=== PATIENT | male | born 1930 | race Caucasian/White ===

== ENCOUNTER → 2016-12-05 | Outpatient (CLI) | payer MEDICARE ==
[~2016-12-05] MED LIST: APIX2.5T PO; ASPI81CH CHEW; ASPI81TA82 PO; BISO5TAB5 PO; COZA25TA PO; DIAZ5 PO; FINA5TAB77 PO; FURO1TAB60 PO; PROS5TAB PO; SIMV20TA PO; TERA1 PO; TERA2CAP3 PO; VITA100T2 PO; ZOCO20TA PO
[2016-12-05 13:11] LABS: ALKALINE PHOSPHATASE 87 U/L (45-117); ALT (GPT) 26 U/L (12-78); ANION GAP 11 MEQ/L (5-15); AST (GOT) 22 U/L (15-37); BICARBONATE 27.3 MEQ/L (21.0-32.0); BLOOD UREA NITROGEN 23 MG/DL (7-18); CHLORIDE 107 MEQ/L (98-107); GLOMERULAR FILTRATION RATE 57 ML/MIN (>89); GLUCOSE,FASTING 127 MG/DL (74-99); HDL CHOLESTEROL 46.2 MG/DL (40.0-60.0); LDL CHOLESTEROL 49 MG/DL (0-99); LDL CHOLESTEROL DIRECT 63 MG/DL (0-99); SODIUM (NA) 145 MEQ/L (136-145); TOTAL BILIRUBIN ADULT 1.1 MG/DL (0.2-1.0)
[2016-12-05 13:32] LABS: HEMATOCRIT 40.1 % (39.0-51.0); MEAN CELL VOLUME 96.2 FL (80.0-100.0); MEAN CORPUSCULAR HGB CONC 32.2 % (32.0-36.0); PLATELET COUNT 182 TH/MM3 (150-450); RED BLOOD COUNT 4.17 MIL/MM3 (4.50-5.90); RED CELL DISTRIBUTION WIDTH 14.9 % (11.6-17.2); REVIEW FLAG FINAL; WHITE BLOOD COUNT 5.4 TH/MM3 (4.0-11.0)
== END ==
LOC: PLAB 09:58
PROVIDERS: ATTEND Family Medicine
DX: I25.10 Atherosclerotic heart disease of native coronary artery without angina pectoris (principal); E78.2 Mixed hyperlipidemia; I10 Essential (primary) hypertension; I48.91 Unspecified atrial fibrillation
CPT/HCPCS: 36415; 80053; 80061; 83721; 85027

== ENCOUNTER 2017-02-06 13:06 | Observation (INO) | payer MEDICARE ==
[~2017-02-06] VITALS: Ht 172.7 cm; Wt 72.0 kg
[~2017-02-06 13:06] MED LIST changes: -APIX2.5T PO; -ASPI81CH CHEW; -COZA25TA PO; -FURO1TAB60 PO; -PROS5TAB PO; -TERA2CAP3 PO; -VITA100T2 PO; -ZOCO20TA PO
[2017-02-06 13:13] VITALS: BP 131/96; PULSE 106; RESP 22; TEMP 98.4; O2SAT 96
[2017-02-06] MEDS ORDERED: PROS5TAB PO (13:19)
[2017-02-06] MEDS ORDERED: ASPI81CH CHEW (13:19)
[2017-02-06] MEDS ORDERED: BISO5TAB5 PO (13:19)
[2017-02-06] MEDS ORDERED: ZOCO20TA PO (13:19)
[2017-02-06] MEDS ORDERED: APIX2.5T PO (13:19)
[2017-02-06] MEDS ORDERED: TERA2CAP3 PO (13:19)
[2017-02-06 13:25] VITALS: BP 133/86; PULSE 94; RESP 18; TEMP 97.8; O2SAT 94
[2017-02-06] MEDS ORDERED: FUROSEMIDE 40 MG/4 ML VIAL IVP ONE (13:45)
[2017-02-06] MEDS ORDERED: SODIUM CHLORIDE 0.9% FLUSH 10 ML FLUSH IVF PRN (13:45)
--- NOTE | 2017-02-06 13:47 | PD ---
HPI Chief Complaint: Edema Time Seen by Provider: 13:25 Travel History International Travel<30 days: No Contact w/Intl Traveler<30days: No Traveled to known affect area: No History of Present Illness HPI An 86 old man who presents to the emergency department when of lower extremity edema weakness and inability to ambulate. He is otherwise pretty healthy. He has a history of A. fib on Xarelto, hyperlipidemia, BPH. He lives by himself. He states over the past several months she's had progressive worsening lower extremity edema. Along with this she's had progressive difficulty ambulating. Starting in September he started using a cane. Over the past several days he edema is Significantly Worse. Laser and Heavier. Today He Couldn't Walk. He Called the Ambulance to Come Get Him. He Has No History of Heart Failure. He Is Not Really Had Trouble with Edema in the past. He Has Some Occasional Shortness of Breath and Dyspnea on Exertion. No Chest Pain. No Abdominal Pain. He Is No Real Urinary Changes but He Often Has Difficulty with His Urination. No Dark Urine or Decreased Urine Production. History Past Medical History Narrative Medical A. fib, on Xarelto Hyperlipidemia BPH Social History Alcohol Use: Yes (X 2 SCOTCH AT NIGHT..BEER FOR LUNCH) Tobacco Use: No Allergies-Medications (Allergen,Severity, Reaction): Coded Allergies: Erythromycin (Verified Allergy, Severe, does not know told as child, ) Penicillin (Verified Allergy, Severe, does not know, 02/06/17) Vasotec (Verified Allergy, Severe, does not know, 02/06/17) Reported Meds & Prescriptions Reported Meds & Active Scripts Active Reported Zocor (Simvastatin) 20 Mg Tab 20 Mg PO DAILY Proscar (Finasteride) 5 Mg Tab 5 Mg PO DAILY Do not crush. Terazosin (Terazosin HCl) 2 Mg Cap 4 Mg PO HS Bisoprolol (Bisoprolol Fumarate) 5 Mg Tab 5 Mg PO DAILY Eliquis (Apixaban) 2.5 Mg Tab 2.5 Mg PO BID Aspirin 81 Mg Chew 81 Mg CHEW DAILY Review of Systems Except as stated in HPI: all other systems reviewed are Neg Physical Exam Narrative GENERAL: Well-appearing 86-year-old man, no acute distress. SKIN: Focused skin assessment warm/dry. NECK: Trachea midline. No JVD. CARDIOVASCULAR: Heart rates a little bit irregular. No murmur appreciated. RESPIRATORY: No accessory muscle use. Clear to auscultation. Breath sounds equal bilaterally. GASTROINTESTINAL: Abdomen soft, non-tender, nondistended. Hepatic and splenic margins not palpable. MUSCULOSKELETAL: No obvious deformities. Significant pitting edema bilateral lower extremities. The left x-rays little bit of warmth and minimal redness. Not really in the right. Pulses are difficult to palpate due to the edema but the feet seem warm and well perfused. NEUROLOGICAL: Awake and alert. No obvious cranial nerve deficits. Motor grossly within normal limits. Normal speech. PSYCHIATRIC: Appropriate mood and affect; insight and judgment normal. Data Data Last Documented VS Vital Signs Date Time Temp Pulse Resp B/P Pulse Ox O2 Delivery O2 Flow Rate FiO2 02/06/17 15:21 92 16 132/85 97 Room Air 02/06/17 13:25 97.8 Orders Complete Blood Count With Diff (02/06/17 13:33) Comprehensive Metabolic Panel (02/06/17 13:33) B-Type Natriuretic Peptide (02/06/17 13:33) Magnesium (Mg) (02/06/17 13:33) Urinalysis - C+S If Indicated (02/06/17 13:33) Iv Access Insert/Monitor (02/06/17 13:33) Ecg Monitoring (02/06/17 13:33) Oximetry (02/06/17 13:33) Oxygen Administration (02/06/17 13:33) Chest, Single Ap (02/06/17 13:33) Sodium Chloride 0.9% Flush (Ns Flush) (02/06/17 13:45) Furosemide Inj (Lasix Inj) (02/06/17 13:45) Electrocardiogram (02/06/17 13:10) Us Kidney/Renal/Bladder (02/06/17 ) Labs Laboratory Tests Test 02/06/17 02/06/17 13:50 14:50 White Blood Count 4.1 TH/MM3 Red Blood Count 3.74 MIL/MM3 Hemoglobin 11.3 GM/DL Hematocrit 34.8 % Mean Corpuscular Volume 93.0 FL Mean Corpuscular Hemoglobin 30.2 PG Mean Corpuscular Hemoglobin 32.5 % Concent Red Cell Distribution Width 16.6 % Platelet Count 197 TH/MM3 Mean Platelet Volume 7.6 FL Neutrophils (%) (Auto) 63.1 % Lymphocytes (%) (Auto) 25.4 % Monocytes (%) (Auto) 9.9 % Eosinophils (%) (Auto) 1.1 % Basophils (%) (Auto) 0.5 % Neutrophils # (Auto) 2.7 TH/MM3 Lymphocytes # (Auto) 1.0 TH/MM3 Monocytes # (Auto) 0.4 TH/MM3 Eosinophils # (Auto) 0.0 TH/MM3 Basophils # (Auto) 0.0 TH/MM3 CBC Comment DIFF FINAL Differential Comment Sodium Level 144 MEQ/L Potassium Level 4.6 MEQ/L Chloride Level 108 MEQ/L Carbon Dioxide Level 27.6 MEQ/L Anion Gap 8 MEQ/L Blood Urea Nitrogen 23 MG/DL Creatinine 1.10 MG/DL Estimat Glomerular Filtration 64 ML/MIN Rate Random Glucose 106 MG/DL Calcium Level 8.8 MG/DL Magnesium Level 2.4 MG/DL Total Bilirubin 1.4 MG/DL Aspartate Amino Transf 18 U/L (AST/SGOT) Alanine Aminotransferase 16 U/L (ALT/SGPT) Alkaline Phosphatase 85 U/L B-Type Natriuretic Peptide 1577 PG/ML Total Protein 6.4 GM/DL Albumin 3.1 GM/DL Urine Collection Type CLEAN CATCH Urine Color YELLOW Urine Turbidity CLEAR Urine pH 5.5 Urine Specific [place] 1.016 Urine Protein NEG mg/dL Urine Glucose (UA) NEG mg/dL Urine Ketones NEG mg/dL Urine Occult Blood NEG Urine Nitrite NEG Urine Bilirubin SMALL Urine Leukocyte Esterase TRACE Urine RBC 0-3 /hpf Urine WBC 0-2 /hpf Urine Squamous Epithelial 0-5 /hpf Cells Microscopic Urinalysis Comment CULT NOT INDICATED Urine Collection Time 14:50 MDM Medical Decision Making Medical Screen Exam Complete: Yes Emergency Medical Condition: Yes Interpretation(s) My review of EKG: A. fib, rate of 101, left axis deviation with right bundle branch block, inferior [place] versus left axis deviation. Lateral T wave inversions and ST depressions hypertrophy or ischemia. LABS: CBC remarkable for mild anemia. CMP elevated BUN and creatinine creatinine, total bili 1.4 BNP 1577 UA unremarkable. Chest x-ray: Elevated right diaphragm versus pleural effusion on the right. Left lung is clear. Differential Diagnosis Edema, lymphedema, renal failure, liver failure, hypoproteinemia, other Narrative Course Medical decision making INITIAL: 86 old man with weakness, or showed edema. Concern for volume overload , renal insufficiency, liver disease. We'll check labs, urine, x-ray, EKG, reassess. Diagnosis Primary Impression: Edema Additional Impression: Weakness Admitting Information Admitting Physician Requests: Observation Joaquin Pérez MD February 06, 2017 13:47
[2017-02-06 13:50] VITALS: RESP 18; O2SAT 95
[2017-02-06 14:18] LABS: AUTOMATED NEUTROPHIL # 2.7 TH/MM3 (1.8-7.7); BASOPHIL % 0.5 % (0.0-2.0); EOSINOPHIL % 1.1 % (0.0-4.0); HEMATOCRIT 34.8 % (39.0-51.0); HEMO FLAGS DIFF FINAL; LYMPH % 25.4 % (9.0-44.0); MEAN CORPUSCULAR HEMOGLOBIN 30.2 PG (27.0-34.0); MEAN CORPUSCULAR HGB CONC 32.5 % (32.0-36.0); MONO % 9.9 % (0.0-8.0); NEUT % 63.1 % (16.0-70.0); PLATELET COUNT 197 TH/MM3 (150-450); RED BLOOD COUNT 3.74 MIL/MM3 (4.50-5.90); RED CELL DISTRIBUTION WIDTH 16.6 % (11.6-17.2); WHITE BLOOD COUNT 4.1 TH/MM3 (4.0-11.0)
[2017-02-06 14:20] LABS: CHLORIDE 108 MEQ/L (98-107); POTASSIUM 4.6 MEQ/L (3.5-5.1); SODIUM (NA) 144 MEQ/L (136-145)
[2017-02-06 14:23] LABS: ANION GAP 8 MEQ/L (5-15); BICARBONATE 27.6 MEQ/L (21.0-32.0); MAGNESIUM 2.4 MG/DL (1.5-2.5)
[2017-02-06 14:24] LABS: BLOOD UREA NITROGEN 23 MG/DL (7-18)
[2017-02-06 14:27] LABS: ALT (GPT) 16 U/L (12-78); AST (GOT) 18 U/L (15-37); GLOMERULAR FILTRATION RATE 64 ML/MIN (>89)
[2017-02-06 14:28] LABS: TOTAL BILIRUBIN ADULT 1.4 MG/DL (0.2-1.0)
[2017-02-06 14:29] LABS: ALKALINE PHOSPHATASE 85 U/L (45-117)
--- NOTE | 2017-02-06 14:35 | RADHPO ---
EXAM DATE/TIME: 02/06/2017 13:45 [facility] COMPARISON: No previous studies available for comparison. INDICATIONS : Shortness of breath. MEDICAL HISTORY : Hypertension. Myocardial infarction. A-fib. SURGICAL HISTORY : None. ENCOUNTER: Initial ACUITY: 1 month PAIN SCORE: 0/10 LOCATION: Bilateral chest FINDINGS: There is elevated right hemidiaphragm with what appears to be a moderate right-sided pleural effusion . The right upper lung is clear. The left lung is clear. The heart si slightly enlarged. CONCLUSION: Elevated right hemidiaphragm versus a pleural effusion on the right. Left lung is clear. Joaquin Alcantar MD on February 06, 2017 at 14:07 Board Certified Radiologist. This report was verified electronically.
[2017-02-06 14:54] LABS: BLOOD, URINE NEG (NEG); GLUCOSE,URINE NEG (NEG); KETONE, URINE NEG (NEG); NITRITE,URINE NEG (NEG); PH, URINE 5.5 (5.0-8.5)
[2017-02-06 15:01] LABS: COMMENT (UR) CULT NOT INDICATED; CULTURE IF INDICATED CULT NOT INDICATED; METHOD OF COLLECTION CLEAN CATCH; RBC, URINE 0-3 /hpf (0-3); SQUAMOUS EPITHELIAL CELL URINE 0-5 /hpf (0-5); URINE COLOR YELLOW (YELLW/STRAW); WBC, URINE 0-2 /hpf (0-5)
[2017-02-06 15:21] VITALS: BP 132/85; PULSE 92; RESP 16; O2SAT 97
[2017-02-06] MEDS ORDERED: NALOXONE HCL 0.4 MG/ML AMP IV PRN (15:45)
[2017-02-06] MEDS ORDERED: ONDANSETRON HCL 4 MG/2 ML VIAL IVP PRN (15:45)
[2017-02-06] MEDS ORDERED: SODIUM CHLORIDE 0.9% FLUSH 10 ML FLUSH IV FLUSH PRN (15:45)
--- NOTE | 2017-02-06 18:38 | HHI.HP ---
HPI Service [facility] Primary Care Physician Asif Gutierres MD Admission Diagnosis CHF Diagnoses: Travel History International Travel<30 Days: No Contact w/Intl Traveler <30 Da: No Traveled to Known Affected Are: No History of Present Illness 86 old man with PMH of Afib on xarelto, HLD, BPH, alcohol use with liver cirrhosis and mild ascites, who presents to the emergency department when of lower extremity edema weakness and inability to ambulate. He is otherwise pretty healthy. He has a history of A. fib on Xarelto, hyperlipidemia, BPH. He lives by himself. He states over the past several months she's had progressive worsening lower extremity edema. Along with this she's had progressive difficulty ambulating. Starting in September he started using a cane. Over the past several days he edema is significantly worse. Today he couldn't walk. He called the ambulance to come to get him. He has no history of Heart Failure that he knows of. Says he is not taking any diuretics. Says his left leg is swelling at times for the past 1 year. Says now both legs are swelling and he also has associated sob especially when he is walking . He is also using more pillows at night when he is sleeping. He is not really had trouble with edema in the past. He has some occasional shortness of breath and dyspnea on exertion. No chest pain. No abdominal pain. He doesn't have any urinary changes, but he had often difficulty with his urination for some time. No dark urine or decreased urine production. Review of Systems Except as stated in HPI: all other systems reviewed are Neg Past Family Social History Past Medical History A. fib, on Xarelto Hyperlipidemia BPH Past Surgical History He has a history of myocardial infarction and had a stent placement in 1980s Pantalone's hernia repair Reported Medications Reported Meds & Active Scripts Active Reported Zocor (Simvastatin) 20 Mg Tab 20 Mg PO DAILY Proscar (Finasteride) 5 Mg Tab 5 Mg PO DAILY Do not crush. Terazosin (Terazosin HCl) 2 Mg Cap 4 Mg PO HS Bisoprolol (Bisoprolol Fumarate) 5 Mg Tab 5 Mg PO DAILY Eliquis (Apixaban) 2.5 Mg Tab 2.5 Mg PO BID Aspirin 81 Mg Chew 81 Mg CHEW DAILY Allergies: Coded Allergies: Erythromycin (Verified Allergy, Severe, does not know told as child, ) Penicillin (Verified Allergy, Severe, does not know, 02/06/17) Vasotec (Verified Allergy, Severe, does not know, 02/06/17) Family History Father had ID at the age of 80 Father had ID at old age Social History Alcohol use: Scotch at night x2, beer with lunch. Denies tobacco use or illicit drug use. Physical Exam Vital Signs Vital Signs Date Time Temp Pulse Resp B/P Pulse Ox O2 Delivery O2 Flow Rate FiO2 02/06/17 15:21 92 16 132/85 97 Room Air 02/06/17 13:50 18 95 Room Air 02/06/17 13:25 97.8 94 18 133/86 94 Room Air 02/06/17 13:22 22 93 Room Air 02/06/17 13:13 98.4 106 22 131/96 96 Physical Exam GENERAL: This is a well-nourished, well-developed patient, in no apparent distress. SKIN: No rashes, ecchymoses or lesions. Cool and dry. HEAD: Atraumatic. Normocephalic. No temporal or scalp tenderness. EYES: Pupils equal round and reactive. Extraocular motions intact. No scleral icterus. No injection or drainage. ENT: Nose without bleeding, purulent drainage or septal hematoma. Throat without erythema, tonsillar hypertrophy or exudate. Uvula midline. Airway patent. NECK: Trachea midline. No JVD or lymphadenopathy. Supple, nontender, no meningeal signs. CARDIOVASCULAR: Regular rate and rhythm without murmurs, gallops, or rubs. RESPIRATORY: Clear to auscultation. Breath sounds equal bilaterally. No wheezes , rales, or rhonchi. GASTROINTESTINAL: Abdomen soft, non-tender, nondistended. No hepato-splenomegaly , or palpable masses. No guarding. MUSCULOSKELETAL: Extremities without clubbing, cyanosis. 3+ bilateral LE edema. No joint tenderness, effusion, or edema noted. No calf tenderness. Negative Homans sign bilaterally. NEUROLOGICAL: Awake and alert. Cranial nerves II through XII intact. Motor and sensory grossly within normal limits. Five out of 5 muscle strength in all muscle groups. Normal speech. Laboratory Laboratory Tests Test 02/06/17 02/06/17 13:50 14:50 White Blood Count 4.1 Red Blood Count 3.74 Hemoglobin 11.3 Hematocrit 34.8 Mean Corpuscular Volume 93.0 Mean Corpuscular Hemoglobin 30.2 Mean Corpuscular Hemoglobin 32.5 Concent Red Cell Distribution Width 16.6 Platelet Count 197 Mean Platelet Volume 7.6 Neutrophils (%) (Auto) 63.1 Lymphocytes (%) (Auto) 25.4 Monocytes (%) (Auto) 9.9 Eosinophils (%) (Auto) 1.1 Basophils (%) (Auto) 0.5 Neutrophils # (Auto) 2.7 Lymphocytes # (Auto) 1.0 Monocytes # (Auto) 0.4 Eosinophils # (Auto) 0.0 Basophils # (Auto) 0.0 CBC Comment DIFF FINAL Differential Comment Sodium Level 144 Potassium Level 4.6 Chloride Level 108 Carbon Dioxide Level 27.6 Anion Gap 8 Blood Urea Nitrogen 23 Creatinine 1.10 Estimat Glomerular Filtration 64 Rate Random Glucose 106 Calcium Level 8.8 Magnesium Level 2.4 Total Bilirubin 1.4 Aspartate Amino Transf 18 (AST/SGOT) Alanine Aminotransferase 16 (ALT/SGPT) Alkaline Phosphatase 85 B-Type Natriuretic Peptide 1577 Total Protein 6.4 Albumin 3.1 Urine Collection Type CLEAN CATCH Urine Color YELLOW Urine Turbidity CLEAR Urine pH 5.5 Urine Specific [place] 1.016 Urine Protein NEG Urine Glucose (UA) NEG Urine Ketones NEG Urine Occult Blood NEG Urine Nitrite NEG Urine Bilirubin SMALL Urine Leukocyte Esterase TRACE Urine RBC 0-3 Urine WBC 0-2 Urine Squamous Epithelial 0-5 Cells Microscopic Urinalysis Comment CULT NOT INDICATED Urine Collection Time 14:50 Result Diagram: 02/06/17 1350 02/06/17 1350 Imaging Last Impressions Chest X-Ray 02/06/17 1333 Signed Impressions: Service Date/Time: January 13:45 - CONCLUSION: Elevated right hemidiaphragm versus a pleural effusion on the right. Left lung is clear. Joaquin Alcantar MD Assessment and Plan Assessment and Plan Edema. Generalized Weakness. Likely 2/2 CHF Hypotension ERIK on CKD HLD BPH: continue proscar, terazosin. EtOH use. EKG: A. fib, rate of 101, left axis deviation with right bundle branch block, inferior [place] versus left axis deviation. Lateral T wave inversions and ST depressions hypertrophy or ischemia. CMP elevated BUN and creatinine creatinine, total bili 1.4 BNP 1577 on admission UA unremarkable. Chest x-ray: Elevated right diaphragm versus pleural effusion on the right. Left lung is clear. Received lasix in the ED. Patient has good UOP. Monitor I&Os. Continue lasix 40 mg IV BID. Monitor kidney function while on lasix Continue ASA, eliquis, bisoprolol Will check 2D ECHO Alcohol use, counselled. Start CIWA protocol. DVT ppx SCD/TEDs Discussed Condition With Patient, nurse Latonia Polanco MD February 06, 2017 18:37
[2017-02-06 20:00] VITALS: BP 124/99; PULSE 93; RESP 20; TEMP 96.5; O2SAT 94
[2017-02-06] MEDS: SODIUM CHLORIDE 0.9% FLUSH 10 ML FLUSH IV FLUSH SCH (21:51)
[2017-02-07] VITALS (8 sets, daily range): BP systolic 107–142; BP diastolic 78–88; PULSE 77–119; RESP 17–20; TEMP 96–96.4; O2SAT 90–93
[2017-02-07 07:24] LABS: AUTOMATED NEUTROPHIL # 2.8 TH/MM3 (1.8-7.7); BASOPHIL % 1.1 % (0.0-2.0); EOSINOPHIL # 0.1 TH/MM3 (0-0.4); EOSINOPHIL % 1.8 % (0.0-4.0); HEMATOCRIT 34.2 % (39.0-51.0); HEMO FLAGS DIFF FINAL; LYMPH % 21.1 % (9.0-44.0); LYMPHOCYTE # 0.9 TH/MM3 (1.0-4.8); MEAN CELL VOLUME 93.2 FL (80.0-100.0); MEAN CORPUSCULAR HGB CONC 32.1 % (32.0-36.0); MONO % 11.8 % (0.0-8.0); NEUT % 64.2 % (16.0-70.0); PLATELET COUNT 199 TH/MM3 (150-450); RED BLOOD COUNT 3.67 MIL/MM3 (4.50-5.90); RED CELL DISTRIBUTION WIDTH 16.4 % (11.6-17.2); WHITE BLOOD COUNT 4.3 TH/MM3 (4.0-11.0)
[2017-02-07 07:56] LABS: BICARBONATE 28.9 MEQ/L (21.0-32.0); POTASSIUM 3.7 MEQ/L (3.5-5.1)
--- NOTE | 2017-02-07 08:27 | RADHPO ---
EXAM DATE/TIME: 02/07/2017 07:55 [facility] COMPARISON: No previous studies available for comparison. INDICATIONS : Bilateral leg edema. MEDICAL HISTORY : Hypercholesterolemia. Hypertension. Myocardial infarction. A-fib. Inguinal hernia. BPH. SURGICAL HISTORY : Inguinal hernia repair. TURP. ENCOUNTER: Initial ACUITY: 1 day PAIN SCORE: 2/10 LOCATION: Bilateral leg. TECHNIQUE: Venous ultrasound of the left and right leg was performed from the inguinal ligament to the proximal calf. Real-time, color Doppler and spectral tracing, compression and augmentation techniques were us ed. FINDINGS: RIGHT LEG: There is normal compressibility of the deep venous system from the inguinal region to the proximal ca lf. No echogenic clot is seen in the lumen of the common femoral, femoral, popliteal, and posterior tibial veins. There is a normal response of the venous system to proximal and distal augmentation an d respiration. LEFT LEG: There is normal compressibility of the deep venous system from the inguinal region to the proximal ca lf. No echogenic clot is seen in the lumen of the common femoral, femoral, popliteal, and posterior tibial veins. There is a normal response of the venous system to proximal and distal augmentation an d respiration. CONCLUSION: Negative for deep venous thrombosis. Sameer Bernardo MD FACR on February 07, 2017 at 8:25 Board Certified Radiologist. This report was verified electronically.
[2017-02-07] MEDS: ASPIRIN 81 MG CHEW TAB CHEW SCH (09:41)
[2017-02-07] MEDS: FINASTERIDE 5 MG TAB PO SCH (09:41)
[2017-02-07] MEDS: APIXABAN 2.5 MG TABLET PO SCH ×2 (09:41→20:55)
[2017-02-07] MEDS: SODIUM CHLORIDE 0.9% FLUSH 10 ML FLUSH IV FLUSH SCH ×2 (09:41→20:56)
[2017-02-07] MEDS: FUROSEMIDE 40 MG/4 ML VIAL IV PUSH SCH ×2 (09:41→17:46)
[2017-02-07] MEDS: PRAVASTATIN SOD 40 MG TAB PO SCH (09:41)
--- NOTE | 2017-02-07 09:44 | HHI.PR ---
Subjective Remarks Says swelling of his legs is improving. No n/v/d/c. Patient says he was able to ambulate today to the bath. He is less sob. Able to eat. Denies cough. No fever or chills. Objective Vitals Vital Signs Date Time Temp Pulse Resp B/P Pulse Ox O2 Delivery O2 Flow Rate FiO2 02/07/17 00:00 96.3 82 18 142/88 93 02/06/17 20:00 96.5 93 20 124/99 94 02/06/17 15:21 92 16 132/85 97 Room Air 02/06/17 13:50 18 95 Room Air 02/06/17 13:25 97.8 94 18 133/86 94 Room Air 02/06/17 13:22 22 93 Room Air 02/06/17 13:13 98.4 106 22 131/96 96 I/O 02/06/17 02/06/17 02/06/17 02/07/17 02/07/17 02/07/17 07:00 15:00 23:00 07:00 15:00 23:00 Intake Total 240 ml 240 ml Balance 240 ml 240 ml Intake Oral 240 ml 240 ml # Voids 1 3 # Bowel Movements 1 1 Result Diagram: 02/07/17 0639 02/07/17 0639 Imaging Last Impressions Lower Extremity Ultrasound 02/07/17 0000 Signed Impressions: Service Date/Time: Tuesday, February 07, 2017 07:55 - CONCLUSION: Negative for deep venous thrombosis. Sameer Bernardo MD FACR Chest X-Ray 02/06/17 1333 Signed Impressions: Service Date/Time: January 13:45 - CONCLUSION: Elevated right hemidiaphragm versus a pleural effusion on the right. Left lung is clear. Joaquin Alcantar MD Objective Remarks GENERAL: This is a well-nourished, well-developed patient, in no apparent distress. SKIN: No rashes, ecchymoses or lesions. Cool and dry. HEAD: Atraumatic. Normocephalic. No temporal or scalp tenderness. EYES: Pupils equal round and reactive. Extraocular motions intact. No scleral icterus. No injection or drainage. ENT: Nose without bleeding, purulent drainage or septal hematoma. Throat without erythema, tonsillar hypertrophy or exudate. Uvula midline. Airway patent. NECK: Trachea midline. No JVD or lymphadenopathy. Supple, nontender, no meningeal signs. CARDIOVASCULAR: Regular rate and rhythm without murmurs, gallops, or rubs. RESPIRATORY: Clear to auscultation. Breath sounds equal bilaterally. No wheezes , rales, or rhonchi. GASTROINTESTINAL: Abdomen soft, non-tender, nondistended. No hepato-splenomegaly , or palpable masses. No guarding. MUSCULOSKELETAL: Extremities without clubbing, cyanosis. 3+ bilateral LE edema. No joint tenderness, effusion, or edema noted. No calf tenderness. Negative Homans sign bilaterally. NEUROLOGICAL: Awake and alert. Cranial nerves II through XII intact. Motor and sensory grossly within normal limits. Five out of 5 muscle strength in all muscle groups. Normal speech. A/P Assessment and Plan Edema. Generalized Weakness. Likely 2/2 CHF Hypotension ERIK on CKD HLD BPH: continue proscar, terazosin. EtOH use. Monitor for withdrawal symptoms. EKG: A. fib, rate of 101, left axis deviation with right bundle branch block, inferior [place] versus left axis deviation. Lateral T wave inversions and ST depressions hypertrophy or ischemia. CMP elevated BUN and creatinine creatinine, total bili 1.4 BNP 1577 on admission. UA unremarkable. Chest x-ray: Elevated right diaphragm versus pleural effusion on the right. Left lung is clear. Received lasix in the ED. Patient has good UOP. Monitor I&Os. Continue lasix 40 mg IV BID. Monitor kidney function while on lasix. Fluid restriction Continue ASA, eliquis, bisoprolol 2D ECHO pending Alcohol use, counselled. Monitor for withdrawal symptoms. Start CIWA protocol. DVT ppx SCD/TEDs Discussed Condition With Patient, nurse DC plan: Pending improvement. Awaiting ECHO Latonia Polanco MD February 07, 2017 09:44
[2017-02-07] MEDS ORDERED: LORazepam 1 MG TAB PO PRN (09:45)
[2017-02-07] MEDS ORDERED: LORazepam 2 MG TAB PO PRN (09:45)
[2017-02-07] MEDS ORDERED: LORazepam 2 MG/ML VIAL IV PUSH PRN ×4 (09:45)
[2017-02-07] MEDS ORDERED: SODIUM CHLORIDE 0.9% FLUSH 10 ML FLUSH IV FLUSH PRN (09:45)
[2017-02-07] MEDS ORDERED: FLUMAZENIL 0.5 MG/5 ML VIAL IV PUSH PRN (09:45)
[2017-02-07] MEDS: BISOPROLOL FUMARATE 5 MG TAB PO SCH (11:08)
--- NOTE | 2017-02-07 15:09 | ECHLIM ---
Study Study Date:02/07/2017 STUDY CONCLUSIONS SUMMARY - Left ventricle: The cavity size was dilated. Wall thickness was normal. Systolic function was severely reduced. The estimated ejection fraction was in the range of 20% to 25%. Diffuse hypokinesis. - Aortic valve: Valve area: 2.11cm^2(VTI). Valve area: 2.33cm^2 (Vmax). - Mitral valve: Moderate regurgitation. - Left atrium: The atrium was dilated. - Tricuspid valve: Severe regurgitation. - Pulmonary arteries: PA peak pressure: 62mm Hg (S). - Pericardium, extracardiac: There was a left pleural effusion. If LV function is below 40, please consider prescribing an ACEI or ARB or document rationale for non-use. PROCEDURE DATA STUDY STATUS: Elective. Procedure: Transthoracic echocardiography. Image quality was good. Scanning was performed from the parasternal, apical, and subcostal acoustic windows. Study completion: The patient tolerated the procedure well. Transthoracic echocardiography. M-mode, complete 2D, complete spectral Doppler, and color Doppler. Height: Height: 71in. Weight: Weight: 179.6lb. Body mass index: BMI: 25.1kg/m^2. Body surface area: BSA: 2.02m^2. Patient status: Inpatient. CARDIAC ANATOMY LEFT VENTRICLE: The cavity size was dilated. Wall thickness was normal. Systolic function was severely reduced. The estimated ejection fraction was in the range of 20% to 25%. Diffuse hypokinesis. AORTIC VALVE: Trileaflet; normal thickness leaflets. Doppler: Transvalvular velocity was within the normal range. There was no stenosis. No regurgitation. Valve area: 2.11cm^2(VTI). Indexed valve area: 1.04cm^2/m^2 (VTI). Valve area: 2.33cm^2 (Vmax). Indexed valve area: 1.15cm^2/m^2 (Vmax). Mean gradient: 4mm Hg (S). AORTA: Aortic root: The aortic root was normal in size. MITRAL VALVE: Structurally normal valve. Doppler: Transvalvular velocity was within the normal range. There was no evidence for stenosis. Moderate regurgitation. Peak gradient: 3mm Hg (D). LEFT ATRIUM: The atrium was dilated. RIGHT VENTRICLE: The cavity size was normal. Wall thickness was normal. PULMONIC VALVE: Doppler: Transvalvular velocity was within the normal range. There was no evidence for stenosis. No regurgitation. TRICUSPID VALVE: Structurally normal valve. Doppler: Transvalvular velocity was within the normal range. Severe regurgitation. PULMONARY ARTERY: The main pulmonary artery was normal-sized. Systolic pressure was within the normal range. RIGHT ATRIUM: The atrium was normal in size. PERICARDIUM: There was no pericardial effusion. SYSTEMIC VEINS: Inferior vena cava: The vessel was normal in size. Pleura: There was a left pleural effusion. Patient weight: 179.6lb _Ejection fraction:_ 65-75% _Fractional shortening:_ 32% up to 5Kg 5-11.5Kg 11.6-22.9Kg 23-45Kg 45-57Kg Aortic Root 7-13 <17 13-22 17-27 17-27 LA diam 6-13 <23 24-38 33-47 37-40 RVID 10-17 7-15 7-15 7-18 8-17 LVIDd 12-22 <32 24-38 33-47 37-40 LVPW 2-4 3-6 5-7 6-8 7-8 IVS 2-4 3-6 5-7 6-8 7-8 BASIC MEASUREMENTS ADULT NORMAL Aortic valve Leaflet separation 19 mm 15-26 Aorta Root diameter, ED 38 mm Left atrium Anterior-posterior dimension 57 mm Anterior-posterior dimension index *2.82 cm/m^2 <2.2 BASIC MEASUREMENTS ADULT NORMAL Left ventricle LV internal dimension, ED *60.9 mm 37-56 LV internal dimension, ES 52.8 mm Fractional shortening *13 % 29-45 LV posterior wall, ED 9.9 mm 6-11 Septal/posterior wall ratio, ED 0.96 Relative wall thickness, ED 0.33 <0.45 Volume, ED, Teichholz 186 ml Volume, ES, Teichholz 134 ml Ejection fraction, Teichholz *28 % 64-83 Stroke volume, Teichholz 52 ml Volume index, ED, Teichholz 92 ml/m^2 Volume index, ES, Teichholz 66 ml/m^2 Stroke index, Teichholz 25.7 ml/m^2 Wall mass 244 g Wall mass index 120.8 g/m^2 Mass/height 1.35 g/cm Ventricular septum Septal thickness, ED 9.53 mm Aortic valve Leaflet separation 19 mm 15-26 DOPPLER MEASUREMENTS ADULT NORMAL Main pulmonary artery Pressure, S *62 mm Hg =30 Aortic valve Peak velocity, S 128 cm/s Mean velocity, S 89.7 cm/s VTI, S 22 cm Mean gradient, S 4 mm Hg Valve area, VTI 2.11 cm^2 Valve area index, VTI 1.04 cm^2/m^2 Valve area, Vmax 2.33 cm^2 Valve area index, Vmax 1.15 cm^2/m^2 Regurgitant velocity, ED 392 cm/s Regurgitant deceleration 1970 cm/s^2 Regurgitant pressure half-time 627 ms Regurgitant gradient, ED 61 mm Hg Mitral valve Peak E-wave velocity 79.2 cm/s Deceleration time *67 ms 150-230 Peak gradient, D 3 mm Hg Tricuspid valve Regurgitant peak velocity 368 cm/s Peak RV-RA gradient, S 54 mm Hg Maximal regurgitant velocity 368 cm/s Systemic veins Estimated CVP 10 mm Hg Right ventricle RV pressure, S *64 mm Hg <30 Pulmonic valve Peak velocity, S 63.6 cm/s LEGEND: Mean values are shown as u=mean value. Asterisk (*) franco values outside specified normal range. Prepared and signed by Enrique Florez [id number]
--- NOTE | 2017-02-07 15:52 | RADHPO ---
EXAM DATE/TIME: 02/07/2017 07:45 [place] COMPARISON: No previous studies available for comparison. INDICATIONS : Abnormal labs. MEDICAL HISTORY : Myocardial infarction. Hypercholesterolemia. Hypertension. A-fib. Inguinal hernia. BPH. SURGICAL HISTORY : Inguinal hernia repair. TURP. ENCOUNTER: Initial ACUITY: 1 day PAIN SCORE: 2/10 LOCATION: Bilateral flank MEASUREMENTS: RIGHT KIDNEY: 9.2 x 4.1 x 5.6 cm LEFT KIDNEY: 9.9 x 4.8 x 4.5 cm FINDINGS: There is no mass or hydronephrosis. The bladder is unremarkable. CONCLUSION: Unremarkable renal ultrasound. Sameer Bernardo MD FACR on February 07, 2017 at 15:44 Board Certified Radiologist. This report was verified electronically.
--- NOTE | 2017-02-07 20:42 | PD.CONS ---
HPI Service Cardiology Consult Requested By Hosp Reason for Consult HF Primary Care Physician Asif Gutierres MD History of Present Illness 86 y/o M with PMHx significant for Afib on chronic OAC, HLD, BPH, alcohol use with liver cirrhosis, who presented to the emergency department with worsening of lower extremity edema, dyspnea and weakness for the last weeks. He is also using more pillows at night when he is sleeping. Denies chest pain, palpitations , noncompliance with medications, fever, chills, abdominal pain nausea, vomiting diarrhea. ECHO done today reveals severe LV systolic dysfunction of ? new onset thus cardiology has been consulted for further management and evaluation. He follows with Dr. Hou/Cardiology as outpatient. Review of Systems Consitutional: COMPLAINS OF: Fatigue, Weight gain, DENIES: Fever, Chills, Weight loss Eyes: DENIES: Amaurosis Fugax, Change in vision HEENT: DENIES: Lightheadedness, Change in hearing Respiratory: COMPLAINS OF: Shortness of breath, DENIES: See HPI, Cough, Snoring, Wheezing, Sputum production Cardiovascular: DENIES: See HPI, Chest pain, Palpitations, Syncope, Tachycardia Gastrointestinal: DENIES: Nausea, Vomiting, Change in bowel habits, Reflux, Bloody stools, Melena Genitourinary: DENIES: Urinary incontinence, Difficulty voiding Integumentary: DENIES: Rash Neurologic: DENIES: Tingling or numbness, Memory problems, Poor Balance, Stroke symptoms Musculoskeletal: DENIES: Joint pain, Muscle pain, Limited range of motion, Back pain Psychiatric: DENIES: Anxiety, Depression, Sleep disturbances Hematologic: DENIES: Bruising tendencies, Bleeding tendencies Endocrine: COMPLAINS OF: Weight gain Past Family Social History Allergies: Coded Allergies: Erythromycin (Verified Allergy, Severe, does not know told as child, ) Penicillin (Verified Allergy, Severe, does not know, 02/06/17) Vasotec (Verified Allergy, Severe, does not know, 02/06/17) Past Medical History A. fib Hyperlipidemia BPH CAD s/p NV in the 80's Past Surgical History hernia repair Reported Medications Reported Meds & Active Scripts Active Reported Zocor (Simvastatin) 20 Mg Tab 20 Mg PO DAILY Proscar (Finasteride) 5 Mg Tab 5 Mg PO DAILY Do not crush. Terazosin (Terazosin HCl) 2 Mg Cap 4 Mg PO HS Bisoprolol (Bisoprolol Fumarate) 5 Mg Tab 5 Mg PO DAILY Eliquis (Apixaban) 2.5 Mg Tab 2.5 Mg PO BID Aspirin 81 Mg Chew 81 Mg CHEW DAILY Active Ordered Medications Current Medications Medications (Trade) Dose Ordered Sig/Elizabeth Route Start Time Stop Time Status Last Admin (Zofran Inj) 4 mg Q6H PRN IVP 02/06/17 15:45 (Narcan Inj) 0.4 mg UNSCH PRN IV 02/06/17 15:45 (Lasix Inj) 40 mg BID@18 IV PUSH 02/07/17 09:00 02/07/17 17:46 (Eliquis) 2.5 mg BID PO 02/07/17 09:00 02/07/17 09:41 (Aspirin Chew) 81 mg DAILY CHEW 02/07/17 09:00 02/07/17 09:41 (Proscar) 5 mg DAILY PO 02/07/17 09:00 02/07/17 09:41 (Hytrin) 4 mg HS PO 02/07/17 21:00 (Zebeta) 5 mg DAILY PO 02/07/17 09:00 02/07/17 11:08 (Pravachol) 40 mg DAILY PO 02/07/17 09:00 02/07/17 09:41 (NS Flush) 2 ml UNSCH PRN IV FLUSH 02/07/17 09:45 (NS Flush) 2 ml BID IV FLUSH 02/07/17 21:00 (Folate) 1 mg DAILY PO 02/08/17 10:00 02/13/17 08:59 (Vitamin B1) 100 mg DAILY PO 02/08/17 09:00 (Theragran M Tab) 1 tab DAILY PO 02/08/17 09:00 02/13/17 08:59 (Romazicon Inj) 0.2 mg Q1M PRN IV PUSH 02/07/17 09:45 (Ativan) 1 mg Q4H PRN PO 02/07/17 09:45 (Ativan Inj) 1 mg Q4H PRN IV PUSH 02/07/17 09:45 (Ativan) 2 mg Q2H PRN PO 02/07/17 09:45 (Ativan Inj) 2 mg Q2H PRN IV PUSH 02/07/17 09:45 (Ativan Inj) 2 mg Q1H PRN IV PUSH 02/07/17 09:45 (Ativan Inj) 2 mg Q15M PRN IV PUSH 02/07/17 09:45 Family History Noncontributory Social History No alcohol No smoking No illicit drug use Physical Exam Vital Signs Vital Signs Date Time Temp Pulse Resp B/P Pulse Ox O2 Delivery O2 Flow Rate FiO2 02/07/17 17:00 119 02/07/17 16:26 96.3 85 17 127/80 90 02/07/17 13:31 96.4 85 18 128/81 91 02/07/17 09:54 96.2 82 17 126/81 90 02/07/17 00:00 96.3 82 18 142/88 93 Physical Exam GENERAL: Well-nourished, well-developed patient. SKIN: Warm and dry. HEAD: Normocephalic. EYES: No scleral icterus. No injection or drainage. NECK: Supple, trachea midline. No JVD or lymphadenopathy. CARDIOVASCULAR: Regular rate and rhythm without murmurs, gallops, or rubs. RESPIRATORY: Breath sounds equal bilaterally. No accessory muscle use. GASTROINTESTINAL: Abdomen soft, non-tender, nondistended. EXTREMITIES: No cyanosis, or edema. NEUROLOGICAL: Awake, alert, and oriented x 3. Non-focal. Laboratory Laboratory Tests Test 02/07/17 06:39 White Blood Count 4.3 Red Blood Count 3.67 Hemoglobin 11.0 Hematocrit 34.2 Mean Corpuscular Volume 93.2 Mean Corpuscular Hemoglobin 30.0 Mean Corpuscular Hemoglobin 32.1 Concent Red Cell Distribution Width 16.4 Platelet Count 199 Mean Platelet Volume 7.6 Neutrophils (%) (Auto) 64.2 Lymphocytes (%) (Auto) 21.1 Monocytes (%) (Auto) 11.8 Eosinophils (%) (Auto) 1.8 Basophils (%) (Auto) 1.1 Neutrophils # (Auto) 2.8 Lymphocytes # (Auto) 0.9 Monocytes # (Auto) 0.5 Eosinophils # (Auto) 0.1 Basophils # (Auto) 0.0 CBC Comment DIFF FINAL Differential Comment Sodium Level 145 Potassium Level 3.7 Chloride Level 108 Carbon Dioxide Level 28.9 Anion Gap 8 Blood Urea Nitrogen 21 Creatinine 1.10 Estimat Glomerular Filtration 64 Rate Random Glucose 93 Calcium Level 8.5 B-Type Natriuretic Peptide 1670 Result Diagram: 02/07/17 0639 02/07/17 0639 Imaging Last Impressions Renal Ultrasound 02/07/17 0000 Signed Impressions: Service Date/Time: Tuesday, February 07, 2017 07:45 - CONCLUSION: Unremarkable renal ultrasound. Sameer Bernardo MD FACR Lower Extremity Ultrasound 02/07/17 0000 Signed Impressions: Service Date/Time: Tuesday, February 07, 2017 07:55 - CONCLUSION: Negative for deep venous thrombosis. Sameer Bernardo MD FACR Chest X-Ray 02/06/17 1333 Signed Impressions: Service Date/Time: January 13:45 - CONCLUSION: Elevated right hemidiaphragm versus a pleural effusion on the right. Left lung is clear. Joaquin Alcantar MD Assessment and Plan Problem List: (1) Heart failure Assessment and Plan: 86 y/o M with hx of CAD s/p NV ~30 years ago admitted with acute combined heart failure exacerbation. Echo reveals severe LV systolic dysfunction ? new. EKG Afib. Afebrile and hemodynamically stable. Appears to be new onset combided HF thus ischemic workup warranted. If cardiac markers unremarkable get MPI when more stable from the HF standpoint. Recommendations: 1. Strict I&O 2. Low salt diet 3. IV diuresis 4. Daily weight 5. Aspirin 81mg PO daily 6. Coreg 3.125mg PO BID 7. Cont ACEi 8. Cycle cardiac markers Q6H x3 9. Cont rate control for Afib and OAC 10. Get cardiology records from Dr. Hou (ECHO, stress test, ect) Follow up with cardiology as outpatient Thank you for the opportunity to participate in the care of this patient (2) Edema Problem Qualifiers (1) Heart failure: Enrique Florez MD February 07, 2017 20:42 Enrique Florez MD February 07, 2017 20:42 Problem Qualifiers (1) Heart failure: Enrique Florez MD February 07, 2017 20:42
[2017-02-07] MEDS ORDERED: TERAZOSIN HCL 1 MG CAP PO SCH (21:00)
--- NOTE | 2017-02-07 21:56 | EKG ---
Date Performed: 02/06/2017 Time Performed: 13:10:40 PTAGE: 86 years EKG: Atrial fibrillation with rapid ventricular response Left axis deviation RBBB with left ante rior fascicular block QRS changes V3/V4 may be due to LVH but cannot rule out anterior infarct Left v entricular hypertrophy Lateral ST-T changes may be due to hypertrophy and/or ischemia Abnormal ECG PREVIOUS TRACING : 02/27/2005 16.47 Compared to the previous tracing AFIB with RVR is new DOCTOR: Garcia Ron Interpretating Date/Time 02/07/2017 21:55:39
[2017-02-08 00:24] VITALS: BP 110/70; PULSE 98; RESP 18; TEMP 96.8; O2SAT 94
[2017-02-08 04:00] VITALS: BP 130/84; PULSE 105; RESP 16; TEMP 97; O2SAT 94
[2017-02-08 07:58] VITALS: PULSE 92
[2017-02-08 08:00] VITALS: BP 131/89; PULSE 93; RESP 18; TEMP 95.3; O2SAT 96
--- NOTE | 2017-02-08 08:24 | HHI.PR ---
Subjective Remarks Ambulating in the room. Says sob is better and also LE edema has improved. No n/ v/d/c. Denies chest pain or sob. Objective Vitals Vital Signs Date Time Temp Pulse Resp B/P Pulse Ox O2 Delivery O2 Flow Rate FiO2 02/08/17 07:58 92 02/08/17 04:00 97.0 105 16 130/84 94 02/08/17 00:24 96.8 98 18 110/70 94 02/07/17 23:00 85 02/07/17 21:15 96.0 106 20 107/78 93 02/07/17 20:00 77 02/07/17 17:00 119 02/07/17 16:26 96.3 85 17 127/80 90 02/07/17 13:31 96.4 85 18 128/81 91 02/07/17 09:54 96.2 82 17 126/81 90 I/O 02/07/17 02/07/17 02/07/17 02/08/17 02/08/17 02/08/17 07:00 15:00 23:00 07:00 15:00 23:00 Intake Total 240 ml 820 ml Output Total 700 ml Balance 240 ml 820 ml -700 ml Intake Oral 240 ml 820 ml Output Urine Total 700 ml # Voids 3 4 # Bowel Movements 1 1 4 Result Diagram: 02/07/17 0639 02/07/17 0639 Imaging Last Impressions Renal Ultrasound 02/07/17 0000 Signed Impressions: Service Date/Time: Tuesday, February 07, 2017 07:45 - CONCLUSION: Unremarkable renal ultrasound. Sameer Bernardo MD FACR Lower Extremity Ultrasound 02/07/17 0000 Signed Impressions: Service Date/Time: Tuesday, February 07, 2017 07:55 - CONCLUSION: Negative for deep venous thrombosis. Sameer Bernardo MD FACR Chest X-Ray 02/06/17 1333 Signed Impressions: Service Date/Time: January 13:45 - CONCLUSION: Elevated right hemidiaphragm versus a pleural effusion on the right. Left lung is clear. Joaquin Alcantar MD Objective Remarks GENERAL: This is a well-nourished, well-developed patient, in no apparent distress. SKIN: No rashes, ecchymoses or lesions. Cool and dry. HEAD: Atraumatic. Normocephalic. No temporal or scalp tenderness. EYES: Pupils equal round and reactive. Extraocular motions intact. No scleral icterus. No injection or drainage. ENT: Nose without bleeding, purulent drainage or septal hematoma. Throat without erythema, tonsillar hypertrophy or exudate. Uvula midline. Airway patent. NECK: Trachea midline. No JVD or lymphadenopathy. Supple, nontender, no meningeal signs. CARDIOVASCULAR: Regular rate and rhythm without murmurs, gallops, or rubs. RESPIRATORY: Clear to auscultation. Breath sounds equal bilaterally. No wheezes , rales, or rhonchi. GASTROINTESTINAL: Abdomen soft, non-tender, nondistended. No hepato-splenomegaly , or palpable masses. No guarding. MUSCULOSKELETAL: Extremities without clubbing, cyanosis. 3+ bilateral LE edema. No joint tenderness, effusion, or edema noted. No calf tenderness. Negative Homans sign bilaterally. NEUROLOGICAL: Awake and alert. Cranial nerves II through XII intact. Motor and sensory grossly within normal limits. Five out of 5 muscle strength in all muscle groups. Normal speech. A/P Assessment and Plan Edema. Generalized Weakness. Likely 2/2 systolic CHF with severely reduced EF 20 -25% Hypotension ERIK on CKD HLD BPH: continue proscar, terazosin. EtOH use. Monitor for withdrawal symptoms. EKG: A. fib, rate of 101, left axis deviation with right bundle branch block, inferior CO versus left axis deviation. Lateral T wave inversions and ST depressions hypertrophy or ischemia. CMP elevated BUN and creatinine creatinine, total bili 1.4 BNP 1577 on admission. Trending down. UA unremarkable. Chest x-ray: Elevated right diaphragm versus pleural effusion on the right. Left lung is clear. Received lasix in the ED. Patient has good UOP. Monitor I&Os. Continue lasix 40 mg IV BID. Monitor kidney function while on lasix. Fluid restriction Continue ASA, eliquis, bisoprolol 2D ECHO with low EF 20-25%. Cardiology consulted, seen by Dr Buckley. Patient follows as oP with Dr Hou. Obtain records ECHO and stress test from Dr Hou his cardiology. If negative cardiac markers schedule MPI before discharge per Dr Buckley cardiology Trops neg x2 Alcohol use, counselled. Monitor for withdrawal symptoms. Start CIWA protocol. DVT ppx SCD/TEDs Discussed Condition With Patient, nurse DC plan: Pending improvement. ECHO with low EF 20-25%. Patient allergic to ACEI, will start losartan. Trops are negative. Discussed with Dr Zavala cardiology. Patient is stable . He can be Discharge home to follow up as OP with cardiology Latonia Polanco MD February 08, 2017 08:24
[2017-02-08] MEDS ORDERED: FURO1TAB60 PO (08:29)
[2017-02-08] MEDS ORDERED: COZA25TA PO (08:29)
[2017-02-08] MEDS ORDERED: VITA100T2 PO (08:29)
--- NOTE | 2017-02-08 08:30 | HHI.DS ---
Discharge Summary Admission Date February 06, 2017 at 15:40 Discharge Date: February 08, 2017 Admitting Diagnosis CHF (1) BPH (benign prostatic hyperplasia) ICD Code: N40.0 Diagnosis: Principal (2) CHF exacerbation ICD Code: I50.9 Diagnosis: Principal (3) Weakness ICD Code: R53.1 (4) Edema ICD Code: R60.9 Diagnosis: Principal (5) Heart failure ICD Code: I50.9 Diagnosis: Principal Procedures none Brief History - From Admission 86 old man with PMH of Afib on xarelto, HLD, BPH, alcohol use with liver cirrhosis and mild ascites, who presents to the emergency department when of lower extremity edema weakness and inability to ambulate. He is otherwise pretty healthy. He has a history of A. fib on Xarelto, hyperlipidemia, BPH. He lives by himself. He states over the past several months she's had progressive worsening lower extremity edema. Along with this she's had progressive difficulty ambulating. Starting in September he started using a cane. Over the past several days he edema is significantly worse. Today he couldn't walk. He called the ambulance to come to get him. He has no history of Heart Failure that he knows of. Says he is not taking any diuretics. Says his left leg is swelling at times for the past 1 year. Says now both legs are swelling and he also has associated sob especially when he is walking . He is also using more pillows at night when he is sleeping. He is not really had trouble with edema in the past. He has some occasional shortness of breath and dyspnea on exertion. No chest pain. No abdominal pain. He doesn't have any urinary changes, but he had often difficulty with his urination for some time. No dark urine or decreased urine production. CBC/BMP: 02/07/17 0639 02/07/17 0639 Significant Findings Laboratory Tests Test 02/06/17 02/06/17 02/07/17 13:50 14:50 06:39 Red Blood Count 3.74 MIL/MM3 3.67 MIL/MM3 (4.50-5.90) (4.50-5.90) Hemoglobin 11.3 GM/DL 11.0 GM/DL (13.0-17.0) (13.0-17.0) Hematocrit 34.8 % 34.2 % (39.0-51.0) (39.0-51.0) Monocytes (%) (Auto) 9.9 % (0.0-8.0) 11.8 % (0.0-8.0) Chloride Level 108 MEQ/L 108 MEQ/L (98-107) (98-107) Blood Urea Nitrogen 23 MG/DL (7-18) 21 MG/DL (7-18) Estimat Glomerular Filtration 64 ML/MIN (>89) 64 ML/MIN (>89) Rate Total Bilirubin 1.4 MG/DL (0.2-1.0) B-Type Natriuretic Peptide 1577 PG/ML 1670 PG/ML (0-100) (0-100) Albumin 3.1 GM/DL (3.4-5.0) Urine Bilirubin SMALL (NEG) Urine Leukocyte Esterase TRACE (NEG) Lymphocytes # (Auto) 0.9 TH/MM3 (1.0-4.8) Imaging Last Impressions Renal Ultrasound 02/07/17 0000 Signed Impressions: Service Date/Time: Tuesday, February 07, 2017 07:45 - CONCLUSION: Unremarkable renal ultrasound. Sameer Bernardo MD FACR Lower Extremity Ultrasound 02/07/17 0000 Signed Impressions: Service Date/Time: Tuesday, February 07, 2017 07:55 - CONCLUSION: Negative for deep venous thrombosis. Sameer Bernardo MD FACR Chest X-Ray 02/06/17 1333 Signed Impressions: Service Date/Time: January 13:45 - CONCLUSION: Elevated right hemidiaphragm versus a pleural effusion on the right. Left lung is clear. Joaquin Alcantar MD PE at Discharge GENERAL: This is a well-nourished, well-developed patient, in no apparent distress. SKIN: No rashes, ecchymoses or lesions. Cool and dry. HEAD: Atraumatic. Normocephalic. No temporal or scalp tenderness. EYES: Pupils equal round and reactive. Extraocular motions intact. No scleral icterus. No injection or drainage. ENT: Nose without bleeding, purulent drainage or septal hematoma. Throat without erythema, tonsillar hypertrophy or exudate. Uvula midline. Airway patent. NECK: Trachea midline. No JVD or lymphadenopathy. Supple, nontender, no meningeal signs. CARDIOVASCULAR: Regular rate and rhythm without murmurs, gallops, or rubs. RESPIRATORY: Clear to auscultation. Breath sounds equal bilaterally. No wheezes , rales, or rhonchi. GASTROINTESTINAL: Abdomen soft, non-tender, nondistended. No hepato-splenomegaly , or palpable masses. No guarding. MUSCULOSKELETAL: Extremities without clubbing, cyanosis. 2+ bilateral LE edema, improving No joint tenderness, effusion, or edema noted. No calf tenderness. Negative Homans sign bilaterally. NEUROLOGICAL: Awake and alert. Cranial nerves II through XII intact. Motor and sensory grossly within normal limits. Five out of 5 muscle strength in all muscle groups. Normal speech. Hospital Course Edema. Generalized Weakness. Likely 2/2 systolic CHF with severely reduced EF 20 -25% Hypotension ERIK on CKD HLD BPH: continue proscar, terazosin. EtOH use. Monitor for withdrawal symptoms. EKG: A. fib, rate of 101, left axis deviation with right bundle branch block, inferior RI versus left axis deviation. Lateral T wave inversions and ST depressions hypertrophy or ischemia. CMP elevated BUN and creatinine creatinine, total bili 1.4 BNP 1577 on admission. Trending down. UA unremarkable. Chest x-ray: Elevated right diaphragm versus pleural effusion on the right. Left lung is clear. Received lasix in the ED. Patient has good UOP. Monitor I&Os. Continue lasix 40 mg IV BID. Monitor kidney function while on lasix. Fluid restriction Continue ASA, eliquis, bisoprolol 2D ECHO with low EF 20-25%. Cardiology consulted, seen by Dr Buckley. Patient follows as oP with Dr Hou. Obtain records ECHO and stress test from Dr Hou his cardiology. If negative cardiac markers schedule MPI before discharge per Dr Buckley cardiology Trops neg x2 Alcohol use, counselled. Monitor for withdrawal symptoms. Start CIWA protocol. DVT ppx SCD/TEDs Discussed Condition With Patient, nurse DC plan: Improved, cleared by cardiology for DC. ECHO with low EF 20-25%. Patient allergic to ACEI, will start losartan. Trops are negative. Discussed with Dr Zavala cardiology, cleared for DC to follow up with his cardiology Dr Butler as OP. Patient is stable . He can be Discharge home to follow up as OP with cardiology and PCP Pt Condition on Discharge: Stable Discharge Disposition: Disch w/ Home Health Serv Discharge Time: > 30 minutes Discharge Instructions DIET: Follow Instructions for: Heart Healthy Diet Activities you can perform: Regular-No Restrictions Follow up Referrals: Cardiology - 1 Week PCP Follow-up - 3-5 Days New Medications: Furosemide (Lasix) 40 Mg Tab 40 MG PO DAILY edema #30 Ref 0 TAB Losartan (Cozaar) 25 Mg Tab 25 MG PO DAILY chf #30 TAB Thiamine (Vitamin B-1) 100 Mg Tab 100 MG PO DAILY mvt #30 TAB Continued Medications: Apixaban (Eliquis) 2.5 Mg Tab 2.5 MG PO BID Blood Clot Prevention Ref 0 TAB Aspirin (Aspirin) 81 Mg Chew 81 MG CHEW DAILY Ref 0 TAB Bisoprolol (Bisoprolol) 5 Mg Tab 5 MG PO DAILY Blood Pressure Management #30 Ref 0 TAB Finasteride (Proscar) 5 Mg Tab 5 MG PO DAILY Do not crush. Manage Prostate Problems #30 Ref 0 TAB Simvastatin (Zocor) 20 Mg Tab 20 MG PO DAILY Cholesterol Management #30 Ref 0 TAB Terazosin (Terazosin) 2 Mg Cap 4 MG PO HS #30 Ref 0 CAP Latonia Polanco MD February 08, 2017 08:30
--- NOTE | 2017-02-08 08:32 | HHI.FF ---
Face to Face Verification Diagnosis: (1) Heart failure (2) Edema (3) Weakness (4) BPH (benign prostatic hyperplasia) (5) CHF exacerbation Physical Therapy Order: Evaluate and Treat Home Health Nursing Order: Medical education Signs/symptoms of disease process CHF education Medication education-adverse effect Nursing assessment with vital signs I have seen patient Dick Valderrama on 02/08/17. My clinical findings support the need for the requested home health care services because: Ltd mobility - disease progression Patient has SOB I certify that my clinical findings support that this patient is homebound because: Post-op weakness Unsteady gait/balance Latonia Polanco MD February 08, 2017 08:32
[2017-02-08] MEDS ORDERED: MULTIVITAMINS/MINERALS THERAPEUTIC TAB PO SCH (09:00)
[2017-02-08] MEDS ORDERED: LOSARTAN 25 MG TAB PO SCH (09:00)
[2017-02-08] MEDS ORDERED: THIAMINE HCL 100 MG TAB PO SCH (09:00)
[2017-02-08] MEDS ORDERED: RAMIPRIL 2.5 MG CAP PO SCH (09:00)
[2017-02-08] MEDS ORDERED: FOLIC ACID 1 MG TAB PO SCH (10:00)
[2017-02-08 10:08] LABS: BICARBONATE 30.5 MEQ/L (21.0-32.0)
[2017-02-08 10:15] LABS: POTASSIUM 3.2 MEQ/L (3.5-5.1)
[2017-02-08] MEDS: ASPIRIN 81 MG CHEW TAB CHEW SCH (10:19)
[2017-02-08] MEDS: SODIUM CHLORIDE 0.9% FLUSH 10 ML FLUSH IV FLUSH SCH (10:19)
[2017-02-08] MEDS: PRAVASTATIN SOD 40 MG TAB PO SCH (10:20)
[2017-02-08] MEDS: FUROSEMIDE 40 MG/4 ML VIAL IV PUSH SCH (10:20)
[2017-02-08] MEDS: APIXABAN 2.5 MG TABLET PO SCH (10:20)
[2017-02-08] MEDS: FINASTERIDE 5 MG TAB PO SCH (10:20)
[2017-02-08] MEDS: BISOPROLOL FUMARATE 5 MG TAB PO SCH (10:21)
== END 2017-02-08 17:01 | disposition home or self-care (01) ==
LOC: PHED 13:06 → PHEDA 15:40 → PH3A 16:43
PROVIDERS: ADMIT Hospitalist; ATTEND Hospitalist
DX: I50.20 Unspecified systolic (congestive) heart failure (principal); I95.9 Hypotension, unspecified; N17.9 Acute kidney failure, unspecified; N18.9 Chronic kidney disease, unspecified; E78.5 Hyperlipidemia, unspecified; K70.31 Alcoholic cirrhosis of liver with ascites; I25.10 Atherosclerotic heart disease of native coronary artery without angina pectoris; I25.2 Old myocardial infarction; N40.0 Benign prostatic hyperplasia without lower urinary tract symptoms; I48.91 Unspecified atrial fibrillation; Z79.01 Long term (current) use of anticoagulants; Z88.8 Allergy status to other drugs, medicaments and biological substances
CPT/HCPCS: 71010; 76775; 80048; 80053; 81001; 83735; 83880; 84484; 85025; 93005; 93308; 93970; 96374; 99285; G0378; J1940

== ENCOUNTER → 2017-02-12 | Outpatient (CLI) | payer MEDICARE ==
[~2017-02-12] MED LIST changes: +APIX2.5T PO; +ASPI81CH CHEW; -ASPI81TA82 PO; +COZA25TA PO; -DIAZ5 PO; -FINA5TAB77 PO; +FURO1TAB60 PO; +PROS5TAB PO; -SIMV20TA PO; -TERA1 PO; +TERA2CAP3 PO; +VITA100T2 PO; +ZOCO20TA PO
[2017-02-12 14:13] LABS: POTASSIUM 3.5 MEQ/L (3.5-5.1)
[2017-02-12 14:16] LABS: BICARBONATE 32.4 MEQ/L (21.0-32.0)
== END ==
LOC: PLAB 12:49
PROVIDERS: ATTEND Internal Medicine Cardiovascular Disease
DX: R06.02 Shortness of breath (principal); I25.10 Atherosclerotic heart disease of native coronary artery without angina pectoris
CPT/HCPCS: 36415; 80048; 83880

== ENCOUNTER → 2017-02-25 | Outpatient (CLI) | payer MEDICARE ==
[2017-02-25 13:06] LABS: HEMATOCRIT 37.2 % (39.0-51.0); MEAN CELL VOLUME 94.2 FL (80.0-100.0); MEAN CORPUSCULAR HEMOGLOBIN 30.8 PG (27.0-34.0); MEAN CORPUSCULAR HGB CONC 32.7 % (32.0-36.0); PLATELET COUNT 168 TH/MM3 (150-450); RED BLOOD COUNT 3.95 MIL/MM3 (4.50-5.90); RED CELL DISTRIBUTION WIDTH 17.4 % (11.6-17.2); REVIEW FLAG FINAL; WHITE BLOOD COUNT 4.4 TH/MM3 (4.0-11.0)
[2017-02-25 13:43] LABS: ANION GAP 4 MEQ/L (5-15); AST (GOT) 21 U/L (15-37); BICARBONATE 32.6 MEQ/L (21.0-32.0); BLOOD UREA NITROGEN 22 MG/DL (7-18); CHLORIDE 105 MEQ/L (98-107); GLOMERULAR FILTRATION RATE 62 ML/MIN (>89); GLUCOSE,FASTING 116 MG/DL (74-99); SODIUM (NA) 142 MEQ/L (136-145)
[2017-02-25 13:49] LABS: ALKALINE PHOSPHATASE 86 U/L (45-117); ALT (GPT) 22 U/L (12-78); LDL CHOLESTEROL 59 MG/DL (0-99); LDL CHOLESTEROL DIRECT 58 MG/DL (0-99); TOTAL BILIRUBIN ADULT 0.9 MG/DL (0.2-1.0)
[2017-02-25 17:07] LABS: HEMOGLOBIN A1a 1.1 %; HEMOGLOBIN A1b 1.7 %; HEMOGLOBIN Ao 84.5 %; HEMOGLOBIN LA1C 2.1 %; HEMOGLOBIN P3 5.6 %
== END ==
LOC: PLAB 08:55
PROVIDERS: ATTEND Family Medicine
DX: I25.10 Atherosclerotic heart disease of native coronary artery without angina pectoris (principal); I12.9 Hypertensive chronic kidney disease with stage 1 through stage 4 chronic kidney disease, or unspecified chronic kidney disease; N18.3 Chronic kidney disease, stage 3 (moderate); E78.2 Mixed hyperlipidemia; R73.01 Impaired fasting glucose
CPT/HCPCS: 36415; 80053; 80061; 83036; 83721; 85027

== ENCOUNTER 2017-04-03 14:19 | Observation (INO) | payer MEDICARE ==
[~2017-04-03] VITALS: Ht 175.3 cm; Wt 65.2 kg
[2017-04-03] VITALS (8 sets, daily range): BP systolic 134–170; BP diastolic 74–91; PULSE 90–114; RESP 16–18; TEMP 97.4–98.6; O2SAT 93–98
[~2017-04-03 14:19] MED LIST changes: -ASPI81CH CHEW; +ASPI81CH PO
--- NOTE | 2017-04-03 14:39 | PD ---
Physical Exam Time Seen by Provider: 14:38 Narrative 87 y/o male presents after being sent for evaluation of a large pleural effusion. Vital signs reviewed. Seen at triage desk. Awaiting bed placement. Data Data Last Documented VS Vital Signs Date Time Temp Pulse Resp B/P Pulse Ox O2 Delivery O2 Flow Rate FiO2 04/03/17 14:21 98.6 101 16 170/85 95 Room Air MDM Medical Record Reviewed: Yes Supervised Visit with LUCILA: Logan Cartagena Apr 03, 2017 14:39
--- NOTE | 2017-04-03 15:13 | PD ---
HPI Chief Complaint: Abnormal Results Time Seen by Provider: 14:52 Travel History International Travel<30 days: No Contact w/Intl Traveler<30days: No Traveled to known affect area: No History of Present Illness HPI This patient was sent here by his primary physician. He's had some mild dyspnea gradually worsening over the last week. He had an outpatient CT of the chest at [facility] today which revealed a large right sided pleural effusion. He also had a small left-sided effusion. No productive cough or fever or chest pain. He has some chronic leg edema and wears compression stockings but does not take diuretics. He has history of PA per his report. Severity is moderate. No alleviating factors. PFSH Past Medical History Hx Anticoagulant Therapy: Yes (ELIQUIS) Atrial Fibrillation: Yes Heart Rhythm Problems: Yes (Afib) Cancer: No Cardiovascular Problems: Yes (PA, CARDIOVASCULAR STENTS ) High Cholesterol: Yes (On zocor) Chest Pain: Yes (Afib) Diminished Hearing: No Endocrine: No Gastrointestinal Disorders: Yes (Hernia repair) Genitourinary: No Hypertension: Yes Immune Disorder: No Inguinal Hernia: Yes (DOUBLE HERNIA SX) Musculoskeletal: No Neurologic: No Psychiatric: No Reproductive: No Myocardial Infarction: Yes Tetanus Vaccination: < 5 Years Influenza Vaccination: Yes Past Surgical History Abdominal Surgery: No Cardiac Surgery: No Ear Surgery: No Endocrine Surgery: No Eye Surgery: No Genitourinary Surgery: No Gynecologic Surgery: No Oral Surgery: No Thoracic Surgery: No Other Surgery: Yes (Herenia repair) Social History Alcohol Use: Yes (X 2 SCOTCH AT NIGHT..BEER FOR LUNCH) Tobacco Use: No Substance Use: No Allergies-Medications (Allergen,Severity, Reaction): Coded Allergies: Erythromycin (Verified Allergy, Severe, does not know told as child, ) Penicillin (Verified Allergy, Severe, does not know, 04/03/17) Vasotec (Verified Allergy, Severe, does not know, 04/03/17) Reported Meds & Prescriptions Reported Meds & Active Scripts Active Lasix (Furosemide) 40 Mg Tab 40 Mg PO DAILY Cozaar (Losartan Potassium) 25 Mg Tab 25 Mg PO DAILY Reported Zocor (Simvastatin) 20 Mg Tab 20 Mg PO HS Proscar (Finasteride) 5 Mg Tab 5 Mg PO HS Do not crush. Terazosin (Terazosin HCl) 2 Mg Cap 4 Mg PO HS Bisoprolol (Bisoprolol Fumarate) 5 Mg Tab 5 Mg PO DAILY Eliquis (Apixaban) 2.5 Mg Tab 2.5 Mg PO BID Aspirin 81 Mg Chew 81 Mg PO EVERY OTHER DAY Review of Systems General / Constitutional: No: Fever Eyes: No: Visual changes HENT: No: Headaches Cardiovascular: Positive: Edema, No: Chest Pain or Discomfort Respiratory: Positive: Shortness of Breath Gastrointestinal: No: Abdominal Pain Genitourinary: No: Dysuria Musculoskeletal: Positive: Edema, No: Pain Skin: No Rash Neurologic: No: Weakness Psychiatric: No: Depression Endocrine: No: Polydipsia Hematologic/Lymphatic: No: Easy Bruising Physical Exam Narrative GENERAL: Thin elderly well-developed patient in no apparent distress. SKIN: Focused skin assessment reveals no rash and nodules. Skin is Warm and dry. HEAD: Atraumatic. Normocephalic. EYES: Pupils equal and round. No scleral icterus. No injection or drainage. ENT: No nasal bleeding or discharge. Mucous membranes pink and moist. NECK: Trachea midline. No JVD. CARDIOVASCULAR: Regular rate and rhythm. No murmur appreciated. RESPIRATORY: No accessory muscle use. Clear to auscultation on the left side but very diminished on the right. No wheezing GASTROINTESTINAL: Abdomen soft, non-tender, nondistended. Hepatic and splenic margins not palpable. MUSCULOSKELETAL: No obvious deformities. No clubbing. No cyanosis. Mild symmetric edema of the lower extremities NEUROLOGICAL: Awake and alert. No obvious cranial nerve deficits. Motor grossly within normal limits. Normal speech. PSYCHIATRIC: Appropriate mood and affect; insight and judgment normal. Data Data Last Documented VS Vital Signs Date Time Temp Pulse Resp B/P Pulse Ox O2 Delivery O2 Flow Rate FiO2 04/03/17 15:06 99 Nasal Cannula 2 04/03/17 14:56 90 18 142/81 04/03/17 14:21 98.6 Orders Iv Access Insert/Monitor (04/03/17 15:02) Complete Blood Count With Diff (04/03/17 15:02) Basic Metabolic Panel (Bmp) (04/03/17 15:02) Prothrombin Time / Inr (Pt) (04/03/17 15:02) Act Partial Throm Time (Ptt) (04/03/17 15:02) Oxygen Administration (04/03/17 15:02) Admit Order (Ed Use Only) (04/03/17 17:00) Labs Laboratory Tests Test 04/03/17 15:15 White Blood Count 4.1 TH/MM3 Red Blood Count 3.77 MIL/MM3 Hemoglobin 11.9 GM/DL Hematocrit 35.7 % Mean Corpuscular Volume 94.6 FL Mean Corpuscular Hemoglobin 31.6 PG Mean Corpuscular Hemoglobin 33.4 % Concent Red Cell Distribution Width 16.8 % Platelet Count 147 TH/MM3 Mean Platelet Volume 8.2 FL Neutrophils (%) (Auto) 63.7 % Lymphocytes (%) (Auto) 25.0 % Monocytes (%) (Auto) 10.1 % Eosinophils (%) (Auto) 0.5 % Basophils (%) (Auto) 0.7 % Neutrophils # (Auto) 2.6 TH/MM3 Lymphocytes # (Auto) 1.0 TH/MM3 Monocytes # (Auto) 0.4 TH/MM3 Eosinophils # (Auto) 0.0 TH/MM3 Basophils # (Auto) 0.0 TH/MM3 CBC Comment DIFF FINAL Differential Comment Prothrombin Time 11.7 SEC Prothromb Time International 1.1 RATIO Ratio Activated Partial 34.0 SEC Thromboplast Time Sodium Level 144 MEQ/L Potassium Level 4.1 MEQ/L Chloride Level 109 MEQ/L Carbon Dioxide Level 25.9 MEQ/L Anion Gap 9 MEQ/L Blood Urea Nitrogen 19 MG/DL Creatinine 1.06 MG/DL Estimat Glomerular Filtration 66 ML/MIN Rate Random Glucose 96 MG/DL Calcium Level 8.8 MG/DL [facility] Medical Decision Making Medical Screen Exam Complete: Yes Emergency Medical Condition: Yes Medical Record Reviewed: Yes Differential Diagnosis Pleural effusion, lung cancer, CHF Narrative Course I have reviewed the patient's electronic medical record. I reviewed his outpatient CT from today revealing a large right pleural effusion and small left pleural effusion with some compressive atelectasis IV placed CBC is normal Metabolic profile is normal Coagulation studies are normal Placed on 2 L nasal cannula. Saturations 95% He is not in any distress Patient will need diagnostic and therapeutic thoracentesis of large right pleural effusion. I discussed with medical residents who will admit Diagnosis Primary Impression: Pleural effusion on right Admitting Information Admitting Physician Requests: Admit Huan Hill MD Apr 03, 2017 15:13
[2017-04-03 15:31] LABS: AUTOMATED NEUTROPHIL # 2.6 TH/MM3 (1.8-7.7); BASOPHIL % 0.7 % (0.0-2.0); EOSINOPHIL % 0.5 % (0.0-4.0); HEMATOCRIT 35.7 % (39.0-51.0); HEMO FLAGS DIFF FINAL; MEAN CELL VOLUME 94.6 FL (80.0-100.0); MEAN CORPUSCULAR HEMOGLOBIN 31.6 PG (27.0-34.0); MEAN CORPUSCULAR HGB CONC 33.4 % (32.0-36.0); MONO % 10.1 % (0.0-8.0); NEUT % 63.7 % (16.0-70.0); PLATELET COUNT 147 TH/MM3 (150-450); RED BLOOD COUNT 3.77 MIL/MM3 (4.50-5.90); RED CELL DISTRIBUTION WIDTH 16.8 % (11.6-17.2); WHITE BLOOD COUNT 4.1 TH/MM3 (4.0-11.0)
[2017-04-03 15:36] LABS: INTERNATIONAL NORMALIZED RATIO 1.1 RATIO; PROTHROMBIN TIME - PATIENT 11.7 SEC (9.8-11.6)
[2017-04-03 15:46] LABS: BICARBONATE 25.9 MEQ/L (21.0-32.0); POTASSIUM 4.1 MEQ/L (3.5-5.1)
--- NOTE | 2017-04-03 17:51 | HHI.HP ---
[facility] Service Family Medicine Primary Care Physician Asif Gutierres MD Admission Diagnosis large R pleural effusion Diagnoses: International Travel<30 Days: No Contact w/Intl Traveler<30days: No Known Affected Area: No History of Present Illness This is a 87 y/o M w/a PMH of Afib on Eliquis, HLD, BPH, and alcohol use with liver cirrhosis who presents with large, right sided pleural effusion. W/in last month, patient went to ER for increased leg pain. Leg had been swollen for the last 30 years, but wasn't told cause at the hospital. Went for regular doctor appointment, who on physical exam heard poor air flow in left lung. Advised to go to ER in [place]. Was told he had "water in lung." Contacted his PCP, who told him to go to hospital. Normally, patient walks with a cane. Has found it more difficult to walk. No shortness of breath, chest pain , palpitations, cough, fever, or syncope. Has noticed weight loss of 15lbs over the last month. Also notices that his right leg is now more swollen. States he can lie flat, but sometimes uses two pillows to sleep. Reports that he wake up at night with urge to urinate, has been urinating more frequently. Patient had in [place] 25 years ago. Has stent placed from left arm to heart. Last echo with Dr. Hou ([employer] retail service merchandiser) every [address] Gutierres is PCP. Lives alone. Review of Systems Constitutional: COMPLAINS OF: Weight loss (15 lbs in the past month, urinating alot, legs less swollen), Change in appetite (decreased appetite) Endocrine: DENIES: Heat/cold intolerance, Polydipsia, Polyuria Eyes: DENIES: Blurred vision, Eye pain, Vision loss Ears, nose, mouth, throat: DENIES: Hearing loss, Throat pain, Hoarseness Respiratory: DENIES: Cough, Wheezing, Shortness of breath Cardiovascular: COMPLAINS OF: Lower Extremity Edema, DENIES: Chest pain, Palpitations, PND Gastrointestinal: DENIES: Abdominal pain, Diarrhea Genitourinary: DENIES: Urinary frequency, Urgency, Hematuria Musculoskeletal: COMPLAINS OF: Joint pain, DENIES: Muscle aches, Stiffness Hematologic/lymphatic: DENIES: Bruising Neurologic: DENIES: Headache, Seizures, Poor Balance Psychiatric: DENIES: Mood changes, Hallucinations Past Family Social History Past Medical History [place] - 20 years ago HTN Right arm stents Past Surgical History Cholecystectomy: 30 years ago Reported Medications Lasix (Furosemide) 40 Mg Tab 40 Mg PO DAILY Cozaar (Losartan Potassium) 25 Mg Tab 25 Mg PO DAILY Zocor (Simvastatin) 20 Mg Tab 20 Mg PO HS Proscar (Finasteride) 5 Mg Tab 5 Mg PO HS Do not crush. Terazosin (Terazosin HCl) 2 Mg Cap 4 Mg PO HS Bisoprolol (Bisoprolol Fumarate) 5 Mg Tab 5 Mg PO DAILY Eliquis (Apixaban) 2.5 Mg Tab 2.5 Mg PO BID Aspirin 81 Mg Chew 81 Mg PO EVERY OTHER DAY Allergies: Coded Allergies: Erythromycin (Verified Allergy, Severe, does not know told as child, ) Penicillin (Verified Allergy, Severe, does not know, 04/03/17) Vasotec (Verified Allergy, Severe, does not know, 04/03/17) Family History Dad: 70s, heart disease Mom: non contributory, age 70s Social History Used to work at a [employer]. Lives in [place] in a house. Lives alone. Drinks one Scotch every night. Non-smoker. Physical Exam Vital Signs Vital Signs Date Time Temp Pulse Resp B/P Pulse Ox O2 Delivery O2 Flow Rate FiO2 04/03/17 15:06 99 Nasal Cannula 2 04/03/17 14:56 90 18 142/81 97 Room Air 04/03/17 14:56 95 Room Air 04/03/17 14:21 98.6 101 16 170/85 95 Room Air Physical Exam GENERAL: This is a thin, elderly patient, in no apparent distress. SKIN: No rashes, ecchymoses or lesions. Cool and dry. HEAD: Atraumatic. Normocephalic. EYES: Pupils equal round and reactive. Extraocular motions intact. No scleral icterus. No injection or drainage. ENT: Throat without erythema, tonsillar hypertrophy or exudate. Uvula midline. Airway patent. NECK: Trachea midline. No JVD. Supple, nontender, no meningeal signs. CARDIOVASCULAR: Irregular rhythm, regular rate, without murmurs, gallops, or rubs. RESPIRATORY: Clear to auscultation. Poor airflow in the right lung, none heard in the base. Crackles heard in the lower base of the left lung. GASTROINTESTINAL: Abdomen firm, non-tender, slightly. Hepatomegaly palpated in the RUQ. No guarding. MUSCULOSKELETAL: Extremities without clubbing, cyanosis, or edema. Pitting edema 2+ noted in the lower extremities. NEUROLOGICAL: Awake and alert. No focal deficits. Normal speech. Laboratory Laboratory Tests Test 04/03/17 15:15 White Blood Count 4.1 Red Blood Count 3.77 Hemoglobin 11.9 Hematocrit 35.7 Mean Corpuscular Volume 94.6 Mean Corpuscular Hemoglobin 31.6 Mean Corpuscular Hemoglobin 33.4 Concent Red Cell Distribution Width 16.8 Platelet Count 147 Mean Platelet Volume 8.2 Neutrophils (%) (Auto) 63.7 Lymphocytes (%) (Auto) 25.0 Monocytes (%) (Auto) 10.1 Eosinophils (%) (Auto) 0.5 Basophils (%) (Auto) 0.7 Neutrophils # (Auto) 2.6 Lymphocytes # (Auto) 1.0 Monocytes # (Auto) 0.4 Eosinophils # (Auto) 0.0 Basophils # (Auto) 0.0 CBC Comment DIFF FINAL Differential Comment Prothrombin Time 11.7 Prothromb Time International 1.1 Ratio Activated Partial 34.0 Thromboplast Time Sodium Level 144 Potassium Level 4.1 Chloride Level 109 Carbon Dioxide Level 25.9 Anion Gap 9 Blood Urea Nitrogen 19 Creatinine 1.06 Estimat Glomerular Filtration 66 Rate Random Glucose 96 Calcium Level 8.8 Result Diagram: 04/03/17 1515 04/03/17 1515 Course IV placed CBC and CMP ordered, wnl PT, INR wnl Placed on 2 L nasal cannula. Saturations 95% Assessment and Plan Assessment and Plan This is a 87 y/o M w/a PMH of Afib on Eliquis, HLD, BPH, and alcohol use with liver cirrhosis who presents with large, right sided pleural effusion. Will perform thoracocentesis and analyze fluid. Code Status FULL Discussed Condition With Dr. Chávez and Dr. Parikh Problem List: (1) Pleural effusion on right Status: Acute Plan: Appears to be asymptomatic based on patient history Diff: poorly-controlled CHF, cirrhosis, pneumonia, cancer, infection - satting well on room air - thoracocentesis tomorrow with cytology and fluid cultures - no IVF - will obtain patient's records tomorrow (2) CHF (congestive heart failure) Status: Chronic Plan: poorly controlled - last echo in 01/2017 shows EF of 20-25% - following up with [employer] retail service merchandiser regularly - on losartan, bisoprolol, lasix - will add spironolactone - BNP ordered - EKG in the ED consistent with previous done in January at [facility] - will monitor I/Os - daily weights - provide O2 as needed (3) Cirrhosis of liver Status: Chronic Plan: Patient drinks one scotch/night, is a poor historian - medical records show hx of cirrhosis. Hepatomegaly palpated on physical exam. Will obtain further information in the AM - CMP ordered (4) Atrial fibrillation, chronic Status: Chronic Plan: - controlled with Eliquis and Bisoprolol - follows with cardiology - will hold Eliquis for procedure tomorrow (5) Hypercholesteremia Status: Chronic Plan: Controlled with Pravastatin - hx of [place] and stent placement (6) FEN Status: Chronic Plan: FEN: avoid fluids for now, due to concern for fluid retention. Replace electrolytes as necessary. Heart healthy diet. DVT prophy: hold Eliquis for procedure tomorrow Code: FULL Dispo: Pending thoracocentesis procedure and work-up Gissel Shirley MD R1 Apr 03, 2017 17:50 Dispo: Pending thoracocentesis procedure and work-up Gissel Shirley MD R1 Apr 03, 2017 17:50
[2017-04-03] MEDS ORDERED: MAGNESIUM HYDROXIDE SUSP 30 ML CUP PO PRN (18:15)
[2017-04-03] MEDS ORDERED: LACTULOSE SYRUP 20 GM/30 ML CUP PO PRN (18:15)
[2017-04-03] MEDS ORDERED: ACETAMINOPHEN 325 MG TAB PO PRN (18:15)
[2017-04-03] MEDS ORDERED: ONDANSETRON HCL 4 MG/2 ML VIAL IVP PRN (18:15)
[2017-04-03] MEDS ORDERED: SENNOSIDES 8.6 MG TAB PO PRN (18:15)
[2017-04-03] MEDS ORDERED: ZOLPIDEM TARTRATE 5 MG TAB PO PRN (18:15)
[2017-04-03] MEDS ORDERED: METOCLOPRAMIDE HCL 10 MG/2 ML VIAL IV PUSH PRN (18:15)
[2017-04-03] MEDS ORDERED: BISACODYL 10 MG SUPP RECTAL PRN (18:15)
[2017-04-03] MEDS ORDERED: NALOXONE HCL 0.4 MG/ML AMP IV PRN (18:15)
[2017-04-03] MEDS ORDERED: SODIUM CHLORIDE 0.9% FLUSH 10 ML FLUSH IV FLUSH PRN (18:15)
[2017-04-03] MEDS: PRAVASTATIN SOD 40 MG TAB PO SCH (20:07)
[2017-04-03] MEDS: FINASTERIDE 5 MG TAB PO SCH (20:08)
[2017-04-03] MEDS: DOCUSATE SODIUM 50 MG/SENNA 8.6 MG TAB PO SCH (20:08)
[2017-04-03] MEDS: TERAZOSIN HCL 1 MG CAP PO SCH (20:08)
[2017-04-03] MEDS: SODIUM CHLORIDE 0.9% FLUSH 10 ML FLUSH IV FLUSH SCH (20:09)
[2017-04-03] MEDS ORDERED: APIXABAN 2.5 MG TABLET PO SCH (21:00)
[2017-04-04] VITALS (9 sets, daily range): BP systolic 115–150; BP diastolic 65–90; PULSE 74–87; RESP 16–20; TEMP 97.3–97.8; O2SAT 92–95
--- NOTE | 2017-04-04 07:12 | HHI.FPPN ---
Subjective Remarks Dick Valderrama is an 87yo gentleman with h/o A fib on Eliquis, hyperlipidemia , and alcoholic cirrhosis admitted for right sided pleural effusion after being sent to ER following a CT chest that demonstrated large right pleural effusion. He has had increasing left leg pain and swelling, worse than a chronic leg swelling over 30 years. He denies SOB, chest pain, cough. + weight loss 15 pounds in one month. For further details, please see resident H&P. This morning, he reports that he is feeling fine. He has not gotten out of bed. He is anxious to have thoracentesis done. He denies cough, SOB, chest pain. ROS: + edema. No chest pain, no SOB, no palpitations. All other systems reviewed are negative. PMH/PSxH/SocHx/FamHx: Per resident H&P. Significant for: A fib on eliquis, hyperlipidemia, alcoholic cirrhosis, BPH, CAD, HTN, CHF with last EF 20-25% (2016). H/o cholecystectomy. Father with heart disease. Drinks 1 scotch every evening; does not smoke. Lives alone but has a daughter arriving from [place] today. Objective Vitals Vital Signs Date Time Temp Pulse Resp B/P Pulse Ox O2 Delivery O2 Flow Rate FiO2 04/04/17 04:00 97.6 74 18 146/86 93 04/04/17 00:31 97.5 82 20 140/87 94 04/03/17 20:14 114 04/03/17 20:00 97.4 114 18 147/84 93 04/03/17 20:00 97.4 114 18 147/84 93 04/03/17 19:30 94 04/03/17 19:21 95 18 134/91 95 04/03/17 18:17 95 21 04/03/17 18:00 94 16 147/74 98 Room Air 04/03/17 15:06 99 Nasal Cannula 2 04/03/17 14:56 90 18 142/81 97 Room Air 04/03/17 14:56 95 Room Air 04/03/17 14:21 98.6 101 16 170/85 95 Room Air I/O 04/03/17 04/03/17 04/03/17 04/04/17 04/04/17 04/04/17 07:00 15:00 23:00 07:00 15:00 23:00 Intake Total 360 ml Output Total 600 ml Balance -600 ml 360 ml Intake Oral 360 ml Output Urine Total 600 ml # Voids 1 Result Diagram: 04/03/17 1515 04/03/17 1515 Objective Remarks GENERAL: in NAD, no resp distress, nontoxic. Lying comfortably in bed. HEENT: NCAT, EOMI, no scleral icterus, no conjunctival injection. MMM. NECK: Supple, no meningeal signs. CV: Irregularly irregular. CHEST/PULM: Decreased air movement on right. + egophony on right. ABD/GI: +BS, soft, nontender, nondistended. Liver palpable 2cm beyond costal border. EXT: 1+ DP pulses bilaterally. 1+ pitting edema on left. Support hose in place bilaterally. No calf tenderness. Hammer toes. NEURO: Awake, alert. Normal muscle tone. SKIN: No rashes, no jaundice. PSYCH: Mood and affect are appropriate. Speech fluent. Does not appear to respond to internal stimuli. A/P Assessment and Plan This is a 87 y/o M w/a PMH of Afib on Eliquis, HLD, BPH, and alcohol use with liver cirrhosis who presents with large, right sided pleural effusion in need of thoracentesis. Discharge Planning Anticipate discharge tomorrow after thoracentesis. Attending Attestation Patient seen, examined, and discussed with resident team. Problem List: (1) Pleural effusion on right Status: Acute Plan: CHF vs cirrhosis vs parapneumonic vs malignant vs other as etiology of effusion. Plan for ultrasound guided thoracentesis in IR tomorrow (delayed until tomorrow due to Eliquis administration). Fluid studies have been ordered. Patient is asymptomatic from this perspective currently. He is maintaining O2 sats on room air. (2) CHF (congestive heart failure) Status: Chronic Plan: Chronic systolic CHF, with EF 20-25% on 01/2017 echo. Continue home medications - ARB, beta stevenson, diuretic. BNP markedly elevated. CXR does not demonstrate fluid overload, but pleural effusion as above. Monitor Is/Os. (3) Cirrhosis of liver Status: Chronic Plan: Patient drinks one scotch/night, is a poor historian Patient with hepatomegaly on exam. Check US RUQ to evaluate. Check AFP, as this may relate to effusion. CIWA protocol. (4) Atrial fibrillation, chronic Status: Chronic Plan: - Rate-controlled with Bisoprolol. Anticoagulation with Eliquis. - follows with cardiology as an outpatient. - Eliquis has been held for procedure tomorrow (5) Hypercholesteremia Status: Chronic Plan: Controlled with Pravastatin; continue home medication. - hx of [place] and stent placement (6) Normocytic anemia Status: Chronic Plan: No obvious active bleeding. Likely secondary to malnutrition and alcohol. This can be further evaluated as an outpatient. 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 No active bleeding. This can be monitored as an outpatient. Damaris Parikh MD Apr 04, 2017 07:12
[2017-04-04 08:04] LABS: AUTOMATED NEUTROPHIL # 1.9 TH/MM3 (1.8-7.7); BASOPHIL % 0.7 % (0.0-2.0); EOSINOPHIL # 0.1 TH/MM3 (0-0.4); EOSINOPHIL % 2.3 % (0.0-4.0); HEMATOCRIT 36.2 % (39.0-51.0); HEMO FLAGS DIFF FINAL; LYMPH % 31.9 % (9.0-44.0); LYMPHOCYTE # 1.1 TH/MM3 (1.0-4.8); MEAN CORPUSCULAR HEMOGLOBIN 31.3 PG (27.0-34.0); MONO % 10.4 % (0.0-8.0); NEUT % 54.7 % (16.0-70.0); PLATELET COUNT 135 TH/MM3 (150-450); RED BLOOD COUNT 3.81 MIL/MM3 (4.50-5.90); RED CELL DISTRIBUTION WIDTH 16.6 % (11.6-17.2); WHITE BLOOD COUNT 3.5 TH/MM3 (4.0-11.0)
[2017-04-04 08:26] LABS: ALT (GPT) 18 U/L (12-78); ANION GAP 10 MEQ/L (5-15); AST (GOT) 15 U/L (15-37); BICARBONATE 26.5 MEQ/L (21.0-32.0); BLOOD UREA NITROGEN 14 MG/DL (7-18); CHLORIDE 107 MEQ/L (98-107); GLOMERULAR FILTRATION RATE 88 ML/MIN (>89); POTASSIUM 3.6 MEQ/L (3.5-5.1); SODIUM (NA) 143 MEQ/L (136-145)
[2017-04-04 08:28] LABS: ALKALINE PHOSPHATASE 87 U/L (45-117); TOTAL BILIRUBIN ADULT 1.2 MG/DL (0.2-1.0)
[2017-04-04] MEDS ORDERED: LORazepam 1 MG TAB PO PRN (08:45)
[2017-04-04] MEDS ORDERED: FLUMAZENIL 0.5 MG/5 ML VIAL IV PUSH PRN (08:45)
[2017-04-04] MEDS ORDERED: LORazepam 2 MG/ML VIAL IV PUSH PRN ×4 (08:45)
[2017-04-04] MEDS ORDERED: LORazepam 2 MG TAB PO PRN (08:45)
[2017-04-04] MEDS: SODIUM CHLORIDE 0.9% FLUSH 10 ML FLUSH IV FLUSH SCH ×2 (09:00→21:00)
[2017-04-04] MEDS ORDERED: FUROSEMIDE 20 MG/2 ML VIAL IV PUSH SCH (09:00)
[2017-04-04] MEDS: SPIRONOLACTONE 25 MG TAB PO SCH (09:01)
[2017-04-04] MEDS: BISOPROLOL FUMARATE 5 MG TAB PO SCH (09:01)
[2017-04-04] MEDS: LOSARTAN 25 MG TAB PO SCH (09:01)
[2017-04-04] MEDS: DOCUSATE SODIUM 50 MG/SENNA 8.6 MG TAB PO SCH ×2 (09:01→22:08)
[2017-04-04] MEDS: FUROSEMIDE 40 MG TAB PO SCH (09:03)
--- NOTE | 2017-04-04 13:22 | HHI.FPPN ---
Addendum to progress note ADDENDUM Reason for addendum: Additonal documentation Additional information I called down to IR to see if patient can get thora tomorrow; response was affirmative, just had to replace the order. Gissel Shirley MD R1 Apr 04, 2017 13:22
--- NOTE | 2017-04-04 13:32 | RADRPT ---
EXAM DATE/TIME: 04/04/2017 10:22 [facility] COMPARISON: No previous studies available for comparison. INDICATIONS : Cirrhosis. MEDICAL HISTORY : Benign prostatic hyperplasia, (BPH) Hypercholesterolemia. A-fib. Pleural effusion. Dentures. Heart attack. Right macular degeneration. SURGICAL HISTORY : Cardiac cath with stent. Hernia repair. ENCOUNTER: Initial ACUITY: 1 day PAIN SCORE: 0/10 LOCATION: Bilateral upper quadrant MEASUREMENTS: LIVER: 18.2 cm length COMMON DUCT: 4 mm RIGHT KIDNEY: 9.9 x x 4.7 cm SPLEEN: 9.3 cm length FINDINGS: LIVER: The liver is mildly heterogeneous without mass. No ductal dilatation. Hepatopedal flow within the por miriam vein. COMMON DUCT: No intraluminal mass or stone visualized. GALLBLADDER: Contains no stones, demonstrates no wall thickening or pericholecystic fluid. PANCREAS: The visualized portions are within normal limits. RIGHT KIDNEY: No hydronephrosis, stone or mass. An extrarenal pelvis is observed. SPLEEN: No focal lesion. Large right and small left pleural effusion are noted. CONCLUSION: 1. Large right and small left pleural effusions. 2. Mildly heterogeneous echotexture to the liver without a mass or ductal dilatation. This is a nonsp ecific finding and can be seen in hepatocellular disease. Oliver Cortez Jr., MD on April 04, 2017 at 13:28 Board Certified Radiologist. This report was verified electronically.
[2017-04-04] MEDS: TERAZOSIN HCL 1 MG CAP PO SCH (22:07)
[2017-04-04] MEDS: FINASTERIDE 5 MG TAB PO SCH (22:07)
[2017-04-04] MEDS: PRAVASTATIN SOD 40 MG TAB PO SCH (22:08)
[2017-04-05] VITALS (9 sets, daily range): BP systolic 121–173; BP diastolic 64–90; PULSE 78–94; RESP 16–23; TEMP 97.2–98.7; O2SAT 90–99
[2017-04-05 06:11] LABS: HEMATOCRIT 37.5 % (39.0-51.0); MEAN CELL VOLUME 95.4 FL (80.0-100.0); MEAN CORPUSCULAR HEMOGLOBIN 31.7 PG (27.0-34.0); MEAN CORPUSCULAR HGB CONC 33.2 % (32.0-36.0); PLATELET COUNT 146 TH/MM3 (150-450); RED BLOOD COUNT 3.93 MIL/MM3 (4.50-5.90); RED CELL DISTRIBUTION WIDTH 16.5 % (11.6-17.2); REVIEW FLAG FINAL; WHITE BLOOD COUNT 4.2 TH/MM3 (4.0-11.0)
[2017-04-05 06:35] LABS: ANION GAP 9 MEQ/L (5-15); AST (GOT) 19 U/L (15-37); BICARBONATE 26.7 MEQ/L (21.0-32.0); BLOOD UREA NITROGEN 15 MG/DL (7-18); CHLORIDE 106 MEQ/L (98-107); GLOMERULAR FILTRATION RATE 85 ML/MIN (>89); POTASSIUM 3.3 MEQ/L (3.5-5.1); SODIUM (NA) 142 MEQ/L (136-145)
[2017-04-05 06:36] LABS: ALT (GPT) 15 U/L (12-78); LDH SERUM 143 U/L (87-241)
[2017-04-05 06:38] LABS: ALKALINE PHOSPHATASE 80 U/L (45-117)
[2017-04-05] MEDS ORDERED: ASPIRIN 81 MG CHEW TAB PO SCH (09:00)
[2017-04-05] MEDS: DOCUSATE SODIUM 50 MG/SENNA 8.6 MG TAB PO SCH ×2 (09:00→20:55)
[2017-04-05] MEDS: SODIUM CHLORIDE 0.9% FLUSH 10 ML FLUSH IV FLUSH SCH ×2 (09:08→20:55)
[2017-04-05] MEDS: SPIRONOLACTONE 25 MG TAB PO SCH (09:08)
[2017-04-05] MEDS: FUROSEMIDE 40 MG TAB PO SCH (09:08)
[2017-04-05] MEDS: LOSARTAN 25 MG TAB PO SCH (09:08)
[2017-04-05] MEDS: BISOPROLOL FUMARATE 5 MG TAB PO SCH (09:08)
--- NOTE | 2017-04-05 10:40 | HHI.FPPN ---
Subjective Remarks No acute events overnight. Patient remains afebrile vital signs stable, pulse ox ranging from 92-99% on room air. Patient continues to feel well, denying any shortness of breath or chest pain or worsening of his swelling. Patient is eager to have his thoracentesis performed, which should take place this afternoon. (Moisés Chávez MD R1) Objective Vitals Vital Signs Date Time Temp Pulse Resp B/P Pulse Ox O2 Delivery O2 Flow Rate FiO2 04/05/17 07:29 Room Air 04/05/17 04:00 97.4 78 16 143/64 94 04/05/17 00:00 97.3 93 18 121/74 99 04/05/17 00:00 Room Air 04/04/17 20:07 81 04/04/17 20:00 97.8 83 16 115/65 93 04/04/17 17:34 92 21 04/04/17 16:00 97.5 83 18 150/90 92 04/04/17 12:00 97.3 87 20 123/74 95 I/O 04/04/17 04/04/17 04/04/17 04/05/17 04/05/17 04/05/17 07:00 15:00 23:00 07:00 15:00 23:00 Intake Total 360 ml 0 ml 360 ml 6 ml Output Total 300 ml Balance 360 ml -300 ml 360 ml 6 ml Intake Oral 360 ml 0 ml 360 ml 0 ml IV Total 6 ml Output Urine Total 300 ml # Voids 1 3 1 # Bowel Movements 1 0 0 (Moisés Chávez MD R1) Result Diagram: 04/05/17 0508 04/05/17 0508 Imaging Last Impressions Liver Ultrasound 04/04/17 0000 Signed Impressions: Service Date/Time: Tuesday, April 04, 2017 10:22 - CONCLUSION: 1. Large right and small left pleural effusions. 2. Mildly heterogeneous echotexture to the liver without a mass or ductal dilatation. This is a nonspecific finding and can be seen in hepatocellular disease. Oliver Cortez Jr., MD Objective Remarks GENERAL: in NAD, no resp distress, nontoxic. Lying comfortably in bed. HEENT: NCAT, EOMI, no scleral icterus, no conjunctival injection. MMM. NECK: Supple, no meningeal signs. CV: Irregularly irregular. CHEST/PULM: Absent air movement on right. Some crackles at the left lower lung base. ABD/GI: +BS, soft, nontender, nondistended. Liver palpable 2cm beyond costal border. EXT: 1+ DP pulses bilaterally. 1+ pitting edema on left. Support hose in place bilaterally. No calf tenderness. Hammer toes. NEURO: Awake, alert. Normal muscle tone. SKIN: No rashes, no jaundice. PSYCH: Mood and affect are appropriate. Speech fluent. Does not appear to respond to internal stimuli. (Moisés Chávez MD R1) A/P Assessment and Plan This is a 87 y/o M w/a PMH of Afib on Eliquis, HLD, BPH, and alcohol use with liver cirrhosis who presents with large, right sided pleural effusion in need of thoracentesis. Discharge Planning Anticipate discharge today after thoracentesis. (Moisés Chávez MD R1) Attending Attestation Patient seen, examined, and discussed with Dr. Chávez. I agree with assessment and management as documented and discussed with me. Pt to have thoracentesis today. He is without complaints. Anticipate discharge after completion of study. (Damaris Parikh MD) Problem List: (1) Pleural effusion on right Status: Acute Plan: CHF vs cirrhosis vs parapneumonic vs malignant vs other as etiology of effusion. Plan for ultrasound guided thoracentesis in IR today (delayed until today due to Eliquis administration). Fluid studies have been ordered. Patient is asymptomatic from this perspective currently. He is maintaining O2 sats on room air. (2) CHF (congestive heart failure) Status: Chronic Plan: Chronic systolic CHF, with EF 20-25% on 01/2017 echo. Continue home medications - ARB, beta stevenson, diuretic. BNP markedly elevated. CXR does not demonstrate fluid overload, but pleural effusion as above. Monitor Is/Os. (3) Cirrhosis of liver Status: Chronic Plan: Patient drinks one scotch/night, is a poor historian Patient with hepatomegaly on exam. US RUQ showed mildly heterogeneous echotexture to the liver without a mass or ductal dilatation. This is a nonspecific finding and can be seen in hepatocellular disease. Will recommend outpatient follow-up. AFP within normal limits CIWA protocol. (4) Atrial fibrillation, chronic Status: Chronic Plan: - Rate-controlled with Bisoprolol. Anticoagulation with Eliquis. - follows with cardiology as an outpatient. - [place] has been held for procedure tomorrow (5) Hypercholesteremia Status: Chronic Plan: Controlled with Pravastatin; continue home medication. - hx of CT and stent placement (6) Normocytic anemia Status: Chronic Plan: No obvious active bleeding. Likely secondary to malnutrition and alcohol. This can be further evaluated as an outpatient. 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 No active bleeding. This can be monitored as an outpatient. (Moisés Chávez MD R1) Moisés Chávez MD R1 Apr 05, 2017 10:40 Damaris Parikh MD Apr 05, 2017 20:20
--- NOTE | 2017-04-05 10:52 | HHI.DCPOC ---
Discharge Care Plan Diagnosis: (1) Pleural effusion on right Goals to Promote Your Health * To prevent worsening of your condition and complications, please follow-up with your doctor. We will call you with any abnormal test results. * To maintain your health at the optimal level, please take medications as prescribed. Directions to Meet Your Goals Take your medications as prescribed Follow your dietary instruction Follow activity as directed Keep your appointments as scheduled Take your immunizations and boosters as scheduled If your symptoms worsen call your PCP, if no PCP go to Urgent Care Center or Emergency Room Smoking is Dangerous to Your Health. Avoid second hand smoke Call the 24-hour hour crisis hotline for domestic abuse at Moisés Chávez MD R1 Apr 05, 2017 10:52
--- NOTE | 2017-04-05 11:03 | EKG ---
Date Performed: 04/03/2017 Time Performed: 18:24:27 PTAGE: 87 years EKG: ATRIAL FIBRILLATION WITH RAPID VENTRICULAR RESPONSE MARKED LEFT AXIS DEVIATION POSSIBLE ANT ERIOR MYOCARDIAL INFARCTION MODERATE T-WAVE ABNORMALITY, CONSIDER LATERAL ISCHEMIA ABNORMAL ECG PREVIOUS TRACING : 02/06/2017 13.10 DOCTOR: Joaquin Harris Interpretating Date/Time 04/05/2017 10:56:45
--- NOTE | 2017-04-05 18:06 | RADRPT ---
EXAM DATE/TIME: 04/05/2017 17:58 [facility] COMPARISON: CHEST SINGLE AP, February 06, 2017, 13:45. INDICATIONS : Post right thoracentesis. MEDICAL HISTORY : Myocardial infarction. SURGICAL HISTORY : Stent placement. ENCOUNTER: Subsequent ACUITY: PAIN SCORE: 0/10 LOCATION: Bilateral chest FINDINGS: The right pleural effusion appears smaller since the prior study residual effusion remaining. There i s no pneumothorax. Slight right lung base consolidation is seen. The rest of the examination has not significantly changed. CONCLUSION: Reduction in size of the right pleural effusion and no pneumothorax. Olive Ambriz MD on April 05, 2017 at 18:03 Board Certified Radiologist. This report was verified electronically.
--- NOTE | 2017-04-05 18:14 | RADRPT ---
EXAM DATE/TIME: 04/05/2017 16:14 [facility] COMPARISON: EXTERNAL COMPARISON: CHEST EXPIRATION ONLY, April 05, 2017, 17:58. [facility], CT CHEST W/ CONTRAST, Apr 03 2017 INDICATIONS : Right pleural effusion. MEDICAL HISTORY : Myocardial infarction. Benign prostatic hyperplasia, (BPH) Hypercholesterolemia. Anticoagulant therap y, Eliquis. Afib. Hypertension. Anxiety. Blood transfusion. SURGICAL HISTORY : Coronary artery stent. Inguinal hernia repair. ENCOUNTER: Initial ACUITY: 2 days PAIN SCORE: 3/10 LOCATION: Right chest FLUID: Total volume of 1500 cc of clear, yellow fluid was removed. Fluid was sent to lab for ordered studies. TECHNIQUE: 1. Ultrasound guidance for thoracentesis. 2. Thoracentesis. The risks, benefits, and alternatives to ultrasound guided thoracentesis were explained to the patien t in lay simple terms, including the risk of bleeding and infection. Written and verbal informed con sent was obtained. Appropriate area for thoracentesis was marked under ultrasound guidance with the patient in the uprig ht position. Overlying skin was prepped and draped in the usual sterile fashion and with local anest hetic, a dermatotomy was made with an 11 blade scalpel. A 6 [place] thoracentesis catheter was placed in the pleural space and fluid was removed. Catheter was then removed and a sterile dressing applie d. There were no immediate complications. The patient tolerated the procedure well and the left the ultrasound suite in stable condition. Chest radiograph is to be obtained. CONCLUSION: Uncomplicated ultrasound guided right thoracentesis. Oliver Cortez Jr., MD on April 05, 2017 at 18:12 Board Certified Radiologist. This report was verified electronically.
[2017-04-05 20:14] LABS: TOTAL PROTEIN,PLEURAL FLUID 2.4 GM/DL
[2017-04-05] MEDS ORDERED: SPIR25 PO (20:28)
[2017-04-05] MEDS: TERAZOSIN HCL 1 MG CAP PO SCH (20:55)
[2017-04-05] MEDS: FINASTERIDE 5 MG TAB PO SCH (20:55)
[2017-04-05] MEDS: PRAVASTATIN SOD 40 MG TAB PO SCH (20:55)
[2017-04-05] MEDS ORDERED: POTASSIUM CHLORIDE 25 MEQ EFFERVESCENT TAB PO ONE (21:00)
[2017-04-05 21:17] LABS: PLEURAL FLUID LYMPHS 76 %
[2017-04-06] VITALS: BP 124/74; PULSE 64; RESP 18; TEMP 97.8; O2SAT 95
[2017-04-06 05:00] VITALS: BP 127/81; PULSE 83; RESP 20; TEMP 97.1; O2SAT 96
[2017-04-06 08:01] VITALS: BP 125/78; PULSE 82; RESP 20; TEMP 97; O2SAT 96
[2017-04-06] MEDS: SODIUM CHLORIDE 0.9% FLUSH 10 ML FLUSH IV FLUSH SCH (09:00)
[2017-04-06] MEDS: DOCUSATE SODIUM 50 MG/SENNA 8.6 MG TAB PO SCH (09:00)
[2017-04-06] MEDS: FUROSEMIDE 40 MG TAB PO SCH (09:14)
[2017-04-06] MEDS: SPIRONOLACTONE 25 MG TAB PO SCH (09:15)
[2017-04-06] MEDS: LOSARTAN 25 MG TAB PO SCH (09:16)
[2017-04-06] MEDS: BISOPROLOL FUMARATE 5 MG TAB PO SCH (09:16)
--- NOTE | 2017-04-06 09:37 | HHI.FPPN ---
Subjective Remarks Patient tolerated thoracentesis well yesterday. Patient has remained afebrile with vital signs stable overnight. Patient reports that the thoracentesis produced a large volume of light colored fluid. Patient reports breathing a little easier. He denies any chest pain or shortness of breath. He reports that his lower extremity edema is at baseline. Discussed that his pleural effusion was likely transudate of based on preliminary lab studies and color. Also discussed wound care and restarting his Eliquis at home. (Moisés Chávez MD R1 ) Objective Vitals Vital Signs Date Time Temp Pulse Resp B/P Pulse Ox O2 Delivery O2 Flow Rate FiO2 04/06/17 08:01 97.0 82 20 125/78 96 04/06/17 05:00 Room Air 04/06/17 05:00 97.1 83 20 127/81 96 04/06/17 00:00 97.8 04/06/17 00:00 64 18 124/74 95 04/06/17 00:00 Room Air 04/05/17 21:07 21 04/05/17 20:00 97.5 84 20 132/83 95 04/05/17 20:00 91 04/05/17 20:00 Room Air 04/05/17 17:55 97.9 89 18 133/88 92 04/05/17 17:40 97.9 91 18 139/90 96 04/05/17 17:00 98.7 84 23 125/84 97 04/05/17 16:00 97.5 94 20 141/84 95 04/05/17 12:00 97.2 93 20 143/80 96 I/O 04/05/17 04/05/17 04/05/17 04/06/17 04/06/17 04/06/17 07:00 15:00 23:00 07:00 15:00 23:00 Intake Total 6 ml 240 ml 240 ml Balance 6 ml 240 ml 240 ml Intake Oral 0 ml 240 ml 240 ml IV Total 6 ml 0 ml # Voids 1 2 2 # Bowel Movements 0 0 0 (Moisés Chávez MD R1) Result Diagram: 04/05/17 0508 04/05/17 0508 Imaging Last Impressions Thoracentesis Ultrasound 04/05/17 0000 Signed Impressions: Service Date/Time: Wednesday, April 05, 2017 16:14 - CONCLUSION: Uncomplicated ultrasound guided right thoracentesis. Oliver Cortez Jr., MD Chest X-Ray 04/05/17 0000 Signed Impressions: Service Date/Time: Wednesday, April 05, 2017 17:58 - CONCLUSION: Reduction in size of the right pleural effusion and no pneumothorax. Olive Ambriz MD Liver Ultrasound 04/04/17 0000 Signed Impressions: Service Date/Time: Tuesday, April 04, 2017 10:22 - CONCLUSION: 1. Large right and small left pleural effusions. 2. Mildly heterogeneous echotexture to the liver without a mass or ductal dilatation. This is a nonspecific finding and can be seen in hepatocellular disease. Oliver Cortez Jr., MD Objective Remarks GENERAL: in NAD, no resp distress, nontoxic. Sitting comfortably in bed. HEENT: NCAT, EOMI, no scleral icterus, no conjunctival injection. MMM. NECK: Supple, no meningeal signs. CV: Irregularly irregular rhythm but normal rate CHEST/PULM: Clear to auscultation bilaterally; markedly improved breath sounds on right ABD/GI: +BS, soft, nontender, nondistended. Liver palpable 2cm beyond costal border. EXT: pitting edema covered by compression stockings bilaterally. No calf tenderness. Hammer toes. BACK: Site of thoracentesis not bleeding. Dressing clean, dry, intact. NEURO: Awake, alert. Normal muscle tone. SKIN: No rashes, no jaundice. PSYCH: Mood and affect are appropriate. Speech fluent. (Moisés Chávez MD R1) A/P Assessment and Plan This is a 87 y/o M w/a PMH of CHF with EF 20-25%, Afib on Eliquis, HLD, BPH, and alcohol use with liver cirrhosis who presents with large, right sided pleural effusion in need of diagnostic and therapeutic thoracentesis, which showed transudate, consistent with CHF. Discharge Planning Anticipate discharge today after thoracentesis yesterday. (Moisés Chávez MD R1) Attending Attestation Patient seen and examined, discussed with resident team. I agree with assessment and management as documented and discussed with me. Pt denies SOB, chest pain. He feels he is breathing well s/p thoracentesis. Initial results indicate transudative effusion - suspect CHF. Await all results and will contact patient. Discharge home today. (Damaris Parikh MD) Problem List: (1) Pleural effusion on right Status: Acute Plan: Transudate, most likely from CHF Ultrasound guided thoracentesis in IR yesterday. Fluid studies remarkable for elevated WBC, RBC. Patient is asymptomatic from this perspective currently. He is maintaining O2 sats on room air. (2) CHF (congestive heart failure) Status: Chronic Plan: Chronic systolic CHF, with EF 20-25% on 01/2017 echo. Continue home medications - ARB, beta stevenson, diuretic. Continue to monitor potassium as an outpatient. Started spironolactone this admission. Dose to be adjusted as an outpatient. BNP markedly elevated. CXR does not demonstrate fluid overload, but pleural effusion as above. Monitor Is/Os. (3) Cirrhosis of liver Status: Chronic Plan: Patient drinks one scotch/night. Patient with hepatomegaly on exam. US RUQ showed mildly heterogeneous echotexture to the liver without a mass or ductal dilatation. This is a nonspecific finding and can be seen in hepatocellular disease. Will recommend outpatient follow-up. AFP within normal limits CIWA protocol. (4) Atrial fibrillation, chronic Status: Chronic Plan: - Rate-controlled with Bisoprolol. Anticoagulation with Eliquis. - follows with cardiology as an outpatient. - Eliquis has been held for procedure yesterday, to be restarted at home (5) Hypercholesteremia Status: Chronic Plan: Controlled with Pravastatin; continue home medication. - hx of ND and stent placement (6) Normocytic anemia Status: Chronic Plan: No obvious active bleeding. Likely secondary to malnutrition and alcohol. This can be further evaluated as an outpatient. 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 No active bleeding. This can be monitored as an outpatient. (Moisés Chávez MD R1) Moisés Chávez MD R1 Apr 06, 2017 09:37 Damaris Parikh MD Apr 06, 2017 14:03
--- NOTE | 2017-04-09 14:00 | HHI.PR ---
Addendum to Inpatient Note Addendum Reason: Additional Documentation Additional Information Called Mr. Valderrama to discuss the results of his pleural fluid analysis. Informed him that everything was normal, except for elevated red blood cells and white blood cells, likely due to traumatic tap. Everything else was normal likely indicating a transudate of pleural effusion from his heart failure. Instructed patient to discus the results with his doctors. Patient verbalized understanding. Moisés Chávez MD R1 Apr 09, 2017 14:00
== END 2017-04-06 09:37 | disposition home or self-care (01) ==
LOC: NEPC 14:19 → NEDA 17:01 → INTOOBSV 17:01 → N04A 19:41
PROVIDERS: ADMIT Family Medicine; ATTEND Family Medicine
DX: J90 Pleural effusion, not elsewhere classified (principal); I11.0 Hypertensive heart disease with heart failure; I50.22 Chronic systolic (congestive) heart failure; K70.30 Alcoholic cirrhosis of liver without ascites; R35.0 Frequency of micturition; R60.0 Localized edema; R94.31 Abnormal electrocardiogram [ECG] [EKG]; M79.605 Pain in left leg; D64.9 Anemia, unspecified; D69.6 Thrombocytopenia, unspecified; D72.829 Elevated white blood cell count, unspecified; I48.2 Chronic atrial fibrillation; E78.00 Pure hypercholesterolemia, unspecified; I25.2 Old myocardial infarction; E78.5 Hyperlipidemia, unspecified; N40.0 Benign prostatic hyperplasia without lower urinary tract symptoms; R63.4 Abnormal weight loss; J98.11 Atelectasis; F41.9 Anxiety disorder, unspecified; M20.40 Other hammer toe(s) (acquired), unspecified foot; H35.30 Unspecified macular degeneration; Z95.5 Presence of coronary angioplasty implant and graft; Z79.899 Other long term (current) drug therapy; Z79.01 Long term (current) use of anticoagulants; Z79.82 Long term (current) use of aspirin
CPT/HCPCS: 32555; 71010; 76705; 80048; 80053; 82105; 82150; 82248; 82945; 83615; 83880; 83986; 84157; 85025; 85027; 85610; 85730; 87015; 87070; 87102; 87116; 87205; 87206; 88112; 88305; 89051; 93005; 97162; 99285; C1729; G0378; G8987; G8988

== ENCOUNTER → 2017-04-16 | Outpatient (CLI) | payer MEDICARE ==
[~2017-04-16] MED LIST changes: +SPIR25 PO; -VITA100T2 PO
[2017-04-16 09:10] LABS: POTASSIUM 4.4 MEQ/L (3.5-5.1)
[2017-04-16 09:13] LABS: BICARBONATE 27.2 MEQ/L (21.0-32.0)
== END ==
LOC: PLAB 08:07
PROVIDERS: ATTEND Family Medicine
DX: I10 Essential (primary) hypertension (principal)
CPT/HCPCS: 36415; 80048

== ENCOUNTER 2017-05-29 10:29 | Day surgery (SDC) | payer MEDICARE ==
[2017-05-29 11:00] LABS: HEMATOCRIT 35.5 % (39.0-51.0); MEAN CELL VOLUME 96.8 FL (80.0-100.0); MEAN CORPUSCULAR HGB CONC 33.1 % (32.0-36.0); PLATELET COUNT 167 TH/MM3 (150-450); RED BLOOD COUNT 3.67 MIL/MM3 (4.50-5.90); RED CELL DISTRIBUTION WIDTH 15.7 % (11.6-17.2); REVIEW FLAG FINAL
[2017-05-29 11:07] LABS: INTERNATIONAL NORMALIZED RATIO 1.1 RATIO; PROTHROMBIN TIME - PATIENT 12.4 SEC (9.8-11.6)
[2017-05-29 14:20] VITALS: BP 138/90; PULSE 91; RESP 18; TEMP 97.6; O2SAT 96
[2017-05-29 14:35] VITALS: BP 138/88; PULSE 79; RESP 18; O2SAT 95
--- NOTE | 2017-05-29 15:15 | RADRPT ---
EXAM DATE/TIME: 05/29/2017 14:15 [facility] COMPARISON: CHEST EXPIRATION ONLY, April 05, 2017, 17:58. INDICATIONS : Post thoracentesis. MEDICAL HISTORY : Myocardial infarction. Benign prostatic hyperplasia, (BPH) Hypercholesterolemia. Anticoagulant therap y, Eliquis. A fib. Hypertension. Anxiety. Blood transfusion. SURGICAL HISTORY : Coronary artery stent. Inguinal hernia repair. ENCOUNTER: Subsequent ACUITY: 1 day PAIN SCORE: 2/10 LOCATION: Bilateral chest FINDINGS: There is a small residual right pleural effusion and a tiny left pleural effusion. There is no pneumo thorax status post right thoracentesis. The heart is enlarged. Degenerative changes and scoliosis of the thoracic spine are noted. Bibasilar atelectasis is noted. CONCLUSION: 1. Small residual right pleural effusion status post thoracentesis without evidence of pneumothorax. 2. Tiny left pleural effusion. 3. Bibasilar atelectasis. 4. Cardiomegaly. 5. Degenerative changes and scoliosis of the thoracic spine. Chris Swift MD on May 29, 2017 at 15:03 Board Certified Radiologist. This report was verified electronically.
--- NOTE | 2017-05-29 15:29 | RADRPT ---
EXAM DATE/TIME: 05/29/2017 13:29 [facility] COMPARISON: US GUIDED THORACENTESIS RIGHT, April 05, 2017, 16:14. INDICATIONS : Right sided pleural effusion. MEDICAL HISTORY : Myocardial infarction. Benign prostatic hyperplasia, (BPH) Hypercholesterolemia. Anticoagulant therap y, Eliquis. Afib. Hypertension. Anxiety. Blood transfusion. SURGICAL HISTORY : Coronary artery stent. Inguinal hernia repair. ENCOUNTER: Subsequent ACUITY: 1 month PAIN SCORE: 3/10 LOCATION: Right chest FLUID: Total volume of 1,800 cc of clear, yellow fluid was removed. Fluid was sent to lab for ordered studies. TECHNIQUE: 1. Ultrasound guidance for thoracentesis. 2. Thoracentesis. The risks, benefits, and alternatives to ultrasound guided thoracentesis were explained to the patien t in lay simple terms, including the risk of bleeding and infection. Written and verbal informed con sent was obtained. Appropriate area for thoracentesis was marked under ultrasound guidance with the patient in the uprig ht position. Overlying skin was prepped and draped in the usual sterile fashion and with local anest hetic, a dermatotomy was made with an 11 blade scalpel. A 6 [place] thoracentesis catheter was placed in the pleural space and fluid was removed. Catheter was then removed and a sterile dressing applie d. There were no immediate complications. The patient tolerated the procedure well and the left the ultrasound suite in stable condition. Chest radiograph is to be obtained. CONCLUSION: Uncomplicated ultrasound guided thoracentesis. Chris Swift MD on May 29, 2017 at 15:27 Board Certified Radiologist. This report was verified electronically.
== END 2017-05-29 15:00 | disposition home or self-care (01) ==
LOC: HRAD 10:29 → HRIP 11:03 → HRAD 15:00
PROVIDERS: ATTEND Family Medicine
DX: J90 Pleural effusion, not elsewhere classified (principal); I25.10 Atherosclerotic heart disease of native coronary artery without angina pectoris; R06.2 Wheezing; R42 Dizziness and giddiness; I25.2 Old myocardial infarction; N40.0 Benign prostatic hyperplasia without lower urinary tract symptoms; E78.00 Pure hypercholesterolemia, unspecified; Z79.01 Long term (current) use of anticoagulants; I48.91 Unspecified atrial fibrillation; I10 Essential (primary) hypertension; F41.9 Anxiety disorder, unspecified; Z95.5 Presence of coronary angioplasty implant and graft
CPT/HCPCS: 32555; 36415; 71010; 85027; 85610; C1729; 88112; 88305

== ENCOUNTER → 2017-06-26 | Outpatient (CLI) | payer MEDICARE ==
[2017-06-26 13:29] LABS: HEMATOCRIT 37.3 % (39.0-51.0); MEAN CELL VOLUME 96.4 FL (80.0-100.0); MEAN CORPUSCULAR HEMOGLOBIN 32.2 PG (27.0-34.0); MEAN CORPUSCULAR HGB CONC 33.4 % (32.0-36.0); PLATELET COUNT 155 TH/MM3 (150-450); RED BLOOD COUNT 3.87 MIL/MM3 (4.50-5.90); RED CELL DISTRIBUTION WIDTH 16.2 % (11.6-17.2); REVIEW FLAG FINAL; WHITE BLOOD COUNT 4.4 TH/MM3 (4.0-11.0)
[2017-06-26 13:56] LABS: ANION GAP 7 MEQ/L (5-15); AST (GOT) 24 U/L (15-37); BICARBONATE 29.9 MEQ/L (21.0-32.0); BLOOD UREA NITROGEN 23 MG/DL (7-18); CHLORIDE 105 MEQ/L (98-107); GLOMERULAR FILTRATION RATE 70 ML/MIN (>89); GLUCOSE,FASTING 97 MG/DL (74-99); POTASSIUM 3.6 MEQ/L (3.5-5.1); SODIUM (NA) 142 MEQ/L (136-145)
[2017-06-26 14:08] LABS: ALKALINE PHOSPHATASE 94 U/L (45-117); ALT (GPT) 20 U/L (12-78); HDL CHOLESTEROL 50.9 MG/DL (40.0-60.0); LDL CHOLESTEROL 41 MG/DL (0-99); LDL CHOLESTEROL DIRECT 54 MG/DL (0-99); TOTAL BILIRUBIN ADULT 0.7 MG/DL (0.2-1.0)
[2017-06-26 16:54] LABS: HEMOGLOBIN A1a 1.1 %; HEMOGLOBIN A1b 1.7 %; HEMOGLOBIN Ao 84.3 %; HEMOGLOBIN LA1C 2.1 %; HEMOGLOBIN P3 5.8 %
== END ==
LOC: PLAB 08:39
PROVIDERS: ATTEND Family Medicine
DX: I25.10 Atherosclerotic heart disease of native coronary artery without angina pectoris (principal); I10 Essential (primary) hypertension; E78.5 Hyperlipidemia, unspecified; R53.83 Other fatigue
CPT/HCPCS: 36415; 80053; 80061; 83036; 83721; 84443; 85027

== ENCOUNTER → 2017-09-24 | Outpatient (CLI) | payer MEDICARE ==
[~2017-09-24] MED LIST changes: +ASPI-516 PO; -ASPI81CH PO
[2017-09-24 13:46] LABS: HEMATOCRIT 36.1 % (39.0-51.0); HEMOGLOBIN 12.1 GM/DL (13.0-17.0); MEAN CELL VOLUME 97.6 FL (80.0-100.0); MEAN CORPUSCULAR HEMOGLOBIN 32.6 PG (27.0-34.0); MEAN CORPUSCULAR HGB CONC 33.4 % (32.0-36.0); MEAN PLATELET VOLUME 7.8 FL (7.0-11.0); PLATELET COUNT 154 TH/MM3 (150-450); RED CELL DISTRIBUTION WIDTH 15.9 % (11.6-17.2); WHITE BLOOD COUNT 4.6 TH/MM3 (4.0-11.0)
[2017-09-24 13:52] LABS: ALBUMIN 3.6 GM/DL (3.4-5.0); AST (GOT) 49 U/L (15-37); BICARBONATE 29.7 MEQ/L (21.0-32.0); BLOOD UREA NITROGEN 26 MG/DL (7-18); CALCIUM 8.8 MG/DL (8.5-10.1); CHLORIDE 106 MEQ/L (98-107); SODIUM (NA) 142 MEQ/L (136-145)
[2017-09-24 14:02] LABS: ALKALINE PHOSPHATASE 109 U/L (45-117); ALT (GPT) 53 U/L (12-78); CHOLESTEROL 116 MG/DL (120-200); CREATININE 1.09 MG/DL (0.60-1.30); GLOMERULAR FILTRATION RATE 64 ML/MIN (>89); GLUCOSE,FASTING 94 MG/DL (74-99); LDL CHOLESTEROL 52 MG/DL (0-99); LDL CHOLESTEROL DIRECT 55 MG/DL (0-99); TOTAL BILIRUBIN ADULT 0.8 MG/DL (0.2-1.0); TOTAL PROTEIN 7.3 GM/DL (6.4-8.2); TRIGLYCERIDES 45 MG/DL (42-150)
== END ==
LOC: PLAB 09:13
PROVIDERS: ATTEND Family Medicine
DX: I25.10 Atherosclerotic heart disease of native coronary artery without angina pectoris (principal); E78.2 Mixed hyperlipidemia; I10 Essential (primary) hypertension
CPT/HCPCS: 36415; 80053; 80061; 83721; 85027

== ENCOUNTER → 2017-12-31 | Outpatient (CLI) | payer MEDICARE ==
[2017-12-31 14:38] LABS: ALBUMIN 3.6 GM/DL (3.4-5.0); ALT (GPT) 27 U/L (12-78); AST (GOT) 25 U/L (15-37); BICARBONATE 29.4 MEQ/L (21.0-32.0); BLOOD UREA NITROGEN 24 MG/DL (7-18); CHLORIDE 107 MEQ/L (98-107); CHOLESTEROL 126 MG/DL (120-200); CREATININE 1.16 MG/DL (0.60-1.30); GLOMERULAR FILTRATION RATE 60 ML/MIN (>89); GLUCOSE,FASTING 112 MG/DL (74-99); SODIUM (NA) 142 MEQ/L (136-145); TRIGLYCERIDES 55 MG/DL (42-150)
[2017-12-31 14:40] LABS: ALKALINE PHOSPHATASE 97 U/L (45-117); CHOLESTEROL/ HDL RATIO 1.93 RATIO; HDL CHOLESTEROL 65.2 MG/DL (40.0-60.0); LDL CHOLESTEROL 50 MG/DL (0-99); LDL CHOLESTEROL DIRECT 56 MG/DL (0-99); TOTAL BILIRUBIN ADULT 0.7 MG/DL (0.2-1.0); TOTAL PROTEIN 7.4 GM/DL (6.4-8.2)
[2017-12-31 14:46] LABS: HEMATOCRIT 37.2 % (39.0-51.0); HEMOGLOBIN 12.6 GM/DL (13.0-17.0); MEAN CELL VOLUME 95.9 FL (80.0-100.0); MEAN CORPUSCULAR HEMOGLOBIN 32.5 PG (27.0-34.0); MEAN CORPUSCULAR HGB CONC 33.9 % (32.0-36.0); MEAN PLATELET VOLUME 7.1 FL (7.0-11.0); PLATELET COUNT 198 TH/MM3 (150-450); RED BLOOD COUNT 3.88 MIL/MM3 (4.50-5.90); RED CELL DISTRIBUTION WIDTH 15.3 % (11.6-17.2); WHITE BLOOD COUNT 4.7 TH/MM3 (4.0-11.0)
== END ==
LOC: PLAB 09:21
PROVIDERS: ATTEND Family Medicine
DX: I25.10 Atherosclerotic heart disease of native coronary artery without angina pectoris (principal); E78.2 Mixed hyperlipidemia; I10 Essential (primary) hypertension
CPT/HCPCS: 36415; 80053; 80061; 83721; 85027

== ENCOUNTER 2018-11-05 22:14 | Inpatient (IN) ==
--- NOTE | 2018-11-05 23:52 | ED ---
HPI General Chief complaint: Weakness Stated complaint: General Weakness Time Seen by Provider: 11/05/18 23:07 Source: patient Mode of arrival: EMS Limitations: no limitations History of Present Illness HPI Narrative: The patient is a 88-year-old male who presents to the emergency department via EMS for generalized weakness. The patient has progressing weakness over the last several years, states he lives at home alone at home and walks with a cane and occasionally a walker. The patient does not currently drive and has his meals delivered by [employer]. The patient states he was trying to ambulate earlier today to get a glass of water when his legs gave out and he subsequently fell to the floor. He denied any head trauma or loss of consciousness, but was unable to ambulate after falling to the floor. The patient was able to crawl on the ground to reach a phone and called EMS. The patient does have a history of atrial fibrillation and takes Eliquis, however, once again denies head trauma. He does complain of shortness of breath which has been progressing, has a history of pleural effusions on the right which required thoracentesis. He also notes multiple abdominal hernias which have been present for a long time. He also notes lower extremity edema, usually left greater than the right. Symptoms are moderate and progressive. The patient denies any current fever. The patient's primary physician is Dr. Asif Gutierres. Complaint: Reports generalized weakness Onset (ago): hour(s) Duration: constant Location: Reports LLE and RLE Migration: Reports none Severity: moderate Severity scale (1-10): 5 Relieving factors: none Exacerbating factors: exertion Context: Reports history of similar Associated symptoms: Reports shortness of breath Related Data Home Medications Medication Instructions Recorded Confirmed apixaban [Eliquis] 2.5 mg PO DAILY 11/05/18 11/05/18 aspirin 81 mg PO DAILY 11/05/18 11/05/18 carvedilol [Coreg] 6.25 mg PO BID 11/05/18 11/05/18 finasteride 5 mg PO DAILY 11/05/18 11/05/18 furosemide 20 mg PO DAILY 11/05/18 11/05/18 simvastatin 20 mg PO QPM 11/05/18 11/05/18 spironolactone 25 mg PO DAILY 11/05/18 11/05/18 terazosin 2 mg PO DAILY 11/05/18 11/05/18 Allergies Allergy/AdvReac Type Severity Reaction Status Date / Time enalaprilat Allergy Severe does not Verified 11/05/18 23:17 know erythromycin base Allergy Severe does not Verified 11/05/18 23:17 know told as child penicillin G Allergy Severe does not Verified 11/05/18 23:17 know Review of Systems ROS: all other systems reviewed are negative [facility] Medical History Medical History A-fib (Acute) BPH (benign prostatic hyperplasia) (Acute) CHF (congestive heart failure) (Acute) Hypercholesteremia (Acute) Social History Social History Substance History: No History of Abuse Second Hand Smoke Exposure: No Smoking Status: Never smoker How Often Do You Have a Drink Containing Alcohol: 4 or more times a week Recent Travel in [facility] within the Last 8 Weeks: No Recent Out of Country Travel within the Last 8 Weeks: No Immunization History Tetanus Immunization: Unsure Exam Narrative Exam Narrative: GENERAL: Awake, alert, pleasant 88-year-old male who appears his stated age and appears in mild respiratory distress. SKIN: Focused skin assessment warm/dry. HEAD: Atraumatic. Normocephalic. EYES: No injection or drainage. ENT: No nasal bleeding or discharge. Mucous membranes pink and moist. NECK: Trachea midline. No JVD. CARDIOVASCULAR: Irregularly irregular, tachycardic with a heart rate of 115. RESPIRATORY: No accessory muscle use. Diminished breath sounds in the right base with rales noted. GASTROINTESTINAL: Abdomen soft, left inguinal hernia, nidia-umbilical hernia, right lower abdominal hernia which are all reducible. MUSCULOSKELETAL: No obvious deformities. Bilateral lower extremity pitting edema. NEUROLOGICAL: Awake and alert. No obvious cranial nerve deficits. Motor grossly within normal limits. Normal speech. Nonfocal. PSYCHIATRIC: Appropriate mood and affect; insight and judgment normal. Course Initial Documented Vital Signs Temperature 97.6 F 11/05/18 23:10 Pulse Rate 110 H 11/05/18 23:10 Respiratory Rate 20 11/05/18 23:10 Blood Pressure 107/73 11/05/18 23:10 Pulse Oximetry 96 11/05/18 23:10 Last Documented Vital Signs Temperature 97.6 F 11/05/18 23:10 Pulse Rate 110 H 11/05/18 23:10 Respiratory Rate 20 11/05/18 23:10 Blood Pressure 107/73 11/05/18 23:10 Pulse Oximetry 96 11/05/18 23:10 Medical Decision Making MDM Narrative Medical decision making narrative: IV was established, labs are drawn and sent, the patient was placed on cardiac telemetry monitoring and continuous pulse oximetry monitoring. EKG was ordered and interpreted. Chest x-ray was obtained. CT of the brain was ordered to rule out subdural hemorrhage. UA was sent to lab. CT of the brain was negative for acute intracranial hemorrhage. Chest x-ray reveals pulmonary edema and bilateral pleural effusions, right greater than left. BNP is greater than 2000. Troponin is mildly elevated, most likely secondary to congestive heart failure. The patient was administered Lasix and aspirin orally. IV fluids were not given for lactic acidosis as patient is an acute congestive heart failure. The patient will be admitted to the on-call medical service, may benefit from diuresis and possible interventional radiology consultation for thoracentesis of the right pleural effusion. I discussed the patient with Dr. Whittington who agrees with admission. The patient is comfortable with this plan of care and disposition. Medical Screen Exam Complete: Yes Emergency Medical Condition: Yes Lab Data Result diagrams: 11/06/18 00:00 11/06/18 00:00 Lab Results 11/06/18 11/06/18 11/06/18 Range/Units 00:00 00:00 00:00 WBC 4.6 (4.0-11.0) th/mm3 RBC 3.96 L (4.50-5.90) mil/mm3 Hgb 12.5 L (13.0-17.0) gm/dL Hct 37.6 L (39.0-51.0) % MCV 95.0 (80.0-100.0) fL MCH 31.7 (27.0-34.0) pg MCHC 33.3 (32.0-36.0) % RDW 16.6 (11.6-17.2) % Plt Count 166 (150-450) th/mm3 MPV 9.6 (7.0-11.0) fL Neut % (Auto) 81.4 H (16.0-70.0) % Lymph % (Auto) 9.8 (9.0-44.0) % Callaway % (Auto) 7.9 (0.0-8.0) % Eos % (Auto) 0.5 (0.0-4.0) % Baso % (Auto) 0.4 (0.0-2.0) % Neut # (Auto) 3.8 (1.8-7.7) th/mm3 Lymph # (Auto) 0.5 L (1.0-4.8) th/mm3 Callaway # (Auto) 0.4 (0.0-0.9) th/mm3 Eos # (Auto) 0.0 (0.0-0.4) th/mm3 Baso # (Auto) 0.0 (0.0-0.2) th/mm3 WBC Differential . Differential Comment Auto diff final Sodium 140 (136-145) meq/L Potassium 4.2 (3.5-5.1) meq/L Chloride 107 (98-107) meq/L Carbon Dioxide 22.7 (21.0-32.0) meq/L Anion Gap 10 (5-15) meq/L BUN 50 H (7-18) mg/dL Creatinine 2.07 H (0.60-1.30) mg/dL Estimated GFR 31 L (>89) mL/min Random Glucose 136 H (74-106) mg/dL Lactic Acid (0.4-2.0) mmol/L Calcium 8.5 (8.5-10.1) mg/dL Magnesium 2.7 H (1.5-2.5) mg/dL Total Bilirubin 0.8 (0.2-1.0) mg/dL AST 32 (15-37) U/L ALT 29 (12-78) U/L Alkaline Phosphatase 91 (45-117) U/L Total Creatine Kinase 303 (39-308) U/L Troponin I 0.07 H (0.02-0.05) ng/mL B-Natriuretic Peptide 2365 H (0-100) pg/mL Total Protein 6.6 (6.4-8.2) g/dL Albumin 3.2 L (3.4-5.0) g/dL TSH 6.110 H (0.358-3.740) uIU/mL 11/06/18 Range/Units 00:00 WBC (4.0-11.0) th/mm3 RBC (4.50-5.90) mil/mm3 Hgb (13.0-17.0) gm/dL Hct (39.0-51.0) % MCV (80.0-100.0) fL MCH (27.0-34.0) pg MCHC (32.0-36.0) % RDW (11.6-17.2) % Plt Count (150-450) th/mm3 MPV (7.0-11.0) fL Neut % (Auto) (16.0-70.0) % Lymph % (Auto) (9.0-44.0) % Callaway % (Auto) (0.0-8.0) % Eos % (Auto) (0.0-4.0) % Baso % (Auto) (0.0-2.0) % Neut # (Auto) (1.8-7.7) th/mm3 Lymph # (Auto) (1.0-4.8) th/mm3 Callaway # (Auto) (0.0-0.9) th/mm3 Eos # (Auto) (0.0-0.4) th/mm3 Baso # (Auto) (0.0-0.2) th/mm3 WBC Differential Differential Comment Sodium (136-145) meq/L Potassium (3.5-5.1) meq/L Chloride (98-107) meq/L Carbon Dioxide (21.0-32.0) meq/L Anion Gap (5-15) meq/L BUN (7-18) mg/dL Creatinine (0.60-1.30) mg/dL Estimated GFR (>89) mL/min Random Glucose (74-106) mg/dL Lactic Acid 4.3 H* (0.4-2.0) mmol/L Calcium (8.5-10.1) mg/dL Magnesium (1.5-2.5) mg/dL Total Bilirubin (0.2-1.0) mg/dL AST (15-37) U/L ALT (12-78) U/L Alkaline Phosphatase (45-117) U/L Total Creatine Kinase (39-308) U/L Troponin I (0.02-0.05) ng/mL B-Natriuretic Peptide (0-100) pg/mL Total Protein (6.4-8.2) g/dL Albumin (3.4-5.0) g/dL TSH (0.358-3.740) uIU/mL Imaging Data Radiologist's impression: Chest X-Ray 11/05/18 23:46 CONCLUSION: CHF Head CT 11/05/18 23:46 CONCLUSION: No acute intracranial findings . ECG Data EKG Prior to Arrival: No Attestation: I personally reviewed and interpreted this ECG as follows: Interpretation: EKG reveals atrial fibrillation with RVR, rate 114. RSR prime in V1, right bundle branch block/intraventricular conduction delay, QRS 151 ms. Discharge Plan Discharge Order Discharge Orders: ED Use Only Admit Order (Routine); Ordered 11/06/18 Ordered By: Adan Torres Physicians Team ED Provider: Adan Torres Primary Care Provider: Asif Gutierres Rxs /Orders / Referrals /Forms Prescriptions: No Action carvedilol [Coreg] 6.25 mg Tablet 6.25 mg PO BID RF: 0 spironolactone 25 mg Tablet 25 mg PO DAILY RF: 0 terazosin 2 mg Capsule 2 mg PO DAILY RF: 0 simvastatin 20 mg Tablet 20 mg PO QPM RF: 0 aspirin 81 mg Tablet,Chewable 81 mg PO DAILY RF: 0 furosemide 20 mg Tablet 20 mg PO DAILY RF: 0 finasteride 5 mg Tablet 5 mg PO DAILY RF: 0 apixaban [Eliquis] 2.5 mg Tablet 2.5 mg PO DAILY RF: 0 Status ED Status: Admitted Patient
--- NOTE | 2018-11-06 00:10 | XR ---
EXAM DATE: 11/06/2018 12:03 AM EST AGE/SEX: 88 years / Male INDICATIONS: Bilateral leg swelling with difficulty breathing. CLINICAL DATA: This is the patient's initial encounter. Patient reports that signs and symptoms have been present for 1 day and indicates a pain score of 0/10. MEDICAL/SURGICAL HISTORY: . Myocardial infarction. Benign prostatic hyperplasia, Hypercholester olemia. Anticoagulant therapy, Eliquis. Afib. Hypertension. Anxiety. Blood transfusion. . Coronary a rtery stent. Inguinal hernia repair. COMPARISON: POI, XR CHEST PA AND LAT, 06/26/2017. . FINDINGS: Cardiac enlargement with diffuse interstitial edema and bilateral basilar effusions and alveolar neo a, slightly worse on the right than the left CONCLUSION: CHF Electronically signed by: Ezekiel Chanel MD Board Certified Radiologist 11/06/2018 12:09 AM EST
--- NOTE | 2018-11-06 00:15 | CT ---
EXAM DATE: 11/06/2018 12:07 AM EST AGE/SEX: 88 years / Male INDICATIONS: General weakness. CLINICAL DATA: This is the patient's initial encounter. Patient reports that signs and symptoms have been present for 1 day and indicates a pain score of 0/10. MEDICAL/SURGICAL HISTORY: Congestive heart failure. A-Fib. BPH. None. RADIATION DOSE: 56.35 CTDI (mGy) COMPARISON: No prior exams available for comparison. TECHNIQUE: CT of the head without contrast. Using automated exposure control and adjustment of the mA and/or kV according to patient size, radiation dose was kept as low as reasonably achievable to ob tain optimal diagnostic quality images. DICOM format image data is available electronically for revi ew and comparison. FINDINGS: Left frontal encephalomalacia. Patchy deep white matter hypodensity which appears chronic and benign. Ventricles are symmetric and unremarkable. No evidence of intracranial mass or hemorrhage. Nothing t o suggest acute infarction. Moderate polypoid mucosal disease in the maxillary antra CONCLUSION: No acute intracranial findings . Electronically signed by: Ezekiel Chanel MD Board Certified Radiologist 11/06/2018 12:13 AM EST
[2018-11-06 00:17] LABS: Baso % (Auto) 0.4 % (0.0-2.0); Eos % (Auto) 0.5 % (0.0-4.0); Hematocrit 37.6 % (39.0-51.0); Hemoglobin 12.5 gm/dL (13.0-17.0); Lymph # (Auto) 0.5 th/mm3 (1.0-4.8); Lymph % (Auto) 9.8 % (9.0-44.0); Mean Corpuscular HGB Conc 33.3 % (32.0-36.0); Mean Corpuscular Hemoglobin 31.7 pg (27.0-34.0); Mean Platelet Volume 9.6 fL (7.0-11.0); Mono # (Auto) 0.4 th/mm3 (0.0-0.9); Mono % (Auto) 7.9 % (0.0-8.0); Neut # (Auto) 3.8 th/mm3 (1.8-7.7); Neut % (Auto) 81.4 % (16.0-70.0); Platelet Count 166 th/mm3 (150-450); Red Blood Count 3.96 mil/mm3 (4.50-5.90); Red Cell Distribution Width 16.6 % (11.6-17.2); White Blood Count 4.6 th/mm3 (4.0-11.0)
[2018-11-06 01:01] LABS: Alkaline Phosphatase 91 U/L (45-117); Creatine Kinase 303 U/L (39-308); Total Protein 6.6 g/dL (6.4-8.2); Troponin I 0.07 ng/mL (0.02-0.05)
[2018-11-06 01:13] LABS: Alanine Aminotransferase 29 U/L (12-78); Albumin 3.2 g/dL (3.4-5.0); Anion Gap 10 meq/L (5-15); Aspartate Aminotransferase 32 U/L (15-37); Blood Urea Nitrogen 50 mg/dL (7-18); Calcium 8.5 mg/dL (8.5-10.1); Carbon Dioxide 22.7 meq/L (21.0-32.0); Chloride 107 meq/L (98-107); Glomerular Filtration Rate 31 mL/min (>89); Glucose,Random 136 mg/dL (74-106); Magnesium 2.7 mg/dL (1.5-2.5); Potassium 4.2 meq/L (3.5-5.1); Sodium 140 meq/L (136-145)
[2018-11-06] MEDS ORDERED: Bisacodyl 10 MG Supp RECTAL PRN (03:11)
[2018-11-06] MEDS ORDERED: Acetaminophen 325 MG Tablet PO PRN (03:11)
--- NOTE | 2018-11-06 03:30 | P.HPIM ---
History of Present Illness Primary Care Physician: Asif uGtierres MD 88-year-old male with a past medical history significant for atrial fibrillation anticoagulated on Eliquis, coronary artery disease, hyperlipidemia and possible CHF as to the emergency department for the evaluation of bilateral lower extremity edema. The patient reports that he began having lower extremity weakness earlier yesterday and was unable to get out of his chair. He states that he fell out of his chair onto the floor secondary to his reported hoarseness. He called 911 and was helped off the ground by [facility] approximately 20 minutes later. He denies any shortness of breath or palpations. On arrival to the emergency department he was found to be in A. fib with RVR. The patient reports he has had 2 other episodes of bilateral lower extremity edema with pleural effusions requiring thoracentesis in the past. He endorses compliance with his medications. He denies any chest pain. No abdominal pain. No nausea/vomiting/diarrhea. No focal neurologic deficits. No fever/chills. Inpatient Certification Inpatient Certification: I certify that the inpatient services were ordered in accordance with Medicare regulations governing the order. This includes certification that hospital inpatient services are reasonable and necessary and in the case of services not specified as inpatient-only under 42 CFR 419.22(n), that they are appropriately provided as inpatient services in accordance to with the 2-midnight benchmark under 43 CFR 412.3(e) Estimated Total Length of Stay (Days): 3 Plans for Post Hospital Care: Not yet determined Review of Systems Review of Systems: all other systems reviewed are negative [facility] Medical History Medical History A-fib (Acute) BPH (benign prostatic hyperplasia) (Acute) CHF (congestive heart failure) (Acute) Coronary artery disease (Acute) Hypercholesteremia (Acute) Surgical History Surgical History No history of previous surgery (Acute) Family History Family History Other Coronary artery disease Social History Social History Substance History: No History of Abuse Second Hand Smoke Exposure: No Smoking Status: Never smoker How Often Do You Have a Drink Containing Alcohol: 4 or more times a week Recent Travel in [facility] within the Last 8 Weeks: No Recent Out of Country Travel within the Last 8 Weeks: No Immunization History Tetanus Immunization: Unsure Medications and Allergies Allergies Allergy/AdvReac Type Severity Reaction Status Date / Time enalaprilat Allergy Severe does not Verified 11/05/18 23:17 know erythromycin base Allergy Severe does not Verified 11/05/18 23:17 know told as child penicillin G Allergy Severe does not Verified 11/05/18 23:17 know Home Medications Medication Instructions Recorded Confirmed Type apixaban [Eliquis] 2.5 mg PO DAILY 11/05/18 11/05/18 History aspirin 81 mg PO DAILY 11/05/18 11/05/18 History carvedilol [Coreg] 6.25 mg PO BID 11/05/18 11/05/18 History finasteride 5 mg PO DAILY 11/05/18 11/05/18 History furosemide 20 mg PO DAILY 11/05/18 11/05/18 History simvastatin 20 mg PO QPM 11/05/18 11/05/18 History spironolactone 25 mg PO DAILY 11/05/18 11/05/18 History terazosin 2 mg PO DAILY 11/05/18 11/05/18 History Active Medications: Active Medications Acetaminophen (Tylenol) 650 mg PO Q4H PRN PRN Reason: Temp > 100.4 Al Hydroxide/Mg Hydroxide (Milk Of Magnesia Liq) 30 ml PO Q12H PRN PRN Reason: Mild Constipation Bisacodyl (Dulcolax Supp) 10 mg RECTAL DAILY PRN PRN Reason: SEVERE CONSITIPATION Bumetanide (Bumex Inj) 1 mg IV.PUSH BID@0900,1800 HOSSEIN Lactulose (Lactulose Liq) 30 ml PO DAILY PRN PRN Reason: SEVERE CONSITIPATION Sodium Chloride (Ns Flush) 2 ml IV.FLUSH PRN PRN PRN Reason: FLUSH AFTER USING IV ACCESS Physical Exam Vital signs: Vital Signs 11/05/18 23:10 11/06/18 02:00 11/06/18 03:00 Temperature 97.6 F Pulse Rate 110 H 96 H 96 H Respiratory Rate 20 20 20 Blood Pressure 107/73 95/62 L 108/69 Pulse Oximetry 96 96 96 Intake & Output 11/05/18 11/05/18 11/06/18 06:59 18:59 06:59 Weight 79.379 kg Narrative: Gen.: No acute distress Head: Normocephalic. Atraumatic. EENT: Pupils equal round and reactive to light. Nose without drainage. Airway intact. Throat without injection. Cardiovascular: Tachycardic with irregularly irregular rhythm. No murmurs, rubs or gallops. Respiratory: Absent lung sounds on the lower half of the right lung [place], crackles throughout left lung. Abdomen: Soft, nontender, nondistended. No peritoneal signs. Musculoskeletal: No gross deformities. 3+ bilateral lower extremity edema. Skin: No obvious rashes or erythema. Neuro: Sensory and motor grossly intact. Cranial nerves II through XII grossly intact. Results Labs CBC & Chem 7: 11/06/18 00:00 11/06/18 00:00 Imaging Impressions Chest X-Ray 11/05/18 23:46 CONCLUSION: CHF Head CT 11/05/18 23:46 CONCLUSION: No acute intracranial findings . Caprini VTE Risk Assessment Caprini VTE Risk Assessment: Moderate/High Risk (score >= 2) Caprini Risk Assessment Model: Point Value = 1 Point Value = 2 Point Value = 3 Point Value = 5 Age 41-60 Minor surgery BMI > 25 kg/m2 Swollen legs Varicose veins or History of unexplained or recurrent spontaneous Oral contraceptives or hormone replacement Sepsis (< 1 month) Serious lung disease, including pneumonia (< 1 month) Abnormal pulmonary function Acute myocardial infarction Congestive heart failure (< 1 month) History of inflammatory bowel disease Medical patient at bed rest Age 61-74 Arthroscopic surgery Major open surgery (> 45 min) Laparoscopic surgery (> 45 min) Malignancy Confined to bed (> 72 hours) Immobilizing plaster cast Central venous access Age >= 75 History of VTE Family history of VTE Factor V Leiden Prothrombin [id number] Lupus anticoagulant Anticardiolipin antibodies Elevated serum homocysteine Heparin-induced thrombocytopenia Other congenital or acquired thrombophilia Stroke (< 1 month) Elective arthroplasty Hip, pelvis, or leg fracture Acute spinal cord injury (< 1 month) Prophylaxis Regimen: Total Risk Factor Score Risk Level Prophylaxis Regimen 0-1 Low Early ambulation 2 Moderate Order ONE of the following: *Sequential Compression Device (SCD) *Heparin 5000 units SQ BID 3-4 Higher Order ONE of the following medications: *Heparin 5000 units SQ TID *Enoxaparin/Lovenox 40 mg SQ daily (WT < 150 kg, CrCl > 30 mL/min) *Enoxaparin/Lovenox 30 mg SQ daily (WT < 150 kg, CrCl > 10-29 mL/min) *Enoxaparin/Lovenox 30 mg SQ BID (WT < 150 kg, CrCl > 30 mL/min) AND/OR *Sequential Compression Device (SCD) 5 or more Highest Order ONE of the following medications: *Heparin 5000 units SQ TID (Preferred with Epidurals) *Enoxaparin/Lovenox 40 mg SQ daily (WT < 150 kg, CrCl > 30 mL/min) *Enoxaparin/Lovenox 30 mg SQ daily (WT < 150 kg, CrCl > 10-29 mL/min) *Enoxaparin/Lovenox 30 mg SQ BID (WT < 150 kg, CrCl > 30 mL/min) AND *Sequential Compression Device (SCD) Assessment and Plan Plan Assessment/plan: 1. Bilateral pleural effusions Likely secondary to CHF Patient denies history of CHF however is on Lasix and carvedilol No recent echo States he does not have a crnp Moderate sized pleural effusion on the right, thoracentesis pending Echo pending IV Bumex 2. Atrial fibrillation with rapid ventricular response EKG significant for A. fib with RVR, personally reviewed Holding Eliquis until thoracentesis complete Continue home beta-stevenson 3. Acute renal failure BUN/creatinine 50/2.07 Baseline creatinine approximately 1 Nephrology consulted to assist with diuresis in the setting of renal failure 4. Elevated troponin Initial troponin 0.07 EKG as above Suspect elevated troponin secondary to demand and renal failure ACS rule out pending; serial troponins/EKGs 5. Hypertension/coronary artery disease Continue home medications Holding aspirin for thoracentesis FEN N.p.o. Electrolytes: Monitor and replete as needed Holding pharmacologic anticoagulation for pending thoracentesis
[2018-11-06] MEDS: Finasteride 5 MG Tablet PO SCH (09:21)
[2018-11-06] MEDS: Spironolactone 25 MG Tablet PO SCH (09:21)
[2018-11-06] MEDS: Senna/Docusate Sodium 8.6/50 MG Tablet PO SCH ×2 (09:25→22:44)
[2018-11-06] MEDS: Carvedilol 6.25 MG Tablet PO SCH ×2 (09:25→22:42)
[2018-11-06 10:11] LABS: Baso % (Auto) 0.3 % (0.0-2.0); Eos % (Auto) 0.7 % (0.0-4.0); Hematocrit 35.1 % (39.0-51.0); Hemoglobin 11.4 gm/dL (13.0-17.0); Lymph # (Auto) 0.6 th/mm3 (1.0-4.8); Lymph % (Auto) 13.9 % (9.0-44.0); Mean Corpuscular HGB Conc 32.6 % (32.0-36.0); Mean Corpuscular Hemoglobin 30.6 pg (27.0-34.0); Mean Corpuscular Volume 93.8 fL (80.0-100.0); Mean Platelet Volume 9.1 fL (7.0-11.0); Mono # (Auto) 0.5 th/mm3 (0.0-0.9); Mono % (Auto) 11.7 % (0.0-8.0); Neut % (Auto) 73.4 % (16.0-70.0); Platelet Count 146 th/mm3 (150-450); Red Blood Count 3.74 mil/mm3 (4.50-5.90); Red Cell Distribution Width 16.2 % (11.6-17.2); White Blood Count 4.1 th/mm3 (4.0-11.0)
[2018-11-06 10:20] LABS: Activated Partial Thrombo Time 36.1 sec (23.4-31.7); INR 1.3 Ratio
[2018-11-06 10:42] LABS: Calcium 8.4 mg/dL (8.5-10.1); Carbon Dioxide 25.4 meq/L (21.0-32.0)
[2018-11-06 10:45] LABS: Troponin I 0.08 ng/mL (0.02-0.05)
--- NOTE | 2018-11-06 10:56 | P.CONNP ---
<Jess Rivera - Last Filed: 11/06/18 10:39> History of Present Illness Service: Nephrology Consult date: 11/06/18 Requesting Physician: Mckenna Whittington Reason for Consult: Acute on chronic kidney injury with fluid overload. Primary Care Provider: Asif Gutierres MD History of Present Illness: Patient is a 88-year-old male with a past medical history significant for atrial fibrillation anticoagulated on Eliquis, coronary artery disease, hyperlipidemia and possible CHF. Presents to emergency department for the evaluation of bilateral lower extremity edema. The patient reports that he began having lower extremity weakness earlier yesterday and was unable to get out of his chair. He states that he fell out of his chair onto the floor secondary to his reported hoarseness. He called 911 and was helped off the ground by EVAC approximately 20 minutes later. On arrival to the emergency department he was found to be in A. fib with RVR. Nephrology is consulted for acute on chronic kidney injury with fluid overload. Creatinine at 2.07 and potassium level of 4.6. Has history of mild chronic kidney disease not followed by Nephrology outpatient. Has been on Lasix and Aldactone at home. Patient denies any shortness of breath, chest pain, nausea, or vomiting. Reports frequent loose stools. Has compression stocking on left leg only and edema is considerable worse in right leg. Review of Systems All other systems reviewed negative except as stated in HPI PMFSH - History History Provided By: Patient - Medical History Medical History: Medical History (Last Reviewed 11/06/18 @ 08:32 by Cory Simon) A-fib BPH (benign prostatic hyperplasia) CHF (congestive heart failure) Coronary artery disease Hypercholesteremia - Surgical History Surgical History: Surgical History (Last Reviewed 11/06/18 @ 08:32 by Cory Simon) No history of previous surgery - Family History Family History: Family History (Last Reviewed 11/05/18 @ 23:51 by Adan Torres MD) Other Coronary artery disease - Tobacco History Second Hand Smoke Exposure: No Smoking Status: Never smoker - Alcohol History How Often Do You Have a Drink Containing Alcohol: 2 to 3 times a week - Substance Use History Substance History: No History of Abuse - Travel History Recent Travel in the [place] Within the Last 8 Weeks: No Recent Travel Out of the Country Within the Last 8 Weeks: No - Immunization History Tetanus Immunization: Unsure Hx Influenza Vaccine This Season: Yes Medications and Allergies Allergies Allergy/AdvReac Type Severity Reaction Status Date / Time enalaprilat Allergy Severe does not Verified 11/05/18 23:17 know erythromycin base Allergy Severe does not Verified 11/05/18 23:17 know told as child penicillin G Allergy Severe does not Verified 11/05/18 23:17 know Home Medications Medication Instructions Recorded Confirmed Type apixaban [Eliquis] 2.5 mg PO DAILY 11/05/18 11/05/18 History aspirin 81 mg PO DAILY 11/05/18 11/05/18 History carvedilol [Coreg] 6.25 mg PO BID 11/05/18 11/05/18 History finasteride 5 mg PO DAILY 11/05/18 11/05/18 History furosemide 20 mg PO DAILY 11/05/18 11/05/18 History simvastatin 20 mg PO QPM 11/05/18 11/05/18 History spironolactone 25 mg PO DAILY 11/05/18 11/05/18 History terazosin 2 mg PO DAILY 11/05/18 11/05/18 History Active Medications: Active Medications Acetaminophen (Tylenol) 650 mg PO Q4H PRN PRN Reason: Temp > 100.4 Al Hydroxide/Mg Hydroxide (Milk Of Magnesia Liq) 30 ml PO Q12H PRN PRN Reason: Mild Constipation Bisacodyl (Dulcolax Supp) 10 mg RECTAL DAILY PRN PRN Reason: SEVERE CONSITIPATION Bumetanide (Bumex Inj) 1 mg IV.PUSH BID@0900,1800 [facility] Last Admin: 11/06/18 09:21 Dose: 1 mg Carvedilol (Coreg) 6.25 mg PO BID [facility] Last Admin: 11/06/18 09:25 Dose: 6.25 mg Finasteride (Proscar) 5 mg PO DAILY [facility] Last Admin: 11/06/18 09:21 Dose: 5 mg Lactulose (Lactulose Liq) 30 ml PO DAILY PRN PRN Reason: SEVERE CONSITIPATION Ondansetron HCl (Zofran Inj) 4 mg IV.PUSH Q6H PRN PRN Reason: NAUSEA OR VOMITING Pravastatin Sodium (Pravachol) 40 mg PO DAILY@1800 [facility] Senna/Docusate Sodium (Erin-Colace) 1 tab PO BID [facility] Last Admin: 11/06/18 09:25 Dose: 1 tab Sennosides (Senokot) 17.2 mg PO Q12H PRN PRN Reason: Moderate Constipation Sodium Chloride (Ns Flush) 2 ml IV.FLUSH PRN PRN PRN Reason: FLUSH AFTER USING IV ACCESS Sodium Chloride (Ns Flush) 2 ml IV.FLUSH BID [facility] Sodium Chloride (Ns Flush) 2 ml IV.FLUSH PRN PRN PRN Reason: FLUSH AFTER USING IV ACCESS Spironolactone (Aldactone) 25 mg PO DAILY [facility] Last Admin: 11/06/18 09:21 Dose: 25 mg Terazosin HCl (Hytrin) 2 mg PO DAILY [facility] Last Admin: 11/06/18 09:21 Dose: 2 mg Exam Vital signs: Vital Signs 11/05/18 23:10 11/06/18 02:00 11/06/18 03:00 Temperature 97.6 F Pulse Rate 110 H 96 H 96 H Respiratory Rate 20 20 20 Blood Pressure 107/73 95/62 L 108/69 Pulse Oximetry 96 96 96 11/06/18 08:00 11/06/18 08:34 Temperature 96.5 F L Pulse Rate 95 H Respiratory Rate 16 Blood Pressure 102/63 Pulse Oximetry 95 93 L Intake & Output 11/05/18 11/06/18 11/06/18 18:59 06:59 18:59 Output Total 300 / 300 Balance -300 / -300 Weight 79.379 kg Output: Urine 300 / 300 Other: # Voids 1 Date of Last Bowel Movement 11/05/18 Weight On Admission 79.379 kg Narrative: GENERAL: Alert and oriented. NAD. SKIN: Warm and dry. NECK: Supple, trachea midline. No JVD CARDIOVASCULAR: Tachycardic irregular rate and rhythm without murmurs, gallops, or rubs. RESPIRATORY: Absent lung sounds on the lower half of the right lung veneg[place], crackles throughout left lung. GASTROINTESTINAL: Abdomen soft, non-tender, nondistended. MUSCULOSKELETAL: No cyanosis, 3 + edema in right lower extremity left leg with compression hose on with less dino,a. BACK: Nontender without obvious deformity. No CVA tenderness. Results - Lab Results 11/06/18 08:10 11/06/18 00:00 Most recent lab results Calcium 8.5 mg/dL (8.5-10.1) 11/06/18 00:00 Magnesium 2.7 mg/dL (1.5-2.5) H 11/06/18 00:00 - Image Kidney/bladder ultrasound: pending Assessment and Plan - Assessment (1) Acute on chronic kidney failure Code(s): N17.9 - Acute kidney failure, unspecified; N18.9 - Chronic kidney disease, unspecified Status: Acute Plan: Acute on chronic kidney injury with fluid overload. Creatinine at 2.07 and potassium level of 4.6. Has history of mild chronic kidney disease with baseline creatinine at 1.1. Acute kidney injury possibly prerenal azotemia from third spacing. Renal ultrasound ordered has history of retention Urine sodium and osmolarity ordered. SPEP ordered UA pending. Continue bumex and Aldactone, has significant edema. Will adjust diuretics as needed Fluid restriction recommended Maintain accurate I+O will follow urinary output and BMP renal panel in AM (2) Congestive heart failure Code(s): I50.9 - Heart failure, unspecified Status: Acute Plan: Bedside ECHO, not followed by cardiology outpatient Plan for thoracentesis today. Sats good on room air <Domenic Ramires Q - Last Filed: 11/06/18 23:07> History of Present Illness Primary Care Provider: Asif Gutierres MD [facility] - Medical History Medical History: Medical History (Last Reviewed 11/06/18 @ 08:32 by Cory Simon) A-fib BPH (benign prostatic hyperplasia) CHF (congestive heart failure) Coronary artery disease Hypercholesteremia - Surgical History Surgical History: Surgical History (Last Reviewed 11/06/18 @ 08:32 by Cory Simon) No history of previous surgery - Family History Family History: Family History (Last Reviewed 11/05/18 @ 23:51 by Adan Torres MD) Other Coronary artery disease Medications and Allergies Active Medications: Active Medications Acetaminophen (Tylenol) 650 mg PO Q4H PRN PRN Reason: Temp > 100.4 Al Hydroxide/Mg Hydroxide (Milk Of Magnesia Liq) 30 ml PO Q12H PRN PRN Reason: Mild Constipation Albuterol (Duoneb Neb (Elizabeth)) 1 ampul NEB Q6HR NEB ELIZABETH Last Admin: 11/06/18 21:06 Dose: 1 ampul Albuterol (Duoneb Neb (Prn)) 1 ampul NEB Q2HR NEB PRN PRN Reason: SHORTNESS OF BREATH Bisacodyl (Dulcolax Supp) 10 mg RECTAL DAILY PRN PRN Reason: SEVERE CONSITIPATION Bumetanide (Bumex Inj) 1 mg IV.PUSH Q8H [facility] Last Admin: 11/06/18 22:44 Dose: Not Given Carvedilol (Coreg) 6.25 mg PO BID [facility] Last Admin: 11/06/18 22:42 Dose: Not Given Chlorhexidine Gluconate (Chlorhexidine 2% Cloth) 3 pack TOPICAL DAILY@0400 [facility] Stop: 11/12/18 03:59 Chlorhexidine Gluconate (Chlorhexidine 2% Cloth) 3 pack TOPICAL DAILY@0400 PRN PRN Reason: Extra cloth needed Stop: 11/12/18 03:59 Famotidine (Pepcid Pf Inj) 20 mg IV.PUSH Q12HR [facility] Last Admin: 11/06/18 21:55 Dose: 20 mg Finasteride (Proscar) 5 mg PO DAILY [facility] Last Admin: 11/06/18 09:21 Dose: 5 mg Lactulose (Lactulose Liq) 30 ml PO DAILY PRN PRN Reason: SEVERE CONSITIPATION Morphine Sulfate (Morphine Inj) 2 mg IV.PUSH Q3H PRN PRN Reason: PAIN 6-10;IF UNABLE TO TAKE PO Last Admin: 11/06/18 20:58 Dose: 2 mg Ondansetron HCl (Zofran Inj) 4 mg IV.PUSH Q6H PRN PRN Reason: NAUSEA OR VOMITING Pravastatin Sodium (Pravachol) 40 mg PO DAILY@1800 [facility] Last Admin: 11/06/18 18:06 Dose: 40 mg Senna/Docusate Sodium (Erin-Colace) 1 tab PO BID [facility] Last Admin: 11/06/18 22:44 Dose: Not Given Sennosides (Senokot) 17.2 mg PO Q12H PRN PRN Reason: Moderate Constipation Sodium Chloride (Ns Flush) 2 ml IV.FLUSH PRN PRN PRN Reason: FLUSH AFTER USING IV ACCESS Sodium Chloride (Ns Flush) 2 ml IV.FLUSH BID [facility] Last Admin: 11/06/18 22:43 Dose: 2 ml Sodium Chloride (Ns Flush) 2 ml IV.FLUSH PRN PRN PRN Reason: FLUSH AFTER USING IV ACCESS Spironolactone (Aldactone) 25 mg PO DAILY [facility] Last Admin: 11/06/18 09:21 Dose: 25 mg Terazosin HCl (Hytrin) 2 mg PO DAILY [facility] Last Admin: 11/06/18 09:21 Dose: 2 mg Exam Vital signs: Vital Signs 11/05/18 23:10 11/06/18 02:00 11/06/18 03:00 Temperature 97.6 F Pulse Rate 110 H 96 H 96 H Respiratory Rate 20 20 20 Blood Pressure 107/73 95/62 L 108/69 Pulse Oximetry 96 96 96 11/06/18 08:00 11/06/18 08:34 11/06/18 12:00 Temperature 96.5 F L 96.8 F L Pulse Rate 95 H 69 Respiratory Rate 16 16 Blood Pressure 102/63 87/63 L Pulse Oximetry 95 93 L 97 11/06/18 13:47 11/06/18 14:50 11/06/18 15:05 Temperature 98.6 F 97.2 F L Pulse Rate 86 62 67 Respiratory Rate 20 18 18 Blood Pressure 96/66 L 86/67 L 88/69 L Pulse Oximetry 99 95 97 11/06/18 15:20 11/06/18 15:50 11/06/18 21:06 Temperature Pulse Rate 88 60 82 Respiratory Rate 16 18 20 Blood Pressure 97/74 L Pulse Oximetry 100 96 95 Intake & Output 11/06/18 11/06/18 11/07/18 06:59 18:59 06:59 Output Total 300 / 300 Balance -300 / -300 Weight 79.379 kg Output: Urine 300 / 300 Other: # Voids 1 Date of Last Bowel Movement 11/05/18 11/05/18 11/05/18 Weight On Admission 79.379 kg Results - Lab Results 11/06/18 08:10 11/06/18 08:10 Most recent lab results Calcium 8.4 mg/dL (8.5-10.1) L 11/06/18 08:10 Magnesium 2.7 mg/dL (1.5-2.5) H 11/06/18 00:00 Assessment and Plan - Assessment (1) Acute on chronic kidney failure Code(s): N17.9 - Acute kidney failure, unspecified; N18.9 - Chronic kidney disease, unspecified Status: Acute Plan: Patient seen and examined, agree with above. Patient with ERIK. Has been in fluid overload status. Continue Bumex and Aldactone. Work up as above. Follow the urine out put and BMP. (2) Congestive heart failure Code(s): I50.9 - Heart failure, unspecified Status: Acute
[2018-11-06 13:22] LABS: Troponin I 0.09 ng/mL (0.02-0.05)
--- NOTE | 2018-11-06 14:48 | XR ---
EXAM DATE: 11/06/2018 2:37 PM EST AGE/SEX: 88 years / Male INDICATIONS: Post right thoracentesis. CLINICAL DATA: This is the patient's subsequent encounter. Patient reports that signs and symptoms h ave been present for 1 day and indicates a pain score of 0/10. MEDICAL/SURGICAL HISTORY: . Myocardial infarction. Benign prostatic hyperplasia, Hypercholester olemia. Anticoagulant therapy, Eliquis. Afib. Hypertension. Anxiety. Blood transfusion. . Coronary artery stent. Inguinal hernia repair. COMPARISON: [facility] [place], CHEST 1V SINGLE AP, 11/06/2018. . FINDINGS: A single frontal expiratory view of the chest was performed. Patient is status post a right thoracent esis. There is a right-sided pneumothorax with approximately 1 cm separation at the apex and approxim ately 2.8 cm of separation in the right lower hemithorax. There is a small amount of residual fluid r emaining. There continues to be a small left-sided pleural effusion. The heart size is enlarged but s table. CONCLUSION: There is a right-sided pneumothorax status post thoracentesis as noted above. Electronically signed by: Ayan Sellers MD Board Certified Radiologist 11/06/2018 2:47 PM EST
--- NOTE | 2018-11-06 15:14 | US ---
EXAM DATE: 11/06/2018 3:10 PM EST AGE/SEX: 88 years / Male INDICATIONS: Elevated lab values. CLINICAL DATA: This is the patient's initial encounter. Patient reports that signs and symptoms have been present for 1 day and indicates a pain score of 0/10. MEDICAL/SURGICAL HISTORY: Congestive heart failure. A-Fib. BPH. Coronary artery disease. Hyperc holesteremia.. None. COMPARISON: [facility] – [place], US ABDOMEN - LIVER, 04/04/2017. . MEASUREMENTS: Right Kidney:__9.6 x 4.4 x 3.8 cm Left Kidney:__9.5 x 5.4 x 5.3 cm FINDINGS: Right Kidney: Normal renal cortical thickness and echogenicity.. No mass or hydronephrosis. Left Kidney: Normal renal cortical thickness and echogenicity. No evidence of hydronephrosis. There a re several echogenic and shadowing foci, midpole measuring 5 mm in the upper pole measuring 7 mm sugg estive of calcified renal stones. Bladder: Trabeculated appearance to the bladder wall with mild distention. Other: None. CONCLUSION: 1. Probable left renal stones without evidence of hydronephrosis. 2. Trabeculated bladder. Electronically signed by: Oliver Hodges MD Board Certified Radiologist 11/06/2018 3:13 PM EST
--- NOTE | 2018-11-06 15:38 | ECG ---
Date Performed: 11/05/2018 Time Performed: 23:10:52 PTAGE: 88 years EKG: ATRIAL FIBRILLATION WITH RAPID VENTRICULAR RESPONSE WITH ABERRANT CONDUCTION OR VENTRICULAR PREMATURE COMPLEXES MARKED LEFT AXIS DEVIATION BIFASCICULAR BLOCK WITH RIGHT BUNDLE BRANCH BLOCK AND LEFT ANTERIOR FASCICULAR BLOCK ABNORMAL ECG Compared to PREVIOUS TRACING , RBBB is new, making the two tracings difficult to compare directly. Cl inical correlation is advised. Present tracing does show criteria for probable left ventricular hyper trophy, and those criteria were not previously evident. Significant serial changes have occurred. PRE VIOUS TRACIN04/03/2017 18.24.27 DOCTOR: Siobhan Ventura Interpretating Date/Time 11/06/2018 15:38:17
[2018-11-06 16:21] LABS: Total Protein,Pleural Fluid 1.4 gm/dL
--- NOTE | 2018-11-06 17:09 | US ---
EXAM DATE: 11/06/2018 2:37 PM EST AGE/SEX: 88 years / Male INDICATIONS: Right pleural effusion. CLINICAL DATA: This is the patient's initial encounter. Patient reports that signs and symptoms have been present for 1 day and indicates a pain score of 2/10. MEDICAL/SURGICAL HISTORY: Congestive heart failure. A-Fib. BPH. Coronary artery disease. Hyperc holesteremia. None. COMPARISON: No prior exams available for comparison. FLUID: Total volume of 2140 cc of clear, yellow fluid was removed. Fluid was sent to lab for ordered studies. . . TECHNIQUE: Ultrasound guidance for thoracentesis. Thoracentesis. The risks, benefits, and alternatives to ultrasound guided thoracentesis were explained to the patien t in lay simple terms, including the risk of bleeding and infection. Written and verbal informed con sent was obtained. Appropriate area for right thoracentesis was marked under ultrasound guidance with the patient in the upright position. Overlying skin was prepped and draped in the usual sterile fashion and with local anesthetic, a dermatotomy was made with an 11 blade scalpel. A 6 Macedonian thoracentesis catheter was placed in the pleural space and fluid was removed. Catheter was then removed and a sterile dressing applied. There were no immediate complications. The patient tolerated the procedure well and the lef t the ultrasound suite in stable condition. Chest radiograph is to be obtained. FINDINGS: Adequate fluid for thoracentesis. CONCLUSION: 1. Right-sided thoracentesis as detailed above. 2. A large amount of fluid was removed from the right chest. Postprocedural radiograph did show a pn eumothorax. However, the patient is completely asymptomatic without pain and saturating at 97-98% on 2 L nasal cannula. Chest radiograph shows a fibrotic appearance of the right lung and, as such, I do not feel patient would benefit from percutaneous chest tube placement this time. Patient will be jonel tored on the floor and a follow-up chest radiograph will be performed later this afternoon to ensure stability. Electronically signed by: Brock Aguiar MD Board Certified Radiologist 11/06/2018 5:08 PM EST
--- NOTE | 2018-11-06 17:14 | ECHRPT ---
Indication: heart failure CONCLUSIONS Normal left ventricular size. Wall thickness is normal. The left ventricular systolic function is severely reduced with an estimated ejection fraction less than 20%. The left atrial size is mildly dilated. Moderate to severe mitral valve regurgitation. There is mild to moderate tricuspid valve regurgitation. The estimated pulmonary arterial pressure is 51 mmHg. BP: / HR: Rhythm: MEASUREMENTS (Male / Female) Normal Values Technical Quality: 2D ECHO LV Diastolic Diameter PLAX 5.5 cm 4.2 - 5.9 / 3.9 - 5.3 cm LV Systolic Diameter PLAX 5.3 cm IVS Diastolic Thickness 1.1 cm 0.6 - 1.0 / 0.6 - 0.9 cm LVPW Diastolic Thickness 1.3 cm 0.6 - 1.0 / 0.6 - 0.9 cm LV Relative Wall Thickness 0.5 RV Internal Dim ED PLAX 4.4 cm LVOT Diameter 1.6 cm Aortic Root Diameter 2.5 cm LA Systolic Diameter LX 5.6 cm 3.0 - 4.0 / 2.7 - 3.8 cm M-MODE Aortic Root Diameter MM 2.5 cm LA Systolic Diameter MM 3.8 cm LA Ao Ratio MM 1.5 AV Cusp Separation MM 1.5 cm DOPPLER AV Peak Velocity 113.0 cm/s AV Peak Gradient 5.1 mmHg AV Mean Gradient 3.0 mmHg AV Velocity Time Integral 14.9 cm AI Peak Velocity 235.0 cm/s AI Peak Gradient 22.1 mmHg AI Pressure Half Time 226.0 ms LVOT Peak Velocity 77.7 cm/s LVOT Peak Gradient 2.4 mmHg LVOT Velocity Time Integral 18.0 cm AV Area Cont Eq vti 2.4 cm AV Area Cont Eq pk 1.4 cm Mitral E Point Velocity 67.1 cm/s LV E' Lateral Velocity 4.9 cm/s Mitral E to LV E' Lateral Ratio 13.8 LV E' Septal Velocity 3.0 cm/s Mitral E to LV E' Septal Ratio 22.3 TR Peak Velocity 320.0 cm/s TR Peak Gradient 41.0 mmHg Right Atrial Pressure 10.0 mmHg Pulmonary Artery Systolic Pressu 51.0 mmHg Right Ventricular Systolic Press 51.0 mmHg PV Peak Velocity 80.1 cm/s PV Peak Gradient 2.6 mmHg FINDINGS LEFT VENTRICLE Normal left ventricular size. Wall thickness is normal. The left ventricular systolic function is severely reduced with an estimated ejection fraction less than 20%. RIGHT VENTRICLE Normal right ventricular size and systolic function. LEFT ATRIUM The left atrial size is mildly dilated. RIGHT ATRIUM The right atrial size is normal. ATRIAL SEPTUM Normal atrial septal thickness without atrial level shunting by limited color doppler interrogation. AORTA The aortic root and proximal ascending aorta are normal in size on limited imaging. MITRAL VALVE Moderate mitral valve regurgitation. AORTIC VALVE Trileaflet aortic valve. No aortic valve stenosis or regurgitation. TRICUSPID VALVE There is mild to moderate tricuspid valve regurgitation. The estimated pulmonary arterial pressure is 51 mmHg. PULMONARY VALVE No pulmonary valve regurgitation or stenosis. VESSELS The inferior vena cava is normal in size. PERICARDIUM No pericardial effusion. Reji Nieto MD, FACC, FSCAI (Electronically Signed) Final Date:06 November 2018 17:12
[2018-11-06 17:33] LABS: Lymphocytes,Pleural Fluid 83 %; Monocytes,Pleural Fluid 9 %; Neutrophils,Pleural Fluid 7 %
[2018-11-06 17:34] LABS: RBC,Pleural Fluid 27 /mm3 (0-0)
--- NOTE | 2018-11-06 18:49 | XR ---
EXAM DATE: 11/06/2018 6:28 PM EST AGE/SEX: 88 years / Male INDICATIONS: S/P thoracentesis, evaluation for pneumothorax. CLINICAL DATA: This is the patient's initial encounter. Patient reports that signs and symptoms have been present for 1 day and indicates a pain score of 0/10. MEDICAL/SURGICAL HISTORY: . Myocardial infarction. Benign prostatic hyperplasia, Hypercholester olemia. Anticoagulant therapy, Eliquis. Afib. Hypertension. Anxiety. Blood transfusion. . Coronary ar vineet stent. Inguinal hernia repair. . [place] [facility] [place]. . FINDINGS: There is a persistent right pneumothorax. This appears larger when compared to the prior exam now sandra suring up to 2.4 cm over the right apex. It previously measured approximately 1 cm in thickness in th is region. A pneumothorax is also seen in the inferior lateral right base. Mediastinal shift is not c learly identified. This increased density at the bases bilaterally likely related to consolidation or atelectasis. There is silhouetting of the left hemidiaphragm. The heart size is enlarged. CONCLUSION: Persistent right pneumothorax which appears larger on the current exam. There is a mild to moderate p neumothorax on the right. This information will be related to the floor. Cardiomegaly. Consolidation or atelectasis possible effusion at the left base with silhouetting the left hemidiaphr agm. Electronically signed by: Ezekiel Ziegler MD Board Certified Radiologist 11/06/2018 6:47 PM EST
--- NOTE | 2018-11-06 20:02 | P.CONCC ---
History of Present Illness Service: Critical care Consult date: 11/06/18 Requesting Physician: Jefe Mclean Reason for Consult: Expanding pneumothorax, respiratory insufficiency Primary Care Provider: Asif Gutierres MD Chief Complaint: Shortness of breath History of Present Illness: 88-year-old male with a past medical history significant for atrial fibrillation on Eliquis, coronary artery disease, hyperlipidemia and possible CHF who presented to the emergency department with bilateral lower extremity edema. In the ER patient was found to be in A. fib with RVR. Patient reported having pleural effusions requiring thoracentesis in the past. Patient symptoms were attributed to CHF, chest x-ray showed bilateral effusion, BNP was more than 2300, and troponin was mildly elevated at 0.08. And echocardiogram showed the left ventricular systolic function severely reduced with an estimated ejection fraction less than 20%. Moderate to severe mitral valve regurgitation. It was also noted that patient had a lactic acid of 4.3. This is most likely secondary to poor perfusion and developing cardiogenic shock. There is no evidence of sepsis. Patient underwent right-sided thoracentesis by IR today. Postprocedural radiograph did show a pneumothorax. However patient was completely asymptomatic at that time and no chest tube was placed. Per Dr. Aguiar's note stated chest x-ray showed fibrotic appearance of the right lung. Patient had some increase in shortness of breath late evening today. A repeat chest x-ray showed a persistent right pneumothorax which appeared larger when compared to the prior exam now measuring up to 2.4 cm over the right apex. Previously was 1 cm. A pneumothorax is also seen in the inferior lateral right base. No mediastinal shift. I evaluated the patient in the ICU. He is showing good oxygen saturation on 2 L nasal cannula, mildly tachypneic. I have ordered a stat CT of the chest to evaluate for a loculated pneumothorax. Patient may need a chest tube depending on the size of the pneumothorax Review of Systems All other systems reviewed negative except as stated in HPI PMFSH - History History Provided By: Patient - Medical History Medical History: Medical History (Last Reviewed 11/06/18 @ 20:07 by Hernando Falcon MD) A-fib BPH (benign prostatic hyperplasia) CHF (congestive heart failure) Coronary artery disease Hypercholesteremia - Surgical History Surgical History: Surgical History (Last Reviewed 11/06/18 @ 20:07 by Hernando Falcon MD) No history of previous surgery - Family History Family History: Family History (Last Reviewed 11/05/18 @ 23:51 by Adan Torres MD) Other Coronary artery disease - Tobacco History Second Hand Smoke Exposure: No Smoking Status: Never smoker - Alcohol History How Often Do You Have a Drink Containing Alcohol: 2 to 3 times a week - Substance Use History Substance History: No History of Abuse - Travel History Recent Travel in the [place] Within the Last 8 Weeks: No Recent Travel Out of the Country Within the Last 8 Weeks: No - Immunization History Tetanus Immunization: Unsure Hx Influenza Vaccine This Season: Yes Medications and Allergies Active Medications: Active Medications Acetaminophen (Tylenol) 650 mg PO Q4H PRN PRN Reason: Temp > 100.4 Al Hydroxide/Mg Hydroxide (Milk Of Magnesia Liq) 30 ml PO Q12H PRN PRN Reason: Mild Constipation Bisacodyl (Dulcolax Supp) 10 mg RECTAL DAILY PRN PRN Reason: SEVERE CONSITIPATION Bumetanide (Bumex Inj) 1 mg IV.PUSH BID@0900,1800 [facility] Last Admin: 11/06/18 18:06 Dose: 1 mg Carvedilol (Coreg) 6.25 mg PO BID [facility] Last Admin: 11/06/18 09:25 Dose: 6.25 mg Chlorhexidine Gluconate (Chlorhexidine 2% Cloth) 3 pack TOPICAL DAILY@0400 [facility] Stop: 11/12/18 03:59 Chlorhexidine Gluconate (Chlorhexidine 2% Cloth) 3 pack TOPICAL DAILY@0400 PRN PRN Reason: Extra cloth needed Stop: 11/12/18 03:59 Finasteride (Proscar) 5 mg PO DAILY [facility] Last Admin: 11/06/18 09:21 Dose: 5 mg Lactulose (Lactulose Liq) 30 ml PO DAILY PRN PRN Reason: SEVERE CONSITIPATION Ondansetron HCl (Zofran Inj) 4 mg IV.PUSH Q6H PRN PRN Reason: NAUSEA OR VOMITING Pravastatin Sodium (Pravachol) 40 mg PO DAILY@1800 [facility] Last Admin: 11/06/18 18:06 Dose: 40 mg Senna/Docusate Sodium (Erin-Colace) 1 tab PO BID [facility] Last Admin: 11/06/18 09:25 Dose: 1 tab Sennosides (Senokot) 17.2 mg PO Q12H PRN PRN Reason: Moderate Constipation Sodium Chloride (Ns Flush) 2 ml IV.FLUSH PRN PRN PRN Reason: FLUSH AFTER USING IV ACCESS Sodium Chloride (Ns Flush) 2 ml IV.FLUSH BID [facility] Last Admin: 11/06/18 18:06 Dose: 2 ml Sodium Chloride (Ns Flush) 2 ml IV.FLUSH PRN PRN PRN Reason: FLUSH AFTER USING IV ACCESS Spironolactone (Aldactone) 25 mg PO DAILY [facility] Last Admin: 11/06/18 09:21 Dose: 25 mg Terazosin HCl (Hytrin) 2 mg PO DAILY [facility] Last Admin: 11/06/18 09:21 Dose: 2 mg Allergies Allergy/AdvReac Type Severity Reaction Status Date / Time enalaprilat Allergy Severe does not Verified 11/05/18 23:17 know erythromycin base Allergy Severe does not Verified 11/05/18 23:17 know told as child penicillin G Allergy Severe does not Verified 11/05/18 23:17 know Home Medications Medication Instructions Recorded Confirmed Type apixaban [Eliquis] 2.5 mg PO DAILY 11/05/18 11/05/18 History aspirin 81 mg PO DAILY 11/05/18 11/05/18 History carvedilol [Coreg] 6.25 mg PO BID 11/05/18 11/05/18 History finasteride 5 mg PO DAILY 11/05/18 11/05/18 History furosemide 20 mg PO DAILY 11/05/18 11/05/18 History simvastatin 20 mg PO QPM 11/05/18 11/05/18 History spironolactone 25 mg PO DAILY 11/05/18 11/05/18 History terazosin 2 mg PO DAILY 11/05/18 11/05/18 History Physical Exam Vital signs: Vital Signs 11/05/18 23:10 11/06/18 02:00 11/06/18 03:00 Temperature 97.6 F Pulse Rate 110 H 96 H 96 H Respiratory Rate 20 20 20 Blood Pressure 107/73 95/62 L 108/69 Pulse Oximetry 96 96 96 11/06/18 08:00 11/06/18 08:34 11/06/18 12:00 Temperature 96.5 F L 96.8 F L Pulse Rate 95 H 69 Respiratory Rate 16 16 Blood Pressure 102/63 87/63 L Pulse Oximetry 95 93 L 97 11/06/18 13:47 11/06/18 14:50 11/06/18 15:05 Temperature 98.6 F 97.2 F L Pulse Rate 86 62 67 Respiratory Rate 20 18 18 Blood Pressure 96/66 L 86/67 L 88/69 L Pulse Oximetry 99 95 97 11/06/18 15:20 11/06/18 15:50 Temperature Pulse Rate 88 60 Respiratory Rate 16 18 Blood Pressure 97/74 L Pulse Oximetry 100 96 Intake & Output 11/06/18 11/06/18 11/07/18 06:59 18:59 06:59 Output Total 300 / 300 Balance -300 / -300 Weight 79.379 kg Output: Urine 300 / 300 Other: # Voids 1 Date of Last Bowel Movement 11/05/18 11/05/18 11/05/18 Weight On Admission 79.379 kg Narrative: GENERAL: Alert and oriented. Mild respiratory distress. Maintaining oxygen saturation SKIN: Warm and dry. NECK: Supple, trachea midline. No JVD CARDIOVASCULAR: irregular rate and rhythm without murmurs, gallops, or rubs. On telemetry appears A. fib with just rate control RESPIRATORY: Diminished lung sounds on the upper and lower right lung [place], crackles throughout remaining bilateral lung [place]. GASTROINTESTINAL: Abdomen soft, non-tender, nondistended. MUSCULOSKELETAL: No cyanosis, 3 + edema bilateral lower extremity BACK: Nontender without obvious deformity. NEURO: Patient is alert awake oriented. No focal deficits. Moving all extremities equally Septic Shock Reassessment Septic shock perfusion: reassessment completed Assessment and Plan - Assessment and Plan Plan: ASSESSMENT: Moderate sized expanding right pneumothorax CHF exacerbation Bilateral pleural effusion Respiratory insufficiency Acute kidney failure Lactic acidosis Cardiomyopathy EF 20% Moderate to severe MR Atrial fibrillation now rate controlled Chronic anticoagulation with Eliquis Mild troponin elevation History of hypertension History of coronary artery disease PLAN: NEURO: -Minimize all sedation -Use as needed morphine for procedural sedation RESP: -Patient appears to have developed iatrogenic pneumothorax following IR thoracentesis today 11/06/2018 -Repeat chest x-ray for shortness of breath shows expansion of apical pneumothorax, and also there is right lower pneumothorax -CT of the chest to rule out a loculated pneumo -may need chest tube placement after CT chest -DuoNeb every 6 hours scheduled and as needed CV: -2D echo shows moderate to severe MR, severe cardiomyopathy with EF 20% -Currently on Bumex 1 mg every 12 hours, increase to 1 mg every 8 hours -A. fib is rate controlled now -Hold Eliquis in anticipation of possible chest tube placement, hold aspirin -Continue Coreg, statin and spironolactone -Lactic acidosis seems to be secondary to poor perfusion and developing cardio genic shock -Trend lactic acid until clear -Consider inotropes, if lactic acidosis not improving GI: -N.p.o. in anticipation of chest tube placement, IV famotidine : -Monitor renal function closely. Place Murillo catheter for strict I/O (renal failure, CHF on Bumex). -Nephrology following -Bumex 1 mg IV every 12 had been increased to every 8 hours ID: -No antibiotics indicated at this time HEME: -Monitor CBC, coags -Hold Eliquis in anticipation of procedures ENDO: -Electrolyte replacement per protocol -Sliding scale insulin if needed PROPH: -Bilateral lower extremity SCDs. IV famotidine -No chemical DVT prophylaxis at this time LINES: -Utilize peripheral IVs, central line if needed CC time 38 min excluding procedures Code Status: Full
[2018-11-06] MEDS ORDERED: Morphine Sulfate Inj 2 MG/ML Vial IV.PUSH PRN (20:19)
--- NOTE | 2018-11-06 20:49 | CT ---
EXAM DATE: 11/06/2018 8:42 PM EST AGE/SEX: 88 years / Male INDICATIONS: Follow up pneumothorax. CLINICAL DATA: This is the patient's initial encounter. Patient reports that signs and symptoms have been present for 2 days and indicates a pain score of 5/10. MEDICAL/SURGICAL HISTORY: . ESRD, AV fistula None. RADIATION DOSE: 10.60 CTDI (mGy) COMPARISON: [facility], CT CHEST W/ CONTRAST, 04/03/2017. . TECHNIQUE: Multiple contiguous axial images were obtained through the chest without contrast. Image s were obtained in suspended respiration using multiple row detector helical technique. Using automa joaquín exposure control and adjustment of the mA and/or kV according to patient size, radiation dose was kept as low as reasonably achievable to obtain optimal diagnostic quality images. DICOM format imag e data is available electronically for review and comparison. FINDINGS: Lungs: There is a moderate right hydropneumothorax mainly seen over the subpleural region at the inf erior aspect of the right chest. There is increased density seen at the posterior lower lobes bilater ally likely related to atelectasis secondary to the effusions. There are some subpleural atelectasis seen at the right middle and right upper lobes at the periphery. This also some subpleural atelectasi s seen at the posterior aspect of the left upper lobe adjacent to the fissure. Mediastinum: There is good visualization of the great vessels of the middle mediastinum. No evidenc e of mediastinal or hilar adenopathy/mass. The heart size is enlarged. Coronary artery calcification are present. Pleurae: Again noted is the moderate hydropneumothorax on the right. There is a mild to moderate lef t pleural effusion. Axillae: Unremarkable. Bony Structures: Unremarkable. Miscellaneous: The examination was extended to include the upper abdomen, and both adrenal glands ar e normal in size and configuration. CONCLUSION: 1. Moderate hydropneumothorax on the right. This was seen on the prior plain film examination. 2. Mild to moderate left pleural effusion. 3. Comparisons of atelectasis seen in the lungs bilaterally. 4. Cardiomegaly with coronary artery calcifications. Electronically signed by: Ezekiel Ziegler MD Board Certified Radiologist 11/06/2018 8:48 PM EST
--- NOTE | 2018-11-06 21:45 | P.PCN ---
Date of procedure: 11/06/18 Pre-op diagnosis: Moderate right hydropneumothorax Post-op diagnosis: same Procedure: Right pigtail chest tube placement, ultrasound-guided Details of procedure: Right chest tube procedure for hydropneumothorax following IR thoracentesis. Consent obtained from patient. The patient was laid in supine position. The right lateral chest wall was cleaned with ChloraPrep twice. Regional sterile drapes were applied. 1% lidocaine was used for local anesthesia and injected into the subcutaneous and deep muscle tissues at the site marked by ultrasound. A 0.25 cm skin incision was made with a scalpel blade. Insertion needle was placed angled superiorly and posteriorly and the needle was entered into the pleural space superior to the rib and slightly cloudy yellow pleural fluid was obtained. Guidewire was placed and track was dilated. A size 10 Yi chest tube was inserted into the pleural cavity using Seldinger technique with initial output of approximately 650 mL of slightly cloudy yellow pleural fluid, and 2+ fairly. 3.0 silk was used to to secure the chest tube along with StayFix fixation device. The chest tube was connected to a Pleuro-vac drainage system via vinyl connecting tube. Postprocedure chest x-ray is pending at this. No pleural fluid for studies will be sent as these were sent from previous thoracentesis Anesthesia: local Surgeon: Hernando Falcon Estimated blood loss (mL): 1 Pathology: none sent Condition: critical Disposition: ICU
[2018-11-06] MEDS: Famotidine PF Inj 20 MG/2 ML Vial IV.PUSH SCH (21:55)
--- NOTE | 2018-11-06 22:28 | XR ---
EXAM DATE: 11/06/2018 10:05 PM EST AGE/SEX: 88 years / Male INDICATIONS: Post right pigtail chest tube placement. CLINICAL DATA: This is the patient's subsequent encounter. Patient reports that signs and symptoms h ave been present for 1 day and indicates a pain score of 0/10. MEDICAL/SURGICAL HISTORY: . Myocardial infarction. Benign prostatic hyperplasia, Hypercholester olemia. Anticoagulant therapy, Eliquis. Afib. Hypertension. Anxiety. Blood transfusion. . Coronary a rtery stent. Inguinal hernia repair. COMPARISON: [facility] [place], CHEST EXPIRATION ONLY, 11/06/2018. . FINDINGS: There is a chest tube seen in the right lower chest. There continues to be increased density at the right base around the tube which may related to pleural fluid. No lung markings are seen at the right lateral base, some component of residual pneumothorax at the right base cannot be excluded. There is a questionable pleural line seen over the apex on the right. The heart size is enlarged. There is in creased density at the left perihilar region and left base and at the right base related to some cons olidation or atelectasis. Midline shift is not seen. CONCLUSION: New right chest tube with a mild suspected hydropneumothorax. The hydropneumothorax clearly has impro joleen since the last chest x-ray and CT. Electronically signed by: Ezekiel Ziegler MD Board Certified Radiologist 11/06/2018 10:27 PM EST
[2018-11-07] MEDS ORDERED: Chlorhexidine Gluconate 2% 1 Pack (2 Cloths) TOPICAL PRN (04:00)
[2018-11-07] MEDS: Chlorhexidine Gluconate 2% 1 Pack (2 Cloths) TOPICAL SCH (04:23)
--- NOTE | 2018-11-07 07:16 | XR ---
EXAM DATE: 11/07/2018 7:01 AM EST AGE/SEX: 88 years / Male INDICATIONS: Shortness of breath, possible pulmonary disease. CLINICAL DATA: This is the patient's subsequent encounter. Patient reports that signs and symptoms h ave been present for 2 days and indicates a pain score of 0/10. MEDICAL/SURGICAL HISTORY: Myocardial infarction. Hypercholesterolemia. Hypertension. BPH. A- fib. Coronary artery stent. Inguinal hernia repair. Chest tube, right. [place] [facility] [place]. [facility] [place], [place]. [facility] [place]06/2018. . FINDINGS: A single AP view of the chest demonstrates persistent prominent right-sided pneumothorax. Small calib er chest tube seen along the right lower hemithorax. Cardiomegaly with increase in pulmonary vascular ity. Bibasilar densities persist.. The cardiomediastinal contours are unremarkable. Osseous structu res are intact. CONCLUSION: Prominent right-sided pneumothorax seen predominantly in the right base. Electronically signed by: Luis Madrigal MD Board Certified Radiologist 11/07/2018 7:15 AM EST
[2018-11-07] MEDS: Spironolactone 25 MG Tablet PO SCH (09:31)
[2018-11-07] MEDS: Finasteride 5 MG Tablet PO SCH (09:31)
[2018-11-07] MEDS: Senna/Docusate Sodium 8.6/50 MG Tablet PO SCH (09:31)
[2018-11-07] MEDS: Carvedilol 6.25 MG Tablet PO SCH (09:32)
[2018-11-07] MEDS: Famotidine PF Inj 20 MG/2 ML Vial IV.PUSH SCH (09:32)
--- NOTE | 2018-11-07 10:27 | P.PNCC ---
Subjective Subjective Remarks/Hospital Course: 88-year-old male with a past medical history significant for atrial fibrillation on Eliquis, coronary artery disease, hyperlipidemia and possible CHF who presented to the emergency department with bilateral lower extremity edema. In the ER patient was found to be in A. fib with RVR. Patient reported having pleural effusions requiring thoracentesis in the past. Patient symptoms were attributed to CHF, chest x-ray showed bilateral effusion, BNP was more than 2300, and troponin was mildly elevated at 0.08. And echocardiogram showed the left ventricular systolic function severely reduced with an estimated ejection fraction less than 20%. Moderate to severe mitral valve regurgitation. It was also noted that patient had a lactic acid of 4.3. This is most likely secondary to poor perfusion and developing cardiogenic shock. There is no evidence of sepsis. Patient underwent right-sided thoracentesis by IR today. Postprocedural radiograph did show a pneumothorax. However patient was completely asymptomatic at that time and no chest tube was placed. Per Dr. Aguiar's note stated chest x-ray showed fibrotic appearance of the right lung. Patient had some increase in shortness of breath late evening today. A repeat chest x-ray showed a persistent right pneumothorax which appeared larger when compared to the prior exam now measuring up to 2.4 cm over the right apex. Previously was 1 cm. A pneumothorax is also seen in the inferior lateral right base. No mediastinal shift. I evaluated the patient in the ICU. He is showing good oxygen saturation on 2 L nasal cannula, mildly tachypneic. I have ordered a stat CT of the chest to evaluate for a loculated pneumothorax. Patient may need a chest tube depending on the size of the pneumothorax SUBJECTIVE: 11/07: Afebrile. Remains on nasal cannula. Chest x-ray reveals revealed possible worsening pneumothorax. Stat CT thorax ordered. 1100 cc from right- sided chest tube placed overnight. Appears comfortable and normotensive. Denies shortness of breath Objective Vital Signs / I&O: Vital Signs 11/06/18 12:00 11/06/18 13:47 11/06/18 14:50 Temperature 96.8 F L 98.6 F 97.2 F L Pulse Rate 69 86 62 Respiratory Rate 16 20 18 Blood Pressure 87/63 L 96/66 L 86/67 L Pulse Oximetry 97 99 95 11/06/18 15:05 11/06/18 15:20 11/06/18 15:50 Temperature Pulse Rate 67 88 60 Respiratory Rate 18 16 18 Blood Pressure 88/69 L 97/74 L Pulse Oximetry 97 100 96 11/06/18 19:31 11/06/18 20:00 11/06/18 20:47 Temperature 98.4 F Pulse Rate 106 H 86 85 Respiratory Rate 31 H 20 21 Blood Pressure 83/64 L Pulse Oximetry 11/06/18 21:00 11/06/18 21:06 11/06/18 21:13 Temperature Pulse Rate 80 82 86 Respiratory Rate 25 H 20 27 H Blood Pressure 87/52 L Pulse Oximetry 95 78 L 11/06/18 22:00 11/06/18 23:00 11/06/18 23:31 Temperature Pulse Rate 86 95 H 91 H Respiratory Rate 24 25 H 15 Blood Pressure 84/58 L 101/57 L Pulse Oximetry 97 97 100 11/07/18 00:00 11/07/18 01:00 11/07/18 02:00 Temperature 98.2 F Pulse Rate 84 85 80 Respiratory Rate 33 H 17 14 Blood Pressure 89/65 L 95/70 L 95/67 L Pulse Oximetry 100 100 100 11/07/18 03:00 11/07/18 03:04 11/07/18 03:25 Temperature Pulse Rate 88 82 85 Respiratory Rate 30 H 6 L 20 Blood Pressure 92/65 L Pulse Oximetry 100 100 11/07/18 04:00 11/07/18 05:00 11/07/18 06:00 Temperature 98.6 F Pulse Rate 84 80 82 Respiratory Rate 14 11 L 8 L Blood Pressure 98/70 L 82/55 L 87/57 L Pulse Oximetry 97 98 100 11/07/18 07:00 11/07/18 08:26 Temperature Pulse Rate 89 Respiratory Rate 8 L Blood Pressure 91/64 L Pulse Oximetry 94 L 95 Intake & Output 11/06/18 11/07/18 11/07/18 18:59 06:59 18:59 Intake Total 0 / 0 Output Total 1700 / 1700 Balance -1700 / -1700 Weight 79 kg Intake: Oral 0 / 0 Output: Urine 600 / 600 Chest Tube Drainage 1100 / 1100 Right 1100 / 1100 Other: Date of Last Bowel Movement 11/05/18 11/05/18 # Bowel Movements 0 Result Diagrams: 11/06/18 08:10 11/06/18 08:10 Other Results: Microbiology 11/06/18 14:10 Fluid - Pleural fluid Gram Stain - Final Imaging: Chest X-Ray 11/05/18 23:46 CONCLUSION: CHF Head CT 11/05/18 23:46 CONCLUSION: No acute intracranial findings . Abdomen/Bladder Ultrasound 11/06/18 00:00 CONCLUSION: 1. Probable left renal stones without evidence of hydronephrosis. 2. Trabeculated bladder. Chest X-Ray 11/06/18 00:00 CONCLUSION: There is a right-sided pneumothorax status post thoracentesis as noted above. Thoracentesis Ultrasound 11/06/18 00:00 CONCLUSION: 1. Right-sided thoracentesis as detailed above. 2. A large amount of fluid was removed from the right chest. Postprocedural radiograph did show a pneumothorax. However, the patient is completely asymptomatic without pain and saturating at 97-98% on 2 L nasal cannula. Chest radiograph shows a fibrotic appearance of the right lung and, as such, I do not feel patient would benefit from percutaneous chest tube placement this time. Patient will be monitored on the floor and a follow-up chest radiograph will be performed later this afternoon to ensure stability. Chest X-Ray 11/06/18 18:00 CONCLUSION: Persistent right pneumothorax which appears larger on the current exam. There is a mild to moderate pneumothorax on the right. This information will be related to the floor. Cardiomegaly. Consolidation or atelectasis possible effusion at the left base with silhouetting the left hemidiaphragm. Chest CT 11/06/18 19:58 CONCLUSION: 1. Moderate hydropneumothorax on the right. This was seen on the prior plain film examination. 2. Mild to moderate left pleural effusion. 3. Comparisons of atelectasis seen in the lungs bilaterally. 4. Cardiomegaly with coronary artery calcifications. Chest X-Ray 11/06/18 21:45 CONCLUSION: New right chest tube with a mild suspected hydropneumothorax. The hydropneumothorax clearly has improved since the last chest x-ray and CT. Chest X-Ray 11/07/18 00:00 CONCLUSION: Prominent right-sided pneumothorax seen predominantly in the right base. Objective Remarks: GENERAL: 88-year-old male currently resting in bed on nasal cannula no acute distress SKIN: Warm and dry. HEAD: Atraumatic. Normocephalic. EYES: Pupils equal and round. No scleral icterus. No injection or drainage. ENT: No nasal bleeding or discharge. Mucous membranes pink and moist. NECK: Trachea midline. No JVD. CARDIOVASCULAR: IR. Tachycardia.. S1, S2. No S4. 2/6 systolic murmur RESPIRATORY: Coarse crackles appreciated the bases bilateral. Right and left. Admission breath sounds right lower lobe. GASTROINTESTINAL: Abdomen soft, non-tender, nondistended. Hepatic and splenic margins not palpable. MUSCULOSKELETAL: Extremities with lower extremity edema. No obvious deformities. NEUROLOGICAL: Awake and alert. No obvious cranial nerve deficits. Motor grossly within normal limits. Five out of 5 muscle strength in the arms and legs. Normal speech. PSYCHIATRIC: Appropriate mood and affect; insight and judgment normal. Assessment and Plan - Assessment and Plan Plan: NEURO/PSYCH: -Minimize all sedation -Acetaminophen 650 q. every 6 hours as needed fever -Use as needed morphine and midazolam for procedural sedation RESP: Iatrogenic right pneumothorax Bilateral pleural effusions Acute respiratory insufficiency -Patient appears to have developed iatrogenic pneumothorax following IR thoracentesis 11/06/2018 -Repeat chest x-ray for shortness of breath shows expansion of apical pneumothorax, and also there is right lower pneumothorax -CT of the chest revealed significant right hydropneumothorax. Chest tube placed by Dr. Falcon #10 Lithuanian 11/06. -1100 cc post placement. -Repeat CT chest this a.m. Appears to be worsening right-sided pneumothorax exam. -Albuterol/ipratropium aerosols every 6 hours scheduled and as needed albuterol aerosols every 2 hours. Dyspnea -Nasal cannula to maintain saturations greater than equal 92% CV: Acute on chronic systolic heart failure ejection fraction 20% Cardiomyopathy ejection fraction 20% Severe MR Moderate TR Essential hypertension Hyperlipidemia Coronary artery disease Atrial fibrillation rate controlled Lactic acidosis Elevated troponin -2D echo shows moderate to severe MR, severe cardiomyopathy with EF 20% -Currently on bumetanide 1 mg every 8 hours and holding furosemide 20 mg daily/ home medication -A. fib is rate controlled now -Hold apixaban in anticipation of possible chest tube placement, hold aspirin 81 mg daily/home medication. -Holding carvedilol 6.25 mg twice daily in light of underlying blockers. Resume spironolactone 20 mg daily -Lactic acidosis seems to be secondary to poor perfusion and developing cardio genic shock -Trend lactic acid until clear -On simvastatin 40 mg daily/hospital substitution for 20 mg daily simvastatin for hyperlipidemia GI: -N.p.o. in anticipation of chest tube placement, pantoprazole -Docusate sodium/senna 1 tablet twice daily for bowel regimen Renal/: Acute kidney injury BPH -Monitor renal function closely. Place Murillo catheter for strict I/O (renal failure, CHF on bumetanide). -Nephrology following -Bumetanide 1 mg IV every 8 hours -On terazosin 2 mg daily and finasteride 5 mg daily for BPH ID: -No antibiotics indicated at this time HEME: Normocytic anemia Thrombocytopenia Chronic apixaban use -Monitor CBC, coags -Hold apixaban 2.5 mg in anticipation of procedures ENDO: -Electrolyte replacement per protocol if indicated -Sliding scale insulin if needed PROPH: -Bilateral lower extremity SCDs. Pantoprazole -No chemical DVT prophylaxis at this time LINES: -Utilize peripheral IVs, central line if needed Level 2 follow-up
[2018-11-07] MEDS ORDERED: Acetaminophen 325 MG Tablet PO PRN (10:29)
[2018-11-07 11:17] LABS: Baso % (Auto) 0.5 % (0.0-2.0); Eos % (Auto) 0.3 % (0.0-4.0); Hematocrit 38.2 % (39.0-51.0); Hemoglobin 12.6 gm/dL (13.0-17.0); Lymph # (Auto) 0.5 th/mm3 (1.0-4.8); Lymph % (Auto) 9.4 % (9.0-44.0); Mean Corpuscular Hemoglobin 31.7 pg (27.0-34.0); Mean Platelet Volume 9.1 fL (7.0-11.0); Mono # (Auto) 0.4 th/mm3 (0.0-0.9); Mono % (Auto) 7.5 % (0.0-8.0); Neut # (Auto) 4.2 th/mm3 (1.8-7.7); Neut % (Auto) 82.3 % (16.0-70.0); Platelet Count 162 th/mm3 (150-450); Red Blood Count 3.98 mil/mm3 (4.50-5.90); Red Cell Distribution Width 16.4 % (11.6-17.2); White Blood Count 5.1 th/mm3 (4.0-11.0)
[2018-11-07] MEDS ORDERED: Magnesium Sulfate Inj 2 GM in Sodium Chlor 0.9% Inj 96 ML IV.SIG PRN (11:33)
[2018-11-07] MEDS ORDERED: Magnesium Oxide 400 MG Tablet PO PRN (11:33)
[2018-11-07] MEDS ORDERED: Sodium Phosphate Inj 30 MMOL in Sodium Chlor 0.9% Inj 250 ML IV.SIG PRN (11:33)
[2018-11-07] MEDS ORDERED: Potassium Phosphate 500 MG Soluble Tablet PO PRN ×2 (11:33)
[2018-11-07] MEDS ORDERED: Potassium Chloride Liq 20 MEQ/15 ML UDC PO PRN ×2 (11:33)
[2018-11-07] MEDS ORDERED: Potassium Phosphate Inj 30 MMOL in Sodium Chlor 0.9% Inj 250 ML IV.SIG PRN (11:33)
[2018-11-07] MEDS ORDERED: Potassium Chlor 20 mEq Premix 20 MEQ/100 ML PIGGYBACK IV.SIG PRN ×2 (11:33)
[2018-11-07] MEDS ORDERED: Potassium Chlor 40 mEq Premix 40 MEQ/100 ML PIGGYBACK IV.SIG PRN ×2 (11:33)
[2018-11-07] MEDS ORDERED: Magnesium Sulfate Inj 4 GM in Sodium Chlor 0.9% Inj 92 ML IV.SIG PRN (11:33)
[2018-11-07 11:43] LABS: Calcium 8.1 mg/dL (8.5-10.1); Carbon Dioxide 24.7 meq/L (21.0-32.0); Magnesium 2.5 mg/dL (1.5-2.5); Phosphorus 4.8 mg/dL (2.5-4.9); Potassium 4.2 meq/L (3.5-5.1)
--- NOTE | 2018-11-07 11:57 | CT ---
EXAM DATE: 11/07/2018 11:46 AM EST AGE/SEX: 88 years / Male INDICATIONS: Pneumothorax. Right pleural effusion. CLINICAL DATA: This is the patient's initial encounter. Patient reports that signs and symptoms have been present for 2 days and indicates a pain score of 4/10. MEDICAL/SURGICAL HISTORY: . Afib. Prostatic hyperplasia. CHF. CAD. . Chest tube. RADIATION DOSE: 8.75 CTDI (mGy) COMPARISON: [facility] [place]/O [place], 11/06/2018. . TECHNIQUE: Multiple contiguous axial images were obtained through the chest without contrast. Image s were obtained in suspended respiration using multiple row detector helical technique. Using automa joaquín exposure control and adjustment of the mA and/or kV according to patient size, radiation dose was kept as low as reasonably achievable to obtain optimal diagnostic quality images. DICOM format imag e data is available electronically for review and comparison. FINDINGS: Lungs: Prominent right-sided hydropneumothorax. Bibasilar consolidation. Patchy densities are also s een within the right middle lobe. Small caliber chest tube in the right lower hemithorax Mediastinum: There is good visualization of the great vessels of the middle mediastinum. No evidenc e of mediastinal or hilar adenopathy/mass. Extensive coronary artery calcifications. Pleurae: Moderate left pleural effusion and small right pleural effusion. Axillae: Unremarkable. Bony Structures: Degenerative changes and scoliosis. Miscellaneous: The examination was extended to include the upper abdomen, and both adrenal glands ar e normal in size and configuration. Extensive atherosclerotic changes of the thoracic and visualized abdominal aorta and branches. CONCLUSION: 1. Moderate right-sided hydropneumothorax. 2. Small caliber right-sided chest tube in the lower right hemithorax. 3. Moderate left pleural effusion. 4. Bibasilar consolidation and patchy densities in the right middle lobe. 5. Cardiomegaly and coronary artery calcifications. Electronically signed by: Luis Madrigal MD Board Certified Radiologist 11/07/2018 11:55 AM EST
[2018-11-07] MEDS ORDERED: Midazolam Inj 5 MG/ML 1 ML Vial ONE (12:08)
[2018-11-07] MEDS ORDERED: fentaNYL Citrate Inj 100 MCG/2 ML Ampul ONE (12:08)
[2018-11-07] MEDS ORDERED: Lidocaine 1%/Epinephrine 1:100,000 Inj 20 ML Vial ONE (12:09)
[2018-11-07] MEDS ORDERED: fentaNYL Citrate Inj 100 MCG/2 ML Ampul IV.PUSH ONE (12:15)
--- NOTE | 2018-11-07 12:20 | P.PNNP ---
Subjective Interval history: Patient is [place] [facility] [place] now with the chest tube, breathing is better. Physical Exam Vital signs: Vital Signs 11/06/18 13:47 11/06/18 14:50 11/06/18 15:05 Temperature 98.6 F 97.2 F L Pulse Rate 86 62 67 Respiratory Rate 20 18 18 Blood Pressure 96/66 L 86/67 L 88/69 L Pulse Oximetry 99 95 97 11/06/18 15:20 11/06/18 15:50 11/06/18 19:31 Temperature Pulse Rate 88 60 106 H Respiratory Rate 16 18 31 H Blood Pressure 97/74 L Pulse Oximetry 100 96 11/06/18 20:00 11/06/18 20:47 11/06/18 21:00 Temperature 98.4 F Pulse Rate 86 85 80 Respiratory Rate 20 21 25 H Blood Pressure 83/64 L Pulse Oximetry 11/06/18 21:06 11/06/18 21:13 11/06/18 22:00 Temperature Pulse Rate 82 86 86 Respiratory Rate 20 27 H 24 Blood Pressure 87/52 L 84/58 L Pulse Oximetry 95 78 L 97 11/06/18 23:00 11/06/18 23:31 11/07/18 00:00 Temperature 98.2 F Pulse Rate 95 H 91 H 84 Respiratory Rate 25 H 15 33 H Blood Pressure 101/57 L 89/65 L Pulse Oximetry 97 100 100 11/07/18 01:00 11/07/18 02:00 11/07/18 03:00 Temperature Pulse Rate 85 80 88 Respiratory Rate 17 14 30 H Blood Pressure 95/70 L 95/67 L Pulse Oximetry 100 100 100 11/07/18 03:04 11/07/18 03:25 11/07/18 04:00 Temperature 98.6 F Pulse Rate 82 85 84 Respiratory Rate 6 L 20 14 Blood Pressure 92/65 L 98/70 L Pulse Oximetry 100 97 11/07/18 05:00 11/07/18 06:00 11/07/18 07:00 Temperature Pulse Rate 80 82 89 Respiratory Rate 11 L 8 L 8 L Blood Pressure 82/55 L 87/57 L 91/64 L Pulse Oximetry 98 100 94 L 11/07/18 08:26 11/07/18 11:09 Temperature Pulse Rate 81 Respiratory Rate 18 Blood Pressure Pulse Oximetry 95 Intake & Output 11/06/18 11/07/18 11/07/18 18:59 06:59 18:59 Intake Total 0 / 0 Output Total 1700 / 1700 Balance -1700 / -1700 Weight 79 kg Intake: Oral 0 / 0 Output: Urine 600 / 600 Chest Tube Drainage 1100 / 1100 Right 1100 / 1100 Other: Date of Last Bowel Movement 11/05/18 11/05/18 # Bowel Movements 0 Narrative: GENERAL: Alert and oriented. Mild respiratory distress. Maintaining oxygen saturation SKIN: Warm and dry. NECK: Supple, trachea midline. No JVD CARDIOVASCULAR: irregular rate and rhythm without murmurs, gallops, or rubs. On telemetry appears A. fib with just rate control RESPIRATORY: Diminished lung sounds on the upper and lower right lung [place], crackles throughout remaining bilateral lung [place]. GASTROINTESTINAL: Abdomen soft, non-tender, nondistended. MUSCULOSKELETAL: No cyanosis, 3 + edema bilateral lower extremity BACK: Nontender without obvious deformity. NEURO: Patient is alert awake oriented. No focal deficits. Moving all extremities equally - Urinary Catheter Management Indwelling Urethral Catheter Cath placed during this visit: yes Reason for continuing: Hourly intake/output Insertion date: 11/06/18 Insertion time: 22:00 Assessment and Plan - Assessment (1) Acute on chronic kidney failure Code(s): N17.9 - Acute kidney failure, unspecified; N18.9 - Chronic kidney disease, unspecified Status: Acute Plan: Patient with chronic kidney disease and develop ERIK. Patient with ERIK, possibly related to CARDIO RENAL. Has been in fluid overload status. Continue Bumex and Aldactone. Now with chest tube. Creatinine increase slightly today at 2.2, Follow the urine out put and BMP. (2) Congestive heart failure Code(s): I50.9 - Heart failure, unspecified Status: Acute Plan: Bedside ECHO, not followed by cardiology outpatient Plan for thoracentesis today. Sats good on room air
--- NOTE | 2018-11-07 13:20 | P.PCN ---
Date of procedure: 11/07/18 Pre-op diagnosis: Hypotension/cardiogenic shock Post-op diagnosis: same Procedure: DATE: 11/07/2018 CENTRAL LINE PLACEMENT: Right internal jugular vein. Ultrasound-guided INDICATION: Central venous access CONSENT Informed consent for procedure was obtained from patient. DESCRIPTION OF THE PROCEDURE The patient was placed in supine position. The skin was cleansed with Chloraprep. Additional barrier precautions included large sterile drape, sterile gloves, sterile gown, face mask, and hat. 1 % lidocaine was used for local anesthesia. Under direct ultrasound guidance and on initial attempt, the vein was accessed with an introducer needle. The guide wire was advanced and the tract was dilated. Using Seldinger technique a 7 Wallisian 20 cm antimicrobial coated triple-lumen catheter was advanced to a depth of 16 centimeters. The guide wire was removed. All ports had good return of dark venous blood and flushed easily with saline. The central line was secured with 2.0 silk. StatLock was applied A sterile dressing with antibiotic disc was applied. ESTIMATED BLOOD LOSS: Minimal COMPLICATIONS: No apparent complications. STAT chest x-ray pending at time of dictation
--- NOTE | 2018-11-07 13:23 | P.PCN ---
Date of procedure: 11/07/18 Pre-op diagnosis: Pneumothorax/right hydro Post-op diagnosis: same Procedure: Date of procedure: 11/07/2018 Procedure: Right chest tube placement Indication: Persistent right hydropneumothorax, hypoxia with hypotension Details of procedure: Informed consent was obtained from the patient. The patient was laid supine. The lateral chest wall was cleaned with ChloraPrep twice. Regional sterile drapes were applied. 1% lidocaine was used for local anesthesia and injected into the subcutaneous and deep muscle tissues. A 1 cm skin incision was made with a scalpel blade. A hemostat was used for blunt dissection. The hemostat was entered into the pleural space superior to the rib with release of air and serosanguineous fluid. I explored the wound with my finger. A size 20 Lithuanian chest tube was placed. Two-point 0 suture was used to close the wound and to secure the chest tube. A sterile Vaseline gauze dressing was applied. The chest tube was connected to a Pleur-evac drainage system. There was no air leak. There was 200 cc serosanguineous output from the chest tube. Estimated blood loss: Minimal Complications: None. Stat chest x-ray pending at time of dictation.
--- NOTE | 2018-11-07 13:40 | XR ---
EXAM DATE: 11/07/2018 1:36 PM EST AGE/SEX: 88 years / Male INDICATIONS: Central line placement and chest tube placement, right. CLINICAL DATA: This is the patient's initial encounter. Patient reports that signs and symptoms have been present for 1 day and indicates a pain score of 0/10. MEDICAL/SURGICAL HISTORY: . Myocardial infarction. Hypercholesterolemia. Hypertension. BPH. A-f ib. Coronary artery stent. Inguinal hernia repair. Chest tube, right. . COMPARISON: [facility] – [place], CHEST 1V SINGLE AP, 11/07/2018. . FINDINGS: A single AP view of the chest demonstrates cardiomegaly with bilateral pulmonary vascular congestion and bibasilar airspace disease. Right basilar pneumothorax has decreased in prominence but still pres ent. Small caliber right chest tube along the right lower hemithorax. New chest tube on the right lela toby. Right jugular central line with tip in the cavoatrial junction. The cardiomediastinal contours a re unremarkable. Osseous structures are intact. CONCLUSION: Improving right basilar pneumothorax. Electronically signed by: Luis Madrigal MD Board Certified Radiologist 11/07/2018 1:38 PM EST
[2018-11-07] MEDS: Norepinephrine Inj 16 MG in Sodium Chlor 0.9% Inj 234 ML IV.CONT PRN (13:45)
--- NOTE | 2018-11-07 14:43 | P.PCN ---
Date of procedure: 11/07/18 Pre-op diagnosis: Hypotension Post-op diagnosis: same Procedure: DATE:11/07/2018 PROCEDURE: Right femoral arterial catheter placement INDICATION: Shock DETAILS OF PROCEDURE The patient was placed in supine position. The skin was cleansed with Chloraprep. Additional barrier precautions included large sterile drape, sterile gloves, sterile gown, face mask, and hat. 1% lidocaine was used for local anesthesia. Under direct ultrasound guidance and on the initial attempt, the artery was accessed with an introducer needle. The guide wire was advanced. Using Seldinger technique 20 gauge arterial catheter was placed. The guide wire was removed. The catheter was connected to a transducer line and flushed with saline. The video monitor displayed normal arterial wave forms. The catheter was secured with 2-0 silk. A sterile dressing with antibiotic disc was applied. ESTIMATED BLOOD LOSS: minimal COMPLICATIONS: None
[2018-11-07] MEDS: DOBUTamine Inj 1,000 MG in Sodium Chlor 0.9% Inj 170 ML IV.CONT SCH (14:46)
--- NOTE | 2018-11-07 17:04 | MB ---
cc: Manish Ventura MD DATE: 11/07/2018 REASON FOR CONSULTATION: Congestive heart failure, cardiogenic shock. HISTORY OF PRESENT ILLNESS: The patient is an 88-year-old white male, previously followed by Dr. Ezekiel Hou, with a history of chronic atrial fibrillation, coronary artery disease, congestive heart failure, severely reduced ejection fraction of less than 20%, liver cirrhosis, who initially presented to the hospital with pedal edema, generalized weakness, shortness of breath. His hospital course has been notable for right thoracentesis complicated by the development of right hydropneumothorax necessitating chest tube placement. His course has also been notable for acute on chronic renal insufficiency. The patient states his dyspnea has improved since coming into the hospital. He denies any recent chest pain, dizziness, syncope, near syncope, palpitations, paroxysmal nocturnal dyspnea. Over the last couple of weeks, he has noted increased pedal edema bilaterally, sometimes left greater than right. He reports compliance with his medications, although he does add salt to his food on occasion. PAST MEDICAL HISTORY: 1. Chronic atrial fibrillation. 2. Coronary artery disease, status post myocardial infarction in the 1980s. 3. Hyperlipidemia. 4. Congestive heart failure exacerbation, 01/2017, at which time echocardiogram showed ejection fraction of 20%-25%. 5. Benign prostatic hypertrophy. 6. Liver cirrhosis. PAST SURGICAL HISTORY: Hernia repair. CARDIAC MEDICATIONS AT HOME: 1. Terazosin 2 mg daily. 2. Simvastatin 20 mg at bedtime. 3. Aspirin 81 mg daily. 4. Apixaban 2.5 mg b.i.d. 5. Furosemide 20 mg daily. 6. Carvedilol 6.25 mg b.i.d. 7. Spironolactone 25 mg daily. HOSPITAL CARDIAC MEDICATIONS: 1. Carvedilol, which is being held. 2. Dobutamine drip 3. Norepinephrine drip 4. Pravastatin 40 mg p.o. daily. 5. Spironolactone 25 mg p.o. daily. ALLERGIES: ENALAPRIL, ERYTHROMYCIN, PENICILLIN. FAMILY HISTORY: Noncontributory. SOCIAL HISTORY: The patient denies any history of alcohol or tobacco abuse. REVIEW OF SYSTEMS: As in the history of present illness, otherwise negative or noncontributory. He also denies headache, abdominal pain, melena, dyspepsia, bright red blood per rectum, change in weight. PHYSICAL EXAMINATION: VITAL SIGNS: His blood pressure 91/64 with a pulse of 90, respirations 20. GENERAL: He is a well-developed, very thin white male, in no acute distress. NECK: Jugular venous pressure is normal. Carotid pulses are 2+ bilaterally and without bruits. CHEST: Diminished breath sounds at the bases, right greater than left, with minimal bibasilar crackles. CARDIAC: He has an irregularly irregular rhythm with a grade 1/6 systolic ejection murmur heard at the left lower sternal border. No definite gallop is audible. ABDOMEN: He has a soft, nontender abdomen. Bowel sounds are present. There is no definite hepatosplenomegaly. EXTREMITIES: No clubbing or cyanosis. There is 1+ pretibial edema bilaterally, right greater than left. LABORATORY DATA: EKG shows atrial fibrillation with a rapid ventricular response, right bundle branch block, left anterior fascicular block, nonspecific ST and T-wave abnormalities. Chest x-ray from 11/07/2018 at 1:36 p.m. shows bilateral pulmonary vascular congestion, right basilar pneumothorax. LABORATORY DATA: WBC 5.1, hemoglobin 12.6, platelets 162. Potassium 4.2, BUN 54, creatinine 2.23. Troponin 0.09. IMPRESSION: Congestive heart failure, severe dilated cardiomyopathy, possible cardiogenic shock necessitating pressor and inotropic support in this 88-year-old white male with a history of chronic atrial fibrillation, remote history of myocardial infarction, liver cirrhosis. Unfortunately, his overall prognosis is poor. His echocardiogram this admission has been reviewed. His ejection fraction is likely no greater than 10%-15%. There is at most moderate mitral regurgitation. His atrial fibrillation is apparently chronic. There have been no definite heart rate control issues here in the hospital. Indeed, his thromboembolic risk is high. Overall, there is no definite evidence for acute coronary syndrome. RECOMMENDATIONS: 1. Agree with the present medical management of his severe congestive heart failure/cardiomyopathy. 2. Continue inotropic and pressor support. 3. Resume apixaban when possible. 4. Would resume his daily aspirin. 5. Continue attempts to diurese with intravenous bumetanide. MD SHEREE Bloom/marcella Hayes: 11/07/2018, 04:04 PM , 04:14 PM SIVAN
[2018-11-08 04:49] LABS: Baso % (Auto) 0.2 % (0.0-2.0); Eos % (Auto) 0.2 % (0.0-4.0); Hematocrit 37.3 % (39.0-51.0); Hemoglobin 12.4 gm/dL (13.0-17.0); Lymph # (Auto) 1.2 th/mm3 (1.0-4.8); Lymph % (Auto) 18.4 % (9.0-44.0); Mean Corpuscular HGB Conc 33.3 % (32.0-36.0); Mean Corpuscular Hemoglobin 31.3 pg (27.0-34.0); Mean Corpuscular Volume 93.8 fL (80.0-100.0); Mean Platelet Volume 8.9 fL (7.0-11.0); Mono # (Auto) 0.7 th/mm3 (0.0-0.9); Mono % (Auto) 10.7 % (0.0-8.0); Neut # (Auto) 4.5 th/mm3 (1.8-7.7); Neut % (Auto) 70.5 % (16.0-70.0); Platelet Count 166 th/mm3 (150-450); Red Blood Count 3.97 mil/mm3 (4.50-5.90); White Blood Count 6.3 th/mm3 (4.0-11.0)
[2018-11-08 05:30] LABS: Alanine Aminotransferase 208 U/L (12-78); Albumin 2.6 g/dL (3.4-5.0); Alkaline Phosphatase 83 U/L (45-117); Anion Gap 11 meq/L (5-15); Aspartate Aminotransferase 301 U/L (15-37); Blood Urea Nitrogen 58 mg/dL (7-18); Calcium 7.7 mg/dL (8.5-10.1); Carbon Dioxide 18.8 meq/L (21.0-32.0); Chloride 109 meq/L (98-107); Glomerular Filtration Rate 25 mL/min (>89); Glucose,Random 132 mg/dL (74-106); Magnesium 2.4 mg/dL (1.5-2.5); Phosphorus 5.2 mg/dL (2.5-4.9); Potassium 4.5 meq/L (3.5-5.1); Sodium 139 meq/L (136-145); Total Protein 5.4 g/dL (6.4-8.2)
[2018-11-08 05:56] LABS: ABG Base Excess -7.7 mmol/L (-2-2); ABG PCO2 22 mmHg (38-42); ABG PO2 156 mmHG (61-120)
--- NOTE | 2018-11-08 06:01 | XR ---
EXAM DATE: 11/08/2018 5:50 AM EST AGE/SEX: 88 years / Male INDICATIONS: Shortness of breath, possible pulmonary disease. CLINICAL DATA: This is the patient's subsequent encounter. Patient reports that signs and symptoms h ave been present for 3 days and indicates a pain score of Nonresponsive. MEDICAL/SURGICAL HISTORY: Myocardial infarction. Hypercholesterolemia. Hypertension. BPH. A -fib. Coronary artery stent. Inguinal hernia repair. Chest tube, right. COMPARISON: [facility] [place] CHEST 1V SINGLE AP, 11/07/2018. . FINDINGS: Large bore and pigtail right thoracostomy tubes remain in place. There has been significant interval increase in right pneumothorax with a small apical component and a large loculated component at the l ateral right base. There is persistent consolidation and effusion on the left. Diffuse interstitial p rominence elsewhere the lungs. Moderate stable cardiac enlargement CONCLUSION: Recurrent right pneumothorax Electronically signed by: Ezekiel Chanel MD Board Certified Radiologist 11/08/2018 6:00 AM EST
--- NOTE | 2018-11-08 07:26 | P.PNCC ---
Subjective Subjective Remarks/Hospital Course: 88-year-old male with a past medical history significant for atrial fibrillation on Eliquis, coronary artery disease, hyperlipidemia and possible CHF who presented to the emergency department with bilateral lower extremity edema. In the ER patient was found to be in A. fib with RVR. Patient reported having pleural effusions requiring thoracentesis in the past. Patient symptoms were attributed to CHF, chest x-ray showed bilateral effusion, BNP was more than 2300, and troponin was mildly elevated at 0.08. And echocardiogram showed the left ventricular systolic function severely reduced with an estimated ejection fraction less than 20%. Moderate to severe mitral valve regurgitation. It was also noted that patient had a lactic acid of 4.3. This is most likely secondary to poor perfusion and developing cardiogenic shock. There is no evidence of sepsis. Patient underwent right-sided thoracentesis by IR today. Postprocedural radiograph did show a pneumothorax. However patient was completely asymptomatic at that time and no chest tube was placed. Per Dr. Aguiar's note stated chest x-ray showed fibrotic appearance of the right lung. Patient had some increase in shortness of breath late evening today. A repeat chest x-ray showed a persistent right pneumothorax which appeared larger when compared to the prior exam now measuring up to 2.4 cm over the right apex. Previously was 1 cm. A pneumothorax is also seen in the inferior lateral right base. No mediastinal shift. I evaluated the patient in the ICU. He is showing good oxygen saturation on 2 L nasal cannula, mildly tachypneic. I have ordered a stat CT of the chest to evaluate for a loculated pneumothorax. Patient may need a chest tube depending on the size of the pneumothorax 11/07: Afebrile. Remains on nasal cannula. Chest x-ray reveals revealed possible worsening pneumothorax. Stat CT thorax ordered. 1100 cc from right- sided chest tube placed overnight. Appears comfortable and normotensive. Denies shortness of breath SUBJECTIVE: 11/08: Currently 6 L nasal cannula. Adequate saturations. Worsening pneumothorax increased suction -40 cmH2O. We will check chest x-ray at noon today. Will notify IR possible need for guided chest tube placement at the present time. He was comfortable. On norepinephrine drip at 14 mcg/min and dobutamine drip at 2.5 mcg/kg/min Objective Vital Signs / I&O: Vital Signs 11/07/18 07:55 11/07/18 08:00 11/07/18 08:26 Temperature 98.4 F Pulse Rate 89 90 Respiratory Rate 32 H 13 Blood Pressure 92/62 L Pulse Oximetry 89 L 94 L 95 11/07/18 09:00 11/07/18 10:00 11/07/18 11:09 Temperature Pulse Rate 81 110 H 81 Respiratory Rate 19 18 Blood Pressure 99/76 L Pulse Oximetry 92 L 11/07/18 11:55 11/07/18 11:56 11/07/18 12:00 Temperature 97.9 F Pulse Rate 90 82 84 Respiratory Rate 22 19 25 H Blood Pressure 83/58 L 79/61 L Pulse Oximetry 92 L 92 L 92 L 11/07/18 12:19 11/07/18 12:23 11/07/18 12:25 Temperature Pulse Rate 89 85 82 Respiratory Rate 24 13 26 H Blood Pressure 80/61 L 85/62 L 87/69 L Pulse Oximetry 92 L 90 L 91 L 11/07/18 12:28 11/07/18 12:30 11/07/18 14:00 Temperature Pulse Rate 93 H 83 93 H Respiratory Rate 24 19 Blood Pressure 92/77 L 92/66 L Pulse Oximetry 91 L 91 L 11/07/18 14:42 11/07/18 15:30 11/07/18 16:00 Temperature 98.1 F Pulse Rate 92 H 100 H 103 H Respiratory Rate 24 19 21 Blood Pressure Pulse Oximetry 96 95 11/07/18 17:00 11/07/18 18:00 11/07/18 18:01 Temperature Pulse Rate 105 H 101 H 99 H Respiratory Rate 16 19 20 Blood Pressure 109/67 89/58 L Pulse Oximetry 95 96 96 11/07/18 19:00 11/07/18 19:40 11/07/18 20:00 Temperature Pulse Rate 105 H 90 101 H Respiratory Rate 19 17 14 Blood Pressure 86/54 L 94/72 L Pulse Oximetry 94 L 96 94 L 11/07/18 21:00 11/07/18 22:00 11/07/18 23:00 Temperature Pulse Rate 106 H 114 H 100 H Respiratory Rate 19 19 21 Blood Pressure 93/67 L 104/76 Pulse Oximetry 94 L 91 L 93 L 11/07/18 23:01 11/08/18 00:00 11/08/18 01:00 Temperature Pulse Rate 111 H 109 H 101 H Respiratory Rate 10 L 21 10 L Blood Pressure 84/57 L 94/69 L 95/64 L Pulse Oximetry 95 95 96 11/08/18 02:00 11/08/18 02:04 11/08/18 03:00 Temperature Pulse Rate 95 H 107 H 107 H Respiratory Rate 21 16 13 Blood Pressure 94/70 L 100/74 Pulse Oximetry 93 L 89 L 94 L 11/08/18 03:51 11/08/18 04:00 11/08/18 05:00 Temperature Pulse Rate 92 H 99 H 111 H Respiratory Rate 17 15 26 H Blood Pressure 101/70 117/73 Pulse Oximetry 93 L 94 L 92 L 11/08/18 06:00 Temperature Pulse Rate 105 H Respiratory Rate 25 H Blood Pressure 97/77 L Pulse Oximetry Intake & Output 11/07/18 11/08/18 11/08/18 18:59 06:59 18:59 Intake Total 600 / 600 Output Total 810 / 810 Balance -210 / -210 Intake: Oral 600 / 600 Output: Urine Amount (Catheter) 125 / 125 Indwelling Urethral Catheter 125 / 125 Chest Tube Drainage 685 / 685 Right 260 / 260 Right Upper 425 / 425 Other: Date of Last Bowel Movement 11/05/18 11/05/18 Result Diagrams: 11/08/18 04:27 11/08/18 04:27 Other Results: Microbiology 11/06/18 14:10 Fluid - Pleural fluid Gram Stain - Final 11/06/18 14:10 Fluid - Pleural fluid Body Fluid Culture - Preliminary No growth in 24 hours Imaging: Chest X-Ray 11/05/18 23:46 CONCLUSION: CHF Head CT 11/05/18 23:46 CONCLUSION: No acute intracranial findings . Abdomen/Bladder Ultrasound 11/06/18 00:00 CONCLUSION: 1. Probable left renal stones without evidence of hydronephrosis. 2. Trabeculated bladder. Chest X-Ray 11/06/18 00:00 CONCLUSION: There is a right-sided pneumothorax status post thoracentesis as noted above. Thoracentesis Ultrasound 11/06/18 00:00 CONCLUSION: 1. Right-sided thoracentesis as detailed above. 2. A large amount of fluid was removed from the right chest. Postprocedural radiograph did show a pneumothorax. However, the patient is completely asymptomatic without pain and saturating at 97-98% on 2 L nasal cannula. Chest radiograph shows a fibrotic appearance of the right lung and, as such, I do not feel patient would benefit from percutaneous chest tube placement this time. Patient will be monitored on the floor and a follow-up chest radiograph will be performed later this afternoon to ensure stability. Chest X-Ray 11/06/18 18:00 CONCLUSION: Persistent right pneumothorax which appears larger on the current exam. There is a mild to moderate pneumothorax on the right. This information will be related to the floor. Cardiomegaly. Consolidation or atelectasis possible effusion at the left base with silhouetting the left hemidiaphragm. Chest CT 11/06/18 19:58 CONCLUSION: 1. Moderate hydropneumothorax on the right. This was seen on the prior plain film examination. 2. Mild to moderate left pleural effusion. 3. Comparisons of atelectasis seen in the lungs bilaterally. 4. Cardiomegaly with coronary artery calcifications. Chest X-Ray 11/06/18 21:45 CONCLUSION: New right chest tube with a mild suspected hydropneumothorax. The hydropneumothorax clearly has improved since the last chest x-ray and CT. Chest X-Ray 11/07/18 00:00 CONCLUSION: Prominent right-sided pneumothorax seen predominantly in the right base. Chest CT 11/07/18 09:50 CONCLUSION: 1. Moderate right-sided hydropneumothorax. 2. Small caliber right-sided chest tube in the lower right hemithorax. 3. Moderate left pleural effusion. 4. Bibasilar consolidation and patchy densities in the right middle lobe. 5. Cardiomegaly and coronary artery calcifications. Chest X-Ray 11/07/18 13:18 CONCLUSION: Improving right basilar pneumothorax. Chest X-Ray 11/08/18 06:00 CONCLUSION: Recurrent right pneumothorax Objective Remarks: GENERAL: 88-year-old male currently resting in bed on nasal cannula no acute distress SKIN: Warm and dry. HEAD: Atraumatic. Normocephalic. EYES: Pupils equal and round. No scleral icterus. No injection or drainage. ENT: No nasal bleeding or discharge. Mucous membranes pink and moist. NECK: Trachea midline. No JVD. Right IJ CVL is clean dry and intact CARDIOVASCULAR: IRR S1, S2. No S4. 2/6 systolic murmur RESPIRATORY: Coarse crackles appreciated the bases bilateral. Right and left. Diminished breath sounds right lower lobe greater than left lower lobe. Right # 10 [place] pigtail catheter and right #20 [place] chest tube in place -40 cmH2O GASTROINTESTINAL: Abdomen soft, non-tender, nondistended. Hepatic and splenic margins not palpable. MUSCULOSKELETAL: Extremities with lower extremity edema. No obvious deformities. Right femoral arterial line clean dry and intact NEUROLOGICAL: Awake and alert. No obvious cranial nerve deficits. Motor grossly within normal limits. Five out of 5 muscle strength in the arms and legs. Normal speech. PSYCHIATRIC: Appropriate mood and affect; insight and judgment normal. Assessment and Plan - Assessment and Plan Plan: NEURO/PSYCH: -Minimize all sedation -Acetaminophen 650 q. every 6 hours as needed fever -Use as needed morphine and midazolam for procedural sedation RESP: Iatrogenic right pneumothorax Bilateral pleural effusions Acute respiratory insufficiency -Patient appears to have developed iatrogenic pneumothorax following IR thoracentesis 11/06/2018 -Repeat chest x-ray for shortness of breath shows expansion of apical pneumothorax, and also there is right lower pneumothorax -CT of the chest revealed significant right hydropneumothorax. Chest tube placed by Dr. Falcon #10 Taj[place] 11/06. - 260. Right #20 [place] -425 cc both at - 40 cmH2O -Repeat CT chest this a.m. revealed to be worsening right-sided pneumothorax.. -Albuterol/ipratropium aerosols every 6 hours scheduled and as needed albuterol aerosols every 2 hours. Dyspnea -Nasal cannula to maintain saturations greater than equal 92% -We will consult CT surgery for persistent right pneumothorax and ask IR for possible chest tube placement CV: Acute on chronic systolic heart failure ejection fraction 20% Cardiomyopathy ejection fraction 20% Severe MR Moderate TR Essential hypertension Hyperlipidemia Coronary artery disease Atrial fibrillation rate controlled Lactic acidosis -resolved Elevated troponin -2D echo shows moderate to severe MR, severe cardiomyopathy with EF 20% -Currently on bumetanide 1 mg every 8 hours and holding furosemide 20 mg daily/ home medication diuretics currently on hold. -A. fib is rate controlled now -Hold apixaban in anticipation of possible chest tube placement, resume aspirin 81 mg daily/home medication. -Holding carvedilol 6.25 mg twice daily in light of underlying blockers. Resume spironolactone 25 mg daily -Lactic acidosis seems to be secondary to poor perfusion and developing cardio genic shock -Trend lactic acid until clear. Currently 1.6. Will recheck in a.m. -On simvastatin 40 mg daily/hospital substitution for 20 mg daily simvastatin for hyperlipidemia currently on hold for elevated transaminases. Resume if clinically indicated -Cardiology/Dr. Ventuar is following -Resumed aspirin 81 mg daily. -Currently norepinephrine drip at 40 mcg/min and dobutamine drip at 2.5 mg/kg/ min for cardiogenic shock. -CVP is 10 GI: Elevated transaminases -N.p.o. in anticipation of chest tube placement advance diet post procedure, pantoprazole -Docusate sodium/senna 1 tablet twice daily for bowel regimen Renal/: Acute kidney injury BPH -Monitor renal function closely. Place Murillo catheter for strict I/O (renal failure, CHF on bumetanide). -Nephrology following -Bumetanide 1 mg IV every 8 hours currently on hold. CVP is around 10 -On terazosin 2 mg daily and finasteride 5 mg daily for BPH. Holding trazodone with low blood pressure ID: -No antibiotics indicated at this time HEME: Normocytic anemia Chronic apixaban use -Monitor CBC, coags -Hold apixaban 2.5 mg in anticipation of procedures ENDO/FEN: Elevated TSH 6.11 Elevated phosphorus -Electrolyte replacement if indicated -Sliding scale insulin if needed -Check total T3/free T4 -Currently on sterile water with 3 ampoules of sodium bicarbonate was 1 L today -Recheck BMP, mag [place] in a.m. PROPH: -Bilateral lower extremity SCDs. Pantoprazole -No chemical DVT prophylaxis at this time LINES: -Utilize peripheral IVs, central line if needed Critical care time 35 minutes follow-up
[2018-11-08] MEDS: Chlorhexidine Gluconate 2% 1 Pack (2 Cloths) TOPICAL SCH (07:54)
[2018-11-08] MEDS: Senna/Docusate Sodium 8.6/50 MG Tablet PO SCH ×3 (07:54→20:28)
[2018-11-08 07:59] LABS: Acanthocytes 1+; Burr Cells 2+; Lymphocytes 11 % (9-44); Monocytes 2 % (0-8); Ovalocytes 1+; Platelet Estimate Normal (Normal); Platelet Morphology Normal (Normal); Tallied Nucleated RBC 1 (0-0)
[2018-11-08] MEDS: Pantoprazole Sodium 20 MG DR Tablet PO SCH (08:08)
[2018-11-08] MEDS: Finasteride 5 MG Tablet PO SCH (08:08)
[2018-11-08] MEDS: Spironolactone 25 MG Tablet PO SCH (08:09)
--- NOTE | 2018-11-08 08:09 | P.PNCA ---
Subjective Interval history: Complains of dyspnea. Slept poorly. No CP, abdominal pain, palpitations, dizziness, PND. Medications and Allergies Active Medications: Active Cardiac Medications Aspirin (Ecotrin) 81 mg PO DAILY [facility] Bumetanide (Bumex Inj) 1 mg IV.PUSH Q8H [facility] Last Admin: 11/08/18 07:54 Dose: 1 mg Carvedilol (Coreg) 6.25 mg PO BID [facility] Last Admin: 11/07/18 09:32 Dose: 6.25 mg Norepinephrine Bitartrate 16 (mg/ Sodium Chloride) 250 mls @ 1.87 mls/hr IV.CONT TITRATE PRN; Protocol PRN Reason: See Protocol Last Admin: 11/07/18 13:45 Dose: 2 mcg/min, 1.87 mls/hr Dobutamine HCl 1,000 mg/ (Sodium Chloride) 250 mls @ 2.96 mls/hr IV.CONT .Q24H [facility] Last Admin: 11/07/18 14:46 Dose: 2.5 mcg/kg/min, 2.96 mls/hr Spironolactone (Aldactone) 25 mg PO DAILY [facility] Last Admin: 11/07/18 09:31 Dose: 25 mg Terazosin HCl (Hytrin) 2 mg PO DAILY [facility] Last Admin: 11/07/18 13:55 Dose: Not Given Allergies Allergy/AdvReac Type Severity Reaction Status Date / Time enalaprilat Allergy Severe does not Verified 11/05/18 23:17 know erythromycin base Allergy Severe does not Verified 11/05/18 23:17 know told as child penicillin G Allergy Severe does not Verified 11/05/18 23:17 know Home Medications Medication Instructions Recorded Confirmed Type apixaban [Eliquis] 2.5 mg PO DAILY 11/05/18 11/05/18 History aspirin 81 mg PO DAILY 11/05/18 11/05/18 History carvedilol [Coreg] 6.25 mg PO BID 11/05/18 11/05/18 History finasteride 5 mg PO DAILY 11/05/18 11/05/18 History furosemide 20 mg PO DAILY 11/05/18 11/05/18 History simvastatin 20 mg PO QPM 11/05/18 11/05/18 History spironolactone 25 mg PO DAILY 11/05/18 11/05/18 History terazosin 2 mg PO DAILY 11/05/18 11/05/18 History Physical Exam Vital signs: Vital Signs 11/07/18 08:26 11/07/18 09:00 11/07/18 10:00 Temperature Pulse Rate 81 110 H Respiratory Rate 19 Blood Pressure 99/76 L Pulse Oximetry 95 92 L 11/07/18 11:09 11/07/18 11:55 11/07/18 11:56 Temperature Pulse Rate 81 90 82 Respiratory Rate 18 22 19 Blood Pressure 83/58 L Pulse Oximetry 92 L 92 L 11/07/18 12:00 11/07/18 12:19 11/07/18 12:23 Temperature 97.9 F Pulse Rate 84 89 85 Respiratory Rate 25 H 24 13 Blood Pressure 79/61 L 80/61 L 85/62 L Pulse Oximetry 92 L 92 L 90 L 11/07/18 12:25 11/07/18 12:28 11/07/18 12:30 Temperature Pulse Rate 82 93 H 83 Respiratory Rate 26 H 24 19 Blood Pressure 87/69 L 92/77 L 92/66 L Pulse Oximetry 91 L 91 L 91 L 11/07/18 14:00 11/07/18 14:42 11/07/18 15:30 Temperature Pulse Rate 93 H 92 H 100 H Respiratory Rate 24 19 Blood Pressure Pulse Oximetry 96 11/07/18 16:00 11/07/18 17:00 11/07/18 18:00 Temperature 98.1 F Pulse Rate 103 H 105 H 101 H Respiratory Rate 21 16 19 Blood Pressure 109/67 Pulse Oximetry 95 95 96 11/07/18 18:01 11/07/18 19:00 11/07/18 19:40 Temperature Pulse Rate 99 H 105 H 90 Respiratory Rate 20 19 17 Blood Pressure 89/58 L 86/54 L Pulse Oximetry 96 94 L 96 11/07/18 20:00 11/07/18 21:00 11/07/18 22:00 Temperature Pulse Rate 101 H 106 H 114 H Respiratory Rate 14 19 19 Blood Pressure 94/72 L 93/67 L 104/76 Pulse Oximetry 94 L 94 L 91 L 11/07/18 23:00 11/07/18 23:01 11/08/18 00:00 Temperature Pulse Rate 100 H 111 H 109 H Respiratory Rate 21 10 L 21 Blood Pressure 84/57 L 94/69 L Pulse Oximetry 93 L 95 95 02/17/19 01:00 11/08/18 02:00 11/08/18 02:04 Temperature Pulse Rate 101 H 95 H 107 H Respiratory Rate 10 L 21 16 Blood Pressure 95/64 L 94/70 L Pulse Oximetry 96 93 L 89 L 11/08/18 03:00 11/08/18 03:51 11/08/18 04:00 Temperature Pulse Rate 107 H 92 H 99 H Respiratory Rate 13 17 15 Blood Pressure 100/74 101/70 Pulse Oximetry 94 L 93 L 94 L 11/08/18 05:00 11/08/18 06:00 11/08/18 07:00 Temperature Pulse Rate 111 H 105 H Respiratory Rate 26 H 25 H Blood Pressure 117/73 97/77 L Pulse Oximetry 92 L 94 L Intake & Output 11/07/18 11/08/18 11/08/18 18:59 06:59 18:59 Intake Total 600 / 600 599 / 599 Output Total 810 / 810 125 / 125 Balance -210 / -210 474 / 474 Weight 75.4 kg Intake: Oral 600 / 600 350 / 350 Other 249 / 249 Output: Urine 125 / 125 Urine Amount (Catheter) 125 / 125 Indwelling Urethral Catheter 125 / 125 Chest Tube Drainage 685 / 685 Right 260 / 260 Right Upper 425 / 425 Other: Date of Last Bowel Movement 11/05/18 11/05/18 - Constitutional no acute distress, thin - Routine Neck Exam Absent: JVD - Routine Respiratory Exam Comments: Clear lungs anteriorly. - Routine Cardiovascular Exam Present: S1, S2, irregular rhythm. Absent: murmur, gallop - Routine Abdominal Exam Present: soft, normoactive bowel sounds. Absent: tenderness - Routine Extremities Exam Absent: cyanosis, clubbing Comments: Trace right pretibial edema. - Urinary Catheter Management Indwelling Urethral Catheter Cath placed during this visit: yes Reason for continuing: Hourly intake/output Insertion date: 11/06/18 Insertion time: 22:00 Results 11/08/18 04:27 11/08/18 04:27 Cardiac Enzymes 11/06/18 11/06/18 11/08/18 Range/Units 08:10 12:10 04:27 AST 301 H (15-37) U/L Troponin I 0.08 H 0.09 H (0.02-0.05) ng/mL Coagulation 11/06/18 Range/Units 08:10 PT 13.0 H (9.8-11.6) sec APTT 36.1 H (23.4-31.7) sec CBC 11/06/18 11/07/18 11/08/18 Range/Units 08:10 11:10 04:27 WBC 4.1 5.1 6.3 (4.0-11.0) th/mm3 RBC 3.74 L 3.98 L 3.97 L (4.50-5.90) mil/mm3 Hgb 11.4 L 12.6 L 12.4 L (13.0-17.0) gm/dL Hct 35.1 L 38.2 L 37.3 L (39.0-51.0) % Plt Count 146 L 162 166 (150-450) th/mm3 Neut # (Auto) 3.0 4.2 4.5 (1.8-7.7) th/mm3 Lymph # (Auto) 0.6 L 0.5 L 1.2 (1.0-4.8) th/mm3 [place] # (Auto) 0.5 0.4 0.7 (0.0-0.9) th/mm3 Eos # (Auto) 0.0 0.0 0.0 (0.0-0.4) th/mm3 Baso # (Auto) 0.0 0.0 0.0 (0.0-0.2) th/mm3 Comprehensive Metabolic Panel 11/06/18 11/07/18 11/08/18 Range/Units 08:10 11:10 04:27 Sodium 142 140 139 (136-145) meq/L Potassium 4.0 4.2 4.5 (3.5-5.1) meq/L Chloride 109 H 106 109 H (98-107) meq/L Carbon Dioxide 25.4 24.7 18.8 L (21.0-32.0) meq/L BUN 48 H 54 H 58 H (7-18) mg/dL Creatinine 1.86 H 2.23 H 2.44 H (0.60-1.30) mg/dL Calcium 8.4 L 8.1 L 7.7 L (8.5-10.1) mg/dL AST 301 H (15-37) U/L ALT 208 H (12-78) U/L Alkaline Phosphatase 83 (45-117) U/L Total Protein 5.4 L D (6.4-8.2) g/dL Albumin 2.6 L (3.4-5.0) g/dL Intake and Output 11/07/18 11/08/18 11/08/18 22:59 06:59 14:59 Intake Total 600 / 600 599 / 599 Output Total 810 / 810 125 / 125 Balance -210 / -210 474 / 474 Intake: Oral 600 / 600 350 / 350 Other 249 / 249 Output: Urine 125 / 125 Urine Amount (Catheter) 125 / 125 Indwelling Urethral Catheter 125 / 125 Chest Tube Drainage 685 / 685 Right 260 / 260 Right Upper 425 / 425 Other: Date of Last Bowel Movement 11/05/18 11/05/18 Weight 75.4 kg - Imaging and Cardiology Imaging: Impressions Abdomen/Bladder Ultrasound 11/06/18 00:00 CONCLUSION: 1. Probable left renal stones without evidence of hydronephrosis. 2. Trabeculated bladder. Chest X-Ray 11/06/18 00:00 CONCLUSION: There is a right-sided pneumothorax status post thoracentesis as noted above. Thoracentesis Ultrasound 11/06/18 00:00 CONCLUSION: 1. Right-sided thoracentesis as detailed above. 2. A large amount of fluid was removed from the right chest. Postprocedural radiograph did show a pneumothorax. However, the patient is completely asymptomatic without pain and saturating at 97-98% on 2 L nasal cannula. Chest radiograph shows a fibrotic appearance of the right lung and, as such, I do not feel patient would benefit from percutaneous chest tube placement this time. Patient will be monitored on the floor and a follow-up chest radiograph will be performed later this afternoon to ensure stability. Chest X-Ray 11/06/18 18:00 CONCLUSION: Persistent right pneumothorax which appears larger on the current exam. There is a mild to moderate pneumothorax on the right. This information will be related to the floor. Cardiomegaly. Consolidation or atelectasis possible effusion at the left base with silhouetting the left hemidiaphragm. Chest CT 11/06/18 19:58 CONCLUSION: 1. Moderate hydropneumothorax on the right. This was seen on the prior plain film examination. 2. Mild to moderate left pleural effusion. 3. Comparisons of atelectasis seen in the lungs bilaterally. 4. Cardiomegaly with coronary artery calcifications. Chest X-Ray 11/06/18 21:45 CONCLUSION: New right chest tube with a mild suspected hydropneumothorax. The hydropneumothorax clearly has improved since the last chest x-ray and CT. Chest X-Ray 11/07/18 00:00 CONCLUSION: Prominent right-sided pneumothorax seen predominantly in the right base. Chest CT 11/07/18 09:50 CONCLUSION: 1. Moderate right-sided hydropneumothorax. 2. Small caliber right-sided chest tube in the lower right hemithorax. 3. Moderate left pleural effusion. 4. Bibasilar consolidation and patchy densities in the right middle lobe. 5. Cardiomegaly and coronary artery calcifications. Chest X-Ray 11/07/18 13:18 CONCLUSION: Improving right basilar pneumothorax. Chest X-Ray 11/08/18 06:00 CONCLUSION: Recurrent right pneumothorax Assessment and Plan - Assessment (1) Congestive heart failure Code(s): I50.9 - Heart failure, unspecified Status: Acute Plan: No major change in cardiac status overnight. Remains on inotropic/pressor support. Increase in right PNTX on today's CXR. No new recommendations. Will be out of town tomorrow, /u Friday. (2) Chronic atrial fibrillation Code(s): I48.2 - Chronic atrial fibrillation Status: Chronic Plan: Stable, chronic atrial fib. HR's OK. Resume apixaban when possible. Continue aspirin. (3) Coronary artery disease Code(s): I25.10 - Atherosclerotic heart disease of seminole coronary artery without angina pectoris Status: Chronic Plan: Remote history of [place]. Stable. No angina symptoms. Continue conservative management, evaluation. - Plan Code Status: full code Discussed Condition With: patient (1) Congestive heart failure Qualifiers: Heart failure type: systolic Heart failure chronicity: acute on chronic Qualified Code(s): I50.23 - Acute on chronic systolic (congestive) heart failure (3) Coronary artery disease Qualifiers: Coronary Disease-Associated Artery/Lesion type: seminole artery [place] vs. transplanted heart: seminole heart Associated angina: without angina Qualified Code(s): I25.10 - Atherosclerotic heart disease of seminole coronary artery without angina pectoris
[2018-11-08] MEDS: Sodium Bicarbonate 8.4% Inj 150 MEQ in Water for Inj, Sterile 850 ML IV.CONT SCH ×2 (09:20→22:36)
[2018-11-08 10:15] LABS: Activated Partial Thrombo Time 36.2 sec (23.4-31.7); INR 1.3 Ratio; Prothrombin Time 12.9 sec (9.8-11.6)
--- NOTE | 2018-11-08 10:34 | P.PNNP ---
Subjective Interval history: Patient is alert, with nasal cannula and has mild SOB, not in distress. Physical Exam Vital signs: Vital Signs 11/07/18 11:09 11/07/18 11:55 11/07/18 11:56 Temperature Pulse Rate 81 90 82 Respiratory Rate 18 22 19 Blood Pressure 83/58 L Pulse Oximetry 92 L 92 L 11/07/18 12:00 11/07/18 12:19 11/07/18 12:23 Temperature 97.9 F Pulse Rate 84 89 85 Respiratory Rate 25 H 24 13 Blood Pressure 79/61 L 80/61 L 85/62 L Pulse Oximetry 92 L 92 L 90 L 11/07/18 12:25 11/07/18 12:28 11/07/18 12:30 Temperature Pulse Rate 82 93 H 83 Respiratory Rate 26 H 24 19 Blood Pressure 87/69 L 92/77 L 92/66 L Pulse Oximetry 91 L 91 L 91 L 11/07/18 14:00 11/07/18 14:42 11/07/18 15:30 Temperature Pulse Rate 93 H 92 H 100 H Respiratory Rate 24 19 Blood Pressure Pulse Oximetry 96 11/07/18 16:00 11/07/18 17:00 11/07/18 18:00 Temperature 98.1 F Pulse Rate 103 H 105 H 101 H Respiratory Rate 21 16 19 Blood Pressure 109/67 Pulse Oximetry 95 95 96 11/07/18 18:01 11/07/18 19:00 11/07/18 19:40 Temperature Pulse Rate 99 H 105 H 90 Respiratory Rate 20 19 17 Blood Pressure 89/58 L 86/54 L Pulse Oximetry 96 94 L 96 11/07/18 20:00 11/07/18 21:00 11/07/18 22:00 Temperature Pulse Rate 101 H 106 H 114 H Respiratory Rate 14 19 19 Blood Pressure 94/72 L 93/67 L 104/76 Pulse Oximetry 94 L 94 L 91 L 11/07/18 23:00 11/07/18 23:01 11/08/18 00:00 Temperature Pulse Rate 100 H 111 H 109 H Respiratory Rate 21 10 L 21 Blood Pressure 84/57 L 94/69 L Pulse Oximetry 93 L 95 95 11/08/18 01:00 11/08/18 02:00 11/08/18 02:04 Temperature Pulse Rate 101 H 95 H 107 H Respiratory Rate 10 L 21 16 Blood Pressure 95/64 L 94/70 L Pulse Oximetry 96 93 L 89 L 11/08/18 03:00 11/08/18 03:51 11/08/18 04:00 Temperature Pulse Rate 107 H 92 H 99 H Respiratory Rate 13 17 15 Blood Pressure 100/74 101/70 Pulse Oximetry 94 L 93 L 94 L 11/08/18 05:00 11/08/18 06:00 11/08/18 07:00 Temperature Pulse Rate 111 H 105 H Respiratory Rate 26 H 25 H Blood Pressure 117/73 97/77 L Pulse Oximetry 92 L 94 L 11/08/18 09:56 Temperature Pulse Rate 104 H Respiratory Rate 26 H Blood Pressure Pulse Oximetry 96 Intake & Output 11/07/18 11/08/18 11/08/18 18:59 06:59 18:59 Intake Total 600 / 600 599 / 599 Output Total 810 / 810 125 / 125 320 / 320 Balance -210 / -210 474 / 474 -320 / -320 Weight 75.4 kg Intake: Oral 600 / 600 350 / 350 Other 249 / 249 Output: Urine 125 / 125 Urine Amount (Catheter) 125 / 125 Indwelling Urethral Catheter 125 / 125 Chest Tube Drainage 685 / 685 320 / 320 Right 260 / 260 280 / 280 Right Upper 425 / 425 40 / 40 Other: Date of Last Bowel Movement 11/05/18 11/05/18 11/05/18 Narrative: GENERAL: Alert and oriented. Mild respiratory distress. Maintaining oxygen saturation SKIN: Warm and dry. NECK: Supple, trachea midline. No JVD CARDIOVASCULAR: irregular rate and rhythm without murmurs, gallops, or rubs. On telemetry appears A. fib with just rate control RESPIRATORY: Diminished lung sounds on the upper and lower right lung [place], crackles throughout remaining bilateral lung [place]. GASTROINTESTINAL: Abdomen soft, non-tender, nondistended. MUSCULOSKELETAL: No cyanosis, 3 + edema bilateral lower extremity BACK: Nontender without obvious deformity. NEURO: Patient is alert awake oriented. No focal deficits. Moving all extremities equally - Urinary Catheter Management Indwelling Urethral Catheter Cath placed during this visit: yes Reason for continuing: Hourly intake/output Insertion date: 11/06/18 Insertion time: 22:00 Assessment and Plan - Assessment (1) Acute on chronic kidney failure Code(s): N17.9 - Acute kidney failure, unspecified; N18.9 - Chronic kidney disease, unspecified Status: Acute Plan: Patient with chronic kidney disease and develop ERIK. Patient with ERIK, possibly related to CARDIO RENAL. Has been in fluid overload status. Continue Bumex and Aldactone. Now with chest tube. Creatinine continue to increase, and now 2.4, Hco3 is 18. Getting now IVF with NaHco3. Follow the urine out put and BMP. D/W Dr. Altman, may need HD if not better. Explained to the patient. (2) Congestive heart failure Code(s): I50.9 - Heart failure, unspecified Status: Acute Qualifiers: Heart failure type: systolic Heart failure chronicity: acute on chronic Qualified Code(s): I50.23 - Acute on chronic systolic (congestive) heart failure Plan: Bedside ECHO, not followed by cardiology outpatient Plan for thoracentesis today. Sats good on room air
[2018-11-08] MEDS: Norepinephrine Inj 16 MG in Sodium Chlor 0.9% Inj 234 ML IV.CONT PRN (10:50)
[2018-11-08 10:52] LABS: Hepatitits B Surface Antigen Nonreactive (Nonreactive)
[2018-11-08 11:13] LABS: Hepatitis A IgM Antibody Nonreactive (Nonreactive)
--- NOTE | 2018-11-08 12:28 | XR ---
EXAM DATE: 11/08/2018 12:16 PM EST AGE/SEX: 88 years / Male INDICATIONS: Evaluate pneumothorax CLINICAL DATA: This is the patient's subsequent encounter. Patient reports that signs and symptoms h ave been present for 3 days and indicates a pain score of Nonresponsive. MEDICAL/SURGICAL HISTORY: . . Myocardial infarction. Hypercholesterolemia. Hypertension. BPH. A-fib. . Coronary artery stent. Inguinal hernia repair. Chest tube, right. COMPARISON: [facility], CHEST 1V SINGLE AP, 11/08/2018. . FINDINGS: There is a small caliber and larger caliber right chest tube present. Previous right basilar pneumoth orax has improved with small residual right pneumothorax. Right central line in superior vena cava. L eft basilar airspace disease and pleural effusion persists. Cardiomegaly. CONCLUSION: 2 right-sided chest tubes present with decrease in size of right pneumothorax compared with earlier e xam. Electronically signed by: Jean-Claude Buckley MD Board Certified Radiologist 11/08/2018 12:27 PM EST
[2018-11-08] MEDS: DOBUTamine Inj 1,000 MG in Sodium Chlor 0.9% Inj 170 ML IV.CONT SCH (13:46)
[2018-11-08 17:57] LABS: ABG Base Excess -2.3 mmol/L (-2-2); ABG PCO2 28 mmHg (38-42); ABG PO2 132 mmHG (61-120)
--- NOTE | 2018-11-08 19:23 | US ---
EXAM DATE: 11/08/2018 7:09 PM EST AGE/SEX: 88 years / Male INDICATIONS: Abdominal pain. CLINICAL DATA: This is the patient's initial encounter. Patient reports that signs and symptoms have been present for 1 day and indicates a pain score of 0/10. MEDICAL/SURGICAL HISTORY: Congestive heart failure. Hypercholesterolemia. A-Fib. BPH. Coronary artery disease. None. COMPARISON: [facility] [place], US KIDNEY/RENAL/BLADDER, 11/06/2018. . MEASUREMENTS: Liver:__ 18.5 cm. Common Bile Duct:__ 4mm. Right Kidney:__ 8.9 x 4.2 x 3.0 cm. FINDINGS: Liver: Increased echogenicity without focal lesion or ductal dilatation. Portal Vein: Hepatopedal flow seen in portal vein. Common Duct: No intraluminal mass or stone visualized. Gallbladder: Fluid around gallbladder and also around liver and spleen. Pancreas: Not well visualized. Right Kidney: Increased echogenicity. No mass or hydronephrosis. Other: None. CONCLUSION: 1. Mild ascites. Echogenic liver characteristic of fatty infiltration. Electronically signed by: Jean-Claude Buckley MD Board Certified Radiologist 11/08/2018 7:21 PM EST
[2018-11-09 05:09] LABS: Baso % (Auto) 0.4 % (0.0-2.0); Eos % (Auto) 0.4 % (0.0-4.0); Hematocrit 37.3 % (39.0-51.0); Hemoglobin 12.4 gm/dL (13.0-17.0); Mean Corpuscular HGB Conc 33.3 % (32.0-36.0); Mean Corpuscular Hemoglobin 30.7 pg (27.0-34.0); Mean Corpuscular Volume 92.3 fL (80.0-100.0); Mean Platelet Volume 8.7 fL (7.0-11.0); Mono # (Auto) 0.6 th/mm3 (0.0-0.9); Mono % (Auto) 9.1 % (0.0-8.0); Neut # (Auto) 4.8 th/mm3 (1.8-7.7); Neut % (Auto) 74.1 % (16.0-70.0); Platelet Count 161 th/mm3 (150-450); Red Blood Count 4.04 mil/mm3 (4.50-5.90); White Blood Count 6.4 th/mm3 (4.0-11.0)
[2018-11-09 05:32] LABS: Alanine Aminotransferase 176 U/L (12-78); Albumin 2.5 g/dL (3.4-5.0); Anion Gap 9 meq/L (5-15); Aspartate Aminotransferase 159 U/L (15-37); Blood Urea Nitrogen 63 mg/dL (7-18); Calcium 7.5 mg/dL (8.5-10.1); Carbon Dioxide 26.5 meq/L (21.0-32.0); Chloride 103 meq/L (98-107); Glomerular Filtration Rate 24 mL/min (>89); Glucose,Random 114 mg/dL (74-106); Magnesium 2.4 mg/dL (1.5-2.5); Phosphorus 4.8 mg/dL (2.5-4.9); Potassium 4.2 meq/L (3.5-5.1); Sodium 138 meq/L (136-145)
[2018-11-09 05:35] LABS: Alkaline Phosphatase 78 U/L (45-117); Free T4 (Free Thyroxine) 0.95 ng/dL (0.76-1.46); Total Protein 5.3 g/dL (6.4-8.2)
--- NOTE | 2018-11-09 05:37 | XR ---
EXAM DATE: 11/09/2018 5:15 AM EST AGE/SEX: 88 years / Male INDICATIONS: Shortness of breath, possible pulmonary disease. CLINICAL DATA: This is the patient's subsequent encounter. Patient reports that signs and symptoms h ave been present for 4 - 6 days and indicates a pain score of 0/10. MEDICAL/SURGICAL HISTORY: . Myocardial infarction. Hypercholesterolemia. Hypertension. BPH. A-f ib. Coronary artery stent. Chest tube, right. Inguinal hernia repair. COMPARISON: [facility] [place], CHEST 1V SINGLE AP, 11/08/2018. . FINDINGS: A single AP view of the chest demonstrates the lungs to be symmetrically aerated with a persistent ri ght pneumothorax. Apical component measures approximately 6 mm in depth with a inferolateral componen t measuring 2 cm in depth. These are both stable. Right-sided surgical thoracostomy tube and the smal l bore cope loop catheter in the inferolateral aspect of the right hemithorax are unchanged in positi on. Persistent left basilar consolidation/effusion. Heart size is prominent. Osseous structures are i ntact with some degenerative spurring of the dorsal spine.. CONCLUSION: 1. Stable position of the right-sided surgical and cope loop thoracostomy tubes as above. 2. Persistent right-sided pneumothoraces with a small apical and moderate inferolateral component. 3. Stable left basilar consolidation/effusion. 4. Cardiomegaly Electronically signed by: Brock Aguiar MD Board Certified Radiologist 11/09/2018 5:35 AM EST
[2018-11-09] MEDS: Chlorhexidine Gluconate 2% 1 Pack (2 Cloths) TOPICAL SCH (07:46)
[2018-11-09] MEDS: Spironolactone 25 MG Tablet PO SCH (08:25)
[2018-11-09] MEDS: Norepinephrine Inj 16 MG in Sodium Chlor 0.9% Inj 234 ML IV.CONT PRN (08:26)
[2018-11-09] MEDS: Finasteride 5 MG Tablet PO SCH (08:26)
[2018-11-09] MEDS: Senna/Docusate Sodium 8.6/50 MG Tablet PO SCH ×2 (08:26→21:05)
[2018-11-09] MEDS: Pantoprazole Sodium 20 MG DR Tablet PO SCH (08:26)
[2018-11-09] MEDS: Sodium Bicarbonate 8.4% Inj 150 MEQ in Water for Inj, Sterile 850 ML IV.CONT SCH (11:48)
--- NOTE | 2018-11-09 13:13 | P.PNCC ---
Subjective Subjective Remarks/Hospital Course: 88-year-old male with a past medical history significant for atrial fibrillation on Eliquis, coronary artery disease, hyperlipidemia and possible CHF who presented to the emergency department with bilateral lower extremity edema. In the ER patient was found to be in A. fib with RVR. Patient reported having pleural effusions requiring thoracentesis in the past. Patient symptoms were attributed to CHF, chest x-ray showed bilateral effusion, BNP was more than 2300, and troponin was mildly elevated at 0.08. And echocardiogram showed the left ventricular systolic function severely reduced with an estimated ejection fraction less than 20%. Moderate to severe mitral valve regurgitation. It was also noted that patient had a lactic acid of 4.3. This is most likely secondary to poor perfusion and developing cardiogenic shock. There is no evidence of sepsis. Patient underwent right-sided thoracentesis by IR today. Postprocedural radiograph did show a pneumothorax. However patient was completely asymptomatic at that time and no chest tube was placed. Per Dr. Aguiar's note stated chest x-ray showed fibrotic appearance of the right lung. Patient had some increase in shortness of breath late evening today. A repeat chest x-ray showed a persistent right pneumothorax which appeared larger when compared to the prior exam now measuring up to 2.4 cm over the right apex. Previously was 1 cm. A pneumothorax is also seen in the inferior lateral right base. No mediastinal shift. I evaluated the patient in the ICU. He is showing good oxygen saturation on 2 L nasal cannula, mildly tachypneic. I have ordered a stat CT of the chest to evaluate for a loculated pneumothorax. Patient may need a chest tube depending on the size of the pneumothorax 2: Afebrile. Remains on nasal cannula. Chest x-ray reveals revealed possible worsening pneumothorax. Stat CT thorax ordered. 1100 cc from right- sided chest tube placed overnight. Appears comfortable and normotensive. Denies shortness of breath 11/08: Currently 6 L nasal cannula. Adequate saturations. Worsening pneumothorax increased suction -40 cmH2O. We will check chest x-ray at noon today. Will notify IR possible need for guided chest tube placement at the present time. He was comfortable. On norepinephrine drip at 14 mcg/min and dobutamine drip at 2.5 mcg/kg/min 11/09: Patient is currently on nasal cannula, reports no pain or dyspnea, offers no complaints. Objective Vital Signs / I&O: Vital Signs 11/08/18 14:00 11/08/18 14:46 11/08/18 15:00 Temperature Pulse Rate 97 H 106 H 102 H Respiratory Rate 19 22 22 Blood Pressure 98/66 L 92/71 L Pulse Oximetry 96 98 11/08/18 16:00 11/08/18 17:00 11/08/18 17:01 Temperature 97.5 F L Pulse Rate 105 H 103 H 107 H Respiratory Rate 23 29 H 29 H Blood Pressure 96/69 L 101/71 Pulse Oximetry 98 96 96 11/08/18 18:00 11/08/18 19:00 11/08/18 20:00 Temperature 97.4 F L Pulse Rate 105 H 104 H Respiratory Rate 20 Blood Pressure 113/66 Pulse Oximetry 94 L 94 L 11/08/18 20:14 11/08/18 22:00 11/09/18 00:00 Temperature 97.6 F Pulse Rate 112 H 109 H 112 H Respiratory Rate 16 19 Blood Pressure Pulse Oximetry 95 96 11/09/18 02:00 11/09/18 03:36 11/09/18 04:00 Temperature 97.7 F Pulse Rate 107 H 109 H 113 H Respiratory Rate 16 17 Blood Pressure Pulse Oximetry 97 11/09/18 06:00 11/09/18 07:29 11/09/18 07:38 Temperature Pulse Rate 111 H 118 H Respiratory Rate 18 Blood Pressure Pulse Oximetry 96 11/09/18 07:47 11/09/18 08:00 11/09/18 10:00 Temperature 97.5 F L Pulse Rate 108 H 111 H Respiratory Rate 20 19 Blood Pressure Pulse Oximetry 96 11/09/18 12:00 Temperature 97.7 F Pulse Rate 108 H Respiratory Rate 32 H Blood Pressure 86/53 L Pulse Oximetry 95 Intake & Output 11/08/18 11/09/18 11/09/18 18:59 06:59 18:59 Intake Total 730 / 730 1240 / 1240 1250 / 1250 Output Total 1030 / 1030 630 / 630 Balance -300 / -300 610 / 610 1250 / 1250 Weight 74 kg Intake: IV 250 / 250 1000 / 1000 1250 / 1250 Levophed Inj 16 MG In NS Inj 250 / 250 250 / 250 234 ML @ 2 MCG/MIN 1.87 mls/hr IV.CONT TITRATE PRN Rx#: [id number] Sodium Bicarbonate 8.4% Inj 150 1000 / 1000 1000 / 1000 MEQ In Sterile Water for Inj 850 ML @ 30 mls/hr IV.CONT . Q24H [facility] Rx#:[id number] Oral 480 / 480 240 / 240 Output: Urine Amount (Catheter) 150 / 150 300 / 300 Indwelling Urethral Catheter 150 / 150 300 / 300 Chest Tube Drainage 880 / 880 330 / 330 Right 350 / 350 20 / 20 Right Upper 530 / 530 310 / 310 Other: Date of Last Bowel Movement 11/05/18 11/05/18 11/05/18 # Bowel Movements 0 Result Diagrams: 11/09/18 04:50 11/09/18 04:50 Objective Remarks: GENERAL: Elderly male sitting up in bed, no acute distress SKIN: Warm and dry. HEAD: Atraumatic. Normocephalic. EYES: Pupils equal and round. No scleral icterus. ENT: Mucous membranes pink and moist. NECK: Trachea midline. No JVD. Right IJ CVL is clean dry and intact CARDIOVASCULAR: IRR. 2/6 systolic murmur. RESPIRATORY: Coarse crackles at bilateral bases, breath sounds diminished on right. Right #10 [place] pigtail catheter and right #20 [place] chest tube in place -40 cmH2O, no air leak GASTROINTESTINAL: Abdomen soft, non-tender, non-distended. MUSCULOSKELETAL: Extremities with lower extremity edema. NEUROLOGICAL: Awake and alert. No obvious cranial nerve deficits. PSYCHIATRIC: Appropriate mood and affect; insight and judgment normal. Assessment and Plan - Assessment and Plan Plan: NEURO/PSYCH: -Minimize all sedation -Acetaminophen 650 q. every 6 hours as needed fever -Morphine PRN pain RESP: Iatrogenic right pneumothorax Bilateral pleural effusions Acute respiratory insufficiency -Patient appears to have developed iatrogenic pneumothorax following IR thoracentesis 11/06/2018 -CT of the chest revealed significant right hydropneumothorax. Chest tube placed by Dr. Falcon #10 [place] 11/06. - 260. Right #20 [place] -425 cc both at - 40 cmH2O -Repeat CT chest this a.m. shows stable right-sided pneumothorax -Albuterol/ipratropium aerosols every 6 hours scheduled and as needed albuterol aerosols every 2 hours PRN dyspnea -Nasal cannula to maintain saturations greater than equal 92% -CT surgery consulted for persistent pneumothorax despite multiple chest tubes CV: Acute on chronic systolic heart failure ejection fraction 20% Cardiomyopathy ejection fraction 20% Severe MR Moderate TR Essential hypertension Hyperlipidemia Coronary artery disease Atrial fibrillation rate controlled Lactic acidosis -resolved Elevated troponin -2D echo shows moderate to severe MR, severe cardiomyopathy with EF 20% -Currently on bumetanide 1 mg BID and holding furosemide 20 mg daily/home medication diuretics currently on hold. -A. fib is rate controlled now -Hold apixaban until evaluated by CT surgery (restart if no interventions are planned), continue home aspirin -Holding carvedilol 6.25 mg twice daily in light of hypotension. Resume spironolactone 25 mg daily -Lactic acidosis seems to be secondary to poor perfusion and cardiogenic shock -Statin currently on hold for elevated transaminases. Resume if clinically indicated -Cardiology/Dr. Ventura is following -Currently norepinephrine drip at 10 mcg/min and dobutamine drip at 2.5 mg/kg/ min for cardiogenic shock GI: Elevated transaminases -Cardiac diet, pantoprazole -Docusate sodium/senna 1 tablet twice daily for bowel regimen Renal/: Acute kidney injury BPH -Creatinine continues to trend up; monitor renal function closely. Continue Murillo catheter for strict I/O (renal failure, CHF on bumetanide). -Nephrology following -Bumetanide 1 mg IV BID. -On terazosin 2 mg daily and finasteride 5 mg daily for BPH. Holding terazosin due to low blood pressure ID: -No antibiotics indicated at this time HEME: Normocytic anemia Chronic apixaban use -Monitor CBC, coags -Hold apixaban 2.5 mg in anticipation of procedures ENDO/FEN: Elevated TSH 6.11 Elevated phosphorus -Electrolyte replacement if indicated -Sliding scale insulin if needed -Currently on bicarb gtt @ 30 cc/hr PROPH: -SCDs, PPI -SQH LINES: -RIJ central line 11/07 -Arterial line 11/07 Level 2 follow up To help prompt me to consider important information that might be impacting today's encounter and assessment, information from prior notes written by myself or my colleagues may have been "brought forward" into today's note. My signature on this note, however, is an attestation that I personally performed the exam, history, and/or decision-making noted today, and, unless otherwise indicated, the interactions with patient, family, and staff as well as the review of records all occurred today. I also attest that the listed assessment and stated plan reflect my best clinical judgment today based on the combination of historical information, prior notes, and today's exam/ interactions. Code Status: Full
--- NOTE | 2018-11-09 14:22 | MB ---
cc: Chioma Hess APRN DATE: 11/09/2018 HISTORY OF PRESENT ILLNESS: This is an 88-year-old male with history of chronic atrial fibrillation on Eliquis; presented to the emergency room with bilateral lower extremity edema, CHF exacerbation. He has had thoracentesis in the past. Chest x-ray showed bilateral pleural effusions. His BNP was greater than 2300. Troponin was mildly elevated at 0.08. Echocardiogram showed moderate to severe mitral regurgitation and also the patient was noted to have a lactic acid of 4.3. The patient developed cardiogenic shock and remains on pressors to include dobutamine and also Levophed. The patient is also on some Bumex. We were consulted because of persistent pneumothoraces. The patient had a right-sided thoracentesis on 11/06/2018 on the right side, which drained 2100 mL He apparently had increased shortness of breath following the procedure. A repeat chest x-ray showed a right pneumothorax, which appeared larger. The patient underwent placement of a large-bore chest tube and also a 10-[place] chest tube. Despite both chest tubes, the patient's followup chest x-ray has persistent right-sided pneumothoraces with small apical and moderate inferior lateral components. PAST MEDICAL HISTORY: Includes atrial fibrillation, CHF, coronary artery disease, hyperlipidemia and benign prostatic hypertrophy. PAST SURGICAL HISTORY: None. ALLERGIES: INCLUDE ENALAPRIL, ERYTHROMYCIN, PENICILLIN. FAMILY HISTORY: Positive for coronary artery disease. MEDICATIONS: Home medications include: 1. Eliquis. 2. Aspirin. 3. Lasix. 4. Carvedilol. 5. Proscar. 6. Simvastatin. 7. Spironolactone. 8. Terazosin. SOCIAL HISTORY: Patient is a nonsmoker; occasional alcohol. REVIEW OF SYSTEMS: GENERAL: No night sweats, fever, heat and cold intolerance. SKIN: No psoriasis, itching or hives. HEENT: No blurred vision, hearing loss. RESPIRATORY: Positive for shortness of breath. No chest pain. No paroxysmal nocturnal dyspnea. GASTROINTESTINAL: No diarrhea or vomiting. GENITOURINARY: No burning, frequency, urgency. CENTRAL NERVOUS SYSTEM: No history of TIA, CVA or seizure disorder. ENDOCRINOLOGY: No diabetes, hypothyroidism. PHYSICAL EXAMINATION: VITAL SIGNS: Blood pressure now 100/60, heart rate of 108, temperature T-max 97.7. The patient is on 4 liters nasal cannula. GENERAL: He is sitting up in be; alert and oriented. He becomes clearly dyspneic when speaking. HEENT: Head is normocephalic, atraumatic. Pupils equal and reactive. Oral mucosa pink, moist. NECK: Supple. No JVD. CARDIOVASCULAR: Heart sounds S1, S2, irregular rate and rhythm with a 2/6 systolic murmur. LUNGS: He has got coarse bilateral crackles; the right greater than the left. He has a 10-[place] pigtail catheter and a right 20-[place] catheter, both at 40 cm of suction. He has a +1 intermittent air leak to the large bore chest tubes; Pleur-Evac. ABDOMEN: Soft, flat, nontender. EXTREMITIES: Reveal 1+ edema. He does have some chronic sores on both of his feet. NEUROLOGIC: He is A and O. IMPRESSION: 1. This is a patient with iatrogenic right pneumothorax following a thoracentesis on 11/06/2018, placement of a 10-[place] catheter on 11/09/2009 and then required a large bore chest tube placement; still has intermittent air leak. The x-rays will be reviewed by Dr. Heaven Merchant to evaluate for potential need for any surgical procedure. 2. Acute on chronic systolic heart failure, ejection fraction of 20%, moderate mitral regurgitation and moderate tricuspid regurgitation. The patient would be high risk for any surgical procedure with his ejection fraction being this low. 3. The patient also has acute on chronic kidney injury, being followed by nephrology. Further plan per Dr. Merchant. NICKO Kamara MD JRT/shital , 01:36 PM , 01:45 PM
[2018-11-09] MEDS: DOBUTamine Inj 1,000 MG in Sodium Chlor 0.9% Inj 170 ML IV.CONT SCH (14:57)
--- NOTE | 2018-11-09 17:12 | P.CONPAL ---
Consult Service: Palliative Care Requesting Physician: Chandra Altman Reason for Consult: a. To assist with evaluation and management of symptoms including: dyspnea, weakness. b. To assist medical decision maker(s) with: better understanding of current medical conditions; weighing benefits/burdens of medical treatment options; making medical treatment decisions. Primary Care Provider: Asif Gutierres MD History of Present Illness History of Present Illness: Mr. Valderrama is an 88-year-old male with past medical history of atrial fibrillation on Eliquis, coronary artery disease, congestive heart failure, hyperlipidemia and BPH. Patient required prior thoracentesis in the past. Patient presented to [facility] emergency department on 11/06/18 for evaluation of bilateral lower extremity edema. Upon arrival to the emergency department the patient was found to be in atrial fibrillation with RVR. Initial evaluation revealed: * Chest x-ray revealed bilateral pleural effusions. * BNP was greater than 2300 * troponin 0.08 * echocardiogram revealed left ventricular systolic function severely reduced with an estimated ejection fraction less than 20%, moderate to severe mitral valve regurgitation. Patient was admitted with possible cardiogenic shock no evidence of sepsis. He underwent right thoracentesis by interventional radiology. Post procedural radiograph revealed a pneumothorax. Initially he did not have chest tube placed because the patient was asymptomatic. Patient later developed shortness of breath. Repeat chest x-ray revealed persistent right pneumothorax, increasing in size, and no mediastinal shift. Patient was transferred to ICU. On oxygen via nasal cannula, mildly tachypneic. Right chest tube was placed. CT scan of the chest revealed moderate hydropneumothorax on the right, mild to moderate left pleural effusion , atelectasis in the lungs bilaterally, cardiomegaly with coronary artery calcifications. Procedure since admission: * 11/06/18-thoracentesis * 11/06/18-right pigtail chest tube placed * 11/07/18-right femoral arterial catheter placed * 11/07/18 right chest tube placed * 11/07/18-right IJ central line placed Cardiology, Dr. Ventura was consulted. Nephrology was consulted, renal function continues to worsen creatinine 2.56 today. Cardiothoracic surgery, Dr. Dey was consulted patient is high risk for any surgical intervention, no surgery planned at this time. Patient remains in ICU on oxygen via nasal cannula. He has had 2 chest tubes placed. Patient was started on norepinephrine and dobutamine drips. Palliative care was consulted in this elderly patient with ejection fraction 20% , acute on chronic renal failure, congestive heart failure elevated liver function studies and iatrogenic right pneumothorax status post 2 chest tubes placed to assist with communication, symptom management further clarification of goals of medical treatment. Met with patient and his children at bedside. They are considering CODE STATUS. Children are going to obtain the patient's written advanced directives from his safety deposit box in the morning per the patient's request. Palliative care will continue further conversations in the coming days. Family is concerned about patient's overall well-being his continued decline and risk of further decline given problems with his heart, lungs, kidneys and liver. They are open to continued conversations. Function/Cognitive Trajectory: Patient has had some slight decline in his health over the past number months. Family has been trying to get him to move closer to them in [place] for the past 15 years since his , their mother . Review of Systems Constitutional: Reports fatigue, Reports lack of energy Cardiovascular: Reports shortness of breath, Reports shortness of breath with activity, Reports shortness of breath when lying down Respiratory: Reports shortness of breath, Reports shortness of breath with activity Genitourinary: Reports difficulty urinating (BPH) Neurologic: Reports weakness Psychiatric: Reports confusion Hematologic/Lymphatic: Reports easy bruising PMFSH - History History Provided By: Patient - Medical History Medical History: Medical History (Last Reviewed 11/09/18 @ 14:15 by Mamta Sheets DO) A-fib BPH (benign prostatic hyperplasia) CHF (congestive heart failure) Coronary artery disease Hypercholesteremia - Surgical History Surgical History: Surgical History (Last Updated 11/09/18 @ 16:53 by Erin Sheldon) History of heart artery stent - Family History Family History: Family History (Last Updated 11/09/18 @ 16:54 by Erin Sheldon) Father Coronary artery disease Myocardial infarction - Social History I have reviewed the patient's Social History: Yes - Tobacco History Second Hand Smoke Exposure: No Smoking Status: Never smoker - Alcohol History How Often Do You Have a Drink Containing Alcohol: 2 to 3 times a week - Substance Use History Substance History: No History of Abuse - Travel History Recent Travel in the [place] Within the Last 8 Weeks: No Recent Travel Out of the Country Within the Last 8 Weeks: No - Immunization History Tetanus Immunization: Unsure Hx Influenza Vaccine This Season: Yes Medications and Allergies Active Medications: Active Medications Albuterol (Duoneb Neb (Elizabeth)) 1 ampul NEB Q6HR NEB [facility] Last Admin: 11/09/18 15:16 Dose: 1 ampul Albuterol (Albuterol Neb (Prn)) 2.5 mg NEB Q2HR NEB PRN PRN Reason: DYSPNEA Aspirin (Ecotrin) 81 mg PO DAILY [facility] Last Admin: 11/09/18 08:25 Dose: 81 mg Bisacodyl (Dulcolax Supp) 10 mg RECTAL DAILY PRN PRN Reason: SEVERE CONSITIPATION Bumetanide (Bumex Inj) 1 mg IV.PUSH BID@0900,1800 [facility] Last Admin: 11/09/18 08:25 Dose: 1 mg Carvedilol (Coreg) 6.25 mg PO BID [facility] Last Admin: 11/07/18 09:32 Dose: 6.25 mg Chlorhexidine Gluconate (Chlorhexidine 2% Cloth) 3 pack TOPICAL DAILY@0400 [facility] Stop: 11/12/18 03:59 Last Admin: 11/09/18 07:46 Dose: Not Given Chlorhexidine Gluconate (Chlorhexidine 2% Cloth) 3 pack TOPICAL DAILY@0400 PRN PRN Reason: Extra cloth needed Stop: 11/12/18 03:59 Finasteride (Proscar) 5 mg PO DAILY [facility] Last Admin: 11/09/18 08:26 Dose: 5 mg Heparin Sodium (Porcine) (Heparin Inj) 5,000 units SQ Q8HR [facility] Norepinephrine Bitartrate 16 (mg/ Sodium Chloride) 250 mls @ 1.87 mls/hr IV.CONT TITRATE PRN; Protocol PRN Reason: See Protocol Last Titration: 11/09/18 15:00 Dose: 11 mcg/min, 10.31 mls/hr Dobutamine HCl 1,000 mg/ (Sodium Chloride) 250 mls @ 2.96 mls/hr IV.CONT .Q24H [facility] Last Admin: 11/09/18 14:57 Dose: Not Given Sodium Bicarbonate 150 meq/ (Sterile Water) 1,000 mls @ 30 mls/hr IV.CONT .Q24H [facility] Stop: 11/09/18 18:19 Last Admin: 11/09/18 11:48 Dose: 75 mls/hr Lactulose (Lactulose Liq) 30 ml PO DAILY PRN PRN Reason: SEVERE CONSITIPATION Morphine Sulfate (Morphine Inj) 2 mg IV.PUSH Q2H PRN PRN Reason: PAIN 6-10;IF UNABLE TO TAKE PO Ondansetron HCl (Zofran Inj) 4 mg IV.PUSH Q6H PRN PRN Reason: NAUSEA OR VOMITING Oxycodone HCl (Roxicodone) 5 mg PO Q6H PRN PRN Reason: Pain 1 through 5 Last Admin: 11/09/18 02:43 Dose: 5 mg Pantoprazole Sodium (Protonix) 20 mg PO DAILY [facility] Last Admin: 11/09/18 08:26 Dose: 20 mg Senna/Docusate Sodium (Erin-Colace) 1 tab PO BID [facility] Last Admin: 11/09/18 08:26 Dose: 1 tab Sennosides (Senokot) 17.2 mg PO Q12H PRN PRN Reason: Moderate Constipation Sodium Chloride (Ns Flush) 2 ml IV.FLUSH BID [facility] Last Admin: 11/09/18 08:25 Dose: 2 ml Sodium Chloride (Ns Flush) 2 ml IV.FLUSH PRN PRN PRN Reason: FLUSH AFTER USING IV ACCESS Sodium Chloride (Ns Flush) 0 ml IV.FLUSH DAILY [facility] Last Admin: 11/09/18 08:26 Dose: Not Given Spironolactone (Aldactone) 25 mg PO DAILY [facility] Last Admin: 11/09/18 08:25 Dose: 25 mg Terazosin HCl (Hytrin) 2 mg PO DAILY [facility] Last Admin: 11/07/18 13:55 Dose: Not Given Terbutaline Sulfate (Brethine Inj) 1 mg SQ UNSCH PRN PRN Reason: For Extravasation Allergies Allergy/AdvReac Type Severity Reaction Status Date / Time enalaprilat Allergy Severe does not Verified 11/05/18 23:17 know erythromycin base Allergy Severe does not Verified 11/05/18 23:17 know told as child penicillin G Allergy Severe does not Verified 11/05/18 23:17 know Home Medications Medication Instructions Recorded Confirmed Type apixaban [Eliquis] 2.5 mg PO DAILY 11/05/18 11/05/18 History aspirin 81 mg PO DAILY 11/05/18 11/05/18 History carvedilol [Coreg] 6.25 mg PO BID 11/05/18 11/05/18 History finasteride 5 mg PO DAILY 11/05/18 11/05/18 History furosemide 20 mg PO DAILY 11/05/18 11/05/18 History simvastatin 20 mg PO QPM 11/05/18 11/05/18 History spironolactone 25 mg PO DAILY 11/05/18 11/05/18 History terazosin 2 mg PO DAILY 11/05/18 11/05/18 History Advance Directives Living Will: Yes Healthcare Surrogate: Yes (Copies requested) Health Care Surrogate Name and Number: Rukhsana Dang, daughter: [phone] Power of Sidehand: Unknown Today's verbally stated goals: Patient desires continued aggressive care at this time he would like to speak to his family in more detail regarding CODE STATUS. He would like to review his written advanced directives as well. Family/friends goals: Family supports patient decisions. Ethical and Legal Issues: Patient appears capacitated to make his own healthcare decisions though family reports he has some mild confusion in the past few days. Recommend shared decision making given this recent confusion. Family is going to obtain written advanced directives from the patient safety deposit box and will bring to visit on 11/10/18. Physical Exam Vital Signs: Vital Signs - 24 hr 11/08/18 18:00 11/08/18 19:00 11/08/18 20:00 Temperature 97.4 F L Pulse Rate 105 H 104 H Respiratory Rate 20 Blood Pressure 113/66 Pulse Oximetry 94 L 94 L 11/08/18 20:14 11/08/18 22:00 11/09/18 00:00 Temperature 97.6 F Pulse Rate 112 H 109 H 112 H Respiratory Rate 16 19 Blood Pressure Pulse Oximetry 95 96 11/09/18 02:00 11/09/18 03:36 11/09/18 04:00 Temperature 97.7 F Pulse Rate 107 H 109 H 113 H Respiratory Rate 16 17 Blood Pressure Pulse Oximetry 97 11/09/18 06:00 11/09/18 07:29 11/09/18 07:38 Temperature Pulse Rate 111 H 118 H Respiratory Rate 18 Blood Pressure Pulse Oximetry 96 11/09/18 07:47 11/09/18 08:00 11/09/18 10:00 Temperature 97.5 F L Pulse Rate 108 H 111 H Respiratory Rate 20 19 Blood Pressure Pulse Oximetry 96 11/09/18 12:00 11/09/18 14:00 11/09/18 15:17 Temperature 97.7 F Pulse Rate 108 H 107 H 99 H Respiratory Rate 32 H 18 Blood Pressure 86/53 L Pulse Oximetry 95 11/09/18 16:00 Temperature 97.8 F Pulse Rate 111 H Respiratory Rate 25 H Blood Pressure 91/57 L Pulse Oximetry 96 I&O: Intake & Output 11/07/18 11/08/18 11/09/18 11/10/18 06:59 06:59 06:59 06:59 Intake Total 0 / 0 1199 / 1199 1969 / 1970 1250 / 1250 Output Total 1700 / 1700 935 / 935 1660 / 1660 Balance -1700 / -1700 264 / 264 310 / 310 1250 / 1250 Weight 79 kg 75.4 kg 74 kg Physical Exam: CONSTITUTIONAL/GENERAL: This is an elderly adequately nourished patient, in no apparent distress. TUBES/LINES/DRAINS: Oxygen via nasal cannula, right IJ central line SKIN: No jaundice, rashes, or lesions. Ecchymoses on upper extremities. No wounds seen anteriorly. Skin temperature appropriate. Not diaphoretic. HEAD: Atraumatic. Normocephalic. EYES: Pupils equal and round and reactive. No scleral icterus. No injection or drainage. ENT: Hearing grossly normal. Nose without bleeding or purulent drainage. Throat without visible erythema, exudates, masses, or lesions. NECK: Trachea midline. CARDIOVASCULAR: Irregular, systolic murmur noted. RESPIRATORY/CHEST: unlabored respirations. Bilateral crackles. Diminished breath sounds on the right. Chest tubes x2 on the right. GASTROINTESTINAL: Abdomen soft, non-tender, nondistended. no guarding. Bowel sounds present. GENITOURINARY: Without palpable bladder distension. Murillo catheter in place. MUSCULOSKELETAL: Extremities with edema. LYMPHATICS: No palpable cervical or supraclavicular adenopathy. NEUROLOGICAL: Awake and alert. Motor and sensory grossly within normal limits. Follows commands. Cognitively sharp. Moves all extremities. PSYCHIATRIC: Mildly confused Diagnostic Tests Laboratory: Laboratory Results - last 72 hr 11/06/18 11/06/18 11/06/18 14:10 19:36 21:37 WBC RBC Hgb Hct MCV MCH MCHC RDW Plt Count MPV Prelim Diff (Auto) Neut % (Auto) Lymph % (Auto) [place] % (Auto) Eos % (Auto) Baso % (Auto) Neut # (Auto) Lymph # (Auto) [place] # (Auto) Eos # (Auto) Baso # (Auto) WBC Differential Diff Scan Seg Neuts % (Manual) Band Neuts % (Manual) Lymphocytes % (Manual) Monocytes % (Manual) Abs Neuts (Manual) Nucleated RBCs/100 WBC Differential Comment Platelet Estimate Platelet Morphology Ovalocytes Margarita Cells Acanthocytes (Spur) Keratocytes PT INR APTT Puncture Site Patient Temperature O2 Saturation ABG pH ABG pCO2 ABG pO2 ABG HCO3 ABG O2 Content ABG Base Excess ABG Methemoglobin Hemoglobin Carboxyhemoglobin O2 Delivery Device Liter Flow Critical Value Sodium Potassium Chloride Carbon Dioxide Anion Gap BUN Creatinine Estimated GFR Random Glucose Lactic Acid 2.5 H Calcium Phosphorus Magnesium Total Bilirubin AST ALT Alkaline Phosphatase Total Creatine Kinase Total Protein Total Protein (PEP) Albumin Free T4 Total T3 Urine Eosinophils Urine Osmolality Ur Random Creatinine Ur Random Sodium Pleural RBC 27 H Pleural Nuc Cells 99 H Pleural Neutrophils 7 Pleural Lymphocytes 83 Pleural Monocytes 9 Pleural Histocytes 1 Nasal Screen MRSA (PCR) Not detected Hepatitis A IgM Ab Hep Bs Antigen Hep B Core IgM Ab Hep C IgG Ab 11/07/18 11/07/18 11/07/18 03:40 10:30 10:30 WBC RBC Hgb Hct MCV MCH MCHC RDW Plt Count MPV Prelim Diff (Auto) Neut % (Auto) Lymph % (Auto) [place] % (Auto) Eos % (Auto) Baso % (Auto) Neut # (Auto) Lymph # (Auto) [place] # (Auto) Eos # (Auto) Baso # (Auto) WBC Differential Diff Scan Seg Neuts % (Manual) Band Neuts % (Manual) Lymphocytes % (Manual) Monocytes % (Manual) Abs Neuts (Manual) Nucleated RBCs/100 WBC Differential Comment Platelet Estimate Platelet Morphology Ovalocytes Margarita Cells Acanthocytes (Spur) Keratocytes PT INR APTT Puncture Site Patient Temperature O2 Saturation ABG pH ABG pCO2 ABG pO2 ABG HCO3 ABG O2 Content ABG Base Excess ABG Methemoglobin Hemoglobin Carboxyhemoglobin O2 Delivery Device Liter Flow Critical Value Sodium Potassium Chloride Carbon Dioxide Anion Gap BUN Creatinine Estimated GFR Random Glucose Lactic Acid Calcium Phosphorus Magnesium Total Bilirubin AST ALT Alkaline Phosphatase Total Creatine Kinase Total Protein Total Protein (PEP) 5.5 L Albumin Free T4 Total T3 Urine Eosinophils Urine Osmolality 436 Ur Random Creatinine Ur Random Sodium 7 Pleural RBC Pleural Nuc Cells Pleural Neutrophils Pleural Lymphocytes Pleural Monocytes Pleural Histocytes Nasal Screen MRSA (PCR) Hepatitis A IgM Ab Hep Bs Antigen Hep B Core IgM Ab Hep C IgG Ab 11/07/18 11/07/18 11/07/18 11:10 11:10 11:55 WBC 5.1 RBC 3.98 L Hgb 12.6 L Hct 38.2 L MCV 96.0 MCH 31.7 MCHC 33.0 RDW 16.4 Plt Count 162 MPV 9.1 Prelim Diff (Auto) Neut % (Auto) 82.3 H Lymph % (Auto) 9.4 [place] % (Auto) 7.5 Eos % (Auto) 0.3 Baso % (Auto) 0.5 Neut # (Auto) 4.2 Lymph # (Auto) 0.5 L [place] # (Auto) 0.4 Eos # (Auto) 0.0 Baso # (Auto) 0.0 WBC Differential . Diff Scan Seg Neuts % (Manual) Band Neuts % (Manual) Lymphocytes % (Manual) Monocytes % (Manual) Abs Neuts (Manual) Nucleated RBCs/100 WBC Differential Comment Auto diff final Platelet Estimate Platelet Morphology Ovalocytes [place] Cells Acanthocytes (Spur) Keratocytes PT INR APTT Puncture Site Patient Temperature O2 Saturation ABG pH ABG pCO2 ABG pO2 ABG HCO3 ABG O2 Content ABG Base Excess ABG Methemoglobin Hemoglobin Carboxyhemoglobin O2 Delivery Device Liter Flow Critical Value Sodium 140 Potassium 4.2 Chloride 106 Carbon Dioxide 24.7 Anion Gap 9 BUN 54 H Creatinine 2.23 H Estimated GFR 28 L Random Glucose 164 H Lactic Acid 2.4 H Calcium 8.1 L Phosphorus 4.8 Magnesium 2.5 Total Bilirubin AST ALT Alkaline Phosphatase Total Creatine Kinase Total Protein Total Protein (PEP) Albumin Free T4 Total T3 Urine Eosinophils Urine Osmolality Ur Random Creatinine Ur Random Sodium Pleural RBC Pleural Nuc Cells Pleural Neutrophils Pleural Lymphocytes Pleural Monocytes Pleural Histocytes Nasal Screen MRSA (PCR) Hepatitis A IgM Ab Hep Bs Antigen Hep B Core IgM Ab Hep C IgG Ab 11/08/18 11/08/18 11/08/18 04:27 04:27 04:27 WBC 6.3 RBC 3.97 L Hgb 12.4 L Hct 37.3 L MCV 93.8 MCH 31.3 MCHC 33.3 RDW 16.0 Plt Count 166 MPV 8.9 Prelim Diff (Auto) Slide review pending Neut % (Auto) 70.5 H Lymph % (Auto) 18.4 [place] % (Auto) 10.7 H Eos % (Auto) 0.2 Baso % (Auto) 0.2 Neut # (Auto) 4.5 Lymph # (Auto) 1.2 [place] # (Auto) 0.7 Eos # (Auto) 0.0 Baso # (Auto) 0.0 WBC Differential Manual diff final Diff Scan Seg Neuts % (Manual) 86 H Band Neuts % (Manual) 1 Lymphocytes % (Manual) 11 Monocytes % (Manual) 2 Abs Neuts (Manual) 5.5 Nucleated RBCs/100 WBC 1 H Differential Comment . Platelet Estimate Normal Platelet Morphology Normal Ovalocytes 1+ H [place] Cells 2+ H Acanthocytes (Spur) 1+ H Keratocytes Occ H PT INR APTT Puncture Site Patient Temperature O2 Saturation ABG pH ABG pCO2 ABG pO2 ABG HCO3 ABG O2 Content ABG Base Excess ABG Methemoglobin Hemoglobin Carboxyhemoglobin O2 Delivery Device Liter Flow Critical Value Sodium 139 Potassium 4.5 Chloride 109 H Carbon Dioxide 18.8 L Anion Gap 11 BUN 58 H Creatinine 2.44 H Estimated GFR 25 L Random Glucose 132 H Lactic Acid 1.6 Calcium 7.7 L Phosphorus 5.2 H Magnesium 2.4 Total Bilirubin 1.1 H AST 301 H ALT 208 H Alkaline Phosphatase 83 Total Creatine Kinase Total Protein 5.4 L D Total Protein (PEP) Albumin 2.6 L Free T4 Total T3 Urine Eosinophils Urine Osmolality Ur Random Creatinine Ur Random Sodium Pleural RBC Pleural Nuc Cells Pleural Neutrophils Pleural Lymphocytes Pleural Monocytes Pleural Histocytes Nasal Screen MRSA (PCR) Hepatitis A IgM Ab Hep Bs Antigen Hep B Core IgM Ab Hep C IgG Ab 11/08/18 11/08/18 11/08/18 05:44 09:32 09:32 WBC RBC Hgb Hct MCV MCH MCHC RDW Plt Count MPV Prelim Diff (Auto) Neut % (Auto) Lymph % (Auto) [place] % (Auto) Eos % (Auto) Baso % (Auto) Neut # (Auto) Lymph # (Auto) [place] # (Auto) Eos # (Auto) Baso # (Auto) WBC Differential Diff Scan Seg Neuts % (Manual) Band Neuts % (Manual) Lymphocytes % (Manual) Monocytes % (Manual) Abs Neuts (Manual) Nucleated RBCs/100 WBC Differential Comment Platelet Estimate Platelet Morphology Ovalocytes Margarita Cells Acanthocytes (Spur) Keratocytes PT INR APTT Puncture Site Sawyer Patient Temperature 98.6 O2 Saturation 97 ABG pH 7.46 H ABG pCO2 22 L* ABG pO2 156 H ABG HCO3 16 L* ABG O2 Content 14.9 ABG Base Excess -7.7 L ABG Methemoglobin 1.4 Hemoglobin 10.8 L Carboxyhemoglobin 0.9 O2 Delivery Device Nasal cannula Liter Flow 6.00 Critical Value Yes Sodium Potassium Chloride Carbon Dioxide Anion Gap BUN Creatinine Estimated GFR Random Glucose Lactic Acid Calcium Phosphorus Magnesium Total Bilirubin AST ALT Alkaline Phosphatase Total Creatine Kinase 144 Total Protein Total Protein (PEP) Albumin Free T4 Total T3 Urine Eosinophils Urine Osmolality Ur Random Creatinine Ur Random Sodium Pleural RBC Pleural Nuc Cells Pleural Neutrophils Pleural Lymphocytes Pleural Monocytes Pleural Histocytes Nasal Screen MRSA (PCR) Hepatitis A IgM Ab Nonreactive Hep Bs Antigen Nonreactive Hep B Core IgM Ab Nonreactive Hep C IgG Ab Nonreactive 11/08/18 11/08/18 11/08/18 09:32 09:32 09:32 WBC RBC Hgb Hct MCV MCH MCHC RDW Plt Count MPV Prelim Diff (Auto) Neut % (Auto) Lymph % (Auto) [place] % (Auto) Eos % (Auto) Baso % (Auto) Neut # (Auto) Lymph # (Auto) [place] # (Auto) Eos # (Auto) Baso # (Auto) WBC Differential Diff Scan Seg Neuts % (Manual) Band Neuts % (Manual) Lymphocytes % (Manual) Monocytes % (Manual) Abs Neuts (Manual) Nucleated RBCs/100 WBC Differential Comment Platelet Estimate Platelet Morphology Ovalocytes Margarita Cells Acanthocytes (Spur) Keratocytes PT 12.9 H INR 1.3 APTT 36.2 H Puncture Site Patient Temperature O2 Saturation ABG pH ABG pCO2 ABG pO2 ABG HCO3 ABG O2 Content ABG Base Excess ABG Methemoglobin Hemoglobin Carboxyhemoglobin O2 Delivery Device Liter Flow Critical Value Sodium Potassium Chloride Carbon Dioxide Anion Gap BUN Creatinine Estimated GFR Random Glucose Lactic Acid Calcium Phosphorus Magnesium Total Bilirubin AST ALT Alkaline Phosphatase Total Creatine Kinase Total Protein Total Protein (PEP) Albumin Free T4 Total T3 Urine Eosinophils Rare H Urine Osmolality Ur Random Creatinine 126 Ur Random Sodium Pleural RBC Pleural Nuc Cells Pleural Neutrophils Pleural Lymphocytes Pleural Monocytes Pleural Histocytes Nasal Screen MRSA (PCR) Hepatitis A IgM Ab Hep Bs Antigen Hep B Core IgM Ab Hep C IgG Ab 11/08/18 11/09/1819 17:50 04:50 04:50 WBC RBC Hgb Hct MCV MCH MCHC RDW Plt Count MPV Prelim Diff (Auto) Neut % (Auto) Lymph % (Auto) [place] % (Auto) Eos % (Auto) Baso % (Auto) Neut # (Auto) Lymph # (Auto) [place] # (Auto) Eos # (Auto) Baso # (Auto) WBC Differential Diff Scan Seg Neuts % (Manual) Band Neuts % (Manual) Lymphocytes % (Manual) Monocytes % (Manual) Abs Neuts (Manual) Nucleated RBCs/100 WBC Differential Comment Platelet Estimate Platelet Morphology Ovalocytes Margarita Cells Acanthocytes (Spur) Keratocytes PT INR APTT Puncture Site Art line Patient Temperature 98.6 O2 Saturation 97 ABG pH 7.49 H ABG pCO2 28 L ABG pO2 132 H ABG HCO3 21 L ABG O2 Content 16.8 ABG Base Excess -2.3 L ABG Methemoglobin 1.3 Hemoglobin 12.2 Carboxyhemoglobin 0.9 O2 Delivery Device Nasal cannula Liter Flow 5.00 Critical Value No Sodium 138 Potassium 4.2 Chloride 103 Carbon Dioxide 26.5 Anion Gap 9 BUN 63 H Creatinine 2.59 H Estimated GFR 24 L Random Glucose 114 H Lactic Acid Calcium 7.5 L Phosphorus 4.8 Magnesium 2.4 Total Bilirubin 1.4 H AST 159 H ALT 176 H Alkaline Phosphatase 78 Total Creatine Kinase Total Protein 5.3 L Total Protein (PEP) Albumin 2.5 L Free T4 0.95 Total T3 47 L Urine Eosinophils Urine Osmolality Ur Random Creatinine Ur Random Sodium Pleural RBC Pleural Nuc Cells Pleural Neutrophils Pleural Lymphocytes Pleural Monocytes Pleural Histocytes Nasal Screen MRSA (PCR) Hepatitis A IgM Ab Hep Bs Antigen Hep B Core IgM Ab Hep C IgG Ab 11/09/18 11/09/18 04:50 04:50 WBC 6.4 RBC 4.04 L Hgb 12.4 L Hct 37.3 L MCV 92.3 MCH 30.7 MCHC 33.3 RDW 16.0 Plt Count 161 MPV 8.7 Prelim Diff (Auto) Slide review pending Neut % (Auto) 74.1 H Lymph % (Auto) 16.0 [place] % (Auto) 9.1 H Eos % (Auto) 0.4 Baso % (Auto) 0.4 Neut # (Auto) 4.8 Lymph # (Auto) 1.0 [place] # (Auto) 0.6 Eos # (Auto) 0.0 Baso # (Auto) 0.0 WBC Differential . Diff Scan Auto diff confirmed Seg Neuts % (Manual) Band Neuts % (Manual) Lymphocytes % (Manual) Monocytes % (Manual) Abs Neuts (Manual) Nucleated RBCs/100 WBC Differential Comment . Platelet Estimate Platelet Morphology Ovalocytes Margarita Cells Acanthocytes (Spur) Keratocytes PT INR APTT Puncture Site Patient Temperature O2 Saturation ABG pH ABG pCO2 ABG pO2 ABG HCO3 ABG O2 Content ABG Base Excess ABG Methemoglobin Hemoglobin Carboxyhemoglobin O2 Delivery Device Liter Flow Critical Value Sodium Potassium Chloride Carbon Dioxide Anion Gap BUN Creatinine Estimated GFR Random Glucose Lactic Acid 2.4 H Calcium Phosphorus Magnesium Total Bilirubin AST ALT Alkaline Phosphatase Total Creatine Kinase Total Protein Total Protein (PEP) Albumin Free T4 Total T3 Urine Eosinophils Urine Osmolality Ur Random Creatinine Ur Random Sodium Pleural RBC Pleural Nuc Cells Pleural Neutrophils Pleural Lymphocytes Pleural Monocytes Pleural Histocytes Nasal Screen MRSA (PCR) Hepatitis A IgM Ab Hep Bs Antigen Hep B Core IgM Ab Hep C IgG Ab Result Diagrams: 11/09/18 04:50 11/09/18 04:50 Microbiology: Microbiology 11/06/18 14:10 Gram Stain - Final Fluid - Pleural fluid Body Fluid Culture - Final No growth in 72 hours (aerobically and anaerobically) Imaging: Head CT 11/05/18 23:46 CONCLUSION: No acute intracranial findings . Abdomen/Bladder Ultrasound 11/06/18 00:00 CONCLUSION: 1. Probable left renal stones without evidence of hydronephrosis. 2. Trabeculated bladder. Thoracentesis Ultrasound 11/06/18 00:00 CONCLUSION: 1. Right-sided thoracentesis as detailed above. 2. A large amount of fluid was removed from the right chest. Postprocedural radiograph did show a pneumothorax. However, the patient is completely asymptomatic without pain and saturating at 97-98% on 2 L nasal cannula. Chest radiograph shows a fibrotic appearance of the right lung and, as such, I do not feel patient would benefit from percutaneous chest tube placement this time. Patient will be monitored on the floor and a follow-up chest radiograph will be performed later this afternoon to ensure stability. Chest CT 11/07/18 09:50 CONCLUSION: 1. Moderate right-sided hydropneumothorax. 2. Small caliber right-sided chest tube in the lower right hemithorax. 3. Moderate left pleural effusion. 4. Bibasilar consolidation and patchy densities in the right middle lobe. 5. Cardiomegaly and coronary artery calcifications. Liver Ultrasound 11/08/18 00:00 CONCLUSION: 1. Mild ascites. Echogenic liver characteristic of fatty infiltration. Chest X-Ray 11/09/18 06:00 CONCLUSION: 1. Stable position of the right-sided surgical and cope loop thoracostomy tubes as above. 2. Persistent right-sided pneumothoraces with a small apical and moderate inferolateral component. 3. Stable left basilar consolidation/effusion. 4. Cardiomegaly Procedures: * 11/07/18-right femoral arterial catheter placed * 11/07/18 right chest tube placed * 11/07/18-right IJ central line placed * 11/06/18-right pigtail chest tube placed * 11/06/18-thoracentesis Patient/Family Conference Present at Family Conference: Met with patient, sonMoisés and daughterRukhsana Family Conference Time: 60 Family Conference Location: Bedside Issues Discussed: * Palliative care role, purpose, approach * Additional medical, psychosocial, and spiritual history * Patients general health, functional status, and cognitive changes in the months leading up to the current hospitalization * Patient/family understanding of the current medical problems * Patient/family understanding of prognosis * Patients goals of care as best understood from advance directives and/or conversations and/or values * Current medical treatment options and benefits/burdens of those options * Likely scenarios comparing ongoing aggressive care with a transition to comfort measures only * Questions answered to the best of my ability * Palliative care contact information provided Assessment and Plan - Disease Oriented Problem List (1) Congestive heart failure (2) Chronic kidney disease (3) Pleural effusion, right (4) Acidosis, lactic (5) Acute on chronic kidney failure (6) Chronic atrial fibrillation (7) Coronary artery disease - Symptom Scale (1) Dyspnea 0-10 Scale: Unable to quantify (2) Weakness 0-10 Scale: Unable to quantify Pertinent Non-Medical Issues: Psychosocial: . Has 1 adult son and 1 daughter, here from [place]. Lives alone. Spiritual: Bahai reynaldo. Legal:Patient appears capacitated to make his own healthcare decisions though family reports he has some mild confusion in the past few days. Recommend shared decision making given this recent confusion. Family is going to obtain written advanced directives from the patient safety deposit box and will bring to visit on 11/10/18. Ethical issues impacting care: No known concerns at this time. Important Contacts: * Rukhsana Prater, daughter: [phone] cell * Moisés Valderrama, son: [phone], cell or [phone] home Prognosis: Mr. Valderrama is an 88-year-old male with underlying CHF, atrial fibrillation on Eliquis, coronary artery disease admitted with cardiogenic shock, pleural effusions requiring thoracentesis now with chest tubes x2 on the right. Also with some liver and renal dysfunction. Overall prognosis appears poor. Code Status: Full Code Plan: * Patient appears capacitated to make his own healthcare decisions though family reports he has some mild confusion in the past few days. Recommend shared decision making given this recent confusion. Family is going to obtain written advanced directives from the patient safety deposit box and will bring to visit on 11/10/18. * FULL CODE-patient and family considering CODE STATUS. * Goals remain aggressive at this time patient considering CODE STATUS. Family seems understanding of patient's medical conditions, welcomes continued palliative care conversations. * SYMPTOMS: Dyspnea secondary to CHF, CAD, atrial fibrillation, cardiomegaly, pleural effusions. On oxygen via nasal cannula. Weakness: Secondary to hospitalization current medical conditions. No new medication recommendations at this time. * Palliative care number provided. * Palliative care will continue to follow throughout hospital course to assist with symptom management further clarification of treatment goals. Appreciation Thank you for the opportunity to participate in the care of Dick Valderrama. Attestation Attestation: To help prompt me to consider important information that might be impacting today's encounter and assessment, information from prior notes written by myself or my colleagues may have been "brought forward" into today's note. My signature on this note, however, is an attestation that I personally performed the exam, history, and/or decision-making noted today, and, unless otherwise indicated, the interactions with patient, family, and staff as well as the review of records all occurred today. I also attest that the listed assessment and stated plan reflect my best clinical judgment today based on the combination of historical information, prior notes, and today's exam/ interactions. When time spent is documented, it refers only to time spent today by the signer, or if indicated, combined time spent today by collaborating physician/nurse practitioner.
--- NOTE | 2018-11-09 21:03 | P.PNNP ---
Subjective Interval history: Patient seen in the afternoon, alert, with nasal cannula, not in distress. Physical Exam Vital signs: Vital Signs 11/08/18 22:00 11/09/18 00:00 11/09/18 02:00 Temperature 97.6 F Pulse Rate 109 H 112 H 107 H Respiratory Rate 19 Blood Pressure Pulse Oximetry 96 11/09/18 03:36 11/09/18 04:00 11/09/18 06:00 Temperature 97.7 F Pulse Rate 109 H 113 H 111 H Respiratory Rate 16 17 Blood Pressure Pulse Oximetry 97 11/09/18 07:29 11/09/18 07:38 11/09/18 07:47 Temperature Pulse Rate 118 H Respiratory Rate 18 20 Blood Pressure Pulse Oximetry 96 11/09/18 08:00 11/09/18 10:00 11/09/18 12:00 Temperature 97.5 F L 97.7 F Pulse Rate 108 H 111 H 108 H Respiratory Rate 19 32 H Blood Pressure 86/53 L Pulse Oximetry 96 95 11/09/18 14:00 11/09/18 15:17 11/09/18 16:00 Temperature 97.8 F Pulse Rate 107 H 99 H 111 H Respiratory Rate 18 25 H Blood Pressure 91/57 L Pulse Oximetry 96 11/09/18 18:00 11/09/18 20:23 Temperature Pulse Rate 112 H 113 H Respiratory Rate 16 Blood Pressure Pulse Oximetry 96 Intake & Output 11/09/18 11/09/18 11/10/18 06:59 18:59 06:59 Intake Total 1240 / 1240 1730 / 1730 Output Total 630 / 630 250 / 250 Balance 610 / 610 1480 / 1480 Weight 74 kg Intake: IV 1000 / 1000 1250 / 1250 Levophed Inj 16 MG In NS Inj 250 / 250 234 ML @ 2 MCG/MIN 1.87 mls/hr IV.CONT TITRATE PRN Rx#: [id number] Sodium Bicarbonate 8.4% Inj 150 1000 / 1000 1000 / 1000 MEQ In Sterile Water for Inj 850 ML @ 30 mls/hr IV.CONT . Q24H [facility] Rx#:[id number] Oral 240 / 240 480 / 480 Output: Urine Amount (Catheter) 300 / 300 250 / 250 Indwelling Urethral Catheter 300 / 300 250 / 250 Chest Tube Drainage 330 / 330 Right 20 / 20 Right Upper 310 / 310 Other: Date of Last Bowel Movement 11/05/18 11/05/18 # Bowel Movements 0 0 Narrative: GENERAL: Alert and oriented. Mild respiratory distress. Maintaining oxygen saturation SKIN: Warm and dry. NECK: Supple, trachea midline. No JVD CARDIOVASCULAR: irregular rate and rhythm without murmurs, gallops, or rubs. On telemetry appears A. fib with just rate control RESPIRATORY: Diminished lung sounds on the upper and lower right lung [place], crackles throughout remaining bilateral lung [place]. GASTROINTESTINAL: Abdomen soft, non-tender, nondistended. MUSCULOSKELETAL: No cyanosis, 3 + edema bilateral lower extremity BACK: Nontender without obvious deformity. NEURO: Patient is alert awake oriented. No focal deficits. Moving all extremities equally - Urinary Catheter Management Indwelling Urethral Catheter Cath placed during this visit: yes Reason for continuing: Hourly intake/output Insertion date: 11/06/18 Insertion time: 22:00 Assessment and Plan - Assessment (1) Acute on chronic kidney failure Code(s): N17.9 - Acute kidney failure, unspecified; N18.9 - Chronic kidney disease, unspecified Status: Acute Plan: Patient with chronic kidney disease and develop ERIK. Patient with ERIK, possibly related to CARDIO RENAL. Has been in fluid overload status. Continue Bumex and Aldactone. Now with chest tube. Creatinine is now almost same, 2.5. Hco3 is now normalized. Follow the urine out put and BMP. Continue diuretics, Follow the urine out put and BMP. Palliative care seen the patient. (2) Congestive heart failure Code(s): I50.9 - Heart failure, unspecified Status: Acute Qualifiers: Heart failure type: systolic Heart failure chronicity: acute on chronic Qualified Code(s): I50.23 - Acute on chronic systolic (congestive) heart failure Plan: Bedside ECHO, not followed by cardiology outpatient Plan for thoracentesis today. Sats good on room air
[2018-11-09] MEDS: Heparin - SQ 10,000 UNITS/ML Vial SQ SCH (21:05)
[2018-11-09] MEDS: Carvedilol 6.25 MG Tablet PO SCH (21:05)
[2018-11-10] MEDS: Heparin - SQ 10,000 UNITS/ML Vial SQ SCH ×2 (05:13→14:29)
[2018-11-10] MEDS: Chlorhexidine Gluconate 2% 1 Pack (2 Cloths) TOPICAL SCH (05:13)
[2018-11-10 05:48] LABS: Baso % (Auto) 0.2 % (0.0-2.0); Eos % (Auto) 0.5 % (0.0-4.0); Hemoglobin 12.4 gm/dL (13.0-17.0); Lymph % (Auto) 15.6 % (9.0-44.0); Mean Corpuscular HGB Conc 33.6 % (32.0-36.0); Mean Corpuscular Hemoglobin 30.8 pg (27.0-34.0); Mean Corpuscular Volume 91.6 fL (80.0-100.0); Mean Platelet Volume 9.1 fL (7.0-11.0); Mono # (Auto) 0.6 th/mm3 (0.0-0.9); Mono % (Auto) 9.7 % (0.0-8.0); Neut # (Auto) 4.8 th/mm3 (1.8-7.7); Platelet Count 164 th/mm3 (150-450); Red Blood Count 4.04 mil/mm3 (4.50-5.90); Red Cell Distribution Width 15.6 % (11.6-17.2); White Blood Count 6.5 th/mm3 (4.0-11.0)
[2018-11-10 06:17] LABS: Alanine Aminotransferase 265 U/L (12-78); Albumin 2.5 g/dL (3.4-5.0); Anion Gap 12 meq/L (5-15); Aspartate Aminotransferase 269 U/L (15-37); Blood Urea Nitrogen 70 mg/dL (7-18); Calcium 7.6 mg/dL (8.5-10.1); Carbon Dioxide 26.1 meq/L (21.0-32.0); Chloride 99 meq/L (98-107); Glomerular Filtration Rate 23 mL/min (>89); Glucose,Random 124 mg/dL (74-106); Magnesium 2.3 mg/dL (1.5-2.5); Potassium 4.2 meq/L (3.5-5.1); Sodium 137 meq/L (136-145)
[2018-11-10 06:19] LABS: Alkaline Phosphatase 85 U/L (45-117); Total Protein 5.3 g/dL (6.4-8.2)
[2018-11-10 07:59] LABS: Acanthocytes 1+; Ovalocytes 2+; Platelet Estimate Normal (Normal); Platelet Morphology Normal (Normal)
[2018-11-10] MEDS: Carvedilol 6.25 MG Tablet PO SCH (08:20)
[2018-11-10] MEDS: Finasteride 5 MG Tablet PO SCH (08:20)
[2018-11-10] MEDS: Senna/Docusate Sodium 8.6/50 MG Tablet PO SCH (08:20)
[2018-11-10] MEDS: Spironolactone 25 MG Tablet PO SCH (08:20)
[2018-11-10] MEDS: Pantoprazole Sodium 20 MG DR Tablet PO SCH (08:20)
--- NOTE | 2018-11-10 08:26 | P.PNCA ---
Subjective Interval history: Denies dyspnea, CP, palpitations, dizziness, nausea. Slept fairly well. Medications and Allergies Active Medications: Active Cardiac Medications Aspirin (Ecotrin) 81 mg PO DAILY [facility] Last Admin: 11/09/18 08:25 Dose: 81 mg Bumetanide (Bumex Inj) 1 mg IV.PUSH BID@0900,1800 [facility] Last Admin: 11/09/18 17:30 Dose: 1 mg Carvedilol (Coreg) 6.25 mg PO BID [facility] Last Admin: 11/09/18 21:05 Dose: 6.25 mg Heparin Sodium (Porcine) (Heparin Inj) 5,000 units SQ Q8HR [facility] Last Admin: 11/10/18 05:13 Dose: 5,000 units Norepinephrine Bitartrate 16 (mg/ Sodium Chloride) 250 mls @ 1.87 mls/hr IV.CONT TITRATE PRN; Protocol PRN Reason: See Protocol Last Titration: 11/09/18 23:20 Dose: 12 mcg/min, 11.25 mls/hr Dobutamine HCl 1,000 mg/ (Sodium Chloride) 250 mls @ 2.96 mls/hr IV.CONT .Q24H [facility] Last Admin: 11/09/18 14:57 Dose: Not Given Spironolactone (Aldactone) 25 mg PO DAILY [facility] Last Admin: 11/09/18 08:25 Dose: 25 mg Terazosin HCl (Hytrin) 2 mg PO DAILY [facility] Last Admin: 11/07/18 13:55 Dose: Not Given Allergies Allergy/AdvReac Type Severity Reaction Status Date / Time enalaprilat Allergy Severe does not Verified 11/05/18 23:17 know erythromycin base Allergy Severe does not Verified 11/05/18 23:17 know told as child penicillin G Allergy Severe does not Verified 11/05/18 23:17 know Home Medications Medication Instructions Recorded Confirmed Type apixaban [Eliquis] 2.5 mg PO DAILY 11/05/18 11/05/18 History aspirin 81 mg PO DAILY 11/05/18 11/05/18 History carvedilol [Coreg] 6.25 mg PO BID 11/05/18 11/05/18 History finasteride 5 mg PO DAILY 11/05/18 11/05/18 History furosemide 20 mg PO DAILY 11/05/18 11/05/18 History simvastatin 20 mg PO QPM 11/05/18 11/05/18 History spironolactone 25 mg PO DAILY 11/05/18 11/05/18 History terazosin 2 mg PO DAILY 11/05/18 11/05/18 History Physical Exam Vital signs: Vital Signs 11/09/18 10:00 11/09/18 12:00 11/09/18 14:00 Temperature 97.7 F Pulse Rate 111 H 108 H 107 H Respiratory Rate 32 H Blood Pressure 86/53 L Pulse Oximetry 95 11/09/18 15:17 11/09/18 16:00 11/09/18 18:00 Temperature 97.8 F Pulse Rate 99 H 111 H 112 H Respiratory Rate 18 25 H Blood Pressure 91/57 L Pulse Oximetry 96 11/09/18 20:00 11/09/18 20:23 11/09/18 22:00 Temperature 97.1 F L Pulse Rate 105 H 113 H 110 H Respiratory Rate 16 16 Blood Pressure 107/62 Pulse Oximetry 92 L 96 11/10/18 00:00 11/10/18 02:00 11/10/18 02:44 Temperature 97.3 F L Pulse Rate 106 H 112 H 113 H Respiratory Rate 18 16 Blood Pressure Pulse Oximetry 11/10/18 04:00 11/10/18 06:00 11/10/18 07:30 Temperature 97.2 F L Pulse Rate 114 H 105 H 105 H Respiratory Rate 18 18 Blood Pressure Pulse Oximetry 11/10/18 07:39 Temperature Pulse Rate Respiratory Rate Blood Pressure Pulse Oximetry 100 Intake & Output 11/09/18 11/10/18 11/10/18 18:59 06:59 18:59 Intake Total 1730 / 1730 1240 / 1240 Output Total 250 / 250 770 / 770 Balance 1480 / 1480 470 / 470 Weight 75 kg Intake: IV 1250 / 1250 1000 / 1000 Levophed Inj 16 MG In NS Inj 250 / 250 234 ML @ 2 MCG/MIN 1.87 mls/hr IV.CONT TITRATE PRN Rx#: [id number] Sodium Bicarbonate 8.4% Inj 150 1000 / 1000 1000 / 1000 MEQ In Sterile Water for Inj 850 ML @ 30 mls/hr IV.CONT . Q24H [facility] Rx#:[id number] Oral 480 / 480 240 / 240 Output: Urine Amount (Catheter) 250 / 250 250 / 250 Indwelling Urethral Catheter 250 / 250 250 / 250 Chest Tube Drainage 520 / 520 Right 10 / 10 Right Upper 510 / 510 Other: Date of Last Bowel Movement 11/05/18 11/10/18 # Bowel Movements 0 # Incontinent Bowel Movements 1 - Constitutional no acute distress - Routine Neck Exam Absent: JVD - Routine Respiratory Exam Comments: Clear lungs anteriorly. - Routine Cardiovascular Exam Present: S1, S2, irregular rhythm. Absent: murmur - Routine Abdominal Exam Present: soft, normoactive bowel sounds. Absent: tenderness - Routine Extremities Exam Absent: cyanosis, clubbing Comments: Trace right pretibial edema. - Urinary Catheter Management Indwelling Urethral Catheter Cath placed during this visit: yes Reason for continuing: Hourly intake/output Insertion date: 11/06/18 Insertion time: 22:00 Results 11/10/18 05:30 11/10/18 05:30 Cardiac Enzymes 11/09/18 11/10/18 Range/Units 04:50 05:30 AST 159 H 269 H (15-37) U/L Coagulation 11/08/18 Range/Units 09:32 PT 12.9 H (9.8-11.6) sec APTT 36.2 H (23.4-31.7) sec CBC 11/09/18 11/10/18 Range/Units 04:50 05:30 WBC 6.4 6.5 (4.0-11.0) th/mm3 RBC 4.04 L 4.04 L (4.50-5.90) mil/mm3 Hgb 12.4 L 12.4 L (13.0-17.0) gm/dL Hct 37.3 L 37.0 L (39.0-51.0) % Plt Count 161 164 (150-450) th/mm3 Neut # (Auto) 4.8 4.8 (1.8-7.7) th/mm3 Lymph # (Auto) 1.0 1.0 (1.0-4.8) th/mm3 [place] # (Auto) 0.6 0.6 (0.0-0.9) th/mm3 Eos # (Auto) 0.0 0.0 (0.0-0.4) th/mm3 Baso # (Auto) 0.0 0.0 (0.0-0.2) th/mm3 Comprehensive Metabolic Panel 11/09/18 11/10/18 Range/Units 04:50 05:30 Sodium 138 137 (136-145) meq/L Potassium 4.2 4.2 (3.5-5.1) meq/L Chloride 103 99 (98-107) meq/L Carbon Dioxide 26.5 26.1 (21.0-32.0) meq/L BUN 63 H 70 H (7-18) mg/dL Creatinine 2.59 H 2.68 H (0.60-1.30) mg/dL Calcium 7.5 L 7.6 L (8.5-10.1) mg/dL AST 159 H 269 H (15-37) U/L ALT 176 H 265 H (12-78) U/L Alkaline Phosphatase 78 85 (45-117) U/L Total Protein 5.3 L 5.3 L (6.4-8.2) g/dL Albumin 2.5 L 2.5 L (3.4-5.0) g/dL Intake and Output 11/09/18 11/10/18 11/10/18 22:59 06:59 14:59 Intake Total 480 / 480 1240 / 1240 Output Total 250 / 250 770 / 770 Balance 230 / 230 470 / 470 Intake: IV 1000 / 1000 Sodium Bicarbonate 8.4% Inj 150 1000 / 1000 MEQ In Sterile Water for Inj 850 ML @ 30 mls/hr IV.CONT . Q24H [facility] Rx#:[id number] Oral 480 / 480 240 / 240 Output: Urine Amount (Catheter) 250 / 250 250 / 250 Indwelling Urethral Catheter 250 / 250 250 / 250 Chest Tube Drainage 520 / 520 Right 10 / 10 Right Upper 510 / 510 Other: Date of Last Bowel Movement 11/05/18 11/10/18 # Bowel Movements 0 # Incontinent Bowel Movements 1 Weight 75 kg - Imaging and Cardiology Imaging: Impressions Liver Ultrasound 11/08/18 00:00 CONCLUSION: 1. Mild ascites. Echogenic liver characteristic of fatty infiltration. Chest X-Ray 11/08/18 12:00 CONCLUSION: 2 right-sided chest tubes present with decrease in size of right pneumothorax compared with earlier exam. Chest X-Ray 11/09/18 06:00 CONCLUSION: 1. Stable position of the right-sided surgical and cope loop thoracostomy tubes as above. 2. Persistent right-sided pneumothoraces with a small apical and moderate inferolateral component. 3. Stable left basilar consolidation/effusion. 4. Cardiomegaly Assessment and Plan - Assessment (1) Congestive heart failure Code(s): I50.9 - Heart failure, unspecified Status: Acute Plan: Cardiac status without major change. Mildly hypotensive. No new recommendations. Unfortunately not much to offer from cardiac standpoint. (2) Chronic atrial fibrillation Code(s): I48.2 - Chronic atrial fibrillation Status: Chronic Plan: Stable, chronic atrial fib. HR's mildly elevated. Patient asymptomatic. Medical therapy limited by low BP's, renal/hepatic insufficiency. Resume apixaban when possible. Continue aspirin. (3) Coronary artery disease Code(s): I25.10 - Atherosclerotic heart disease of [place] coronary artery without angina pectoris Status: Chronic Plan: Remote history of MA. Stable. No angina symptoms. Continue conservative management, evaluation. - Plan Code Status: full code Discussed Condition With: patient (1) Congestive heart failure Qualifiers: Heart failure type: systolic Heart failure chronicity: acute on chronic Qualified Code(s): I50.23 - Acute on chronic systolic (congestive) heart failure (3) Coronary artery disease Qualifiers: Coronary Disease-Associated Artery/Lesion type: [place] artery [place] vs. transplanted heart: [place] heart Associated angina: without angina Qualified Code(s): I25.10 - Atherosclerotic heart disease of [place] coronary artery without angina pectoris
--- NOTE | 2018-11-10 15:01 | P.PNCV ---
- Note Subjective/Hospital Course: pt remains on pressors on 4 liter nasal cannula intermittent +1 air leak to large bore chest tube pleuravac recommend slowly lowering suction followup serial cxr not a surgical candidate at this time Objective: Vital Signs - 24 hr 11/09/18 15:00 11/09/18 15:17 11/09/18 16:00 Temperature 97.8 F Pulse Rate 110 H 99 H 111 H Respiratory Rate 24 18 25 H Blood Pressure 112/65 91/68 L Pulse Oximetry 96 11/09/18 17:00 11/09/18 17:01 11/09/18 18:00 Temperature Pulse Rate 111 H 108 H 112 H Respiratory Rate 21 5 L 36 H Blood Pressure 116/71 Pulse Oximetry 95 97 80 L 11/09/18 18:01 11/09/18 19:00 11/09/18 20:00 Temperature 97.1 F L Pulse Rate 111 H 107 H 105 H Respiratory Rate 34 H 22 16 Blood Pressure 91/56 L 102/71 107/62 Pulse Oximetry 84 L 87 L 85 L 11/09/18 20:23 11/09/18 21:00 11/09/18 22:00 Temperature Pulse Rate 113 H 107 H 110 H Respiratory Rate 16 26 H 18 Blood Pressure 97/63 L 106/69 Pulse Oximetry 96 90 L 11/09/18 23:00 11/10/18 00:00 11/10/18 01:00 Temperature 97.3 F L Pulse Rate 107 H 106 H 119 H Respiratory Rate 14 18 23 Blood Pressure Pulse Oximetry 11/10/18 02:00 11/10/18 02:44 11/10/18 03:00 Temperature Pulse Rate 112 H 113 H 111 H Respiratory Rate 21 16 19 Blood Pressure Pulse Oximetry 11/10/18 04:00 11/10/18 05:00 11/10/18 06:00 Temperature 97.2 F L Pulse Rate 114 H 106 H 111 H Respiratory Rate 19 17 17 Blood Pressure Pulse Oximetry 84 L 11/10/18 07:00 11/10/18 07:30 11/10/18 07:39 Temperature Pulse Rate 111 H 105 H Respiratory Rate 18 18 Blood Pressure Pulse Oximetry 100 11/10/18 08:00 11/10/18 08:27 11/10/18 09:00 Temperature 98.3 F Pulse Rate 108 H 112 H 106 H Respiratory Rate 15 26 H 34 H Blood Pressure 94/60 L 88/69 L Pulse Oximetry 83 L 11/10/18 10:00 11/10/18 10:30 11/10/18 10:47 Temperature Pulse Rate 102 H 103 H 100 H Respiratory Rate 21 8 L 21 Blood Pressure 73/56 L 78/61 L Pulse Oximetry 11/10/18 11:00 11/10/18 11:19 11/10/18 11:30 Temperature Pulse Rate 100 H 95 H 102 H Respiratory Rate 12 21 20 Blood Pressure 80/55 L 91/75 L Pulse Oximetry 11/10/18 12:00 11/10/18 12:31 11/10/18 13:00 Temperature 97.5 F L Pulse Rate 103 H 102 H 91 H Respiratory Rate 19 13 8 L Blood Pressure 91/75 L 92/51 L 93/66 L Pulse Oximetry 11/10/18 14:00 Temperature Pulse Rate 91 H Respiratory Rate Blood Pressure Pulse Oximetry GENERAL: A&O x 3 SKIN: Warm and dry. 2 chest tube right lateral chest wall to 40cm suction HEAD: Normocephalic. EYES: No scleral icterus. No injection or drainage. NECK: Supple, trachea midline. No JVD or lymphadenopathy. CARDIOVASCULAR: irregular rate and rhythm without murmurs, gallops, or rubs. a RESPIRATORY: diminished right base, faint exp wheeze Breath sounds equal bilaterally. No accessory muscle use. GASTROINTESTINAL: Abdomen soft, non-tender, nondistended. MUSCULOSKELETAL: No cyanosis, or edema. BACK: Nontender without obvious deformity. No CVA tenderness. Labs: Laboratory Results - last 12 hr 11/10/18 11/10/18 11/10/18 05:30 05:30 05:30 WBC 6.5 RBC 4.04 L Hgb 12.4 L Hct 37.0 L MCV 91.6 MCH 30.8 MCHC 33.6 RDW 15.6 Plt Count 164 MPV 9.1 Prelim Diff (Auto) Slide review pending Neut % (Auto) 74.0 H Lymph % (Auto) 15.6 [place] % (Auto) 9.7 H Eos % (Auto) 0.5 Baso % (Auto) 0.2 Neut # (Auto) 4.8 Lymph # (Auto) 1.0 [place] # (Auto) 0.6 Eos # (Auto) 0.0 Baso # (Auto) 0.0 WBC Differential . Diff Scan Auto diff confirmed Differential Comment . Platelet Estimate Normal Platelet Morphology Normal Ovalocytes 2+ H Acanthocytes (Spur) 1+ H Keratocytes Occ H Sodium 137 Potassium 4.2 Chloride 99 Carbon Dioxide 26.1 Anion Gap 12 BUN 70 H Creatinine 2.68 H Estimated GFR 23 L Random Glucose 124 H Lactic Acid 2.5 H Calcium 7.6 L Magnesium 2.3 Total Bilirubin 1.4 H AST 269 H ALT 265 H Alkaline Phosphatase 85 Total Protein 5.3 L Albumin 2.5 L Result Diagrams: 11/10/18 05:30 11/10/18 05:30 Telemetry: Afib - Plan (1) Pneumothorax Plan: recommend slowly turning down suction f/u CXR in am (2) Congestive heart failure (2) Congestive heart failure Qualifiers: Heart failure type: systolic Heart failure chronicity: acute on chronic Qualified Code(s): I50.23 - Acute on chronic systolic (congestive) heart failure
[2018-11-10] MEDS ORDERED: Hyoscyamine Inj 0.5 MG/ML Ampul IV.PUSH PRN (16:27)
--- NOTE | 2018-11-10 17:02 | P.PNPAL ---
Reason for Visit Reason for visit: a. To assist with evaluation and management of symptoms including: dyspnea, weakness. b. To assist medical decision maker(s) with: better understanding of current medical conditions; weighing benefits/burdens of medical treatment options; making medical treatment decisions. Subjective Subjective/Interval History: Patient seen and examined in ICU. Patient is minimally responsive. He remains on oxygen via NC. He is on Dobutamine and Levophed, BP 93/66. Chest tubes in place on right. WBC 6.5, Hemoglobin 12.4, hematocrit 37.0, platelets 164. BUN 2.68, BUN 70, GFR 23. Total bilirubin 1.4, AST 269, ALT 265. Albumin 2.5. Discussed with Dr. Sheets and nursing staff. Family/Friend Interactions: Call from family to request meeting. Met with son and daughter at bedside. They provided copy of Living Will names daughter Rukhsana Beyer as health care surrogate. Family has decided given patient is more lethargic today, after review of living will and conversations yesterday about overall clinical status that they desire to proceed with transition to comfort measures. They wish to DC all non-comfort related meds. They will meet with hospice on 11/11/18 if patient survives overnight and will likely want patient to stay in hospital inpatient hospice. Advance Directives Living Will: Copy in medical record Health Care Surrogate: Copy in medical record Advance Directives Date on File: 06/21/04 Health Care Surrogate Name and Number: Rukhsana Dang, daughter: [phone] Documented care wishes:: Standard Living Will. Significant change in goals:: NO CODE. Family requests transition to comfort with DC of all non comfort meds. Will consult hospice in AM if patient survives. Objective Vital Signs: Vital Signs 11/09/18 17:00 11/09/18 17:01 11/09/18 18:00 Temperature Pulse Rate 111 H 108 H 112 H Respiratory Rate 21 5 L 36 H Blood Pressure 116/71 Pulse Oximetry 95 97 80 L 11/09/18 18:01 11/09/18 19:00 11/09/18 20:00 Temperature 97.1 F L Pulse Rate 111 H 107 H 105 H Respiratory Rate 34 H 22 16 Blood Pressure 91/56 L 102/71 107/62 Pulse Oximetry 84 L 87 L 85 L 11/09/18 20:23 11/09/18 21:00 11/09/18 22:00 Temperature Pulse Rate 113 H 107 H 110 H Respiratory Rate 16 26 H 18 Blood Pressure 97/63 L 106/69 Pulse Oximetry 96 90 L 11/09/18 23:00 11/10/18 00:00 11/10/18 01:00 Temperature 97.3 F L Pulse Rate 107 H 106 H 119 H Respiratory Rate 14 18 23 Blood Pressure Pulse Oximetry 11/10/18 02:00 11/10/18 02:44 11/10/18 03:00 Temperature Pulse Rate 112 H 113 H 111 H Respiratory Rate 21 16 19 Blood Pressure Pulse Oximetry 11/10/18 04:00 11/10/18 05:00 11/10/18 06:00 Temperature 97.2 F L Pulse Rate 114 H 106 H 111 H Respiratory Rate 19 17 17 Blood Pressure Pulse Oximetry 84 L 11/10/18 07:00 11/10/18 07:30 11/10/18 07:39 Temperature Pulse Rate 111 H 105 H Respiratory Rate 18 18 Blood Pressure Pulse Oximetry 100 11/10/18 08:00 11/10/18 08:27 11/10/18 09:00 Temperature 98.3 F Pulse Rate 108 H 112 H 106 H Respiratory Rate 15 26 H 34 H Blood Pressure 94/60 L 88/69 L Pulse Oximetry 83 L 11/10/18 10:00 11/10/18 10:30 11/10/18 10:47 Temperature Pulse Rate 102 H 103 H 100 H Respiratory Rate 21 8 L 21 Blood Pressure 73/56 L 78/61 L Pulse Oximetry 11/10/18 11:00 11/10/18 11:19 11/10/18 11:30 Temperature Pulse Rate 100 H 95 H 102 H Respiratory Rate 12 21 20 Blood Pressure 80/55 L 91/75 L Pulse Oximetry 11/10/18 12:00 11/10/18 12:31 11/10/18 13:00 Temperature 97.5 F L Pulse Rate 103 H 102 H 91 H Respiratory Rate 19 13 8 L Blood Pressure 91/75 L 92/51 L 93/66 L Pulse Oximetry 11/10/18 14:00 11/10/18 14:56 Temperature Pulse Rate 91 H 94 H Respiratory Rate 14 Blood Pressure Pulse Oximetry Intake & Output 11/09/18 11/10/18 11/10/18 18:59 06:59 18:59 Intake Total 1730 / 1730 1240 / 1240 Output Total 250 / 250 770 / 770 Balance 1480 / 1480 470 / 470 Weight 75 kg Intake: IV 1250 / 1250 1000 / 1000 Levophed Inj 16 MG In NS Inj 250 / 250 234 ML @ 2 MCG/MIN 1.87 mls/hr IV.CONT TITRATE PRN Rx#: [id number] Sodium Bicarbonate 8.4% Inj 150 1000 / 1000 1000 / 1000 MEQ In Sterile Water for Inj 850 ML @ 30 mls/hr IV.CONT . Q24H PENDING SALE TO [facility] Rx#:[id number] Oral 480 / 480 240 / 240 Output: Urine Amount (Catheter) 250 / 250 250 / 250 Indwelling Urethral Catheter 250 / 250 250 / 250 Chest Tube Drainage 520 / 520 Right 10 / 10 Right Upper 510 / 510 Other: Date of Last Bowel Movement 11/05/18 11/10/18 11/10/18 # Bowel Movements 0 # Incontinent Bowel Movements 1 Physical Exam: CONSTITUTIONAL/GENERAL: This is an elderly adequately nourished patient, in no apparent distress. TUBES/LINES/DRAINS: Oxygen via nasal cannula, right IJ central line, PIV SKIN: No jaundice, rashes, or lesions. Ecchymoses on upper extremities. No wounds seen anteriorly. Skin temperature appropriate. Not diaphoretic. EYES: eyes closed. ENT: Hearing grossly normal. Nose without bleeding or purulent drainage. Throat without visible erythema, exudates, masses, or lesions. CARDIOVASCULAR: Irregular, systolic murmur noted. RESPIRATORY/CHEST: unlabored respirations. Bilateral crackles. Diminished breath sounds on the right. Chest tubes x2 on the right. GASTROINTESTINAL: Abdomen soft, nondistended. Bowel sounds present. GENITOURINARY: Without palpable bladder distension. Murillo catheter in place. MUSCULOSKELETAL: Extremities with edema. NEUROLOGICAL: Minimally responsive today. PSYCHIATRIC: Minimally responsive today. Diagnostic Tests Laboratory: Laboratory Results - last 72 hr 11/08/18 11/08/18 11/08/18 04:27 04:27 04:27 WBC 6.3 RBC 3.97 L Hgb 12.4 L Hct 37.3 L MCV 93.8 MCH 31.3 MCHC 33.3 RDW 16.0 Plt Count 166 MPV 8.9 Prelim Diff (Auto) Slide review pending Neut % (Auto) 70.5 H Lymph % (Auto) 18.4 [place] % (Auto) 10.7 H Eos % (Auto) 0.2 Baso % (Auto) 0.2 Neut # (Auto) 4.5 Lymph # (Auto) 1.2 [place] # (Auto) 0.7 Eos # (Auto) 0.0 Baso # (Auto) 0.0 WBC Differential Manual diff final Diff Scan Seg Neuts % (Manual) 86 H Band Neuts % (Manual) 1 Lymphocytes % (Manual) 11 Monocytes % (Manual) 2 Abs Neuts (Manual) 5.5 Nucleated RBCs/100 WBC 1 H Differential Comment . Platelet Estimate Normal Platelet Morphology Normal Ovalocytes 1+ H [place] Cells 2+ H Acanthocytes (Spur) 1+ H Keratocytes Occ H PT INR APTT Puncture Site Patient Temperature O2 Saturation ABG pH ABG pCO2 ABG pO2 ABG HCO3 ABG O2 Content ABG Base Excess ABG Methemoglobin Hemoglobin Carboxyhemoglobin O2 Delivery Device Liter Flow Critical Value Sodium 139 Potassium 4.5 Chloride 109 H Carbon Dioxide 18.8 L Anion Gap 11 BUN 58 H Creatinine 2.44 H Estimated GFR 25 L Random Glucose 132 H Lactic Acid 1.6 Calcium 7.7 L Phosphorus 5.2 H Magnesium 2.4 Total Bilirubin 1.1 H AST 301 H ALT 208 H Alkaline Phosphatase 83 Total Creatine Kinase Total Protein 5.4 L D Albumin 2.6 L Free T4 Total T3 Urine Eosinophils Ur Random Creatinine Hepatitis A IgM Ab Hep Bs Antigen Hep B Core IgM Ab Hep C IgG Ab 11/08/18 11/08/18 11/08/18 05:44 09:32 09:32 WBC RBC Hgb Hct MCV MCH MCHC RDW Plt Count MPV Prelim Diff (Auto) Neut % (Auto) Lymph % (Auto) [place] % (Auto) Eos % (Auto) Baso % (Auto) Neut # (Auto) Lymph # (Auto) [place] # (Auto) Eos # (Auto) Baso # (Auto) WBC Differential Diff Scan Seg Neuts % (Manual) Band Neuts % (Manual) Lymphocytes % (Manual) Monocytes % (Manual) Abs Neuts (Manual) Nucleated RBCs/100 WBC Differential Comment Platelet Estimate Platelet Morphology Ovalocytes [place] Cells Acanthocytes (Spur) Keratocytes PT INR APTT Puncture Site Bonny Patient Temperature 98.6 O2 Saturation 97 ABG pH 7.46 H ABG pCO2 22 L* ABG pO2 156 H ABG HCO3 16 L* ABG O2 Content 14.9 ABG Base Excess -7.7 L ABG Methemoglobin 1.4 Hemoglobin 10.8 L Carboxyhemoglobin 0.9 O2 Delivery Device Nasal cannula Liter Flow 6.00 Critical Value Yes Sodium Potassium Chloride Carbon Dioxide Anion Gap BUN Creatinine Estimated GFR Random Glucose Lactic Acid Calcium Phosphorus Magnesium Total Bilirubin AST ALT Alkaline Phosphatase Total Creatine Kinase 144 Total Protein Albumin Free T4 Total T3 Urine Eosinophils Ur Random Creatinine Hepatitis A IgM Ab Nonreactive Hep Bs Antigen Nonreactive Hep B Core IgM Ab Nonreactive Hep C IgG Ab Nonreactive 11/08/18 11/08/18 11/08/18 09:32 09:32 09:32 WBC RBC Hgb Hct MCV MCH MCHC RDW Plt Count MPV Prelim Diff (Auto) Neut % (Auto) Lymph % (Auto) [place] % (Auto) Eos % (Auto) Baso % (Auto) Neut # (Auto) Lymph # (Auto) [place] # (Auto) Eos # (Auto) Baso # (Auto) WBC Differential Diff Scan Seg Neuts % (Manual) Band Neuts % (Manual) Lymphocytes % (Manual) Monocytes % (Manual) Abs Neuts (Manual) Nucleated RBCs/100 WBC Differential Comment Platelet Estimate Platelet Morphology Ovalocytes Margarita Cells Acanthocytes (Spur) Keratocytes PT 12.9 H INR 1.3 APTT 36.2 H Puncture Site Patient Temperature O2 Saturation ABG pH ABG pCO2 ABG pO2 ABG HCO3 ABG O2 Content ABG Base Excess ABG Methemoglobin Hemoglobin Carboxyhemoglobin O2 Delivery Device Liter Flow Critical Value Sodium Potassium Chloride Carbon Dioxide Anion Gap BUN Creatinine Estimated GFR Random Glucose Lactic Acid Calcium Phosphorus Magnesium Total Bilirubin AST ALT Alkaline Phosphatase Total Creatine Kinase Total Protein Albumin Free T4 Total T3 Urine Eosinophils Rare H Ur Random Creatinine 126 Hepatitis A IgM Ab Hep Bs Antigen Hep B Core IgM Ab Hep C IgG Ab 11/08/18 11/09/18 11/09/18 17:50 04:50 04:50 WBC RBC Hgb Hct MCV MCH MCHC RDW Plt Count MPV Prelim Diff (Auto) Neut % (Auto) Lymph % (Auto) [place] % (Auto) Eos % (Auto) Baso % (Auto) Neut # (Auto) Lymph # (Auto) [place] # (Auto) Eos # (Auto) Baso # (Auto) WBC Differential Diff Scan Seg Neuts % (Manual) Band Neuts % (Manual) Lymphocytes % (Manual) Monocytes % (Manual) Abs Neuts (Manual) Nucleated RBCs/100 WBC Differential Comment Platelet Estimate Platelet Morphology Ovalocytes Margarita Cells Acanthocytes (Spur) Keratocytes PT INR APTT Puncture Site Art line Patient Temperature 98.6 O2 Saturation 97 ABG pH 7.49 H ABG pCO2 28 L ABG pO2 132 H ABG HCO3 21 L ABG O2 Content 16.8 ABG Base Excess -2.3 L ABG Methemoglobin 1.3 Hemoglobin 12.2 Carboxyhemoglobin 0.9 O2 Delivery Device Nasal cannula Liter Flow 5.00 Critical Value No Sodium 138 Potassium 4.2 Chloride 103 Carbon Dioxide 26.5 Anion Gap 9 BUN 63 H Creatinine 2.59 H Estimated GFR 24 L Random Glucose 114 H Lactic Acid Calcium 7.5 L Phosphorus 4.8 Magnesium 2.4 Total Bilirubin 1.4 H AST 159 H ALT 176 H Alkaline Phosphatase 78 Total Creatine Kinase Total Protein 5.3 L Albumin 2.5 L Free T4 0.95 Total T3 47 L Urine Eosinophils Ur Random Creatinine Hepatitis A IgM Ab Hep Bs Antigen Hep B Core IgM Ab Hep C IgG Ab 11/09/18 11/09/18 11/10/18 04:50 04:50 05:30 WBC 6.4 6.5 RBC 4.04 L 4.04 L Hgb 12.4 L 12.4 L Hct 37.3 L 37.0 L MCV 92.3 91.6 MCH 30.7 30.8 MCHC 33.3 33.6 RDW 16.0 15.6 Plt Count 161 164 MPV 8.7 9.1 Prelim Diff (Auto) Slide review pending Slide review pending Neut % (Auto) 74.1 H 74.0 H Lymph % (Auto) 16.0 15.6 [place] % (Auto) 9.1 H 9.7 H Eos % (Auto) 0.4 0.5 Baso % (Auto) 0.4 0.2 Neut # (Auto) 4.8 4.8 Lymph # (Auto) 1.0 1.0 [place] # (Auto) 0.6 0.6 Eos # (Auto) 0.0 0.0 Baso # (Auto) 0.0 0.0 WBC Differential . . Diff Scan Auto diff confirmed Auto diff confirmed Seg Neuts % (Manual) Band Neuts % (Manual) Lymphocytes % (Manual) Monocytes % (Manual) Abs Neuts (Manual) Nucleated RBCs/100 WBC Differential Comment . . Platelet Estimate Normal Platelet Morphology Normal Ovalocytes 2+ H [place] Cells Acanthocytes (Spur) 1+ H Keratocytes Occ H PT INR APTT Puncture Site Patient Temperature O2 Saturation ABG pH ABG pCO2 ABG pO2 ABG HCO3 ABG O2 Content ABG Base Excess ABG Methemoglobin Hemoglobin Carboxyhemoglobin O2 Delivery Device Liter Flow Critical Value Sodium Potassium Chloride Carbon Dioxide Anion Gap BUN Creatinine Estimated GFR Random Glucose Lactic Acid 2.4 H Calcium Phosphorus Magnesium Total Bilirubin AST ALT Alkaline Phosphatase Total Creatine Kinase Total Protein Albumin Free T4 Total T3 Urine Eosinophils Ur Random Creatinine Hepatitis A IgM Ab Hep Bs Antigen Hep B Core IgM Ab Hep C IgG Ab 11/10/18 11/10/18 05:30 05:30 WBC RBC Hgb Hct MCV MCH MCHC RDW Plt Count MPV Prelim Diff (Auto) Neut % (Auto) Lymph % (Auto) [place] % (Auto) Eos % (Auto) Baso % (Auto) Neut # (Auto) Lymph # (Auto) [place] # (Auto) Eos # (Auto) Baso # (Auto) WBC Differential Diff Scan Seg Neuts % (Manual) Band Neuts % (Manual) Lymphocytes % (Manual) Monocytes % (Manual) Abs Neuts (Manual) Nucleated RBCs/100 WBC Differential Comment Platelet Estimate Platelet Morphology Ovalocytes Margarita Cells Acanthocytes (Spur) Keratocytes PT INR APTT Puncture Site Patient Temperature O2 Saturation ABG pH ABG pCO2 ABG pO2 ABG HCO3 ABG O2 Content ABG Base Excess ABG Methemoglobin Hemoglobin Carboxyhemoglobin O2 Delivery Device Liter Flow Critical Value Sodium 137 Potassium 4.2 Chloride 99 Carbon Dioxide 26.1 Anion Gap 12 BUN 70 H Creatinine 2.68 H Estimated GFR 23 L Random Glucose 124 H Lactic Acid 2.5 H Calcium 7.6 L Phosphorus Magnesium 2.3 Total Bilirubin 1.4 H AST 269 H ALT 265 H Alkaline Phosphatase 85 Total Creatine Kinase Total Protein 5.3 L Albumin 2.5 L Free T4 Total T3 Urine Eosinophils Ur Random Creatinine Hepatitis A IgM Ab Hep Bs Antigen Hep B Core IgM Ab Hep C IgG Ab Result Diagrams: 11/10/18 05:30 11/10/18 05:30 Microbiology: Microbiology 11/06/18 14:10 Gram Stain - Final Fluid - Pleural fluid Body Fluid Culture - Final No growth in 72 hours (aerobically and anaerobically) Imaging: Head CT 11/05/18 23:46 CONCLUSION: No acute intracranial findings . Abdomen/Bladder Ultrasound 11/06/18 00:00 CONCLUSION: 1. Probable left renal stones without evidence of hydronephrosis. 2. Trabeculated bladder. Thoracentesis Ultrasound 11/06/18 00:00 CONCLUSION: 1. Right-sided thoracentesis as detailed above. 2. A large amount of fluid was removed from the right chest. Postprocedural radiograph did show a pneumothorax. However, the patient is completely asymptomatic without pain and saturating at 97-98% on 2 L nasal cannula. Chest radiograph shows a fibrotic appearance of the right lung and, as such, I do not feel patient would benefit from percutaneous chest tube placement this time. Patient will be monitored on the floor and a follow-up chest radiograph will be performed later this afternoon to ensure stability. Chest CT 11/07/18 09:50 CONCLUSION: 1. Moderate right-sided hydropneumothorax. 2. Small caliber right-sided chest tube in the lower right hemithorax. 3. Moderate left pleural effusion. 4. Bibasilar consolidation and patchy densities in the right middle lobe. 5. Cardiomegaly and coronary artery calcifications. Liver Ultrasound 11/08/18 00:00 CONCLUSION: 1. Mild ascites. Echogenic liver characteristic of fatty infiltration. Chest X-Ray 11/09/18 06:00 CONCLUSION: 1. Stable position of the right-sided surgical and cope loop thoracostomy tubes as above. 2. Persistent right-sided pneumothoraces with a small apical and moderate inferolateral component. 3. Stable left basilar consolidation/effusion. 4. Cardiomegaly Procedures: * 11/07/18-right femoral arterial catheter placed * 11/07/18 right chest tube placed * 11/07/18-right IJ central line placed * 11/06/18-right pigtail chest tube placed * 11/06/18-thoracentesis Assessment and Plan - Disease Oriented Problem List (1) Congestive heart failure (2) Chronic kidney disease (3) Pleural effusion, right (4) Acidosis, lactic (5) Acute on chronic kidney failure (6) Chronic atrial fibrillation (7) Coronary artery disease - Symptom Scale (1) Dyspnea 0-10 Scale: Unable to quantify (2) Weakness 0-10 Scale: Unable to quantify Pertinent Non-Medical Issues: Psychosocial: . Has 1 adult son and 1 daughter, here from [place]. Lives alone. Spiritual: Orthodox reynaldo. Legal:Patient appears capacitated to make his own healthcare decisions though family reports he has some mild confusion in the past few days. Recommend shared decision making given this recent confusion. Family is going to obtain written advanced directives from the patient safety deposit box and will bring to visit on 11/10/18. Ethical issues impacting care: No known concerns at this time. Important Contacts: * Rukhsana Prater, daughter/[facility]: [phone] cell * Moisés Valderrama, son: [phone], cell or [phone] home Prognosis: Mr. Valderrama is an 88-year-old male with underlying CHF, atrial fibrillation on Eliquis, EF 20%, coronary artery disease admitted with cardiogenic shock, pleural effusions requiring thoracentesis now with chest tubes x2 on the right. Also with some liver and renal dysfunction. Overall prognosis is poor. Code Status: Full Code Plan: * Patient appears capacitated to make his own healthcare decisions though family reports he has some mild confusion in the past few days. Recommend shared decision making given this recent confusion. Family is going to obtain written advanced directives from the patient safety deposit box and will bring to visit on 11/10/18. * FULL CODE-patient and family considering CODE STATUS. * Goals remain aggressive at this time patient considering CODE STATUS. Family seems understanding of patient's medical conditions, welcomes continued palliative care conversations. * SYMPTOMS: Dyspnea secondary to CHF, CAD, atrial fibrillation, cardiomegaly, pleural effusions. On oxygen via nasal cannula. Weakness: Secondary to hospitalization current medical conditions. No new medication recommendations at this time. * Palliative care number provided. * Palliative care will continue to follow throughout hospital course to assist with symptom management further clarification of treatment goals. Attestation Attestation: To help prompt me to consider important information that might be impacting today's encounter and assessment, information from prior notes written by myself or my colleagues may have been "brought forward" into today's note. My signature on this note, however, is an attestation that I personally performed the exam, history, and/or decision-making noted today, and, unless otherwise indicated, the interactions with patient, family, and staff as well as the review of records all occurred today. I also attest that the listed assessment and stated plan reflect my best clinical judgment today based on the combination of historical information, prior notes, and today's exam/ interactions. When time spent is documented, it refers only to time spent today by the signer, or if indicated, combined time spent today by collaborating physician/nurse practitioner.
--- NOTE | 2018-11-10 17:55 | P.PNCC ---
Subjective Subjective Remarks/Hospital Course: 88-year-old male with a past medical history significant for atrial fibrillation on Eliquis, coronary artery disease, hyperlipidemia and possible CHF who presented to the emergency department with bilateral lower extremity edema. In the ER patient was found to be in A. fib with RVR. Patient reported having pleural effusions requiring thoracentesis in the past. Patient symptoms were attributed to CHF, chest x-ray showed bilateral effusion, BNP was more than 2300, and troponin was mildly elevated at 0.08. And echocardiogram showed the left ventricular systolic function severely reduced with an estimated ejection fraction less than 20%. Moderate to severe mitral valve regurgitation. It was also noted that patient had a lactic acid of 4.3. This is most likely secondary to poor perfusion and developing cardiogenic shock. There is no evidence of sepsis. Patient underwent right-sided thoracentesis by IR today. Postprocedural radiograph did show a pneumothorax. However patient was completely asymptomatic at that time and no chest tube was placed. Per Dr. Aguiar's note stated chest x-ray showed fibrotic appearance of the right lung. Patient had some increase in shortness of breath late evening today. A repeat chest x-ray showed a persistent right pneumothorax which appeared larger when compared to the prior exam now measuring up to 2.4 cm over the right apex. Previously was 1 cm. A pneumothorax is also seen in the inferior lateral right base. No mediastinal shift. I evaluated the patient in the ICU. He is showing good oxygen saturation on 2 L nasal cannula, mildly tachypneic. I have ordered a stat CT of the chest to evaluate for a loculated pneumothorax. Patient may need a chest tube depending on the size of the pneumothorax 11/07: Afebrile. Remains on nasal cannula. Chest x-ray reveals revealed possible worsening pneumothorax. Stat CT thorax ordered. 1100 cc from right- sided chest tube placed overnight. Appears comfortable and normotensive. Denies shortness of breath 11/08: Currently 6 L nasal cannula. Adequate saturations. Worsening pneumothorax increased suction -40 cmH2O. We will check chest x-ray at noon today. Will notify IR possible need for guided chest tube placement at the present time. He was comfortable. On norepinephrine drip at 14 mcg/min and dobutamine drip at 2.5 mcg/kg/min 11/09: Patient is currently on nasal cannula, reports no pain or dyspnea, offers no complaints. 11/10: The patient and his family met with NICKO Sheldon from the palliative care service and have elected to transition to comfort based measures. He offers no complaints and says that he is not in any pain. Objective Vital Signs / I&O: Vital Signs 11/09/18 18:00 11/09/18 18:01 11/09/18 19:00 Temperature Pulse Rate 112 H 111 H 107 H Respiratory Rate 36 H 34 H 22 Blood Pressure 91/56 L 102/71 Pulse Oximetry 80 L 84 L 87 L 11/09/18 20:00 11/09/18 20:23 11/09/18 21:00 Temperature 97.1 F L Pulse Rate 105 H 113 H 107 H Respiratory Rate 16 16 26 H Blood Pressure 107/62 97/63 L Pulse Oximetry 85 L 96 90 L 11/09/18 22:00 11/09/18 23:00 11/10/18 00:00 Temperature 97.3 F L Pulse Rate 110 H 107 H 106 H Respiratory Rate 18 14 18 Blood Pressure 106/69 Pulse Oximetry 11/10/18 01:00 11/10/18 02:00 11/10/18 02:44 Temperature Pulse Rate 119 H 112 H 113 H Respiratory Rate 23 21 16 Blood Pressure Pulse Oximetry 11/10/18 03:00 11/10/18 04:00 11/10/18 05:00 Temperature 97.2 F L Pulse Rate 111 H 114 H 106 H Respiratory Rate 19 19 17 Blood Pressure Pulse Oximetry 84 L 11/10/18 06:00 11/10/18 07:00 11/10/18 07:30 Temperature Pulse Rate 111 H 111 H 105 H Respiratory Rate 17 18 18 Blood Pressure Pulse Oximetry 11/10/18 07:39 11/10/18 08:00 11/10/18 08:27 Temperature 98.3 F Pulse Rate 108 H 112 H Respiratory Rate 15 26 H Blood Pressure 94/60 L 88/69 L Pulse Oximetry 100 83 L 11/10/18 09:00 11/10/18 10:00 11/10/18 10:30 Temperature Pulse Rate 106 H 102 H 103 H Respiratory Rate 34 H 21 8 L Blood Pressure 73/56 L Pulse Oximetry 11/10/18 10:47 11/10/18 11:00 11/10/18 11:19 Temperature Pulse Rate 100 H 100 H 95 H Respiratory Rate 21 12 21 Blood Pressure 78/61 L 80/55 L Pulse Oximetry 11/10/18 11:30 11/10/18 12:00 11/10/18 12:31 Temperature 97.5 F L Pulse Rate 102 H 103 H 102 H Respiratory Rate 20 19 13 Blood Pressure 91/75 L 91/75 L 92/51 L Pulse Oximetry 11/10/18 13:00 11/10/18 13:30 11/10/18 14:00 Temperature Pulse Rate 91 H 98 H 87 Respiratory Rate 8 L 18 19 Blood Pressure 93/66 L 80/64 L 95/61 L Pulse Oximetry 11/10/18 14:37 11/10/18 14:56 11/10/18 15:00 Temperature Pulse Rate 104 H 94 H 92 H Respiratory Rate 21 14 17 Blood Pressure 91/53 L 93/61 L Pulse Oximetry 11/10/18 15:30 11/10/18 16:00 11/10/18 16:01 Temperature Pulse Rate 101 H 102 H 104 H Respiratory Rate 18 21 18 Blood Pressure 100/68 108/69 Pulse Oximetry 11/10/18 16:30 11/10/18 16:31 Temperature Pulse Rate 102 H 94 H Respiratory Rate 9 L Blood Pressure 84/53 L Pulse Oximetry Intake & Output 11/09/18 11/10/18 11/10/18 18:59 06:59 18:59 Intake Total 1730 / 1730 1240 / 1240 Output Total 250 / 250 770 / 770 Balance 1480 / 1480 470 / 470 Weight 75 kg Intake: IV 1250 / 1250 1000 / 1000 Levophed Inj 16 MG In NS Inj 250 / 250 234 ML @ 2 MCG/MIN 1.87 mls/hr IV.CONT TITRATE PRN Rx#: [id number] Sodium Bicarbonate 8.4% Inj 150 1000 / 1000 1000 / 1000 MEQ In Sterile Water for Inj 850 ML @ 30 mls/hr IV.CONT . Q24H [facility] Rx#:[id number] Oral 480 / 480 240 / 240 Output: Urine Amount (Catheter) 250 / 250 250 / 250 Indwelling Urethral Catheter 250 / 250 250 / 250 Chest Tube Drainage 520 / 520 Right 10 / 10 Right Upper 510 / 510 Other: Date of Last Bowel Movement 11/05/18 11/10/18 11/10/18 # Bowel Movements 0 # Incontinent Bowel Movements 1 Result Diagrams: 11/10/18 05:30 11/10/18 05:30 Objective Remarks: GENERAL: Elderly male lying in bed, appears peaceful SKIN: Warm and dry. HEAD: Atraumatic. Normocephalic. EYES: Pupils equal and round. No scleral icterus. ENT: Mucous membranes pink and moist. NECK: Trachea midline. No JVD. Right IJ CVL is clean dry and intact CARDIOVASCULAR: IRR, murmur unchanged RESPIRATORY: Coarse crackles at bilateral bases, breath sounds diminished on right. Right #10 [place] pigtail catheter and right #20 Croat[place] chest tube remain in place GASTROINTESTINAL: Abdomen soft, non-tender, non-distended MUSCULOSKELETAL: Extremities with lower extremity edema. NEUROLOGICAL: Awake and alert. No obvious cranial nerve deficits. PSYCHIATRIC: Appropriate mood and affect; appears serene Assessment and Plan - Assessment and Plan Plan: The patient was transitioned to comfort-based measures this afternoon. His pressors and ionotropes are discontinued and we will remove his central and arterial lines. Hospice referral in AM if indicated. Level 1 follow up To help prompt me to consider important information that might be impacting today's encounter and assessment, information from prior notes written by myself or my colleagues may have been "brought forward" into today's note. My signature on this note, however, is an attestation that I personally performed the exam, history, and/or decision-making noted today, and, unless otherwise indicated, the interactions with patient, family, and staff as well as the review of records all occurred today. I also attest that the listed assessment and stated plan reflect my best clinical judgment today based on the combination of historical information, prior notes, and today's exam/ interactions. Code Status: Comfort based measures only
[2018-11-10] MEDS: Morphine Sulfate Inj 2 MG/ML Vial IV.PUSH PRN ×2 (18:03→21:23)
--- NOTE | 2018-11-10 18:58 | P.PNNP ---
Subjective Interval history: Patient seen in the afternoon, remain drowsy, has low BP. Physical Exam Vital signs: Vital Signs 11/09/18 19:00 11/09/18 20:00 11/09/18 20:23 Temperature 97.1 F L Pulse Rate 107 H 105 H 113 H Respiratory Rate 22 16 16 Blood Pressure 102/71 107/62 Pulse Oximetry 87 L 85 L 96 11/09/18 21:00 11/09/18 22:00 11/09/18 23:00 Temperature Pulse Rate 107 H 110 H 107 H Respiratory Rate 26 H 18 14 Blood Pressure 97/63 L 106/69 Pulse Oximetry 90 L 11/10/18 00:00 11/10/18 01:00 11/10/18 02:00 Temperature 97.3 F L Pulse Rate 106 H 119 H 112 H Respiratory Rate 18 23 21 Blood Pressure Pulse Oximetry 11/10/18 02:44 11/10/18 03:00 11/10/18 04:00 Temperature 97.2 F L Pulse Rate 113 H 111 H 114 H Respiratory Rate 16 19 19 Blood Pressure Pulse Oximetry 84 L 11/10/18 05:00 11/10/18 06:00 11/10/18 07:00 Temperature Pulse Rate 106 H 111 H 111 H Respiratory Rate 17 17 18 Blood Pressure Pulse Oximetry 11/10/18 07:30 11/10/18 07:39 11/10/18 08:00 Temperature 98.3 F Pulse Rate 105 H 108 H Respiratory Rate 18 15 Blood Pressure 94/60 L Pulse Oximetry 100 83 L 11/10/18 08:27 11/10/18 09:00 11/10/18 10:00 Temperature Pulse Rate 112 H 106 H 102 H Respiratory Rate 26 H 34 H 21 Blood Pressure 88/69 L Pulse Oximetry 11/10/18 10:30 11/10/18 10:47 11/10/18 11:00 Temperature Pulse Rate 103 H 100 H 100 H Respiratory Rate 8 L 21 12 Blood Pressure 73/56 L 78/61 L Pulse Oximetry 11/10/18 11:19 11/10/18 11:30 11/10/18 12:00 Temperature 97.5 F L Pulse Rate 95 H 102 H 103 H Respiratory Rate 21 20 19 Blood Pressure 80/55 L 91/75 L 91/75 L Pulse Oximetry 11/10/18 12:31 11/10/18 13:00 11/10/18 13:30 Temperature Pulse Rate 102 H 91 H 98 H Respiratory Rate 13 8 L 18 Blood Pressure 92/51 L 93/66 L 80/64 L Pulse Oximetry 11/10/18 14:00 11/10/18 14:37 11/10/18 14:56 Temperature Pulse Rate 87 104 H 94 H Respiratory Rate 19 21 14 Blood Pressure 95/61 L 91/53 L Pulse Oximetry 11/10/18 15:00 11/10/18 15:30 11/10/18 16:00 Temperature Pulse Rate 92 H 101 H 102 H Respiratory Rate 17 18 21 Blood Pressure 93/61 L 100/68 Pulse Oximetry 11/10/18 16:01 11/10/18 16:30 11/10/18 16:31 Temperature Pulse Rate 104 H 102 H 94 H Respiratory Rate 18 9 L Blood Pressure 108/69 84/53 L Pulse Oximetry Intake & Output 11/09/18 11/10/18 11/10/18 18:59 06:59 18:59 Intake Total 1730 / 1730 1240 / 1240 300 / 300 Output Total 250 / 250 770 / 770 250 / 250 Balance 1480 / 1480 470 / 470 50 / 50 Weight 75 kg Intake: IV 1250 / 1250 1000 / 1000 Levophed Inj 16 MG In NS Inj 250 / 250 234 ML @ 2 MCG/MIN 1.87 mls/hr IV.CONT TITRATE PRN Rx#: [id number] Sodium Bicarbonate 8.4% Inj 150 1000 / 1000 1000 / 1000 MEQ In Sterile Water for Inj 850 ML @ 30 mls/hr IV.CONT . Q24H [facility] Rx#:[id number] Oral 480 / 480 240 / 240 300 / 300 Output: Urine Amount (Catheter) 250 / 250 250 / 250 250 / 250 Indwelling Urethral Catheter 250 / 250 250 / 250 250 / 250 Chest Tube Drainage 520 / 520 Right 10 / 10 Right Upper 510 / 510 Other: Date of Last Bowel Movement 11/05/18 11/10/18 11/10/18 # Bowel Movements 0 1 # Incontinent Bowel Movements 1 Narrative: GENERAL: More drowsy and lethargic, Mild respiratory distress. SKIN: Warm and dry. NECK: Supple, trachea midline. No JVD CARDIOVASCULAR: irregular rate and rhythm without murmurs, gallops, or rubs. On telemetry appears A. fib with just rate control RESPIRATORY: Diminished lung sounds on the upper and lower right lung [place], crackles throughout remaining bilateral lung [place]. GASTROINTESTINAL: Abdomen soft, non-tender, nondistended. MUSCULOSKELETAL: No cyanosis, 3 + edema bilateral lower extremity BACK: Nontender without obvious deformity. NEURO: Patient is more drowsy and lethargic. - Urinary Catheter Management Indwelling Urethral Catheter Cath placed during this visit: yes Reason for continuing: Hourly intake/output Insertion date: 11/06/18 Insertion time: 22:00 Assessment and Plan - Assessment (1) Acute on chronic kidney failure Code(s): N17.9 - Acute kidney failure, unspecified; N18.9 - Chronic kidney disease, unspecified Status: Acute Plan: Patient with chronic kidney disease and develop ERIK. Patient with ERIK, possibly related to CARDIO RENAL. Has been in fluid overload status. Continue Bumex and Aldactone. Now with chest tube. Creatinine is increase slightly to 2.6. Palliative care seen the patient. Family decided to go for Comfort care. I will sign off from Nephrology. (2) Congestive heart failure Code(s): I50.9 - Heart failure, unspecified Status: Acute Qualifiers: Heart failure type: systolic Heart failure chronicity: acute on chronic Qualified Code(s): I50.23 - Acute on chronic systolic (congestive) heart failure Plan: Bedside ECHO, not followed by cardiology outpatient Plan for thoracentesis today. Sats good on room air
[2018-11-11] MEDS: Morphine Sulfate Inj 2 MG/ML Vial IV.PUSH PRN ×2 (02:08→06:32)
[2018-11-11] MEDS: Chlorhexidine Gluconate 2% 1 Pack (2 Cloths) TOPICAL SCH (03:39)
--- NOTE | 2018-11-11 08:03 | P.PNCA ---
Subjective Interval history: Somnolent. Resting comfortably. Medications and Allergies Active Medications: Active Cardiac Medications Bumetanide (Bumex Inj) 1 mg IV.PUSH BID@0900,1800 [facility] Last Admin: 11/10/18 18:03 Dose: 1 mg Allergies Allergy/AdvReac Type Severity Reaction Status Date / Time enalaprilat Allergy Severe does not Verified 11/05/18 23:17 know erythromycin base Allergy Severe does not Verified 11/05/18 23:17 know told as child penicillin G Allergy Severe does not Verified 11/05/18 23:17 know Home Medications Medication Instructions Recorded Confirmed Type apixaban [Eliquis] 2.5 mg PO DAILY 11/05/18 11/05/18 History aspirin 81 mg PO DAILY 11/05/18 11/05/18 History carvedilol [Coreg] 6.25 mg PO BID 11/05/18 11/05/18 History finasteride 5 mg PO DAILY 11/05/18 11/05/18 History furosemide 20 mg PO DAILY 11/05/18 11/05/18 History simvastatin 20 mg PO QPM 11/05/18 11/05/18 History spironolactone 25 mg PO DAILY 11/05/18 11/05/18 History terazosin 2 mg PO DAILY 11/05/18 11/05/18 History Physical Exam Vital signs: Vital Signs 11/10/18 08:27 11/10/18 09:00 11/10/18 10:00 Temperature Pulse Rate 112 H 106 H 102 H Respiratory Rate 26 H 34 H 21 Blood Pressure 88/69 L Pulse Oximetry 11/10/18 10:30 11/10/18 10:47 11/10/18 11:00 Temperature Pulse Rate 103 H 100 H 100 H Respiratory Rate 8 L 21 12 Blood Pressure 73/56 L 78/61 L Pulse Oximetry 11/10/18 11:19 11/10/18 11:30 11/10/18 12:00 Temperature 97.5 F L Pulse Rate 95 H 102 H 103 H Respiratory Rate 21 20 19 Blood Pressure 80/55 L 91/75 L 91/75 L Pulse Oximetry 11/10/18 12:31 11/10/18 13:00 11/10/18 13:30 Temperature Pulse Rate 102 H 91 H 98 H Respiratory Rate 13 8 L 18 Blood Pressure 92/51 L 93/66 L 80/64 L Pulse Oximetry 11/10/18 14:00 11/10/18 14:37 11/10/18 14:56 Temperature Pulse Rate 87 104 H 94 H Respiratory Rate 19 21 14 Blood Pressure 95/61 L 91/53 L Pulse Oximetry 11/10/18 15:00 11/10/18 15:30 11/10/18 16:00 Temperature Pulse Rate 92 H 101 H 102 H Respiratory Rate 17 18 21 Blood Pressure 93/61 L 100/68 Pulse Oximetry 11/10/18 16:01 11/10/18 16:30 11/10/18 16:31 Temperature Pulse Rate 104 H 102 H 94 H Respiratory Rate 18 9 L Blood Pressure 108/69 84/53 L Pulse Oximetry 11/10/18 16:45 11/10/18 17:00 11/10/18 17:15 Temperature Pulse Rate 93 H 89 97 H Respiratory Rate 12 19 17 Blood Pressure 81/58 L 81/54 L 78/57 L Pulse Oximetry 11/10/18 17:31 11/10/18 17:45 11/10/18 18:00 Temperature Pulse Rate 89 88 90 Respiratory Rate 15 18 19 Blood Pressure 75/55 L 84/61 L 83/62 L Pulse Oximetry 99 91 L 11/10/18 18:15 11/10/18 18:30 11/10/18 18:45 Temperature Pulse Rate 84 84 86 Respiratory Rate 8 L 20 17 Blood Pressure 80/52 L 70/53 L 76/55 L Pulse Oximetry 98 98 11/10/18 19:00 11/10/18 19:15 11/10/18 19:30 Temperature Pulse Rate 86 87 87 Respiratory Rate 18 12 9 L Blood Pressure 72/55 L 76/53 L 81/58 L Pulse Oximetry 98 97 95 11/10/18 19:45 11/10/18 20:00 11/10/18 20:15 Temperature Pulse Rate 85 84 87 Respiratory Rate 13 19 8 L Blood Pressure 81/58 L 77/57 L 88/56 L Pulse Oximetry 98 94 L 78 L 11/10/18 20:30 11/10/18 20:45 11/10/18 21:00 Temperature 96.3 F L Pulse Rate 85 83 81 Respiratory Rate 9 L 12 13 Blood Pressure 84/60 L 82/60 L 78/52 L Pulse Oximetry 95 96 82 L 11/10/18 21:15 11/10/18 21:30 11/10/18 21:45 Temperature Pulse Rate 85 92 H 85 Respiratory Rate 14 15 6 L Blood Pressure 82/59 L 76/52 L 74/49 L Pulse Oximetry 81 L 11/10/18 22:00 11/10/18 22:15 11/10/18 22:30 Temperature Pulse Rate 80 84 83 Respiratory Rate 15 14 8 L Blood Pressure 71/48 L 74/52 L 67/50 L Pulse Oximetry 11/10/18 22:33 11/10/18 22:45 11/10/18 23:00 Temperature Pulse Rate 85 85 Respiratory Rate 7 L 15 10 L Blood Pressure 67/49 L 77/51 L Pulse Oximetry 11/10/18 23:15 11/10/18 23:30 11/10/18 23:45 Temperature Pulse Rate 84 89 83 Respiratory Rate 15 14 7 L Blood Pressure 71/51 L 76/54 L 78/54 L Pulse Oximetry 11/11/18 00:00 11/11/18 00:15 11/11/18 00:30 Temperature Pulse Rate 90 81 84 Respiratory Rate 10 L 15 11 L Blood Pressure 76/52 L 70/51 L 74/53 L Pulse Oximetry 11/11/18 00:45 11/11/18 01:00 11/11/18 01:15 Temperature Pulse Rate 87 83 78 Respiratory Rate 12 14 13 Blood Pressure 73/53 L 74/51 L 76/52 L Pulse Oximetry 11/11/18 01:30 11/11/18 01:45 11/11/18 02:00 Temperature Pulse Rate 83 80 82 Respiratory Rate 14 12 10 L Blood Pressure 76/52 L 73/51 L 76/51 L Pulse Oximetry 11/11/18 02:15 11/11/18 02:20 11/11/18 02:30 Temperature Pulse Rate 85 84 Respiratory Rate 10 L 8 L 12 Blood Pressure 77/53 L 74/51 L Pulse Oximetry 11/11/18 02:45 11/11/18 03:00 11/11/18 03:15 Temperature Pulse Rate 84 84 83 Respiratory Rate 14 12 14 Blood Pressure 80/50 L 83/55 L 76/53 L Pulse Oximetry 88 L 11/11/18 03:30 11/11/18 04:00 11/11/18 04:31 Temperature Pulse Rate 89 87 81 Respiratory Rate 14 7 L 8 L Blood Pressure 74/58 L 73/52 L 75/52 L Pulse Oximetry 11/11/18 05:00 Temperature Pulse Rate 85 Respiratory Rate 6 L Blood Pressure 80/53 L Pulse Oximetry Intake & Output 11/10/18 11/11/18 11/11/18 18:59 06:59 18:59 Intake Total 300 / 300 Output Total 250 / 250 660 / 660 Balance 50 / 50 -660 / -660 Weight 76.5 kg Intake: Oral 300 / 300 Output: Urine Amount (Catheter) 250 / 250 60 / 60 Indwelling Urethral Catheter 250 / 250 60 / 60 Chest Tube Drainage 600 / 600 Right Upper 600 / 600 Other: Date of Last Bowel Movement 11/10/18 # Bowel Movements 1 - Constitutional no acute distress - Routine Neck Exam Absent: JVD - Routine Respiratory Exam Present: CTA bilaterally - Routine Cardiovascular Exam Present: RRR, S1, S2. Absent: murmur, gallop - Routine Abdominal Exam Present: soft. Absent: tenderness - Urinary Catheter Management Indwelling Urethral Catheter Cath placed during this visit: yes Reason for continuing: Hourly intake/output Insertion date: 11/06/18 Insertion time: 22:00 Results 11/10/18 05:30 11/10/18 05:30 Cardiac Enzymes 11/10/18 Range/Units 05:30 AST 269 H (15-37) U/L CBC 11/10/18 Range/Units 05:30 WBC 6.5 (4.0-11.0) th/mm3 RBC 4.04 L (4.50-5.90) mil/mm3 Hgb 12.4 L (13.0-17.0) gm/dL Hct 37.0 L (39.0-51.0) % Plt Count 164 (150-450) th/mm3 Neut # (Auto) 4.8 (1.8-7.7) th/mm3 Lymph # (Auto) 1.0 (1.0-4.8) th/mm3 [place] # (Auto) 0.6 (0.0-0.9) th/mm3 Eos # (Auto) 0.0 (0.0-0.4) th/mm3 Baso # (Auto) 0.0 (0.0-0.2) th/mm3 Comprehensive Metabolic Panel 11/10/18 Range/Units 05:30 Sodium 137 (136-145) meq/L Potassium 4.2 (3.5-5.1) meq/L Chloride 99 (98-107) meq/L Carbon Dioxide 26.1 (21.0-32.0) meq/L BUN 70 H (7-18) mg/dL Creatinine 2.68 H (0.60-1.30) mg/dL Calcium 7.6 L (8.5-10.1) mg/dL AST 269 H (15-37) U/L ALT 265 H (12-78) U/L Alkaline Phosphatase 85 (45-117) U/L Total Protein 5.3 L (6.4-8.2) g/dL Albumin 2.5 L (3.4-5.0) g/dL Intake and Output 11/10/18 11/11/18 11/11/18 22:59 06:59 14:59 Intake Total 300 / 300 Output Total 250 / 250 660 / 660 Balance 50 / 50 -660 / -660 Intake: Oral 300 / 300 Output: Urine Amount (Catheter) 250 / 250 60 / 60 Indwelling Urethral Catheter 250 / 250 60 / 60 Chest Tube Drainage 600 / 600 Right Upper 600 / 600 Other: Date of Last Bowel Movement 11/10/18 # Bowel Movements 1 Weight 76.5 kg Assessment and Plan - Assessment (1) Congestive heart failure Code(s): I50.9 - Heart failure, unspecified Status: Acute Plan: Cardiac status without major change. Now No Code status and to go to hospice. Agree with plans from cardiac standpoint. (2) Chronic atrial fibrillation Code(s): I48.2 - Chronic atrial fibrillation Status: Chronic Plan: Stable, chronic atrial fib. HR's OK. Patient comfortable. (3) Coronary artery disease Code(s): I25.10 - Atherosclerotic heart disease of [place] coronary artery without angina pectoris Status: Chronic Plan: Remote history of MD. Stable. No angina symptoms. - Plan Code Status: No Code (1) Congestive heart failure Qualifiers: Heart failure type: systolic Heart failure chronicity: acute on chronic Qualified Code(s): I50.23 - Acute on chronic systolic (congestive) heart failure (3) Coronary artery disease Qualifiers: Coronary Disease-Associated Artery/Lesion type: [place] artery [place] vs. transplanted heart: [place] heart Associated angina: without angina Qualified Code(s): I25.10 - Atherosclerotic heart disease of [place] coronary artery without angina pectoris
[2018-11-11 10:41] VITALS: TEMP 98.2; O2SAT 98
--- NOTE | 2018-11-11 11:00 | P.DS ---
Date of admission: 11/06/18 02:05 Primary care physician: Asif Gutierres MD Attending physician on discharge: Mamta Sheets Anticipated date of discharge: 11/11/18 Brief History from admission: 88-year-old male with a past medical history significant for atrial fibrillation anticoagulated on Eliquis, coronary artery disease, hyperlipidemia and possible CHF as to the emergency department for the evaluation of bilateral lower extremity edema. The patient reports that he began having lower extremity weakness earlier yesterday and was unable to get out of his chair. He states that he fell out of his chair onto the floor secondary to his reported hoarseness. He called 911 and was helped off the ground by [facility] approximately 20 minutes later. He denies any shortness of breath or palpations. On arrival to the emergency department he was found to be in A. fib with RVR. The patient reports he has had 2 other episodes of bilateral lower extremity edema with pleural effusions requiring thoracentesis in the past. He endorses compliance with his medications. He denies any chest pain. No abdominal pain. No nausea/vomiting/diarrhea. No focal neurologic deficits. No fever/chills. Patient update on day of discharge: Patient's family met with palliative care service yesterday and transitioned the patient to comfort-based measures. He has been resting comfortably overnight and this morning appears peaceful and sleepy. He is non-verbal today but does not appear to be in any distress. He has been accepted for transfer to hospice. DS: Diagnosis - Discharge Diagnosis (1) Congestive heart failure Status: Acute (2) Chronic kidney disease Status: Chronic (3) Pleural effusion, right Status: Acute (4) Acidosis, lactic Status: Acute (5) Acute on chronic kidney failure Status: Acute (6) Chronic atrial fibrillation Status: Chronic (7) Coronary artery disease Status: Chronic (8) Dyspnea Status: Acute (9) Weakness Status: Acute (10) Pneumothorax Status: Acute DS: Summary Hospital Course: 88-year-old male with a past medical history significant for atrial fibrillation on Eliquis, coronary artery disease, hyperlipidemia and possible CHF who presented to the emergency department with bilateral lower extremity edema. In the ER patient was found to be in A. fib with RVR. Patient reported having pleural effusions requiring thoracentesis in the past. Patient symptoms were attributed to CHF, chest x-ray showed bilateral effusion, BNP was more than 2300, and troponin was mildly elevated at 0.08. And echocardiogram showed the left ventricular systolic function severely reduced with an estimated ejection fraction less than 20%. Moderate to severe mitral valve regurgitation. It was also noted that patient had a lactic acid of 4.3. This is most likely secondary to poor perfusion and developing cardiogenic shock. There is no evidence of sepsis. Patient underwent right-sided thoracentesis by IR today. Postprocedural radiograph did show a pneumothorax. However patient was completely asymptomatic at that time and no chest tube was placed. Per Dr. Aguiar's note stated chest x-ray showed fibrotic appearance of the right lung. Patient had some increase in shortness of breath late evening today. A repeat chest x-ray showed a persistent right pneumothorax which appeared larger when compared to the prior exam now measuring up to 2.4 cm over the right apex. Previously was 1 cm. A pneumothorax is also seen in the inferior lateral right base. No mediastinal shift. I evaluated the patient in the ICU. He is showing good oxygen saturation on 2 L nasal cannula, mildly tachypneic. I have ordered a stat CT of the chest to evaluate for a loculated pneumothorax. Patient may need a chest tube depending on the size of the pneumothorax 11/07: Afebrile. Remains on nasal cannula. Chest x-ray reveals revealed possible worsening pneumothorax. Stat CT thorax ordered. 1100 cc from right- sided chest tube placed overnight. Appears comfortable and normotensive. Denies shortness of breath 11/08: Currently 6 L nasal cannula. Adequate saturations. Worsening pneumothorax increased suction -40 cmH2O. We will check chest x-ray at noon today. Will notify IR possible need for guided chest tube placement at the present time. He was comfortable. On norepinephrine drip at 14 mcg/min and dobutamine drip at 2.5 mcg/kg/min 11/09: Patient is currently on nasal cannula, reports no pain or dyspnea, offers no complaints. 11/10: The patient and his family met with NICKO Sheldon from the palliative care service and have elected to transition to comfort based measures. He offers no complaints and says that he is not in any pain. - Time Spent with Patient Total time spent providing and/or coordinating discharge services: Less than 30 minutes - Quality: VTE Deep Vein Thrombosis/Pulmonary Embolism Present on Admission: No Exam Vital signs: Vital Signs 11/10/18 11:00 11/10/18 11:19 11/10/18 11:30 Temperature Pulse Rate 100 H 95 H 102 H Respiratory Rate 12 21 20 Blood Pressure 80/55 L 91/75 L Pulse Oximetry 11/10/18 12:00 11/10/18 12:31 11/10/18 13:00 Temperature 97.5 F L Pulse Rate 103 H 102 H 91 H Respiratory Rate 19 13 8 L Blood Pressure 91/75 L 92/51 L 93/66 L Pulse Oximetry 11/10/18 13:30 11/10/18 14:00 11/10/18 14:37 Temperature Pulse Rate 98 H 87 104 H Respiratory Rate 18 19 21 Blood Pressure 80/64 L 95/61 L 91/53 L Pulse Oximetry 11/10/18 14:56 11/10/18 15:00 11/10/18 15:30 Temperature Pulse Rate 94 H 92 H 101 H Respiratory Rate 14 17 18 Blood Pressure 93/61 L 100/68 Pulse Oximetry 11/10/18 16:00 11/10/18 16:01 11/10/18 16:30 Temperature Pulse Rate 102 H 104 H 102 H Respiratory Rate 21 18 9 L Blood Pressure 108/69 84/53 L Pulse Oximetry 11/10/18 16:31 11/10/18 16:45 11/10/18 17:00 Temperature Pulse Rate 94 H 93 H 89 Respiratory Rate 12 19 Blood Pressure 81/58 L 81/54 L Pulse Oximetry 11/10/18 17:15 11/10/18 17:31 11/10/18 17:45 Temperature Pulse Rate 97 H 89 88 Respiratory Rate 17 15 18 Blood Pressure 78/57 L 75/55 L 84/61 L Pulse Oximetry 99 11/10/18 18:00 11/10/18 18:15 11/10/18 18:30 Temperature Pulse Rate 90 84 84 Respiratory Rate 19 8 L 20 Blood Pressure 83/62 L 80/52 L 70/53 L Pulse Oximetry 91 L 98 11/10/18 18:45 11/10/18 19:00 11/10/18 19:15 Temperature Pulse Rate 86 86 87 Respiratory Rate 17 18 12 Blood Pressure 76/55 L 72/55 L 76/53 L Pulse Oximetry 98 98 97 11/10/18 19:30 11/10/18 19:45 11/10/18 20:00 Temperature Pulse Rate 87 85 84 Respiratory Rate 9 L 13 19 Blood Pressure 81/58 L 81/58 L 77/57 L Pulse Oximetry 95 98 94 L 11/10/18 20:15 11/10/18 20:30 11/10/18 20:45 Temperature Pulse Rate 87 85 83 Respiratory Rate 8 L 9 L 12 Blood Pressure 88/56 L 84/60 L 82/60 L Pulse Oximetry 78 L 95 96 11/10/18 21:00 11/10/18 21:15 11/10/18 21:30 Temperature 96.3 F L Pulse Rate 81 85 92 H Respiratory Rate 13 14 15 Blood Pressure 78/52 L 82/59 L 76/52 L Pulse Oximetry 82 L 81 L 11/10/18 21:45 11/10/18 22:00 11/10/18 22:15 Temperature Pulse Rate 85 80 84 Respiratory Rate 6 L 15 14 Blood Pressure 74/49 L 71/48 L 74/52 L Pulse Oximetry 11/10/18 22:30 11/10/18 22:33 11/10/18 22:45 Temperature Pulse Rate 83 85 Respiratory Rate 8 L 7 L 15 Blood Pressure 67/50 L 67/49 L Pulse Oximetry 11/10/18 23:00 11/10/18 23:15 11/10/18 23:30 Temperature Pulse Rate 85 84 89 Respiratory Rate 10 L 15 14 Blood Pressure 77/51 L 71/51 L 76/54 L Pulse Oximetry 11/10/18 23:45 11/11/18 00:00 11/11/18 00:15 Temperature Pulse Rate 83 90 81 Respiratory Rate 7 L 10 L 15 Blood Pressure 78/54 L 76/52 L 70/51 L Pulse Oximetry 11/11/18 00:30 11/11/18 00:45 11/11/18 01:00 Temperature Pulse Rate 84 87 83 Respiratory Rate 11 L 12 14 Blood Pressure 74/53 L 73/53 L 74/51 L Pulse Oximetry 11/11/18 01:15 11/11/18 01:30 11/11/18 01:45 Temperature Pulse Rate 78 83 80 Respiratory Rate 13 14 12 Blood Pressure 76/52 L 76/52 L 73/51 L Pulse Oximetry 11/11/18 02:00 11/11/18 02:15 11/11/18 02:20 Temperature Pulse Rate 82 85 Respiratory Rate 10 L 10 L 8 L Blood Pressure 76/51 L 77/53 L Pulse Oximetry 11/11/18 02:30 11/11/18 02:45 11/11/18 03:00 Temperature Pulse Rate 84 84 84 Respiratory Rate 12 14 12 Blood Pressure 74/51 L 80/50 L 83/55 L Pulse Oximetry 11/11/18 03:15 11/11/18 03:30 11/11/18 04:00 Temperature Pulse Rate 83 89 87 Respiratory Rate 14 14 7 L Blood Pressure 76/53 L 74/58 L 73/52 L Pulse Oximetry 88 L 11/11/18 04:31 11/11/18 05:00 11/11/18 05:30 Temperature Pulse Rate 81 85 83 Respiratory Rate 8 L 6 L 11 L Blood Pressure 75/52 L 80/53 L 72/52 L Pulse Oximetry 11/11/18 06:00 11/11/18 06:30 11/11/18 07:00 Temperature Pulse Rate 83 84 80 Respiratory Rate 14 15 7 L Blood Pressure 74/57 L 67/50 L 76/56 L Pulse Oximetry 11/11/18 07:30 11/11/18 08:00 11/11/18 08:30 Temperature 98.2 F Pulse Rate 80 83 80 Respiratory Rate 12 11 L 11 L Blood Pressure 77/52 L 79/51 L 77/53 L Pulse Oximetry 11/11/18 09:00 11/11/18 09:30 11/11/18 10:00 Temperature Pulse Rate 85 84 84 Respiratory Rate 10 L 12 10 L Blood Pressure 83/55 L 78/56 L 76/55 L Pulse Oximetry 99 99 11/11/18 10:30 Temperature Pulse Rate 81 Respiratory Rate 14 Blood Pressure 72/50 L Pulse Oximetry 98 Intake & Output 11/10/18 11/11/18 11/11/18 18:59 06:59 18:59 Intake Total 300 / 300 Output Total 250 / 250 660 / 660 Balance 50 / 50 -660 / -660 Weight 76.5 kg Intake: Oral 300 / 300 Output: Urine Amount (Catheter) 250 / 250 60 / 60 Indwelling Urethral Catheter 250 / 250 60 / 60 Chest Tube Drainage 600 / 600 Right Upper 600 / 600 Other: Date of Last Bowel Movement 11/10/18 # Bowel Movements 1 Narrative: GENERAL: Elderly male lying in bed, appears peaceful SKIN: Warm and dry. HEENT: NCAT, mucosa moist NECK: Trachea midline CARDIOVASCULAR: IRR, borderline tachy RESPIRATORY: Coarse crackles at bilateral bases, minimally bradypneic but not in any respiratory distress. Right #10 Romanian pigtail catheter and right #20 Romanian chest tube remain in place GASTROINTESTINAL: Abdomen soft, non-distended MUSCULOSKELETAL: (+) lower extremity edema. NEUROLOGICAL: Somnolent PSYCHIATRIC: Appears peaceful Results Procedures completed during hospitalization: Thoracentesis 11/06 Right pigtail chest tube 11/06 Right IJ central line 11/07 Right open chest tube 11/07 Right femoral arterial line 11/07 Pending studies at discharge: None - Impressions ITS Impressions Head CT 11/05/18 23:46 CONCLUSION: No acute intracranial findings . Abdomen/Bladder Ultrasound 11/06/18 00:00 CONCLUSION: 1. Probable left renal stones without evidence of hydronephrosis. 2. Trabeculated bladder. Thoracentesis Ultrasound 11/06/18 00:00 CONCLUSION: 1. Right-sided thoracentesis as detailed above. 2. A large amount of fluid was removed from the right chest. Postprocedural radiograph did show a pneumothorax. However, the patient is completely asymptomatic without pain and saturating at 97-98% on 2 L nasal cannula. Chest radiograph shows a fibrotic appearance of the right lung and, as such, I do not feel patient would benefit from percutaneous chest tube placement this time. Patient will be monitored on the floor and a follow-up chest radiograph will be performed later this afternoon to ensure stability. Chest CT 11/07/18 09:50 CONCLUSION: 1. Moderate right-sided hydropneumothorax. 2. Small caliber right-sided chest tube in the lower right hemithorax. 3. Moderate left pleural effusion. 4. Bibasilar consolidation and patchy densities in the right middle lobe. 5. Cardiomegaly and coronary artery calcifications. Liver Ultrasound 11/08/18 00:00 CONCLUSION: 1. Mild ascites. Echogenic liver characteristic of fatty infiltration. Chest X-Ray 11/09/18 06:00 CONCLUSION: 1. Stable position of the right-sided surgical and cope loop thoracostomy tubes as above. 2. Persistent right-sided pneumothoraces with a small apical and moderate inferolateral component. 3. Stable left basilar consolidation/effusion. 4. Cardiomegaly Discharge Plan - Discharge Disposition Patient Disposition: [facility] Hospice/Med Facility - Discharge Condition Condition: Stable - Discharge Order Discharge Orders: Discharge Order (Routine); Ordered 11/11/18 Ordered By: Mamta Sheets - Discharge Details Anticipated Discharge Date: 11/11/18 Discharge Comment: Inpatient hospice - Physicians Team Primary Care Provider: Asif Gutierres Attending Provider: Hernando Falcon Other Providers: Christen Ramires MD ; Manish Ventura MD ; Heaven Merchant MD ; Raul Ritchie MD ; Hernando Falcon MD
[2018-11-11 12:18] VITALS: BP 82/58; PULSE 90
[2018-11-11 12:19] VITALS: RESP 8
== END 2018-11-11 11:50 | disposition hospice, inpatient (51) | DRG 291 ==
LOC: NEPC 22:14 → NEDA 11-06 02:05 → H7ONC 11-06 04:09 → HIMC 11-06 19:30
PROVIDERS: ADMIT Internal Medicine; ATTEND Internal Medicine
CPT/HCPCS: 32020; 32551; 32555; 70450; 71010; 71045; 71250; 76705; 76775; 76937; 80048; 80053; 80074; 82150; 82550; 82570; 82805; 82945; 83520; 83605; 83615; 83735; 83880; 83935; 84100; 84155; 84157; 84165; 84300; 84439; 84443; 84480; 84484; 85025; 85610; 85730; 87070; 87205; 87641; 89051; 93005; 93306; 94150; 94640; 94664; 94665; 97162; 99285; C1729; J1250; J1644; J1940; J2060; J2250; J2270; J3010; J7050